=== PATIENT | female | born 1945 | race Caucasian/White ===

== ENCOUNTER 2023-12-03 16:02 | Inpatient (IN) | payer OTHER, SELFPAY ==
--- NOTE | 2023-12-03 14:16 | ED.GENMED ---
History of Present Illness
General
Chief Complaint: Chest Pain
Source: patient and ambulance crew
Exam Limitations: none
Time Seen by Provider: 12/03/23 14:16
Nursing documentation reviewed up to this point in time: agreed with
History of Present Illness
History of Present Illness:
78-year-old female presents the emergency department due to chest pain that began at 1 PM. She was sitting in a chair, and was active an hour prior, walking her dog. She also reports nausea. STEMI alert called prehospital. This was called upon
my viewing the EKG. Aspirin 324 given by EMS.
Past History
Past History
ED Past Medical History: HTN and Hypercholesterolemia
ED Past Surgical History: Other (Cataracts bilateral)
Social History
Tobacco: Non-smoker
Alcohol: None
Drug: None
Personal:
Living: with family
Review of Systems
Review of Systems
Allergies reviewed?: Yes
All Other Systems: Not applicable
Constitutional: Reports no symptoms
EENT: Reports no symptoms
Respiratory: Reports no symptoms
Cardiac: Reports chest pain
ABD/GI: Reports no symptoms
: Reports no symptoms
Musculoskeletal: Reports no symptoms
Skin: Reports no symptoms
Neurological: Reports no symptoms
Endocrine: Reports no symptoms
Hematologic/Lymphatic: Reports no symptoms
Psychiatric: Reports no symptoms
Phy Exam
Physical Exam
Physical Exam:
Physical Exam
General: Appears uncomfortable
Neck: supple. no meningeal signs. normal posterior pharynx
Heart: s1/s2 bradycardia, irregular, no murmur. equal radial
pulses.
HEENT: Pupils equal round reactive to light, EOMI
Lungs: no acute respiratory distress. clear bilaterally
Abdomen: normal bowel sounds. not tender. no CVAT
Neuro: alert and oriented. no focal neurological deficits cranial nerves II through XII intact
Skin: no rash
Psychiatric: well kept. interactive and cooperative
Extremities: no edema. no calf tenderness. negative homans. good distal pulses
Scores
Heart Score for Chest Pain Patients
STEMI patient?: Yes
Course
Orders/Labs/Results
Orders:
Orders
12/03/23 06:00
Echo Follow-up Study Routine
Reason for Study: stemi
12/03/23 14:12
Electrocardiogram (*1) Urgent
Reason for Study: Chest Pain
Cardiac Monitoring- Treatment ONCE
EKG- Treatment ONCE
IV Insert/Care/Rem.- Treatment PRN
O2 Therapy [RESP] Urgent
Titrate/Wean O2 to maintain O2 sat greater than (%): 90
Special Instructions: Maintain sats >/=90%
Pulse Ox/spot Check [RESP] Urgent
Quantity: 1
Special Instructions: ON ROOM AIR
12/03/23 14:14
Complete Blood Count/With Diff Urgent
Comprehensive Metabolic Panel Urgent
Prothrombin Time Urgent
Troponin I Urgent
12/03/23 14:16
Heparin 1000 Units/500 ml [Heparin] 1,000 units in 500 ml .ROUTE .STK-MED
Heparin Sodium,Porcine/Ns/Pf [Heparin 2000 Units/1000 ml] 2,000 unit in 1,000 ml .ROUTE .STK-MED
Lidocaine HCl/Pf [Xylocaine-Mpf 1% Vial] 100 mg .ROUTE .STK-MED ONE
Nitroglycerin [Tridil] 1,500 mcg .ROUTE .STK-MED ONE
Verapamil Injectable [Isoptin/Verapamil Injection] 5 mg .ROUTE .STK-MED ONE
12/03/23 14:33
Fentanyl Citrate/Pf [Sublimaze] 100 mcg .ROUTE .STK-MED ONE
Heparin 10,000 units .ROUTE .STK-MED ONE
Midazolam HCl [Versed] 2 mg .ROUTE .STK-MED ONE
12/03/23 14:36
Heparin 5,000 units .ROUTE .STK-MED ONE
Ticagrelor [Brilinta] 180 mg .ROUTE .STK-MED ONE
12/03/23 14:44
Code Status As Directed
Resuscitation Status: Full Code
Acetaminophen [Tylenol] 650 mg PO Q4HPRN PRN
DOPamine 400 MG/D5W 250 ML [DOPamine 400 MG] 400 mg in 250 ml .ROUTE .STK-MED
Morphine Sulfate 2 mg IV Q1HPRN PRN
12/03/23 14:45
Admit Patient As Directed
Co-Sign Provider:
Level of Care: Inpatient admission
Assign to:: CVICU
Physician / Group: Hospitalist/[place]
Diagnosis: STEMI
Reason for Hospitalization: STEMI, Cardiogenic shock, RCA PCI
Expected length of stay greater than two midnights?: Yes
ELOS- Estimated Length of Stay in days: 4
I certify the patient meets the requirements for IP care: Yes
Electrocardiogram (*1) Urgent
Reason for Study: Other
Other Reason for Exam: s/p intervention
Comment: cbc
CARDIAC REHAB CONSULT Routine
Co-Sign Provider:
Type of Cardiac Rehab Referral: Outpatient
Diagnosis: STEMI
Date of Diagnosis/Surgery: 12/03/23
Referring Provider: Ilir Lowery
0.9% Sodium Chloride 1000 ml [Nss] 1,000 ml IV PER PROTOCOL
Infusion rate in mL/kg/hr:: 1.5
Infusion rate in mL/hr:: 113
Duration of infusion (hours):: 5
Activity As Directed
Activity Level: Out of Bed- Chair
Comment: bed/chair rest for 2 hours then out of bed [place]
[facility] Procedure As Directed
Cardiac Cath Procedure: percutaneous coronary intervention
Intake/ Output As Directed
Frequency: Per unit guidelines
Notify MD As Directed
Notify physician if: immediately for chest pain or bleeding from access site(s)
Radial Artery Hemostasis Method As Directed
Instructions:: 3 mL out at 2 hour posts placement of band
3 mL out at 2 1/2 hours post placement of band
3 mL out at 3 hours post placement of band
Off at 3 1/2 hours post placement of band
If any oozing or hemotoma occurs:: re-inflate band and call provider
Site Checks As Directed
Check access site for bleeding/hematoma: Yes
Comment: on arrival, Q15min x4, Q30min x2, Q1 hr x2, Q2 hr x2, Q4 hr or per
protocol
Vascular Checks As Directed
Location: distal to access site - pulse check
Frequency: Other
Comment: on arrival, Q15min x4, Q30min x2, Q1 hr x2, Q2 hr x2, Q4 hr or per protocol
Vital Signs As Directed
Frequency: Other
Additional Instructions:: on arrival, Q15min x4, Q30min x2, Q1 hr x2, Q2 hr x2, then Q4 hr or per unit
protocol
PRN Pain Medication Management As Directed
May give lesser potent ordered pain med per pt: Yes
preference::
Protocol:: Medication orders for pain may be administered in a
manner that supports deferring to patient preference
when the pt is:
- Requesting an ordered lesser potent pain medication.
Least to most potent pain medications are defined
as: acetaminophen < NSAID < tramadol < opioids
(morphine, oxycodone, hydromorphone).
- Requesting a lesser dose of the same medication IF
ORDERED.
- Requesting a less intrusive route of administration
if both routes are prescribed by the provider (PO <
IV).
12/03/23 14:46
DX Deep Vein Thrombosis Video Routine
12/03/23 14:54
NORepinephrine 4 MG/250 ML [Levophed] 4 mg in 250 ml .ROUTE .STK-MED
12/03/23 14:56
ABG [Arterial Blood Gas] Stat
%Oxygen/Room Air: 100%F1O2
12/03/23 15:01
Ondansetron Injectable [Zofran] 4 mg .ROUTE .STK-MED ONE
12/03/23 15:03
Lactic Acid Stat
12/03/23 15:16
Atropine Sulfate [Atropine 0.1 mg/ml Syringe] 1 mg .ROUTE .STK-MED ONE
12/03/23 15:25
Propofol 1,000,000 Mcg/100 ml [Diprivan] 1,000,000 mcg in 100 ml .ROUTE .STK-MED
12/03/23 15:26
Dexamethasone Sod Phosphate [Decadron] 20 mg .ROUTE .STK-MED ONE
Ondansetron Injectable [Zofran] 4 mg .ROUTE .STK-MED ONE
12/03/23 15:37
Heparin 1000 Units/500 ml [Heparin] 1,000 units in 500 ml .ROUTE .STK-MED
12/03/23 16:00
Flush (0.9% Sodium Chloride) [Flush (Nss)] See Dose Instructions IV PER PROTOCOL
12/04/23 02:00
Troponin I Q6H
12/04/23 06:00
Electrocardiogram (*1) IN AM
Reason for Study: Other
Other Reason for Exam: s/p intervention
Comment: cbc
Cardiovascular Evaluation IN AM
Complete Blood Count/No Diff IN AM
Comprehensive Metabolic Panel IN AM
12/04/23 08:00
Troponin I Q6H
Pantoprazole [Protonix] 40 mg PO DAILY
12/04/23 18:00
Enoxaparin Sodium [Lovenox] 40 mg SC QPM
12/05/23 06:00
Electrocardiogram (*1) IN AM
Reason for Study: Other
Other Reason for Exam: s/p intervention
Comment: cbc
Complete Blood Count/No Diff IN AM
Comprehensive Metabolic Panel IN AM
Abnormal Lab Results
12/03/23 12/03/23 12/03/23
14:14 14:34 14:48
WBC 13.7 H 10^3/uL
(4.8-10.8)
RDW 14.6 H %
(11.5-14.5)
Abs Immat Gran (auto) 0.1 H 10^3/uL
(0-0.05)
Absolute Neuts (auto) 7.8 H 10^3/uL
(1.4-6.5)
Absolute Lymphs (auto) 3.9 H 10^3/uL
(1.2-3.4)
Absolute Monos (auto) 1.5 H 10^3/uL
(0.1-0.6)
Monocytes % 10.9 H %
(1.7-9.3)
HCO3
ABG O2 Sat (Measured)
Carbon Dioxide 19 L mmol/L
(22-30)
Creatinine 1.1 H mg/dL
(0.6-1.0)
Glucose 166 H mg/dl
(70-99)
Lactic Acid
AST 77 H U/L
(14-36)
ALT 44 H U/L
(0-35)
Alkaline Phosphatase 255 H U/L
(38-126)
POC ACT Low Range 186 H Seconds 271 H Seconds
(116-155) (116-155)
12/03/23 12/03/23 12/03/23
14:56 15:03 15:05
WBC
RDW
Abs Immat Gran (auto)
Absolute Neuts (auto)
Absolute Lymphs (auto)
Absolute Monos (auto)
Monocytes %
HCO3 19.8 L mmol/L
(21-28)
ABG O2 Sat (Measured) 100.0 H %
(94-98)
Carbon Dioxide
Creatinine
Glucose
Lactic Acid 3.3 H mmol/L
(0.7-2.0)
AST
ALT
Alkaline Phosphatase
POC ACT Low Range 281 H Seconds
(116-155)
12/03/23
15:53
WBC
RDW
Abs Immat Gran (auto)
Absolute Neuts (auto)
Absolute Lymphs (auto)
Absolute Monos (auto)
Monocytes %
HCO3
ABG O2 Sat (Measured)
Carbon Dioxide
Creatinine
Glucose
Lactic Acid
AST
ALT
Alkaline Phosphatase
POC ACT Low Range 303 H Seconds
(116-155)
12/03/23 14:14
12/03/23 14:14
Vital Signs
Initial and Last Documented VS:
Initial Vital Signs
Pulse Resp BP Pulse Ox
59 15 151/111 99
12/03/23 14:19 12/03/23 14:19 12/03/23 14:19 12/03/23 14:19
Last Documented Vital Signs
Pulse Resp BP Pulse Ox
59 16 159/112 99
12/03/23 14:27 12/03/23 14:27 12/03/23 14:27 12/03/23 14:27
MDM/Problems Addressed
Differential Diagnosis Includes:
STEMI, dissection
MDM/Problems Addressed:
78-year-old female with STEMI, taken to [facility] by Dr. Arellano.
Chronic conditions affecting care: HTN
Acute Exacerbation and/or Progression of Chronic Illness: HTN
*Pulse Oximetry
Patient hypoxic: no
*EKG
Interpreted by ED Provider?: Yes
EKG Intrepretation Date: 12/03/23
EKG Intrepretation Time: 14:14
Interpretation: abnormal
Comparison EKG: no comparison EKG present
Heart Rate: 51
Rate: bradycardiac
Rhythm: a-fib
[place]: right axis deviation
Interval: normal interval
QRS Pattern: normal QRS
Ischemia: ST elevation
*Goods Layer Interpretation
Rate: bradycardiac
Interpretation: abnormal
Heart Rate: 57
Rhythm: sinus tachycardia
*Critical Care Note
Total Time (30-74mins, 75-104mins- exclusive of procedures): Not Applicable
Patient Management
Social determinants of health affecting care: Living situation
Discussion with other providers: Inventory Manager (cardioinvasive Dr. Arellano)
Escalation/DeEscalation of care consider admission/obs:
admit indicated
ED Attending Note
-
Portions of this chart may have been created with voice recognition software.� Occasional wrong word or��sound alike� substitutions may have occurred due to the inherent limitations of voice recognition software.
Discharge Plan
Departure
Patient Disposition: WE[facility] INSTRUCTOR
Date of Disposition: 12/03/23
Time of Disposition: 14:17
Admit to: center medical and lab director
Presentation/result/management discussed w/ accepting MD/DO: cardiology Dr. Arellano
Patient with high blood pressure during this ER visit?: Yes
Condition: Serious
Discharge Problem:
ST elevation (STEMI) myocardial infarction
Interventions
Interventions:
*Risk Screen - Suicide Last Done: 12/03/23 14:25
*General Assessment Last Done: 12/03/23 14:25
*Neglect/Abuse Screening Last Done: 12/03/23 14:25
ED- Fall Risk Assessment Last Done: 12/03/23 14:27
*ED COVID-19 Vaccine History Last Done: 12/03/23 14:26
*Nursing Disposition Last Done: 12/03/23 14:27
ED- Cardiac Assessment Last Done: 12/03/23 14:31
Discharge Date and Time
Discharge Date/Time: 12/03/23 14:27
[2023-12-03 14:19] VITALS: BP 151/111
[2023-12-03 14:24] LABS: % Basophils 0.7 % (0-2); % Immature Granulocytes 0.4 % (0-0.5); % Lymphocytes 28.8 % (20.5-51.1); % Monocytes 10.9 % (1.7-9.3); % Neutrophils 57.2 % (42.2-75.2); Absolute Basophils 0.1 10^3/uL (0-0.2); Absolute Eosinophils 0.3 10^3/uL (0-0.7); Absolute Immature Granulocytes 0.1 10^3/uL (0-0.05); Absolute Lymphocytes 3.9 10^3/uL (1.2-3.4); Absolute Monocytes 1.5 10^3/uL (0.1-0.6); Absolute Neutrophils 7.8 10^3/uL (1.4-6.5); Hematocrit 38.4 % (37.0-47.0); Hemoglobin 13.2 g/dL (12.0-16.0); Mean Corp Hgb Conc. 34.4 g/dL (33.0-37.0); Mean Corpuscular Hgb 30.3 pg (27.0-31.0); Mean Corpuscular Volume 88.3 fL (81.0-99.0); Mean Platelet Volume 10.4 fL (7.4-10.4); Nucleated Red Blood Cells % 0 %; Platelet Count 293 10^3/uL (130-400); Red Blood Cell Count 4.35 10^6/uL (4.20-5.40); Red Cell Dist. Width 14.6 % (11.5-14.5); White Blood Cell Count 13.7 10^3/uL (4.8-10.8)
[2023-12-03 14:27] VITALS: BP 159/112; BMI 26.7
[2023-12-03 14:33] LABS: INR 1.01; PT 13.1 Sec (11.4-14.6)
[2023-12-03 14:37] LABS: ALT (SGPT) 44 U/L (0-35); AST (SGOT) 77 U/L (14-36); Albumin 4.4 g/dl (3.5-5.0); Alkaline Phosphatase 255 U/L (38-126); Blood Urea Nitrogen 16 mg/dl (7-17); Calcium 9.5 mg/dl (8.4-10.2); Carbon Dioxide 19 mmol/L (22-30); Chloride 107 mmol/L (98-107); Estimated Creatinine Clearance 39 ml/min; Glucose 166 mg/dl (70-99); Potassium 3.9 mmol/L (3.5-5.1); Sodium 138 mmol/L (135-145); Total Bilirubin 0.4 mg/dl (0.2-1.3); Total Protein 7.9 g/dl (6.3-8.2); eGFR 51.43
[2023-12-03 14:41] LABS: ACT-LR - POC 186 Seconds (116-155)
[2023-12-03 14:49] LABS: Troponin I < 0.012 ng/ml
[2023-12-03 14:53] LABS: ACT-LR - POC 271 Seconds (116-155)
[2023-12-03 15:10] LABS: ACT-LR - POC 281 Seconds (116-155)
[2023-12-03 15:22] LABS: Lactic Acid 3.3 mmol/L (0.7-2.0)
[2023-12-03 15:39] LABS: B.E. -4.9 mmol/L; HCO3 19.8 mmol/L (21-28); PCO2 35 mmHg (32-35); PO2 105 mmHg (83-108); pH 7.36 (7.35-7.45)
--- NOTE | 2023-12-03 15:45 | CON.CAR ---
Consultation
Consultation Request
Date/Time Consultation Performed: 12/03/23 1500
Performing Provider: MIKE Belle for Genaro Arellano MD
Reason for Consultation: STEMI
Medical History
-
Chief Complaint: chest pain
History of Present Illness:
78 y/o white female, PMH sig for HTN, HLD, hypothyroid, epilepsy, elevated LFTs, and FH CAD, CVA.
New onset acute chest pain while at rest associated with nausea. Endorses that she recently walked her dog without symptoms. She called EMS, and inital EKG with inferior and lateral ST elevations. Given 324mg asa and tranported to ER.
Brought emergently to catheter finisher and inspector in cardiogenic shock, started on dopamine and norepinephrine gtts. Rhythm with heart block requiring atropine as well as afib/flutter with VT, shocked once for VF. Ultimately intubated and impella placed via RFA.
Initial troponin <0.012, lactic acid 3.3.
Past Medical History
Past Medical History: HTN, Hypercholesterolemia, Hypothyroidism and Other (Epilipsy, Elevated LFTs)
Past Surgical History: Tonsilectomy
Social History
Tobacco: Non-Smoker
Alcohol: None
Drug: None
Personal:
Living: With Family
Employment: Not Employed
Family History
Family History: Early CAD, CAD and Other (CVA)
Allergies / Home Medications
Allergy/AdvReac Type Severity Reaction Status Date / Time
No Known Allergies Allergy Unverified 12/03/23 14:19
�Medication �Instructions �Recorded �Confirmed �Type
atorvastatin 40 mg tablet (Lipitor) 40 mg PO DAILY 12/03/23 12/03/23 History
levothyroxine 125 mcg tablet 125 mcg PO DAILY 12/03/23 12/03/23 History
(Synthroid)
lisinopril 40 mg tablet 40 mg PO DAILY 12/03/23 12/03/23 History
phenytoin sodium extended 100 mg 300 mg PO Q48H 12/03/23 12/03/23 History
capsule
phenytoin sodium extended 100 mg 400 mg PO Q48H 12/03/23 12/03/23 History
capsule
Review of Systems
-
Unable to obtain full review of systems at this time due to: Acuity
History Source: Physician and Other (primary office note)
All other systems: Negative unless noted
Cardiac: Chest Pain
Abdomen/GI: Nausea
Physical Exam
Vital Signs
Pulse Resp BP Pulse Ox
59 16 159/112 99
12/03/23 14:27 12/03/23 14:27 12/03/23 14:27 12/03/23 14:27
Lab Results
Laboratory Tests
12/03/23 12/03/23 12/03/23
14:14 14:56 15:03
PT 13.1
INR 1.01
pH 7.36
pCO2 35
pO2 105
HCO3 19.8 L
Base Excess -4.9
ABG O2 Sat (Measured) 100.0 H
Estimated Creat Clear 39
eGFR 51.43
Lactic Acid 3.3 H
Calcium 9.5
Total Bilirubin 0.4
AST 77 H
ALT 44 H
Alkaline Phosphatase 255 H
Total Protein 7.9
Albumin 4.4
12/03/23 14:14
12/03/23 14:14
Troponin I < 0.012 ng/ml 12/03/23 14:14
Physical Exam
General: Well Developed and Other (PE deferred due to urgent nature of cath)
Impression / Plan
-
78 y/o white female, PMH sig for HTN, HLD, hypothyroid, epilepsy, elevated LFTs, and FH CAD, CVA.
New onset acute chest pain while at rest associated with nausea. Endorses that she recently walked her dog without symptoms. She called EMS, and inital EKG with inferior and lateral ST elevations. Given 324mg asa and tranported to ER.
Brought emergently to catheter finisher and inspector in cardiogenic shock, started on dopamine and norepinephrine gtts. Rhythm with heart block requiring atropine as well as afib/flutter with VT, shocked once for VF. Ultimately intubated and impella placed via RFA.
Initial troponin <0.012, lactic acid 3.3.
IMPRESSION:
Acute inferolateral STEMI
Cardiogenic shock with impella/pressor support
intubated with ventilator support
LHC with RCA and LAD thrombotic occlusions
anticipate angioplasty and stenting
likely DAPT w/asa, brilinta
trend troponin to peak
Cartography Supervisor consult for vent/critical care management
echo in AM
HLD- lipid profile in AM
on statin therapy with atorvastatin 40/d
Epilepsy- phenytoin 300mg alt w/400mg every other day
consider drug interactions
consult neuro
Elevated LFTs- monitoring per PCP
will repeat in AM- on phenytoin and atorvastatin as outpt
Data Reviewed
-
EKG: Tracing Personally Visualized and interpreted, Report Reviewed by me and Discussed with Physician
Labs: Labs Reviewed by me and Discussed with Physician
Old Records: Reviewed
Critical Care Time (in minutes): 90
[2023-12-03 15:59] LABS: ACT-LR - POC 303 Seconds (116-155)
--- NOTE | 2023-12-03 16:07 | W.PN.ANESINT ---
Anesthesia Intubation Note
- Intubation Note
Intubation Note:
Diagnosis: STEMI
Blade: MAC3
Tube Size: 8.0
Depth: 23
Side Taped:R
Drugs Used:Propofol 40 mg, Anectine 120mg, Rocuronium 50mg, Phenylep[hrine 300mcg, Decadron 8mg, Zofran 4mg
Grade View:gr 1
EtCO2 Present:pos
Atraumatic:yes
Attempts: 1
Insertion Start and Stop Time:15:15
SaO2 Pre:99
SaO2 Post:100
Glidescope Used:yes
Other Airway Adjustments:
Pre-Oxygenated:yes
Portable Chest X-Ray:no
RSI:yes
Suctioned:yes
Bilateral Breath Sounds Confirmed: B/L
Vent Settings:
Settings per ___Attending Physician
--- NOTE | 2023-12-03 17:00 | HPS.HSE ---
Family Physician
-
Family Physician: NO INTERVIEW UNKNOWN
Chief Complaint
-
chest pain
History of Present Illness
78-year-old female past medical history of hypertension, hyperlipidemia, hypothyroidism, epilepsy, elevated liver enzymes, presented with acute onset of chest pain at rest associated with nausea today. She called EMS and initial EKG with inferior
and lateral ST elevations was noted. STEMI alert was called and patient was brought to [employer] [facility] in cardiogenic shock and started on dopamine/norepinephrine drips. Rhythm showed heart block requiring atropine as well as the atrial
fibrillation/flutter with VT and she was shocked multiple times for VT/VF. Patient was ultimately intubated and Impella was placed. Patient underwent 4 stents in RCA. Postoperatively patient developed hemorrhage from the right groin Impella site
with significant decrease in hemoglobin. Vascular surgery was called and for cutdown exposure of right femoral vessels, repair of right superficial femoral artery bleeding.
Medical History
Past Medical History
Past Medical History: Reports Other ( hypertension, hyperlipidemia, hypothyroidism, epilepsy, elevated liver enzymes)
Past Surgical History: Reports None
Social History
Tobacco: Non-smoker
Alcohol: None
Drug: None
Family History
Family History: Not pertinent
Allergies / Home Medications
Allergies reflects when Allergies were last updated in [employer].
Home Medications with original date entered in [employer]
Allergy/Medication List:
Allergies
Allergy/AdvReac Type Severity Reaction Status Date / Time
No Known Allergies Allergy Unverified 12/03/23 14:19
Home Medications
atorvastatin 40 mg tablet (Lipitor) 40 mg PO DAILY 12/03/23
levothyroxine 125 mcg tablet (Synthroid) 125 mcg PO DAILY 12/03/23
lisinopril 40 mg tablet 40 mg PO DAILY 12/03/23
phenytoin sodium extended 100 mg capsule 300 mg PO Q48H 12/03/23
phenytoin sodium extended 100 mg capsule 400 mg PO Q48H 12/03/23
Review of Systems
-
Unable to obtain full review of systems at this time due to: Patient Intubation
History Source: Physician
Physical Exam
Vital Signs
Vital Signs
Pulse Resp BP Pulse Ox
59 16 159/112 99
12/03/23 14:27 12/03/23 14:27 12/03/23 14:27 12/03/23 14:27
Physical Exam
General: Well Developed, Well Nourished and No Apparent Distress
HEENT: NormoCephalic, Moist mucous membranes and Atraumatic
Respiratory: Clear
Cardiac: S1/S2 and Regular Rhythm; No Murmur or Rub
GI: Soft, Non Tender, Non Distended and Normal Bowel Sounds; No Organomegaly
Rectal: Deferred by Provider
Musculoskeletal: No Clubbing, No Cyanosis and No Edema
Skin: No Rash
Neuro: Nonfocal/grossly intact
Laboratory Results
-
12/03/23 14:14
12/03/23 14:14
Laboratory Results
PT 13.1 Sec (11.4-14.6) 12/03/23 14:14
INR 1.01 12/03/23 14:14
pH Cancelled 12/03/23 15:03
pCO2 Cancelled 12/03/23 15:03
pO2 Cancelled 12/03/23 15:03
HCO3 Cancelled 12/03/23 15:03
Lactic Acid 3.3 mmol/L (0.7-2.0) H 12/03/23 15:03
Total Bilirubin 0.4 mg/dl (0.2-1.3) 12/03/23 14:14
AST 77 U/L (14-36) H 12/03/23 14:14
ALT 44 U/L (0-35) H 12/03/23 14:14
Alkaline Phosphatase 255 U/L (38-126) H 12/03/23 14:14
Troponin I < 0.012 ng/ml 12/03/23 14:14
Data Reviewed
-
Lab Data: Labs Reviewed by me
Old Records: Reviewed
Impression/Plan
-
IMPRESSION:
PLAN:
# Acute inferiolateral STEMI s/p 4 RCA stents
# Cardiogenic shock with Impella/pressor support
# VT/VF status post multiple shocks
-RCA, LAD thrombotic occlusions
-Patient intubated on propofol drip
-Currently on Levophed, dopamine, amiodarone drips
-Has not had any further VT/VF on amiodarone drip, did have some intermittent bradycardia
-Heparin drip
-aspirin, Brilinta
-keep Impella overnight
-Echo in a.m
-cardiology following
# Mixed metabolic acidosis/respiratory acidosis secondary to cardiogenic shock/anemia
-Second ABG shows worsening metabolic acidosis, slight respiratory acidosis
-Monitor with blood transfusions
#Acute anemia secondary to right groin hemorrhage from right femoral artery bleeding after Impella
-Hb dropped from 13.2 to 9.4 postop
-4 units blood, 1 units platelets, 1 FFP currently being given
-Vascular surgery performed cutdown exposure of right femoral vessels, repair of right superficial femoral artery bleeding
-Minimal bleeding at this time
# Hypocalcemia
-Calcium given
Essential hypertension
-Hold lisinopril
Hyperlipidemia
-continue statin
Epilepsy
-Continue phenytoin as IV
Hypothyroidism
-Continue levothyroxine
Chronic transaminitis
Full code
DVT prophylaxis�heparin drip
N.p.o.
[2023-12-03 17:14] LABS: ACT-LR - POC 276 Seconds (116-155)
[2023-12-03 17:26] LABS: B.E. -5.8 mmol/L; HCO3 19.5 mmol/L (21-28); PCO2 37 mmHg (32-35); PO2 246 mmHg (83-108); pH 7.33 (7.35-7.45)
[2023-12-03 18:24] LABS: ACT-LR - POC 263 Seconds (116-155)
[2023-12-03 19:14] LABS: Hemoglobin 9.4 g/dL (12.0-16.0); Mean Corp Hgb Conc. 33.6 g/dL (33.0-37.0); Mean Corpuscular Hgb 30.7 pg (27.0-31.0); Mean Corpuscular Volume 91.5 fL (81.0-99.0); Mean Platelet Volume 10.6 fL (7.4-10.4); Platelet Count 234 10^3/uL (130-400); Red Blood Cell Count 3.06 10^6/uL (4.20-5.40); Red Cell Dist. Width 14.7 % (11.5-14.5); White Blood Cell Count 13.5 10^3/uL (4.8-10.8)
[2023-12-03 19:25] LABS: Mixed Venous O2 Saturation 99.9 %
[2023-12-03 19:45] LABS: Blood Urea Nitrogen 16 mg/dl (7-17); Carbon Dioxide 17 mmol/L (22-30); Chloride 109 mmol/L (98-107); Estimated Creatinine Clearance 54 ml/min; Glucose 349 mg/dl (70-99); Sodium 137 mmol/L (135-145); eGFR > 60.00
[2023-12-03 19:46] LABS: Calcium 6.7 mg/dl (8.4-10.2)
[2023-12-03 19:53] LABS: ACT-LR - POC 329 Seconds (116-155)
[2023-12-03 20:22] LABS: B.E. -12.5 mmol/L; Ionized Calcium 0.94 mMOL/L (1.15-1.33); O2 Saturation % 98.6 % (94-98); PCO2 41 mmHg (32-35); PO2 89 mmHg (83-108); Potassium 3.2 mMOL/L (3.5-5.1)
[2023-12-03 20:23] LABS: pH 7.18 (7.35-7.45)
[2023-12-03 20:24] LABS: HCO3 15.3 mmol/L (21-28)
[2023-12-03 20:34] LABS: B.E. - POC -12.4 mmol/L; Glucose - POC 507 mg/dl (65-99); HCO3 - POC 14 mmol/L (21-29); Hematocrit - POC 33 % PCV (37-47); Hemodilution- POC No; Hemoglobin Calculated - POC 11.3; Lactate - POC 7.81 mmol/L (0.36-0.75); O2 Saturation %Calculated-POC 89.2 5 (92-96); PCO2 - POC 34 mmHg (35-45); PO2 - POC 67 mmHg (80-100); Potassium - POC 3.6 mmol/L (3.6-5.0); Sodium - POC 140 mmol/L (135-145); pH - POC 7.23 (7.35-7.45)
--- NOTE | 2023-12-03 21:19 | OR.RPT ---
Operative Report
Operative Report
Date of Operation: 12/03/2023
Pre Op Diagnosis: Right groin hemorrhage status post Impella device placement
Post Op Diagnosis: Right groin hemorrhage status post Impella device placement
Procedure:
1.) Cutdown and exposure of right femoral vessels
2.) Repair of right superficial femoral artery bleeding at the Impella device access site
Surgeon: Jett Castillo III, MD
Anesthesia: General
Complications: None
Estimated Blood Loss: 100 cc
History and Indications for Procedure: 78-year-old female undergoing emergent percutaneous coronary intervention and Impella device placement developed hemodynamic instability and right groin hemorrhage. Arteriogram demonstrated extravasation from
around the access site. There was no option to remove the Impella device and place it on the contralateral side. After consulting with the interventional cardiology team we made the decision to cutdown on the right groin for
Procedure in Detail: I was called to the Cloth Winding Supervisor emergently for assistance with right groin bleeding. Patient was undergoing emergent percutaneous coronary intervention and had a Impella device placed in the right groin. She developed a right
groin hematoma associated with hemodynamic instability and arteriogram demonstrated extravasation from the access site. There was no option to remove the Impella device and place it on the contralateral side. After consulting with the
interventional cardiology team we made the decision to cut down on the right groin to obtain control and preserve the Impella.
A vertical incision was made in the right groin centered over the Impella access site. Electrocautery was used on the subcutaneous tissue. The device was traced down to the arterial access site. Sharp dissection was used to expose the femoral
vessels. The arterial access site for the Impella was at the very proximal superficial femoral artery near the femoral bifurcation. The distal common femoral artery was sharply exposed and loop control was obtained. The proximal superficial
femoral artery, distal to the access site, was controlled with a vessel loop. The proximal profunda femoral artery was sharply exposed and control was obtained with a vessel loop. With gentle manipulation of the Impella device I was able to
localize the site of the bleeding. There was brisk arterial bleeding from the superficial femoral artery access site from the posterior aspect/underside of the sheath. The patient was already systemically heparinized from the coronary
intervention. The vessel loops were secured. I was able to place several interrupted 6-0 Prolene sutures oriented in such a way that the arterial wall at the access site cinched down around the sheath for hemostasis. Following this maneuver I
released the vessel loops and waited several minutes to observe the access site. There appeared to be complete hemostasis at the access site and no bleeding was identified. Doppler signals were audible in the superficial femoral artery distal to
the access site as well as the profunda femoral artery. Hemostasis was achieved in the wound bed with electrocautery. I placed thrombin-soaked Gelfoam around the arterial access site. The wound was then packed with a Betadine soaked Ray-Bob
sponge. The Impella device was secured to the skin with a silk suture. The skin was then reapproximated with interrupted Nylon sutures placed in a vertical mattress fashion.
I then turned the case back over to the interventional cardiology team.
Signed:
Jett Castillo III, MD
[facility]ascular Surgery
[phone] (egzp)
--- NOTE | 2023-12-03 22:00 | PTCARENOTE ---
Addendum entered by Brent Quintanilla RN 12/04/23 08:44:
temp 88.8. Patricio mendoza applied
Original Note:
Assumed care of patient @ 2200. Received pt from CCL intubated, sedated on mechanical ventilation. Pupils equal and reactive to light. Flipping between sinus with bundle and afib on tele. BPS extremely labile. 5.5 impella through R groin on p6. PAPs
20s/10s, CVP 8. Temp pacer set to backup 50,20,1. Lungs clear, diminished on vent. 8.0 Tube 23 @ lip. Belly hypoactive. longo with brown/bloody urine. R groin incision bleeding, CTPA notified, redressed. R IJ cordis with swan, L radial A line, R
femoral venous sheath with temp pacer. Recieved with levo 30, dopa 20, prop 50, amio 1. 1 platelet and 2 FFP given on arrival
[2023-12-03 22:08] VITALS: BP 95/68
[2023-12-03 22:33] LABS: Glucose - Point of Care 450 mg/dl (70-99)
[2023-12-03 22:49] LABS: Hematocrit 43.6 % (37.0-47.0); Hemoglobin 14.6 g/dL (12.0-16.0); Mean Corp Hgb Conc. 33.5 g/dL (33.0-37.0); Mean Corpuscular Hgb 29.9 pg (27.0-31.0); Mean Corpuscular Volume 89.2 fL (81.0-99.0); Mean Platelet Volume 10.7 fL (7.4-10.4); Platelet Count 189 10^3/uL (130-400); Red Blood Cell Count 4.89 10^6/uL (4.20-5.40); Red Cell Dist. Width 15.6 % (11.5-14.5); White Blood Cell Count 25.1 10^3/uL (4.8-10.8)
[2023-12-03 23:00] VITALS: BP 131/67
[2023-12-03 23:36] LABS: Blood Urea Nitrogen 14 mg/dl (7-17); Calcium 8.1 mg/dl (8.4-10.2); Carbon Dioxide 8 mmol/L (22-30); Chloride 110 mmol/L (98-107); Estimated Creatinine Clearance 43 ml/min; Glucose 486 mg/dl (70-99); Sodium 136 mmol/L (135-145); eGFR 57.66
--- NOTE | 2023-12-03 23:56 | ITS.CL.ANGIO ---
Addendum entered and electronically signed by Azeem Arellano MD 12/05/23 22:13:
Addendum to document detailed hemodynamics and to document critical care time during procedure.
HEMODYNAMICS PRE PCI (mmHg)
AO 123/65 (84)
LV 126/18 (EDP 23)
RA 18
HEMODYNAMICS POST-PCI ON IMPELLA (mmHg)
AO 65/53 (57)
RA 6
RV 23/6 (8)
PA 19/11 (14)
PCWP 7
Documentation of critical care time: After completion of the revascularization procedure and exchange of the Impella single access sheath for the inline sheath, the patient experienced progression hypotension as documented. This was evaluated with
bedside echocardiography, repeat limited angiography of the right coronary artery, and right heart catheterization. It was determined that the patient was suffering from hemorrhagic shock from bleeding from her Impella site. Titration of pressors
and inotropes was performed based on continuous hemodynamic monitoring. Blood product administration was performed, with serial monitoring of blood counts and electrolytes, and electrolyte repletion ordered as needed. Ventilator setting were
titrated and bicarbonate gtt were administered to manage primary lactic acidosis. This management was performed continuously and throughout the duration of the time that the patient remained in the optical laboratory technician as well as once the patient was
transported from the optical laboratory technician to the ICU. In total: 240 minutes critical care time in addition to time spent performing the cath procedures previously documented.
Original Note:
Final Finisher Forging Dies - Angioplasty
Angioplasty
Procedure Report:
CARDIAC CATHETERIZATION REPORT
Date of Procedure: 12/03/2023
Referring: Dr. Helder Stephenson MD
Executive Office Manager: Dr. Azeem Arellano (primary), Dr. Owen Lowery (assisting)
Additional Operators: Dr. Jett Castillo (Vascular Surgery)
PROCEDURES PERFORMED:
1. Coronary angiography
2. Left heart catheterization
3. Right heart catheterization
4. Impella placement
5. PCI in setting of acute WI to 100% thrombotic RCA with placement of PATRICIA x5
6. Temporary venous pacemaker placement
7. Selective angiograph of the right lower extremity
CORONARY ANGIOGRAPHY:
Dominance: right
Left Main: normal vessel with trivial luminal irregularities
LAD: proximally 100% occluded with the mid-distal vessel supplied via left-left and right-left collaterals. There is thrombus with dye staining in the mid LAD.
Circumflex: tortuous vessel giving rise to a moderate caliber OM1 that bifurcates early and a large OM2. There is mild non-obstructive disease.
RCA: tortuous vessel that gives rise to a large marginal branch, moderate caliber RPDA, and small posterolateral system. There is thrombus throughout the proximal to mid RCA with SUSY 0 flow distally.
PROCEDURE NARRATIVE:
After obtaining the diagnostic angiography described above, the patient was bradycardic with marginal blood pressures. Right common femoral vein access was obtained to perform right heart catheterization. With entry of the balloon catheter into the
RV, the patient experienced VFib arrest requiring defibrillation. Amiodarone bolus was given and drip was started. Limited right heart catheterization was performed demonstrating RA ~20 mmHg and SvO2 in the 30s, suggestive of profound shock.
Dopamine and norepinephrine were started and titrated to achieved adequate MAPs. It was felt that hemodynamic support would be necessary to perform successful revascularization. Cardiac surgery was consulted and evaluated the patient at bedside. It
was decided that the best course of action would be Impella CP placement followed by attempted PCI to the LAD and then RCA, with backup emergent CABG if unsuccessful.
Right common femoral artery access was obtained under ultrasound guidance. After serial dilation, the Impella sheath was placed over a stiff wire. A pigtail catheter was used to cross the aortic valve, and a 0.018' wire placed in the ventricle over
which the Impella was advanced with position confirmed fluoroscopically. Impella therapy was initiated successful with improvement in patient hemodynamics. Additional heparin was administered for goal ACT>250. Prior to Impella placement, the patient
had experienced emesis and given her profound shock and inability to protect her airway, anesthesia was called and intubated the patient. She was sedated with propofol drip. We then proceeded with PCI.
The left main was engaged with an XB3.5 guide catheter. A Whisper wire was unable to pass through the 100% occlusion in the mid-vessel. A Fielder XT wire supported by microcatheter was also unable to cross, all suggestive that the LAD was a ROCK STAR and
likely not the culprit vessel for presentation. Angiography demonstrated no dissection or complication in the left coronary system. We then switched our attention to the RCA.
The RCA was engaged with a JR4 guide catheter. Despite support from an over the wire balloon, the lesion could not be successfully wired due to tortuosity and lack of support. A guideliner was placed allowing for successful wiring and placement of a
long Whisper wire in the distal vessel. Initial lesion preparation was performed with serial inflations of a 2.5x12 mm balloon with worship of distal flow. We then proceeded with stenting. Given the large thrombus burden throughout the vessel,
we elected to treat distal to proximal back to the ostium. With guideliner support and aided by balloon assisted tracking and balloon anchoring, overlapping 2.5x34, 3.0x34, and 3.5x34 Maura were placed in the distal to mid-RCA. The mid-RCA stents
were then post-dilated with a 3.25 mm NC balloon to high pressure. Next, overlapping 3.5x34 and 3.5x15 PATRICIA were placed in the proximal to ostial RCA. Further NC ballooning was performed with a 3.5 mm NC taken to high pressure proximally and used to
flare the ostium. Final angiography demonstrated an excellent result without evidence of complication. During the procedure, the patient had episodes of VT requiring defibrillation. MAPs remained adequate with adjustment of pressors/inotrope and
Impella P-level .
It was decided that the patient would require ongoing Impella support post-procedurally with plan to wean as tolerated. The Impella tear away sheath was replaced with the inline sheath in the typical manner without complication. After sheath
exchanged, the patient developed progressive hypotension and bradycardia over ~15 minutes. Bedside TTE was performed and did not demonstrate pericardial effusion with EF remaining mildly reduced at ~40-45%. Repeat angiography of the RCA demonstrated
widely patent stents. A right internal jugular sheath was placed and Hachita Sandrine catheter advanced to the PA. Given ongoing bradycardia, a temporary venous pacemaker was placed from the right femoral vein sheath and set to backup. There was noted to
be an expanding hematoma in the right thigh. Using a pigtail catheter from the radial artery, hand injection DSA of the right iliofemoral system demonstrated extravasation at the site of the arteriotomy. Hypotension continued despite manual pressure
at the groin site, escalating doses of pressures, and administration of several liters of crystalloid and 2 units of pRBCs. Suckdown was noted intermittently on the Impella, requiring reduction in P-levels. Hemoglobin was noted to have dropped from
13 before the case to 9. It was felt that the extravasation could not be managed conservatively, so Vascular Surgery was consulted emergently and performed a cutdown on the vessel (with Impella left in place). Please see their separate note for
further details. On direct visualization, extensive bleeding was noted from a tear at the sheath entry point, and primary repair was performed. No active extravasation was noted after the repair, and there were adequate lower extremity Doppler
signals bilaterally. Filling pressures on right heart catheterization remained low and blood pressure labile. Another 2 units of pRBCs were administered. Pressors and Impella P-level were titrated. Vent settings were adjusted and bicarb administered
to treat metabolic acidosis. Electrolytes were monitored and repleted. With these measures, the patient's blood pressure stabilized. The radial artery was closed with a TR band and the RIJ swan and RFV TVP secured with suture and Tegaderm. The
patient was then transported to the ICU in stable but critical condition and the family updated.
CONCLUSIONS:
1. Severe two-vessel obstructive coronary artery disease in the setting of inferior STEMI with 100% thrombotic culprit stenosis in the RCA.
2. Left heart catheterization with elevated LV filling pressure and no aortic stenosis.
3. Right heart catheterization with elevated right sided filling pressure and severely reduced cardiac output based on assumed Mello from RA saturation.
4. Successful placement of CP Impella from the right groin for hemodynamic support.
5. Attempted angioplasty to the LAD. Unable to cross a wire thorough the proximal LAD with the lesion was behaving as a ROCK STAR. This was supported by the clinical context of inferior STEMI and noted retrograde filling of the LAD suggesting chronicity.
6. Successful PCI of the RCA with placement of overlapping DESx5 and excellent result.
7. Placement of temporary venous pacemaker from the right femoral vein for chronotropic support.
8. Procedure complicated by right common femoral artery bleeding around the Impella site requiring primary repair by Vascular Surgery (Dr. Jett Castillo). See separate operative report for details.
RECOMMENDATIONS:
1. Hachita Sandrine catheter-guided management of cardiogenic shock post-STEMI. Patient will require ongoing transfusion in setting of significant loses form Impella groin site and active titration of inotropes/vasopressors and Impella P-level.
2. Careful monitoring of electrolytes, blood counts, renal function, coagulation factors, and blood gases for vent management. Careful monitoring for development of possible hemolysis in setting of Impella.
3. Pending resolution of hemorrhagic shock, plan to wean pressors, followed by Impella, as able. Will required Impella removal under direct visualization by vascular with primary arterial repair.
4. Continue heparin for Impella, DAPT with ASA/ticag post-PCI.
5. If minimal ectopy, can consider weaning amiodarone
6. Complete TTE
Copy To: Dr. Helder Stephenson MD; Dr. Azeem Arellano MD, PhD
Signed: Azeem Arellano MD, PhD
[2023-12-04] VITALS (32 sets, daily range): BP systolic 32–161; BP diastolic 16–132
[2023-12-04] MEDS: LEVOPHED 250 IV ×3 (00:12→14:42)
[2023-12-04 00:14] LABS: Lactic Acid 9.8 mmol/L (0.7-2.0)
[2023-12-04 00:31] LABS: Hemoglobin 14.4 g/dL (12.0-16.0); Mean Corp Hgb Conc. 32.7 g/dL (33.0-37.0); Mean Corpuscular Hgb 30.4 pg (27.0-31.0); Mean Platelet Volume 10.7 fL (7.4-10.4); Platelet Count 157 10^3/uL (130-400); Red Blood Cell Count 4.73 10^6/uL (4.20-5.40); Red Cell Dist. Width 15.6 % (11.5-14.5); White Blood Cell Count 30.6 10^3/uL (4.8-10.8)
[2023-12-04 00:34] LABS: INR 1.61
[2023-12-04] MEDS: NOVOLIN R 12 UNITS IV (00:36)
[2023-12-04] MEDS: CALCIUM CHLORIDE 10% SYRINGE 60 MG IV (00:49)
[2023-12-04] MEDS: SODIUM BICARBONATE 50 MEQ IV ×8 (00:50→04:18)
[2023-12-04 00:51] LABS: APTT > 200 Sec (23.4-35.0)
[2023-12-04 00:55] LABS: HCO3 8.7 mmol/L (21-28); PCO2 33 mmHg (32-35); PO2 119 mmHg (83-108); pH 7.03 (7.35-7.45)
[2023-12-04 00:56] LABS: B.E. -21.2 mmol/L; Ionized Calcium 1.09 mMOL/L (1.15-1.33); O2 Saturation % 99.8 % (94-98); Potassium 3.1 mMOL/L (3.5-5.1)
[2023-12-04] MEDS: CALCIUM CHLORIDE 10% SYRINGE 1000 MG IV (00:56)
--- NOTE | 2023-12-04 01:00 | PTCARENOTE ---
BP continues to be very labile/unstable. ectopy pvcs,pacs, sometimes jayme and V paced. Bicarb x4 given for severe metabolic acidosis
[2023-12-04] MEDS: OFIRMEV 100 IV (02:00)
--- NOTE | 2023-12-04 02:00 | PTCARENOTE ---
pt jayme down pacing at 60, BP 50s 500 calcium pushed amio on hold bicarb x2, R radial TR band taken off
[2023-12-04 03:09] LABS: B.E. -9.9 mmol/L; HCO3 16.1 mmol/L (21-28); Ionized Calcium 1.31 mMOL/L (1.15-1.33); PCO2 35 mmHg (32-35); PO2 134 mmHg (83-108); Potassium 2.8 mMOL/L (3.5-5.1)
[2023-12-04 03:10] LABS: pH 7.27 (7.35-7.45)
[2023-12-04 03:11] LABS: Glucose 425 mg/dl (70-99)
[2023-12-04 03:58] LABS: B.E. -5.8 mmol/L; HCO3 18.2 mmol/L (21-28); PCO2 30 mmHg (32-35); PO2 166 mmHg (83-108); Potassium 3.3 mMOL/L (3.5-5.1); pH 7.39 (7.35-7.45)
[2023-12-04] MEDS: NOVOLIN R 10 UNITS IV ×2 (04:01→05:48)
[2023-12-04 04:07] LABS: Ionized Calcium 1.53 mMOL/L (1.15-1.33)
[2023-12-04] MEDS: CALCIUM CHLORIDE 10% SYRINGE 500 MG IV (04:17)
[2023-12-04] MEDS: KCL 100 IV (04:29)
--- NOTE | 2023-12-04 05:00 | PTCARENOTE ---
BP 40s arterially, 2U PRBC pressure bagged in with resolution to 100s systolically
[2023-12-04 05:05] LABS: Glucose - Point of Care 302 mg/dl (70-99)
[2023-12-04 05:06] LABS: B.E. 0.7 mmol/L; HCO3 23.6 mmol/L (21-28); Ionized Calcium 1.41 mMOL/L (1.15-1.33); PCO2 31 mmHg (32-35); PO2 172 mmHg (83-108); pH 7.49 (7.35-7.45)
[2023-12-04 05:16] LABS: Hematocrit 28.9 % (37.0-47.0); Hemoglobin 10.4 g/dL (12.0-16.0); Mean Corpuscular Volume 86.3 fL (81.0-99.0); Mean Platelet Volume 10.2 fL (7.4-10.4); Platelet Count 102 10^3/uL (130-400); Red Blood Cell Count 3.35 10^6/uL (4.20-5.40); Red Cell Dist. Width 15.3 % (11.5-14.5); White Blood Cell Count 20.3 10^3/uL (4.8-10.8)
[2023-12-04 05:24] LABS: INR 1.64; PT 19.3 Sec (11.4-14.6)
[2023-12-04 05:25] LABS: APTT 64.9 Sec (23.4-35.0)
[2023-12-04] MEDS: DOPamine 400 MG 250 IV ×2 (05:28→14:42)
[2023-12-04 05:41] LABS: AST (SGOT) 417 U/L (14-36); Albumin 2.2 g/dl (3.5-5.0); Alkaline Phosphatase 109 U/L (38-126); Blood Urea Nitrogen 18 mg/dl (7-17); Calcium 10.5 mg/dl (8.4-10.2); Carbon Dioxide 25 mmol/L (22-30); Chloride 109 mmol/L (98-107); Estimated Creatinine Clearance 39 ml/min; Glucose 211 mg/dl (70-99); HDL Cholesterol 36 mg/dl; LDL Cholesterol, Calculated 41 mg/dl; Potassium 3.2 mmol/L (3.5-5.1); Sodium 142 mmol/L (135-145); Total Bilirubin 2.6 mg/dl (0.2-1.3); Total Cholesterol 89 mg/dl (50-199); Total Protein 4.4 g/dl (6.3-8.2); Triglyceride 63 mg/dl (10-149); Triglycerides 63 mg/dl (10-149); Very Low Density Lipoprotein 12 mg/dl (0-30); eGFR 51.43
[2023-12-04 05:54] LABS: ALT (SGPT) 69 U/L (0-35); LDH 1086 U/L (120-246)
[2023-12-04 06:43] LABS: Glucose - Point of Care 161 mg/dl (70-99)
--- NOTE | 2023-12-04 07:58 | W.PN.HOSP.TC ---
Today's Communication/Plan
-
wean pressors as tolerated
amio impella as per cardio
monitor H&H
monitor and replete electrolytes
Potassium repletion
Intubation Sedation as per ICU
Assessment / Plan
Assessment / Plan
Physical Exam
General: sedated intubated
HEENT: NormoCephalic, Moist mucous membranes and Atraumatic
Respiratory: Clear intubated
Cardiac: S1/S2 and Regular Rhythm; No Murmur or Rub
GI: Soft, Non Tender, Non Distended and Normal Bowel Sounds; No Organomegaly
Pelvis:Right impella in place
Musculoskeletal: No Clubbing, No Cyanosis and No Edema. RLE cold, LLE warm, faint distal pulses
Skin: No Rash
Neuro: Sedated
78F HTN, HLD, Hypothyroidism, epilepsy, elevated liver enzymes, presented with acute onset of chest pain at rest associated with nausea prompting EMS call. Initial EKG with inferior and lateral ST elevations. STEMI, patient was brought to Farm Management Supervisor
in cardiogenic shock and started on dopamine/norepinephrine drips. Rhythm showed heart block requiring atropine as well as the atrial fibrillation/flutter with VT. She was shocked multiple times for VT/VF. Patient was ultimately intubated and
Impella was placed. Patient underwent 4 stents in RCA. Postoperatively patient developed hemorrhage from the right groin Impella site with significant decrease in hemoglobin. Vascular surgery performed cutdown exposure of right femoral vessels,
repair of right superficial femoral artery bleeding.
# Acute inferiolateral STEMI s/p 4 RCA stents
# Cardiogenic shock with Impella/pressor support
# VT/VF status post multiple shocks
-RCA, LAD thrombotic occlusions
-Patient intubated on propofol drip
-production engineer eval
-Levophed, dopamine wean as tolerated
-Heparin drip
-aspirin, Brilinta Amiodarone Impella as per cardiology
-Echo pending
-cardiology following
# Mixed metabolic acidosis/respiratory acidosis secondary to cardiogenic shock/anemia
-Second ABG shows worsening metabolic acidosis, slight respiratory acidosis
-Monitor with blood transfusions
#Acute anemia secondary to right groin hemorrhage from right femoral artery bleeding after Impella
-Hb dropped from 13.2 to 9.4 postop
-received 7 units blood, 1 units platelets, 1 FFP
-Vascular surgery appreciated performed cutdown exposure of right femoral vessels, repair of right superficial femoral artery bleeding
-Minimal bleeding at this time, H&H stable
-plans for further repair as per Vascular
#Hypokalemia
# Hypocalcemia
monitor and replete as appropriate
Essential hypertension
-Hold lisinopril
Hyperlipidemia
-continue statin
Epilepsy
-Continue phenytoin as IV
Hypothyroidism
-Continue levothyroxine when appropriate for PO intake
Chronic transaminitis
Full code
DVT prophylaxis�heparin drip
Total Critical Care Time__50___ minutes. I was immediately available to the patient and staff. I personally examined, reviewed labs, diagnostic images/reports, interpretations, treatment plans, discussed patient care with other providers and
patient's Rodrigo (patient is unable to make decisions), entered orders as appropriate and documented the medical record.
Anticipated Discharge: > 48 hours
Subjective/Interval History
-
Date of Service: December 04, 2023
sedated intubated
Objective Data
-
Labs:
Laboratory Results
12/03/23 12/03/23 12/03/23
19:01 19:51 19:51
WBC
Hgb
Hct
Plt Count
PT
INR
APTT
HCO3 Cancelled Cancelled
Sodium 137
Potassium
Chloride 109 H
Carbon Dioxide 17 L
BUN 16
Creatinine 0.8
Glucose 349 H
Calcium 6.7 L* D
Total Bilirubin Cancelled
AST Cancelled
ALT Cancelled
Alkaline Phosphatase Cancelled
12/03/23 12/03/23 12/03/23
19:51 20:15 22:41
WBC 25.1 H
Hgb 14.6 D
Hct 43.6
Plt Count 189
PT
INR
APTT
HCO3 15.3 L*
Sodium Cancelled Cancelled
Potassium Cancelled Cancelled Cancelled
Chloride Cancelled Cancelled
Carbon Dioxide Cancelled Cancelled
BUN Cancelled Cancelled
Creatinine Cancelled Cancelled
Glucose Cancelled Cancelled
Calcium Cancelled
Total Bilirubin Cancelled
AST Cancelled
ALT Cancelled
Alkaline Phosphatase Cancelled
12/03/23 12/03/23 12/03/23
22:41 23:07 23:19
WBC
Hgb
Hct
Plt Count
PT
INR
APTT
HCO3 Cancelled
Sodium 136
Potassium
Chloride 110 H
Carbon Dioxide 8 L*
BUN 14
Creatinine 1.0
Glucose Cancelled 486 H*
Calcium Cancelled 8.1 L
Total Bilirubin Cancelled Cancelled
AST Cancelled Cancelled
ALT Cancelled Cancelled
Alkaline Phosphatase Cancelled Cancelled
12/04/23 12/04/23 12/04/23
00:12 00:12 00:12
WBC
Hgb
Hct
Plt Count
PT 19.0 H Cancelled
INR 1.61 Cancelled
APTT > 200 H*
HCO3 Cancelled
Sodium
Potassium
Chloride
Carbon Dioxide
BUN
Creatinine
Glucose
Calcium
Total Bilirubin
AST
ALT
Alkaline Phosphatase
12/04/23 12/04/23 12/04/23
00:12 00:15 02:11
WBC 30.6 H
Hgb 14.4
Hct 44.0
Plt Count 157
PT
INR
APTT
HCO3 8.7 L* 16.1 L
Sodium
Potassium
Chloride
Carbon Dioxide
BUN
Creatinine
Glucose 425 H
Calcium
Total Bilirubin
AST
ALT
Alkaline Phosphatase
12/04/23 12/04/23
03:49 04:57
WBC 20.3 H
Hgb 10.4 L D
Hct 28.9 L
Plt Count 102 L D
PT 19.3 H
INR 1.64
APTT 64.9 H
HCO3 18.2 L 23.6
Sodium 142
Potassium 3.2 L
Chloride 109 H
Carbon Dioxide 25
BUN 18 H
Creatinine 1.1 H
Glucose 211 H
Calcium 10.5 H D
Total Bilirubin 2.6 H D
AST 417 H
ALT 69 H
Alkaline Phosphatase 109
Vital Signs:
Vital Signs
Temp Pulse Resp BP Pulse Ox
98.9 F 97 20 127/77 100
12/04/23 07:00 12/04/23 07:30 12/04/23 07:30 12/04/23 07:00 12/04/23 07:30
I&O
12/03/23 12/04/23 12/05/23
06:59 06:59 06:59
Intake Total 43.1 / 93.7 50.6 / 50.6
Output Total 205 / 230 25
Balance -161.9 / -136.3 25.6 / 25.6
[2023-12-04] MEDS: LR 1000 IV ×2 (08:12→10:57)
--- NOTE | 2023-12-04 08:15 | PTCARENOTE ---
Assumed care of patient at 0700. Pt is intubated and sedated. Pt SR with HR 97. BP 112/73 MAP 85. PA pressure 16/8 CVP 4. CO 1.86, SVR 3482. Transvenous pacer in place, set to VVI 60/20/1. Impella in place at 85cm, P5, placement signal 76/44, motor
current 580/473, Flow 2.6, purge pressure 391, purge infusion 16.3mL. #[address] at 24cm on right. Vent set to AC FiO2 40%, rate 20, TV 450, PEEP 5, Pulse oximetry 100%. Bowel sounds hypoactive. Castillo catheter in place draining yellow
urine. Right groin site with continuous oozing at impella site, Vasular and Cardiology aware. Right radial site INDUSTRIAL EQUIPMENT WIRER, approximated. Right IJ Wood at 45cm, Cordis intact with KVO. Left radial Dorothea in palce. Right venous sheath in place with KVO. Pt
remains on Propofol 20mcg/kg/min, Dopamine 5mcg/kg/min, and Levo 2mcg/min.
[2023-12-04] MEDS: MORPHINE SULFATE 2 MG IV (08:24)
--- NOTE | 2023-12-04 08:30 | PTCARENOTE ---
Spoke with Dr. Elizondo, Heparin gtt to remain on hold due to continued bleeding at right groin site.
[2023-12-04] MEDS: DOBUTREX 500 MG 250 IV (08:32)
--- NOTE | 2023-12-04 08:34 | W.PN.VS ---
Addendum entered and electronically signed by Wei Alvarado MD 12/04/23 10:31:
Seen and examined earlier today with MINDA Bunch. Agree with findings as noted below. Continued right groin oozing. Discussed with appliance fixer Dr. Elizondo that all I can provide at this point would be return to the OR to remove device and repair
artery. I do not think there is any other noninvasive method for controlling oozing at this point. However, the Catch-22 is that the patient is reliant upon the assist device for cardiac function. Therefore discussed with him that I will defer to
them as to if/when the device can be removed and to let me know and we will schedule JAYDA to remove it.
Original Note:
Today's Communication / Plan
-
Patient seen and examined at bedside with Dr. Wei Alvarado, below plan reviewed with attending.
Assessment/Plan
-
Assessment: 78-year-old female s/p Cutdown and exposure of right femoral vessels and repair of right superficial femoral artery bleeding at the Impella device access site following STEMI and cardiogenic shock
Plan:
Patient with evidence of scant bleeding around sheath at right groin, cannot control bleeding externally in order to have full control patient will require revisit to operating room with removal of Impella sheath and repair of femoral artery.
Wei Alvarado discussed this with the appliance fixer Dr. Humza Elizondo, and we are waiting for further instruction from cardiology when Impella is either no longer required or can safely be removed from right groin and reinserted into left femoral artery.
Currently patient is with a stable hemoglobin, recommend serial H&H until bleeding is controlled. Transfuse as needed.
Subjective Data
-
Date of Service: December 04, 2023
Patient seen and examined at bedside, intubated and sedated
Objective Data
-
Vital Signs
Temp Pulse Resp BP Pulse Ox
98.9 F 97 20 127/77 100
12/04/23 07:00 12/04/23 07:30 12/04/23 07:30 12/04/23 07:00 12/04/23 07:30
Intake and Output
12/03/23 12/04/23 12/05/23
06:59 06:59 06:59
Intake Total 93.7 / 144.3 50.6 / 50.6
Output Total 255 / 280
Balance -161.3 / -135.7 25.6 / 25.6
Intake:
IV fluids (Total) 93.7 / 144.3 50.6 / 50.6
Amio 0 / 0 0 / 0
Cordis KVO 10
Dopa 28.2 / 42.3 14.1 / 14.1
Levo 7.5 / 15.0 7.5 / 7.5
Prop 9 / 9
Temp Pacer KVO 10
Output:
Urine, Castillo 255 / 280
Lab Results
12/04/23 04:57
12/04/23 04:57
Calcium 10.5 mg/dl (8.4-10.2) H D 12/04/23 04:57
Magnesium Cancelled 12/03/23 19:01
Total Bilirubin 2.6 mg/dl (0.2-1.3) H D 12/04/23 04:57
AST 417 U/L (14-36) H 12/04/23 04:57
ALT 69 U/L (0-35) H 12/04/23 04:57
Alkaline Phosphatase 109 U/L (38-126) 12/04/23 04:57
Total Protein 4.4 g/dl (6.3-8.2) L D 12/04/23 04:57
Albumin 2.2 g/dl (3.5-5.0) L D 12/04/23 04:57
Physical Exam
-
Intubated and sedated
Impella in place via right groin
Tolerating ventilator
Right groin Impella sheath in place with surrounding surgical sutures intact, scant to mild bleeding noted around sheath, no evidence of hematoma, all surrounding compartments soft
Right DP pulse by Doppler
--- NOTE | 2023-12-04 08:40 | CON.INTV ---
Consultation
Consultation Request
Date/Time Consultation Requested: 12/03/2023 - 161
Date/Time Consultation Performed: 12/04/2023831
Requesting Provider: MIKE Belle
Performing Provider: Julio Reis MD
Reason for Consultation: STEMI/Cardiogenic shock
Medical History
-
Chief Complaint: Chest pain
History of Present Illness:
78-year-old female non-smoker with a past medical history of hypertension, hypothyroidism, hypercholesterolemia and epilepsy who presented from home with chest pain. Patient had just finished walking her dog, and about an hour later while sitting
in a chair developed midsternal chest pain, starting at approximately 1 PM. 911 called and EMS administered 324 mg of aspirin and brought to the hospital as a STEMI alert. Initial EKG showed infero-lateral ST elevations with johnny-lateral
reciprocal changes. Patient taken to the Network[facility], was intubated, with initial vitals showing she was hypothermic to 88.8 �F, breathing at 24 breaths or minute, pulse rate 82, and saturating under percent on ventilator. Initial labs showed WBC
13.7, creatinine 1.1, lactate 3.3, and initial troponin negative at <0.012. Patient found to have severe two-vessel CAD involving the proximal LAD + RCA, with elevated right-sided filling pressures and reduced cardiac output. CP Impella placed,
LAD was attempted for angioplasty however unable to cross wire and believe that this lesion was BEAUTY PARLOR CLEANER. PCI to RCA was successful with placement of overlapping PATRICIA x 5 with excellent result. There was some bleeding to the right groin requiring
vascular surgery to repair the right SFA. Patient was transferred to the CVICU postoperatively and now critical care services consulted for additional management/recommendations.
Today, patient was seen and evaluated. She unfortunately suffered a cardiac arrest (PEA) and when I arrived ROSC was already achieved. She obtained epi x 1 mg, bicarb x 1 amp, and 1 dose of calcium. ROSC obtained after 1 round of CPR. Stat echo
showed severe hypo-/akinesis of the inferior wall with trace pericardial effusion without tamponade. Impella was advanced under echocardiographic guidance at bedside by Dr. Elizondo. Post-ROSC EKG shows ST elevations in the inferior leads.
was notified of the severity of her critical illness and he wants to continue with full medical management. Patient remains intubated on AC at 450/20/40%/5, with PIP: 21 cmH2O, breathing at 20 breaths/min and VTe 465 mL. She is currently on
dobutamine at 5mcg/kg/min, propofol at 20mcg/kg/min, dopamine at 8mcg/kg/min, epinephrine at 5mcg/min and Levophed at 10mcg/min. Current heart rate is 109, SpO2: 90%, PAP 20/13, CO/CI: 3.38/1.83, CVP: 11 and BP via left radial A-line: 103/65. BP
via NIBP: 105/66. She remains unresponsive/sedated. ETCO2: 27.
PMHx: HTN, hypothyroidism, HLD, epilepsy
PSHx: Tonsillectomy
Past Medical History
Past Medical History: Other (above as per HPI)
Past Surgical History: Other (above as per HPI)
Social History
Tobacco: Non-smoker
Alcohol: None
Drug: None
Personal:
Living: With Family
Family History
Family History: Early CAD (Sibling), CAD (Father) and Other (Mother: Hx of CVA)
Allergies / Home Medications
Allergies
Allergy/AdvReac Type Severity Reaction Status Date / Time
No Known Allergies Allergy Unverified 12/03/23 14:19
Home Medications
�Medication �Instructions �Recorded �Confirmed �Last Taken �Type
atorvastatin 40 mg tablet (Lipitor) 40 mg PO DAILY High Cholesterol 12/03/23 12/03/23 Unknown History
levothyroxine 125 mcg tablet 125 mcg PO DAILY Thyroid 12/03/23 12/03/23 Unknown History
(Synthroid)
lisinopril 40 mg tablet 40 mg PO DAILY Blood Pressure 12/03/23 12/03/23 Unknown History
phenytoin sodium extended 100 mg 300 mg PO Q48H Seizures 12/03/23 12/03/23 Unknown History
capsule
phenytoin sodium extended 100 mg 400 mg PO Q48H Seizures 12/03/23 12/03/23 Unknown History
capsule
Review of Systems
-
Unable to Obtain full review of systems at this time due to: Patient Intubation
Vitals / Labs / Diagnostic Testing
Vital Signs
Temp Pulse Resp BP Pulse Ox
97.2 F 106 20 131/69 98
12/04/23 13:00 12/04/23 13:00 12/04/23 13:00 12/04/23 13:00 12/04/23 13:00
Laboratory Results
12/03/23 12/03/23 12/03/23
14:14 14:56 15:03
PT 13.1
INR 1.01
APTT
pH 7.36 Cancelled
pCO2 35 Cancelled
pO2 105 Cancelled
HCO3 19.8 L Cancelled
O2 Delivery Level Cancelled
12/03/23 12/03/23 12/03/23
17:18 19:51 19:51
PT
INR
APTT
pH 7.33 L Cancelled Cancelled
pCO2 37 H
pO2 246 H
HCO3 19.5 L
O2 Delivery Level 100% fio2
12/03/23 12/03/23 12/03/23
19:51 19:51 19:51
PT
INR
APTT
pH 7.18 L*
pCO2 Cancelled Cancelled 41 H
pO2 Cancelled
HCO3
O2 Delivery Level
12/03/23 12/03/23 12/03/23
19:51 19:51 19:51
PT
INR
APTT
pH
pCO2
pO2 Cancelled 89
HCO3 Cancelled Cancelled
O2 Delivery Level
12/03/23 12/03/2312/02/24
19:51 19:51 19:51
PT
INR
APTT
pH
pCO2
pO2
HCO3 15.3 L*
O2 Delivery Level Cancelled Cancelled
12/03/23 12/04/23 12/04/23
23:19 00:12 00:12
PT 19.0 H Cancelled
INR 1.61
APTT
pH Cancelled
pCO2 Cancelled
pO2 Cancelled
HCO3 Cancelled
O2 Delivery Level Cancelled
12/04/23 12/04/23 12/04/23
00:12 00:12 00:12
PT
INR Cancelled
APTT > 200 H*
pH Cancelled 7.03 L*
pCO2 Cancelled 33
pO2 Cancelled
HCO3
O2 Delivery Level
12/04/23 12/04/23 12/04/23
00:12 00:12 00:12
PT
INR
APTT
pH
pCO2
pO2 119 H
HCO3 Cancelled 8.7 L*
O2 Delivery Level Cancelled A/c,450,20,5,.60
12/04/23 12/04/23 12/04/23
02:11 03:49 04:57
PT 19.3 H
INR 1.64
APTT 64.9 H
pH 7.27 L 7.39 7.49 H
pCO2 35 30 L 31 L
pO2 134 H 166 H 172 H
HCO3 16.1 L 18.2 L 23.6
O2 Delivery Level
Diagnostic Testing:
Physical Exam
-
HEENT: Normocephalic, Anicteric and Other (ETT in place)
Cardiovascular: S1/S2, Murmur (negative) and Peripheral Edema (negative)
Respiratory: Wheeze (negative), Rales (negative), Rhonchi (negative), Non-Labored Respirations and Other (Mechanical breath sounds heard bilaterally)
GI: Soft, Non Distended, Non Tender and Normal Bowel Sounds
Neurology: Tremors (negative) and Other (Sedated; pupils 4 mm bilaterally and sluggish)
Skin: Warm, Dry and Other (right groin impella line in place with oozing of blood seen)
General: Respiratory Distress (negative), Chills (negative), Sweats (negative) and Other (Intubated/Sedated)
Assessment
-
Assessment: 78-year-old female non-smoker with a past medical history of hypertension, hypothyroidism, hypercholesterolemia and epilepsy who presented from home with chest pain. Patient had just finished walking her dog, and about an hour later
while sitting in a chair developed midsternal chest pain, starting at approximately 1 PM. 911 called and EMS administered 324 mg of aspirin and brought to the hospital as a STEMI alert. Initial EKG showed infero-lateral ST elevations with
johnny-lateral reciprocal changes. Patient taken to the Network[facility], was intubated, with initial vitals showing she was hypothermic to 88.8 �F, breathing at 24 breaths or minute, pulse rate 82, and saturating under percent on ventilator. Initial labs
showed WBC 13.7, creatinine 1.1, lactate 3.3, and initial troponin negative at <0.012. Patient found to have severe two-vessel CAD involving the proximal LAD + RCA, with elevated right-sided filling pressures and reduced cardiac output. CP Impella
placed, LAD was attempted for angioplasty however unable to cross wire and believe that this lesion was BEAUTY PARLOR CLEANER. PCI to RCA was successful with placement of overlapping PATRICIA x 5 with excellent result. There was some bleeding to the right groin
requiring vascular surgery to repair the right SFA. Patient was transferred to the CVICU postoperatively and now critical care services consulted for additional management/recommendations.
Chronic conditions GIS GEOGRAPHER: HTN, hypothyroidism, HLD, epilepsy
Impression:
#Acute coronary syndrome due to inferior wall STEMI s/p PATRICIA x 5 to RCA c/b right DRAWING SUPERVISOR bleeding s/p vascular surgery repair (on 12/03/2023)
#Cardiogenic shock due to above now s/p CP Impella
#In-hospital cardiac arrest due to PEA (occurred today - 12/04/2023) - suspect to be due to coronary thrombosis
#Coffee-ground emesis
#Hyperglycemia
#Acute respiratory failure with hypoxia on mechanical ventilation
#Leukocytosis
#Thrombocytopenia � could very well be from shearing effect from Impella
#Lactic acidosis
#Transaminitis likely due to ischemia
#MV-CAD involving proximal LAD (suspected BEAUTY PARLOR CLEANER), LCx and RCA
#HFmrEF with right ventricular systolic dysfunction )per TTE from 12/03/2023)
#Hyperlipidemia
#Epilepsy
Plan:
- Continue with mechanical ventilation with daily SAT/SBT if clinically appropriate
- Maintain SpO2 >94%
- prn nebulized bronchodilators
- Impella management per interventional cardiology - currently on CP-5
- She suffered cardiac arrest today which was PEA after dobutamine was started with a drop in SVR, and this could be explained by her RV dysfunction with developing RV infarction, which complicates up to 40% of inferior STEMIs
- Avoid nitrates or other preload reducing agents
- IVF bolus as needed to ensure MSFP is optimized
- Continue levophed and maintain MAP>65
- Aim for CI>2.5
- Replete electrolytes with K>4, Mg>2
- Continue ASA + Brilinta
- Goal LDL<70; given her elevated AST of 417 today, would hold Lipitor after today and continue trending LFTs
- Postoperative right groin management per vascular surgery
- For now keep pressure dressing on right groin as best as possible and monitor for any worsening bleeding especially while on heparin drip + DAPT with ASA + Brilinta
- Start PPI IV q12hr, and consult GI
- Trend Hb and plt with goal Hb>8g/dL and keep plt>50k
- Keep OGT to LIWS and monitor output of coffee-ground emesis
- Given her hypothermia, check TSH and free T4 and adjust her LT4 as needed
- Patricio hugger with aim for normothermia
- Continue phenytoin
- Maintain euglycemia with goal BG 140-180 with insulin moderate-resistance sliding scale
- Hold off tube feeds for now given she is on levophed dose of >10mcg/min
- Trend LFTs
- DVT ppx: heparin gtt
Given the patient's severity of illness with concern for RV infarct with cardiac arrest this morning, patient is awaiting transfer to [facility] for evaluation of right-sided Impella. Cardiac Tech service will continue to follow along while patient remains
here in CVICU.
Continue ICU level care for this critically ill patient.
Critical care statement: A total of 48 minutes of critical care time was provided for this patient today. This includes management of unstable vital signs, evaluation of the patient at bedside, reviewing the patient's pertinent medical records
including radiographs, microbiology, laboratory evaluations, and discussion with primary team, consultants, pharmacy, nutrition, physical therapy, case management, charge nurse, critical care nursing, and respiratory therapy.
Data:
CXR 12/03/2023: No active cardiopulmonary disease.
--- NOTE | 2023-12-04 08:44 | PTCARENOTE ---
temp 98.0 ho morales
--- NOTE | 2023-12-04 09:00 | W.PN.UPDATE ---
Update Note
Progress Note Update
Cardiology update note:
-Pt did well overnight
-Levophed weaned from 30 to 2 mcg/min
-Dopamine weaned from 20 to 5 mcg/kg/min
-Amiodarone gtt was d/c'd d/t intermittent bradycardia
-Propofol was weaned from 50 to 20
-Ventilator was transitioned from SIMV to A/C with and weaned from FIO2 of 80 to 40%. Severe metabolic acidosis was corrected
-Impella is intact
-Heparin gtt was held d/t PTT > 200
-Pt's right groin was oozing and required frequent direct manual pressure as well as pressure dressings
-Pt received multiple blood products in the Learning And Development Assistant as well as in the CVICU
[2023-12-04 09:09] LABS: Glucose - Point of Care 448 mg/dl (70-99)
[2023-12-04 09:09] LABS: Glucose - Point of Care 436 mg/dl (70-99)
--- NOTE | 2023-12-04 09:34 | CM ---
Priced Brilinta thru insurance, [employer]/ [phone]-estimated cost of Brilinta is $47/mo or $94/ 3 month supply via mail order.
--- NOTE | 2023-12-04 09:39 | W.PN.CD ---
Today's Communication / Plan
-
Bolus with fluids.
Transfuse again.
I am fairly convinced this is a progressive RV infarct, which would explain her exquisite sensitivity to volume.
I will discuss with Dr. Feldman at [place].
Possible RPella.
Impression / Plan
-
Impression/Plan: 78 y/o female, PMH sig for HTN, HLD, hypothyroid, epilepsy, elevated LFTs, and FH CAD, CVA admitted with inferior STEMI, found to have LAD BIOLOGY PROFESSOR and acutely occluded RCA complicated by cardiogenic shock requiring MCS (Impella CP via
RCFA), further complicated by acute blood loss anemia from LVAD access site requiring surgical exploration/repair.
#Inferolateral STEMI
-Acute.
-S/P PCI of culprit RCA (overlapping [employer] [place] 2.5 x 34, 3.0 x 34, 3.5 x 34 PATRICIA from distal to mRCA, post dilated with 3.25 NCB, overlapping 3.5 x 34 and 3.5 x 15 PATRICIA in proximal/ostial RCA, post dilated with 3.5 NCB).
-Residual LAD BIOLOGY PROFESSOR.
-DAPT with aspirin and ticagrelor.
-Further GDMT limited by shock.
#Cardiogenic shock
-Acute.
-Impella placed yesterday, currently at P5.
-Current gtt's:
-Norepinephrine 14 mcg/kg/min.
-Dopamine 3 mcg/kg/min.
-Dobutamine 10 mcg/kg/min.
-Intubated with ventilator support.
-CVP 12 (with a PEEP of 5).
-MAP = 65 mmHg.
-PA = 17/
-CO/CI = 2.48/1.34
-SVR = 1998.
-Cardiac Power Output = 0.36 (normal > 0.6).
-Lauro = 0.6.
-Uptitrating impella has lead to suckdown events.
-Addition of dobutamine has improved CI, but at the expense of blood pressure.
-Echo is technically limited but shows mild LV systolic depression, LVEF around 40%.
-I have reviewed the coronary angiography images and I believe the patient is have a large right ventricular infarct. Treatment will involve aggressive volume resuscitation, possibly placement of a right sided impella.
-LR bolus given earlier. We will repeat a bolus and transfuse and additional 2 units of PRBC's.
-I will reach out to [facility] team to update them on this patient.
#Acute blood loss anemia
-Source is impella sheath.
-Artery primarily repaired by vascular surgery yesterday.
-In spite of repair, the patient continues to ooze.
-Blood products:
-PRBC's x3 (12/03/2023).
-PRBC's x 2 (12/03/2023).
-FFP x 2 (12/02-).
-Removal of impella will require direct visualization.
#HLD
-Chronic.
-Total cholesterol = 89, LDL = 41, HDL = 36, Triglycerides = 63.
-Continue high dose, high potency statin.
#Epilepsy
-Chronic, stable.
-Continue home phenytoin 300mg alt w/400mg every other day.
-Consider drug interactions.
-Consult neuro.
#Transaminitis
-Acute on chronic.
-Seen as an outpatient, monitoring per PCP.
-She is on phenytoin and statin.
-LFT's now elevated as part of her shock picture.
-Minimize hepatotoxic medications:
-Follow INR.
-ALT/LDH/Bilirubin may be false indicators given large right groin hematoma.
Critical Care Time = 120 minutes.
Subjective/Interval History:
Eventful day/evening.
BP is marginal but CI is 1.3.
Dobutamine added this morning which improved SVR (3000 --> 1400) and CI (1.3 --> 1.7) at the expense of blood pressure.
CT DEMOLITION SPECIALIST reports suck down events when Impella is take above P5.
Troponin peaked at 327 (!),
Labs consistent with cardiogenic shock.
Nursing reports persistent oozing around the impella site.
DATA:
Cardiac Catheterization/PCI, 12/03/2023:
CONCLUSIONS:
1. Severe two-vessel obstructive coronary artery disease in the setting of inferior STEMI with 100% thrombotic culprit stenosis in the RCA.
2. Left heart catheterization with elevated LV filling pressure and no aortic stenosis.
3. Right heart catheterization with elevated right sided filling pressure and severely reduced cardiac output based on assumed Mello from RA saturation.
4. Successful placement of CP Impella from the right groin for hemodynamic support.
5. Attempted angioplasty to the LAD. Unable to cross a wire thorough the proximal LAD with the lesion was behaving as a BIOLOGY PROFESSOR. This was supported by the clinical context of inferior STEMI and noted retrograde filling of the LAD suggesting chronicity.
6. Successful PCI of the RCA with placement of overlapping DESx5 and excellent result.
7. Placement of temporary venous pacemaker from the right femoral vein for chronotropic support.
8. Procedure complicated by right common femoral artery bleeding around the Impella site requiring primary repair by Vascular Surgery (Dr. Jett Castillo). See separate operative report for details.
TTE, 12/03/2023:
CONCLUSIONS
Limited study for LVEF and wall motion.
Mild/moderately reduced LV systolic function: LVEF 40-45%. Septal dyskinesis
and inferior hypokinesis are noted.
Normal right ventricular size. Reduced right ventricular systolic function.
No prior study available for comparison. Full study to be done tomorrow.
Physical Exam
Vital Signs/Labs
Vital Signs
Temp Pulse Resp BP Pulse Ox
36.7 C 108 20 89/69 100
12/04/23 09:00 12/04/23 09:15 12/04/23 09:15 12/04/23 09:00 12/04/23 09:15
12/02/23 12/03/23 12/04/23
11:59 11:59 11:59
Actual Weight 75.1 kg
12/04/23 04:57
PT 19.3 Sec (11.4-14.6) H 12/04/23 04:57
INR 1.64 12/04/23 04:57
APTT 64.9 Sec (23.4-35.0) H 12/04/23 04:57
Magnesium Cancelled 12/03/23 19:01
Triglycerides 63 mg/dl (10-149) 12/04/23 04:57
Triglycerides Cancelled 12/04/23 04:57
LDL Cholesterol, Calc 41 mg/dl 12/04/23 04:57
VLDL Cholesterol, Calc 12 mg/dl (0-30) 12/04/23 04:57
HDL Cholesterol 36 mg/dl 12/04/23 04:57
LAB Results
12/03/23 12/03/23 12/03/23
14:14 19:01 19:47
Troponin I < 0.012 Cancelled Cancelled
12/03/23 12/03/23 12/04/23
22:41 23:07 03:49
Troponin I Cancelled 327.000 H* 312.000 H*
Physical Exam
Constitutional: No acute distress and Comfortable
EENT: Anicteric, Moist mucous membranes and Other (ET tube in place.)
Cardiovascular: Rhythm & rate is regular, Pedal edema is absent, S1S2 is normal and Murmur/rub/gallop absent
Respiratory: Respiratory effort normal, Lungs clear to auscul., Wheeze Absent, Crackles Absent and Rhonchi Absent
GI: Soft, Distention absent, Flat, Non tender and Normal bowel sounds
Neuro/Psych: Other (Intubated and sedated.)
Other: Cath Site (RIJ site is C/D/I. Right femoral site is oozing slowly. An impella sheath and temporary wire are in place. There is a large femoral hematoma.)
Data Reviewed
-
Date of Service: December 04, 2023
Medical Decision Making: Reviewed Test Results, Tests Ordered, Independent Historian Assessment, Test Interpretation and Review of Case with other Provider
EKG: Tracing Personally Visualized and interpreted and Report Reviewed by me
Echo: Tracing Personally Visualized and interpreted and Report Reviewed by me
X-Ray/CT/US/MRI/NUC/PET: Image Personally Visualized and interpreted, Report Reviewed by me, Discussed with Physician, Discussed with Nurse, Discussed with Patient and Discussed with Family
Medical Tests (PFT, Pathology etc): Image Personally Visualized and interpreted, Report Reviewed by me, Discussed with Physician, Discussed with Nurse, Discussed with Patient and Discussed with Family
Labs: Labs Reviewed by me
Old Records: Reviewed
--- NOTE | 2023-12-04 09:45 | PTCARENOTE ---
Dobutamine gtt initiated at 10mcg/kg/min. 1L LR bolus administered per order. Pt with increasing ectopy. Pt requiring increasing amounts of levo now at 12mcg/min. BP 74/56 MAP 61. PA 17/11, CVP 10. Dr. Elizondo notified.
[2023-12-04] MEDS: KCL 270 MEQ IV (09:54)
[2023-12-04] MEDS: DILANTIN 100 MG IV (10:03)
[2023-12-04 10:07] LABS: Glycohemoglobin (HgbA1c) 5.7 % (4.0-5.6)
[2023-12-04 10:19] LABS: Hematocrit 28.3 % (37.0-47.0); Hemoglobin 10.4 g/dL (12.0-16.0); Mean Corp Hgb Conc. 36.7 g/dL (33.0-37.0); Mean Corpuscular Volume 81.6 fL (81.0-99.0); Red Blood Cell Count 3.47 10^6/uL (4.20-5.40); Red Cell Dist. Width 14.6 % (11.5-14.5); White Blood Cell Count 17.1 10^3/uL (4.8-10.8)
--- NOTE | 2023-12-04 11:00 | PTCARENOTE ---
1045 code called, pt PEA arrest. [place] waveform became dampened with no reading. No pulses obtainable. Chest compressions initiated. Pt received 1mg Epi, 1amp Bicarb, and 1gm calcium. Pulse check done, pulses obtained after 1 round CPR. Code ended
1048. A line pressure 155/76 MAP 104. PA 32/18 CVP 17. Pt started on Epi gtt at 5mcg/min. Dopamine increased to 20mcg/kg/min. Levo at 20mcg/min. Dobutamine gtt had been decreased to 5mcg/kg/min at 1000, gtt remains at 5mcg/kg/min.
[2023-12-04] MEDS: BRILINTA 90 MG PO (11:14)
[2023-12-04] MEDS: LOW STRENGTH ASPIRIN 81 MG PO (11:14)
[2023-12-04] MEDS: LIPITOR 40 MG PO (11:15)
[2023-12-04 11:28] LABS: Platelet Count 79 10^3/uL (130-400)
--- NOTE | 2023-12-04 11:30 | PTCARENOTE ---
OG tube placed. X-ray obtained, received the okay to use. Pt received aspirin and Brilinta.
--- NOTE | 2023-12-04 11:35 | PTCARENOTE ---
Core temp 96.8, Patricio reji in place on high.
--- NOTE | 2023-12-04 11:45 | ECGCV ---
Julio Reis MD notified of ECG critical value identified by electronic interpretation on ECG completed on 12/04/23 , at 1120.
--- NOTE | 2023-12-04 12:00 | PTCARENOTE ---
ECHO done at bedside following code. Impella moved from [address] Elizondo.
[2023-12-04 12:01] LABS: ACT-LR - POC > 397 Seconds (116-155)
[2023-12-04 12:01] LABS: ACT-LR - POC > 397 Seconds (116-155)
[2023-12-04 12:01] LABS: ACT-LR - POC > 397 Seconds (116-155)
[2023-12-04 12:01] LABS: ACT-LR - POC > 397 Seconds (116-155)
--- NOTE | 2023-12-04 12:44 | W.PN.UPDATE ---
Update Note
Progress Note Update
The patient suffered a PEA arrest earlier this morning.
CPR/ACLS was performed for one round.
ROSC was obtained and the patient was started on an epinephrine gtt.
Dobutamine was cut to 5 mcg/kg/min.
Norepinephrine and dopamine were down titrated.
STAT limited echo confirmed that the anterior/septal/lateral hernandez are moving with severe hypokinesis/akinesis of the inferior wall and a trace effusion without evidence of hemodynamic effect.
The Impella was adjusted/advanced under echo guidance at the bedside.
The patient's was updated.
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
He believes she would want all measures taken to sustain life.
Current though process is that the patient is suffering from an RV infarct (though the echo was less than definitive).
RV infarct would explain sensitivity to volume and Impella CP suck downs beyond P5.
Vent settings are minimal and SaO2 is 100% on FiO2 40%, PEEP 5 cmH2O.
PAd = CVP and Lauro = 0.6-0.8.
I discussed situation with Dr. Feldman at [facility]. She agrees that transfer for further medical management, possible RPella is the next correct option.
Details of patient's condition and care discussed with Dr. Feldman.
We will upload cath/echo images to [facility].
[facility] transfer center has been activated.
I will update the patient's .
[2023-12-04 12:53] LABS: Glucose - Point of Care 199 mg/dl (70-99)
[2023-12-04] MEDS: PROTONIX IV 80 MG IV (12:57)
[2023-12-04] MEDS: NOVOLOG FLEXPEN-MODERATE RESISTANCE 1 UNITS SC (12:57)
[2023-12-04] MEDS: ANCEF 5 IV (12:58)
[2023-12-04 13:14] LABS: Blood Urea Nitrogen 18 mg/dl (7-17); Calcium 9.7 mg/dl (8.4-10.2); Carbon Dioxide 24 mmol/L (22-30); Chloride 112 mmol/L (98-107); Estimated Creatinine Clearance 43 ml/min; Glucose 193 mg/dl (70-99); Potassium 3.6 mmol/L (3.5-5.1); Sodium 144 mmol/L (135-145); eGFR 57.66
[2023-12-04] MEDS: NSS (PRESERVATIVE FREE) 20 ML IV (13:16)
[2023-12-04 13:29] LABS: INR 1.45; PT 17.7 Sec (11.4-14.6)
[2023-12-04 13:34] LABS: Hematocrit 34.9 % (37.0-47.0); Hemoglobin 12.4 g/dL (12.0-16.0); Mean Corp Hgb Conc. 35.8 g/dL (33.0-37.0); Mean Corpuscular Hgb 30.2 pg (27.0-31.0); Mean Corpuscular Volume 84.2 fL (81.0-99.0); Mean Platelet Volume 10.7 fL (7.4-10.4); Platelet Count 70 10^3/uL (130-400); Red Blood Cell Count 4.11 10^6/uL (4.20-5.40); Red Cell Dist. Width 14.7 % (11.5-14.5); White Blood Cell Count 20.7 10^3/uL (4.8-10.8)
--- NOTE | 2023-12-04 13:38 | CON.GI ---
Addendum entered and electronically signed by Adrian Lott MD 12/04/23 15:00:
I saw and examined the patient.
The PLANT PRODUCTION MANAGER or PA's note was reviewed and I agree with the note.
Comment: 78yo female admitted for acute STEMI, cardiogenic shock requiring stent placement. Hospital course complicated by cardiogenic shock requiring Impella, bleeding from LVAD access site. Today she had PEA arrest and during intubation, coffee
grounds noted around her mouth.
REC:
NPO, PPI
Pt currently being transferred to [place]
Original Note:
Consultation
-
Date/Time Consultation Requested: 12/04/231329
Date/Time Consultation Performed: 12/04/231329
Requesting Provider: Julio Herring MD
Performing Provider: MIKE Curiel, Adrian Lott MD
Reason for Consultation: coffee ground emesis
Medical History
Chief Complaint / HPI
Chief Complaint: vomiting dark emesis
History of Present Illness:
Pt is a 78yo with hx HTN, hyperlipidemia, hypothyroidism, epilepsy, elevated LFT's with onset of chest pain with nausea on admission. She was noted with change in EKG on admission with taken to cath labs with STEMI with cardiogenic shock with stent
placement. She was noted with concern for PEA arrest with afib/flutter with VT requiring shock. She was intubated and placed on pressors with Impella. She was noted with drop in hbg and hemorrhage from groin requiring cutdown and exposure of
femoral vessel with repair of femoral artery. She is noted with progressive drop in hbg but improved today with leukocytosis, thrombocytopenia, increased LFT's, troponin up to 327 and asked to evaluation for coffee ground emesis with recently added
heparin and Brilinta.
At this time pt noted with coffee ground emesis but currently sedated and unable to give history of GI issues. No hx EGD/colon at [facility] or prior OP GI evaluation.
Past Medical History
Past Medical History: HTN, Hypercholesterolemia, Hypothyroidism and Other (epilepsy, elevated LFT's)
Social History
Tobacco: Non-Smoker (per chart )
Alcohol: None (per chart)
Drug: None (per chart )
Family History
Family History: Unable to Obtain
Allergies / Home Medications
Allergy/AdvReac Type Severity Reaction Status Date / Time
No Known Allergies Allergy Unverified 12/03/23 14:19
�Medication �Instructions �Recorded
atorvastatin 40 mg tablet (Lipitor) 40 mg PO DAILY High Cholesterol 12/03/23
levothyroxine 125 mcg tablet 125 mcg PO DAILY Thyroid 12/03/23
(Synthroid)
lisinopril 40 mg tablet 40 mg PO DAILY Blood Pressure 12/03/23
phenytoin sodium extended 100 mg 300 mg PO Q48H Seizures 12/03/23
capsule
phenytoin sodium extended 100 mg 400 mg PO Q48H Seizures 12/03/23
capsule
Review of Systems
-
Unable to obtain full review of systems at this time due to: Patient Intubation and Patient Non Verbal
History Source: Other (nursing staff )
Cardiac: Reports Chest Pain (on admission )
Abdomen/GI: Reports Vomiting (coffee ground emesis )
Hematologic/Lymphatic: Reports Bleeding
Vital Signs
Temp Pulse Resp BP Pulse Ox
97.2 F 106 20 131/69 98
12/04/23 13:00 12/04/23 13:00 12/04/23 13:00 12/04/23 13:00 12/04/23 13:00
Physical Exam
Exam
General: Other (ill appearing- intubated )
HEENT: Normocephalic and Anicteric
Respiratory: Clear and Other (vented)
Cardiac: Other (tachy)
GI: Soft, Non Tender and Non Distended
Skin: Warm and Dry
Neuro: Sedated
Psych: Calm
Results
WBC 20.7 10^3/uL (4.8-10.8) H 12/04/23 13:10
Hgb 12.4 g/dL (12.0-16.0) 12/04/23 13:10
Hct 34.9 % (37.0-47.0) L 12/04/23 13:10
MCV 84.2 fL (81.0-99.0) 12/04/23 13:10
Plt Count 70 10^3/uL (130-400) L 12/04/23 13:10
Absolute Neuts (auto) 7.8 10^3/uL (1.4-6.5) H 12/03/23 14:14
PT 19.3 Sec (11.4-14.6) H 12/04/23 04:57
INR 1.64 12/04/23 04:57
APTT 64.9 Sec (23.4-35.0) H 12/04/23 04:57
Sodium 144 mmol/L (135-145) 12/04/23 12:52
Potassium 3.6 mmol/L (3.5-5.1) 12/04/23 12:52
Chloride 112 mmol/L (98-107) H 12/04/23 12:52
Carbon Dioxide 24 mmol/L (22-30) 12/04/23 12:52
BUN 18 mg/dl (7-17) H 12/04/23 12:52
Creatinine 1.0 mg/dL (0.6-1.0) 12/04/23 12:52
Calcium 9.7 mg/dl (8.4-10.2) 12/04/23 12:52
Total Bilirubin 2.6 mg/dl (0.2-1.3) H D 12/04/23 04:57
AST 417 U/L (14-36) H 12/04/23 04:57
ALT 69 U/L (0-35) H 12/04/23 04:57
Alkaline Phosphatase 109 U/L (38-126) 12/04/23 04:57
Diagnostic Image Results:
Prior GI Procedures:
EGD: unknown
Colonoscopy: unknown
Assessment / Plan
-
Pt is a 78yo with hx HTN, hyperlipidemia, hypothyroidism, epilepsy, elevated LFT's with onset of chest pain with nausea on admission. She was noted with change in EKG on admission with taken to cath labs with STEMI with cardiogenic shock with stent
placement. She was noted with concern for PEA arrest with afib/flutter with VT requiring shock. She was intubated and placed on pressors with Impella. She was noted with drop in hbg and hemorrhage from groin requiring cutdown and exposure of
femoral vessel with repair of femoral artery. She is noted with progressive drop in hbg but improved today with leukocytosis, thrombocytopenia, increased LFT's, troponin up to 327 and asked to evaluation for coffee ground emesis with recently added
heparin and Brilinta.
-coffee ground emesis
-acute STEMI
-s/p PEA arrest
-cardiogenic shock with impella
-elevated LFT's likely shock liver with hx some chronic elevation
-anemia acute blood loss
-hemorrhage from groin requiring cutdown and exposure of femoral vessel with repair of femoral artery
-thrombocytopenia
other med problems:
-HLD
-epilepsy
-HTN
PLAN:
Etiology of coffee ground related to GI bleeding (PUD, ectasia, vs other ) vs ileus related though not distention on exam vs other
agree with NGT decompression currently no coffee ground in tube
trend hbg, transfuse as needed
PPI BID
hold on EGD with current cardiac status
pt currently in status for transfer to [place]
noted elevated LFT's anticipate further increase with hypotension and shock liver
-
-
Thank you for consultation and allowing me to participate in the patient's care. Please call the [employer] retailer sales consultant GI physician during the after hours with any questions or concerns.
[2023-12-04 14:27] LABS: B.E. -3.8 mmol/L; HCO3 20.7 mmol/L (21-28); O2 Saturation % 98.8 % (94-98); PCO2 35 mmHg (32-35); PO2 91 mmHg (83-108); pH 7.38 (7.35-7.45)
[2023-12-04] MEDS: MAGNESIUM SULFATE 100 IV (14:28)
--- NOTE | 2023-12-04 14:30 | PTCARENOTE ---
Pt received PRBC x2 and additional 1L LR bolus administered.
[2023-12-04] MEDS: MAGNESIUM OXIDE 500 MG TUBE (14:39)
[2023-12-04] MEDS: ADRENALIN 250 IV (14:45)
--- NOTE | 2023-12-04 15:00 | PTCARENOTE ---
[facility] flight crew at bedside. Pt stable at this time. Remains on Impella at P5. Current gtts, Levo 10mcg/min, Epi 5mcg/min, dopamine 8mcg/kg/min, dobutamine 5mcg/kg/min, Propofol 20mcg/kg/min. Pt receiving 4gm Magnesium sulfate.
--- NOTE | 2023-12-04 15:05 | CM ---
CM following for DC planning needs.
CM had met with patient's spouse this AM. Prior to admission, patient resides w/ spouse in a private, 1 story home w/ 3 MIKE. Functionally, patient is indep. w/ ADLs, mobility without the use of any assisted device.
Plan is to transfer to [facility].
Will cont. to follow.
[2023-12-04 17:09] LABS: TSH Reflex To Free T4 1.86 uIU/ml (0.47-4.68)
--- NOTE | 2023-12-04 17:59 | W.DCSUMMARY ---
Discharge Summary
Discharge Data
Date of Admission: 12/03/23
Date of Discharge: 12/04/23
-
Pending Results: No
Discharge Plan
-
Patient Disposition: Acute [facility]
Condition: Critical
Discharge Orders:
Discharge Patient (As Directed); Ordered 12/04/23
Ordered By: Humza Elizondo
Discharge Date and Time
Discharge Date/Time: 12/04/23 17:00
Print Language: SINHALA
== END 2023-12-04 17:00 | disposition short-term general hospital (02) | DRG 215 ==
LOC: CVICU 16:02
PROVIDERS: Clinical Nurse Specialist Acute Care; Internal Medicine Cardiovascular Disease; Nurse Practitioner; Nurse Practitioner Acute Care; Surgery Vascular Surgery; ADMITTING PHYSICIAN Student in an Organized Health Care Education/Training Program; ATTENDING PHYSICIAN Internal Medicine; CONSULT PHYSICIAN Internal Medicine Critical Care Medicine; CONSULT PHYSICIAN Specialist; EMERGENCY PHYSICIAN Emergency Medicine
PROC: 02HA3RZ Insertion of Short-term External Heart Assist System into Heart, Percutaneous Approach (ICD-10-PCS; 2023-12-03)
PROC: 5A1223Z Performance of Cardiac Pacing, Continuous (ICD-10-PCS; 2023-12-03)
PROC: 0BH17EZ Insertion of Endotracheal Airway into Trachea, Via Natural or Artificial Opening (ICD-10-PCS; 2023-12-03)
PROC: 30233K1 Transfusion of Nonautologous Frozen Plasma into Peripheral Vein, Percutaneous Approach (ICD-10-PCS; 2023-12-03)
PROC: B2111ZZ Fluoroscopy of Multiple Coronary Arteries using Low Osmolar Contrast (ICD-10-PCS; 2023-12-03)
PROC: 30233N1 Transfusion of Nonautologous Red Blood Cells into Peripheral Vein, Percutaneous Approach (ICD-10-PCS; 2023-12-03)
PROC: 30233R1 Transfusion of Nonautologous Platelets into Peripheral Vein, Percutaneous Approach (ICD-10-PCS; 2023-12-03)
PROC: 027037Z Dilation of Coronary Artery, One Artery with Four or More Drug-eluting Intraluminal Devices, Percutaneous Approach (ICD-10-PCS; 2023-12-03)
PROC: 5A0221D Assistance with Cardiac Output using Impeller Pump, Continuous (ICD-10-PCS; 2023-12-03)
PROC: 5A1945Z Respiratory Ventilation, 24-96 Consecutive Hours (ICD-10-PCS; 2023-12-03)
PROC: 4A023N8 Measurement of Cardiac Sampling and Pressure, Bilateral, Percutaneous Approach (ICD-10-PCS; 2023-12-03)
PROC: 04LK0ZZ Occlusion of Right Femoral Artery, Open Approach (ICD-10-PCS; 2023-12-03)
PROC: 5A12012 Performance of Cardiac Output, Single, Manual (ICD-10-PCS; 2023-12-04)
DX: I21.19 ST elevation (STEMI) myocardial infarction involving other coronary artery of inferior wall (principal); I46.2 Cardiac arrest due to underlying cardiac condition; I49.01 Ventricular fibrillation; R57.0 Cardiogenic shock; K72.00 Acute and subacute hepatic failure without coma; J96.01 Acute respiratory failure with hypoxia; I50.21 Acute systolic (congestive) heart failure; T81.19XA Other postprocedural shock, initial encounter; I48.92 Unspecified atrial flutter; I47.20 Ventricular tachycardia, unspecified; I97.610 Postprocedural hemorrhage of a circulatory system organ or structure following a cardiac catheterization; D62 Acute posthemorrhagic anemia; E87.4 Mixed disorder of acid-base balance; K92.0 Hematemesis; I25.10 Atherosclerotic heart disease of native coronary artery without angina pectoris; I10 Essential (primary) hypertension; E78.00 Pure hypercholesterolemia, unspecified; E03.9 Hypothyroidism, unspecified; G40.909 Epilepsy, unspecified, not intractable, without status epilepticus; I48.91 Unspecified atrial fibrillation; Y84.0 Cardiac catheterization as the cause of abnormal reaction of the patient, or of later complication, without mention of misadventure at the time of the procedure; E83.51 Hypocalcemia; D69.59 Other secondary thrombocytopenia; R73.9 Hyperglycemia, unspecified; R00.1 Bradycardia, unspecified; E87.6 Hypokalemia; Z79.899 Other long term (current) drug therapy; Z82.49 Family history of ischemic heart disease and other diseases of the circulatory system
CPT/HCPCS: 93308; 33990; 35226; 71045; 80048; 80053; 80061; 82330; 82805; 82810; 82947; 82962; 83036; 83605; 83615; 83735; 84100; 84132; 84443; 84478; 84484; 85025; 85027; 85347; 85610; 85730; 86850; 86900; 86901; 86920; 93005; 93306; 93503; 94002; 94003; 99285; C1725; C1769; C1874; C1887; C1894; C9606; P9016; P9059; P9073; Q9967

== ENCOUNTER 2023-12-20 18:42 | Inpatient (IN) | payer OTHER, SELFPAY ==
[2023-12-20 18:57] VITALS: BP 120/62
[2023-12-20 18:59] VITALS: BMI 31.1
[2023-12-20 19:17] VITALS: BP 120/58
[2023-12-20] MEDS: HEPARIN 25000 UNITS/250 ML IV (19:31)
--- NOTE | 2023-12-20 20:04 | HPS.HSE ---
Family Physician
-
Family Physician: INTERVIEWE UNKNOWN - PT NOT
Chief Complaint
-
chest pain
History of Present Illness
78-year-old female past medical history of hypertension, hyperlipidemia, hypothyroidism, epilepsy, elevated liver enzymes presenting as transfer from [place] because her family lives near [place] and cannot travel to [place] regularly.
Patient originally presented here to [facility] on 12/02 with chest pain. She was found to have inferiolateral STEMI and was brought to [facility] in cardiogenic shock and was started on dopamine/norepinephrine drips. Patient was found to be
in heart block requiring atropine as well as atrial fibrillation/flutter and VT and was shocked multiple times for VT/VF. She was intubated and Impella was placed. She underwent 4 stents in the RCA. Postoperatively patient developed hemorrhage
from the right groin Impella site with significant decrease in hemoglobin. Vascular surgery was called for cutdown exposure of right femoral vessels and repair of right superficial femoral artery bleeding. Patient was transfused with multiple
units of blood. Patient had wound vac placed.
Patient was transferred to [place] for consideration of further medical management, possible Rpella. She had wound VAC placed for right groin wound. This was later removed. While at [place] she was treated for multi pressor shock RV dysfunction
pericardial effusion. She had Impella removed. Patient developed ventilator associated pneumonia treated with IV antibiotics. She was also diuresed due to volume overload. She was extubated on 12/15. She also was found to have a left lower
extremity DVT and was started on heparin drip because NOACs interacted with phenytoin.
Medical History
Past Medical History
Past Medical History: Reports Other (hypertension, hyperlipidemia, hypothyroidism, epilepsy, elevated liver enzymes)
Past Surgical History: Reports None
Social History
Tobacco: Non-smoker
Alcohol: None
Drug: None
Family History
Family History: Not pertinent
Allergies / Home Medications
Allergies reflects when Allergies were last updated in [employer].
Home Medications with original date entered in [employer]
Allergy/Medication List:
Allergies
Allergy/AdvReac Type Severity Reaction Status Date / Time
No Known Allergies Allergy Unverified 12/03/23 14:19
Home Medications
atorvastatin 40 mg tablet (Lipitor) 40 mg PO DAILY High Cholesterol 12/03/23
levothyroxine 125 mcg tablet (Synthroid) 125 mcg PO DAILY Thyroid 12/03/23
lisinopril 40 mg tablet 40 mg PO DAILY Blood Pressure 12/03/23
phenytoin sodium extended 100 mg capsule 300 mg PO Q48H Seizures 12/03/23
phenytoin sodium extended 100 mg capsule 400 mg PO Q48H Seizures 12/03/23
Review of Systems
-
A 12 point ROS was completed and negative except as noted: No
Physical Exam
Vital Signs
Vital Signs
Temp
97.9 F
12/20/23 18:59
Physical Exam
General: Well Developed, Well Nourished and No Apparent Distress
HEENT: NormoCephalic, Moist mucous membranes and Atraumatic
Respiratory: Clear
Cardiac: S1/S2 and Regular Rhythm; No Murmur or Rub
GI: Soft, Non Tender, Non Distended and Normal Bowel Sounds; No Organomegaly
Rectal: Deferred by Provider
Musculoskeletal: No Clubbing, No Cyanosis and No Edema
Skin: No Rash
Neuro: Nonfocal/grossly intact
Data Reviewed
-
Lab Data: Labs Reviewed by me
Old Records: Reviewed
Impression/Plan
-
IMPRESSION:
PLAN:
# Inferior STEMI secondary to RCA occlusion status post PATRICIA x 5
# LAD chronic total occlusion
# Moderately dilated RV with decreased RV function
# Ischemic cardiomyopathy with EF of 50-55%
-Continue valsartan 40 mg every 12
-Continue metoprolol
-Continue Plavix 75 mg daily
-Compression stockings
-Cardiology consulted
V-fib arrest status post multiple shocks
PEA arrest
Bradycardia status post transvenous pacemaker
-Resolved
Left lower extremity DVT
-Patient on heparin drip to warfarin bridge because NOACs interact with phenytoin
-Continue Coumadin, dosed daily
-INR was 1.1 on 12/18
-Due for 2.5 mg of Coumadin today (Coumadin on 12/17 from 1 mg and missed dose on 12/18)
-Check daily INR
Multifocal ventilator associated pneumonia
-Sputum grew MSSA/Serratia
-Completed antibiotics
-Currently on 3 L of oxygen
Essential hypertension
-continue losartan
Femoral artery repair
Hemorrhagic shock
Superficial femoral artery bleeding status post Impella with subsequent removal
-Received 4 units of blood here initially
-Patient reportedly had an episode of coffee-ground emesis which had resolved
-Wound VAC was placed, off for now and wound care consulted for replacement tomorrow
-Wound VAC is changed on Saturday, Saturday, Saturday
-Consult vascular surgery to manage wound VAC
Toxic metabolic encephalopathy/deconditioning/ICU delirium
-She underwent EEG which showed diffuse slowing
-Was treated with thiamine
-Was started on Seroquel for agitation
-PT recommended acute rehab
Dysphagia with nasogastric tube
Malnutrition
-Patient on tube feeds
-Patient was n.p.o. at [place]
-Customs House Broker consulted to resume tube feeds
Hypernatremia
-Had reportedly improved
History of epilepsy
-Continue phenytoin 100 mg 3 times daily
-Outpatient neurology follow-up
Cholestatic liver injury
-Improving
Incidental endometrial thickening
-Outpatient transvaginal ultrasound
Hypothyroidism
Full code
DVT prophylaxis�heparin drip, Coumadin
N.p.o.
[2023-12-20 20:49] LABS: Hematocrit 25.4 % (37.0-47.0); Hemoglobin 8.1 g/dL (12.0-16.0); Mean Corp Hgb Conc. 31.9 g/dL (33.0-37.0); Mean Corpuscular Hgb 31.2 pg (27.0-31.0); Mean Corpuscular Volume 97.7 fL (81.0-99.0); Mean Platelet Volume 10.5 fL (7.4-10.4); Platelet Count 478 10^3/uL (130-400); Red Cell Dist. Width 21.5 % (11.5-14.5)
[2023-12-20 20:51] LABS: APTT 64.6 Sec (23.4-35.0)
[2023-12-20 20:59] VITALS: BP 116/76
[2023-12-20 21:16] LABS: % Basophils 0.3 % (0-2); % Eosinophils 0.6 % (0-6); % Immature Granulocytes 1.2 % (0-0.5); % Lymphocytes 10.1 % (20.5-51.1); % Monocytes 6.8 % (1.7-9.3); Absolute Basophils 0.1 10^3/uL (0-0.2); Absolute Eosinophils 0.2 10^3/uL (0-0.7); Absolute Immature Granulocytes 0.3 10^3/uL (0-0.05); Absolute Lymphocytes 2.6 10^3/uL (1.2-3.4); Absolute Monocytes 1.8 10^3/uL (0.1-0.6); Absolute Neutrophils 21.1 10^3/uL (1.4-6.5); Nucleated Red Blood Cells % 0.5 %
[2023-12-20] MEDS: DUONEB 3 ML INH (21:23)
[2023-12-20 21:48] LABS: ALT (SGPT) 44 U/L (0-35); AST (SGOT) 75 U/L (14-36); Albumin 2.8 g/dl (3.5-5.0); Alkaline Phosphatase 153 U/L (38-126); Blood Urea Nitrogen 29 mg/dl (7-17); Calcium 7.9 mg/dl (8.4-10.2); Carbon Dioxide 26 mmol/L (22-30); Chloride 108 mmol/L (98-107); Estimated Creatinine Clearance 86 ml/min; Glucose 96 mg/dl (70-99); Potassium 3.7 mmol/L (3.5-5.1); Sodium 143 mmol/L (135-145); Total Bilirubin 0.9 mg/dl (0.2-1.3); Total Protein 6.4 g/dl (6.3-8.2); eGFR > 60.00
[2023-12-20 22:00] VITALS: BP 120/57
--- NOTE | 2023-12-20 22:00 | PTCARENOTE ---
Pt direct admit on heparin gtt new order placed. Pt able to respond to some questions by mouthing words or shaking head. Pt presents with weak wet unproductive cough. Pt suctioned by RT. Pt arrived with 2 IV's one appearing to be infiltrated. IV
team called to bed side, R midline placed. Per Tigre Pt wound vac on right groin removed and dressed before departure. Pt wound has been with out wound vac greater than 2 hour. made aware of wound, RN is to keep dressing on and wound consult
ordered. Pt skin check showing multiple wounds/abrasions and bruises(see work list). Assessment care and vitals as charted.
--- NOTE | 2023-12-20 22:01 | VATNOTE ---
called to assess vasculature for new IV sites. While assessing, this VAT RN, was removing some old dsgs. and removed left forearm gauze and scab underneath started to bleed. With heparin infusion below scabbed site, dsg applied with vaseline gauze,
folded 4x4 and an george bandage for pressure. PCN informed and asked to recheck in an hour. Left cub AC infiltrate IV site removed with NO bleeding. IV site on left wrist 22g, from [place], redressed. Midline applied to right upper arm for poor access.
Elevated left arm on pillow. Pt extremely edematous bilaterally.
[2023-12-20] MEDS: COUMADIN 2.5 MG PO (22:10)
[2023-12-20] MEDS: MELATONIN 3 MG TUBE (22:12)
[2023-12-20] MEDS: SEROQUEL 12.5 MG TUBE (22:12)
[2023-12-20] MEDS: DILANTIN ORAL SUSP 100 MG TUBE (22:44)
[2023-12-21] VITALS (22 sets, daily range): BP systolic 95–136; BP diastolic 49–92; PULSE 75–87; O2SAT 96–97; BMI 29.7
[2023-12-21 00:31] LABS: Glucose - Point of Care 102 mg/dl (70-99)
[2023-12-21] MEDS: LOPRESSOR 12.5 MG TUBE ×4 (00:55→17:54)
--- NOTE | 2023-12-21 04:39 | PTCARENOTE ---
Assumed care from orientee. Assessment as documented.
[2023-12-21] MEDS: AYR SALINE NASAL GEL 1 APPLIC NASAL ×2 (05:13→22:14)
[2023-12-21] MEDS: SYNTHROID 125 MCG TUBE (05:13)
[2023-12-21 05:32] LABS: % Basophils 0.3 % (0-2); % Eosinophils 0.3 % (0-6); % Immature Granulocytes 1.2 % (0-0.5); % Lymphocytes 8.7 % (20.5-51.1); % Monocytes 5.4 % (1.7-9.3); % Neutrophils 84.1 % (42.2-75.2); Absolute Basophils 0.1 10^3/uL (0-0.2); Absolute Eosinophils 0.1 10^3/uL (0-0.7); Absolute Immature Granulocytes 0.3 10^3/uL (0-0.05); Absolute Lymphocytes 2.3 10^3/uL (1.2-3.4); Absolute Monocytes 1.5 10^3/uL (0.1-0.6); Absolute Neutrophils 22.5 10^3/uL (1.4-6.5); Hematocrit 23.7 % (37.0-47.0); Hemoglobin 7.6 g/dL (12.0-16.0); Mean Corp Hgb Conc. 32.1 g/dL (33.0-37.0); Mean Corpuscular Hgb 31.4 pg (27.0-31.0); Mean Corpuscular Volume 97.9 fL (81.0-99.0); Mean Platelet Volume 10.5 fL (7.4-10.4); Nucleated Red Blood Cells % 0.3 %; Platelet Count 431 10^3/uL (130-400); Red Blood Cell Count 2.42 10^6/uL (4.20-5.40); Red Cell Dist. Width 21.8 % (11.5-14.5); White Blood Cell Count 26.8 10^3/uL (4.8-10.8)
[2023-12-21 05:40] LABS: APTT 176.7 Sec (23.4-35.0)
[2023-12-21] MEDS: TYLENOL ORAL SOLUTION 650 MG PO (05:59)
[2023-12-21 06:21] LABS: ALT (SGPT) 35 U/L (0-35); AST (SGOT) 65 U/L (14-36); Albumin 2.4 g/dl (3.5-5.0); Alkaline Phosphatase 132 U/L (38-126); Blood Urea Nitrogen 28 mg/dl (7-17); Calcium 7.9 mg/dl (8.4-10.2); Carbon Dioxide 25 mmol/L (22-30); Chloride 108 mmol/L (98-107); Estimated Creatinine Clearance 84 ml/min; Glucose 89 mg/dl (70-99); Potassium 3.8 mmol/L (3.5-5.1); Sodium 142 mmol/L (135-145); Total Protein 5.6 g/dl (6.3-8.2); eGFR > 60.00
[2023-12-21 06:40] LABS: Glucose - Point of Care 100 mg/dl (70-99)
--- NOTE | 2023-12-21 07:09 | W.PN.HOSP.TC ---
Today's Communication/Plan
-
cont tube feeds
wean O2 as tolerated
speech eval
PT/OT
Heparin Coumadin Bridge
Assessment / Plan
Assessment / Plan
Physical Exam
General: no acute distress appears comfortable at this time, diffuse anasarca swollen upper and lower ext's
HEENT: NormoCephalic, Moist mucous membranes and Atraumatic, NGT present, weak voice like due to recent intubations since extubated
Respiratory: Rhonchi
Cardiac: S1/S2 and Regular Rhythm; No Murmur or Rub
GI: Soft, Non Tender, Non Distended and Normal Bowel Sounds; No Organomegaly
Musculoskeletal: No Clubbing, No Cyanosis and No Edema
Neuro: Awake alert conversant to an extent
HPI 78F HTN, HLD, hypothyroidism, epilepsy, chronic elevated liver enzymes, STEMI presents as transfer from [place] because her family lives near [place] and cannot travel to [place] regularly. Originally presented here to [place] 12/02 with chest
pain. Inferiolateral STEMI, brought to [facility] in cardiogenic shock, started on pressors. Cath further complicated with bradycardia requiring atropine as well as atrial fibrillation/flutter and VT/VF, shocked multiple times. Intubated and Impella
placed. She underwent 4 stents in the RCA. Postoperatively patient developed hemorrhage from the right groin Impella site with significant anemia. Vascular surgery performed cutdown exposure of right femoral vessels and repair of right
superficial femoral artery bleeding- required multiple transfusions. Patient was transferred to [place] for higher level of care possible benefit Rpella. While at [place] she was treated for multi pressor shock RV dysfunction pericardial effusion.
Impella since removed. Patient developed ventilator associated pneumonia treatment with IV antibiotics completed per reports. She was extubated on 12/15. Left lower extremity DVT was found and patient was started on heparin drip because NOACs
interacted with her sz medication phenytoin.
# Inferior STEMI secondary to RCA occlusion status post PATRICIA x 5
# LAD chronic total occlusion
# Moderately dilated RV with decreased RV function
# Ischemic cardiomyopathy with EF of 50-55%
#hx V-fib arrest status post multiple shocks
#Hx PEA arrest
-Continue valsartan 40 mg every 12H
-Continue metoprolol
-Continue Plavix 75 mg daily
-Compression stockings
-Cardiology consult appreciated
Bradycardia status post transvenous pacemaker
-Resolved
Left lower extremity DVT
-Patient on heparin drip to warfarin bridge because NOACs interact with phenytoin
-Continue Coumadin, dosed daily, hold if INR>3
-Daily INR
Multifocal ventilator associated pneumonia
-Sputum grew MSSA/Serratia
-Completed antibiotics
-Currently on 3 L of oxygen
-wean O2 supplementation as tolerated
Leukocytosis
-monitor for now
-blood cultures and empiric abx if patient develops fever
Essential hypertension
-continue losartan
Femoral artery repair
Hemorrhagic shock
Superficial femoral artery bleeding status post Impella with subsequent removal
-Received 4 units of blood here initially
-Patient reportedly had an episode of coffee-ground emesis which had since resolved
-Consult vascular surgery appreciated
-wound vac placed
Toxic metabolic encephalopathy/deconditioning/ICU delirium
-She underwent EEG which showed diffuse slowing
-Was treated with thiamine
-Was started on Seroquel for agitation
-PT recommended acute rehab
Dysphagia with nasogastric tube
Malnutrition
-Tankman consult appreciated
-tube feeds continued
-Speech eval requested
History of epilepsy
-Continue phenytoin 100 mg 3 times daily
-Outpatient neurology follow-up
Reported Cholestatic liver injury
-appears resolved at this time
Incidental endometrial thickening
-Outpatient transvaginal ultrasound
Hypothyroidism
-cont synthroid
Full code
DVT prophylaxis�heparin drip, Coumadin
GI ppx PPI
Discussed with patient and patient's Rodrigo
I spent a total of 60 minutes with the patient or on the floor. More than 50% of this time involved counseling and coordination of care.
Anticipated Discharge: > 48 hours
Subjective/Interval History
-
Date of Service: December 21, 2023
Awake alert conversant to an extent, low pitch voice suspect due to recent intubations (per patient had to be re-intubated after 1st extubation). No acute distress. Appears comfortable. diffuse anasarca noted on examination.
Objective Data
-
Labs:
Laboratory Results
12/20/23 12/20/23 12/21/23
20:27 21:04 04:47
WBC 26.0 H 26.8 H
Hgb 8.1 L 7.6 L
Hct 25.4 L 23.7 L
Plt Count 478 H 431 H
APTT 64.6 H 176.7 H*
Sodium Cancelled 143 142
Potassium Cancelled 3.7 3.8
Chloride Cancelled 108 H 108 H
Carbon Dioxide Cancelled 26 25
BUN Cancelled 29 H 28 H
Creatinine Cancelled 0.6 0.6
Glucose Cancelled 96 89
Calcium Cancelled 7.9 L 7.9 L
Total Bilirubin Cancelled 0.9 1.0
AST Cancelled 75 H 65 H
ALT Cancelled 44 H 35
Alkaline Phosphatase Cancelled 153 H 132 H
12/21/23
12:45
WBC
Hgb
Hct
Plt Count
APTT Pending
Sodium
Potassium
Chloride
Carbon Dioxide
BUN
Creatinine
Glucose
Calcium
Total Bilirubin
AST
ALT
Alkaline Phosphatase
Vital Signs:
Vital Signs
Temp Pulse Resp BP Pulse Ox
98.7 F 86 23 117/60 3
12/21/23 03:35 12/21/23 06:00 12/21/23 06:00 12/21/23 06:00 12/21/23 06:30
I&O
12/20/23 12/21/23 12/22/23
06:59 06:59 06:59
Intake Total 220 / 220
Balance 220 / 220
--- NOTE | 2023-12-21 08:29 | CON.VAS ---
Addendum entered and electronically signed by Becca Grayson MD 12/22/23 10:14:
Pt Seen and examined at bedside. Reviewed the note above and agree with the assessment and plan. Will need wound vac until R groin wound is healed. no concern for arterial issues of RLE with palpable DP
Original Note:
Consultation
Consultation Request
Date/Time Consultation Performed: 12/21/2023 0800
Requesting Provider: Hospialist
Performing Provider: SHARON Crane
Reason for Consultation: Wound Vac
Medical History
-
Chief Complaint: Wound Vac
History of Present Illness:
This is a 78-year-old female with significant past medical history for STEMI, cardiogenic shock, hypertension, hypothyroidism, and epilepsy she initially presented to [facility] on 12/03/2023 as a STEMI and was subsequently taken to the
cardiac catheterization lab where she had 5 drug-eluting stents placed to 100% thrombotic occlusion of RCA and placement of Impella at right femoral artery. Subsequently after placement profuse bleeding was noted around Impella sheath and vascular
surgeon Dr. Jett Castillo III was consulted. Unfortunately due to patient's acuity and cardiogenic shock status Impella could not be removed nor exchanged to the left femoral artery at the time so complete hemostasis and complete control of
bleeding could not be accomplished. However, bleeding was significantly decreased following cutdown exposure of right SFA and repair of SFA around the Impella device by Dr. Castillo. Patient was subsequently transferred to [facility] for continued management and possible placement of RPella. Patient now is transferred back to [facility] for continued medical management. Unfortunately, there is no vascular operative report or progress notes in transfer
paperwork. However, discharge summary that is included in transfer document does note that vascular surgery was following and did repair right superficial femoral artery following complete removal of Impella sheath at [facility], with wound management
of wound VAC. Her hospital course at [facility] was complicated by pericardial effusion, ventilator associated pneumonia, and left lower extremity DVT. She was extubated on 12/16/2023 at [facility]. Currently patient is oriented to self only, when
asked where she is she states a house. She cannot provide information regarding recent events or medical history. Her is at bedside and does endorse that she did not have a history of peripheral arterial disease or vascular surgeon
evaluation prior to STEMI. 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 Currently patient is comfortable resting in bed. Vascular
surgery has been consulted for placement of wound VAC.
Past Medical History
Past Medical History: CAD (STEMI), HTN, Hypothyroidism and Other (Epilepsy, elevated liver enzymes)
Past Surgical History: Cardiac (Cardiac catheterization with PCI)
Social History
Tobacco: Non-Smoker
Alcohol: None
Drug: None
Allergies / Home Medications
Allergy/AdvReac Type Severity Reaction Status Date / Time
No Known Allergies Allergy Unverified 12/03/23 14:19
�Medication �Instructions �Recorded �Confirmed �Type
atorvastatin 40 mg tablet (Lipitor) 40 mg PO DAILY High Cholesterol 12/03/23 12/20/23 History
levothyroxine 125 mcg tablet 125 mcg PO DAILY Thyroid 12/03/23 12/20/23 History
(Synthroid)
clopidogrel 75 mg tablet 75 mg PO DAILY Blood Clot 12/20/23 12/20/23 History
Prevention/Tx
lansoprazole 30 mg delayed 30 mg PO DAILY GERD 12/20/23 12/20/23 History
release,disintegrating tablet
melatonin 3 mg tablet 3 mg PO HS Sleep 12/20/23 12/20/23 History
metoprolol tartrate 25 mg tablet 12.5 mg PO Q6H Blood Pressure 12/20/23 12/20/23 History
phenytoin 125 mg/5 mL oral 100 mg PO Q48H Seizures 12/20/23 12/20/23 History
suspension
phenytoin 125 mg/5 mL oral 100 mg PO TID Seizures 12/20/23 12/20/23 History
suspension
quetiapine 25 mg tablet 12.5 mg PO HS Mental Health/Anxiety 12/20/23 12/20/23 History
valsartan 40 mg tablet 40 mg PO BID Blood Pressure 12/20/23 12/20/23 History
warfarin 2.5 mg tablet 2.5 mg PO DAILY Blood Clot 12/20/23 12/20/23 History
Prevention/Tx
Review of Systems
-
Unable to obtain full review of systems at this time due to: Acuity
Physical Exam
Vital Signs
Temp Pulse Resp BP Pulse Ox
98.8 F 86 23 117/60 3
12/21/23 07:25 12/21/23 06:00 12/21/23 06:00 12/21/23 06:00 12/21/23 06:30
Lab Results
12/21/23 04:47
12/21/23 04:47
Physical Exam
General: No Apparent Distress
HEENT: Normocephalic, Anicteric and Atraumatic
Respiratory: Non Labored Respirations
Cardiac: Negative JVD
GI: Soft, Non Tender and Non Distended
Musculoskeletal: Edema (+1 edema at bilateral lower extremities)
Skin: Warm, Dry and Other (Right groin with wound, clean dry intact, no evidence of eschar, purulent drainage, foul odor or any other evidence of infection. Tissue appears healthy and viable.)
Neuro: Awake and Oriented (oriented to self)
Pulses: Right Dorsalis Pedis: +2 and Right Posterior Tibial: +1
Assessment / Plan
-
Assessment: 78 year old female transferred to [place] from [facility] following management of impella and cardiogenic shock after STEMI, she had a right femoral artery injury following placement of Impella, which was repaired by Vascular surgery at
[facility] with surgical bed wound management of wound vac.
Plan:
Wound vac placed by this provider today, subsequent wound vac management and dressing care can by preformed by wound care.
Record request placed for vascular surgery documentation at [facility]
Reviewed plan with solution lead surgeon
[2023-12-21] MEDS: DILANTIN ORAL SUSP 100 MG TUBE ×4 (08:51→22:11)
[2023-12-21] MEDS: DIOVAN 40 MG TUBE ×2 (08:52→22:11)
[2023-12-21] MEDS: PREVACID 30 MG TUBE (08:52)
[2023-12-21] MEDS: LIPITOR 40 MG TUBE (08:52)
[2023-12-21] MEDS: PLAVIX 75 MG TUBE (08:53)
--- NOTE | 2023-12-21 10:16 | CON.CAR ---
Addendum entered and electronically signed by Young Michael MD 12/21/23 14:25:
I saw and examined the patient.
The CNC SERVICE TECHNICIAN's note was reviewed and I agree with the note.
Comment: She is slowly improving from a acute inf stemi with RV involvement. PT/OT/wound care/nutrition will be keys to her recovery.
Original Note:
Consultation
Consultation Request
Date/Time Consultation Requested: 12/20/23 10p
Date/Time Consultation Performed: 12/21/23 9:30a
Requesting Provider: Dr. Peter
Performing Provider: MIKE Raphael for Dr. Michael
Reason for Consultation: CHF, CAD
Medical History
-
Chief Complaint: prior STEMI
History of Present Illness:
Mrs. Lopez is a 78 yo female with CAD s/p STEMI 12/03/23 treated with 5 PATRICIA to culprit RCA and had LAD BUTTONHOLE FACER, complicated by cardiogenic shock requiring Impella, cutdown of right SFA and repair of SFA by Dr. Castillo, VT/VF/PEA arrest s/p multiple
shocks, and acute anemia requiring PRBC transfusions, then transferred to [facility] for additional management, HTN, HLD, hypothyroid and epilepsy, who was transferred back to from [facility] for medical management. At [facility] her course was eventful for LLE
DVT now on Warfarin, pericardial effusion, ventilator associated PNA, vascular surgery repair of right SFA and Impella removal with wound VAC, and she was extubated at [facility] 12/16/23. Her family lives in [place] and her is unable to travel
to [facility] daily. He is at her bedside and provides history/information as she has TME/ICU delirium and is unable to provide history. We are consulted for medical management of CAD.
Past Medical History
Past Medical History: Other (as above)
Past Surgical History: Tonsilectomy
Social History
Tobacco: Non-Smoker
Alcohol: None
Personal:
Living: With Family
Family History
Family History: Reviewed & Not Pertinent
Allergies / Home Medications
Allergy/AdvReac Type Severity Reaction Status Date / Time
No Known Allergies Allergy Unverified 12/03/23 14:19
�Medication �Instructions �Recorded �Confirmed �Type
atorvastatin 40 mg tablet (Lipitor) 40 mg PO DAILY High Cholesterol 12/03/23 12/20/23 History
levothyroxine 125 mcg tablet 125 mcg PO DAILY Thyroid 12/03/23 12/20/23 History
(Synthroid)
clopidogrel 75 mg tablet 75 mg PO DAILY Blood Clot 12/20/23 12/20/23 History
Prevention/Tx
lansoprazole 30 mg delayed 30 mg PO DAILY GERD 12/20/23 12/20/23 History
release,disintegrating tablet
melatonin 3 mg tablet 3 mg PO HS Sleep 12/20/23 12/20/23 History
metoprolol tartrate 25 mg tablet 12.5 mg PO Q6H Blood Pressure 12/20/23 12/20/23 History
phenytoin 125 mg/5 mL oral 100 mg PO Q48H Seizures 12/20/23 12/20/23 History
suspension
phenytoin 125 mg/5 mL oral 100 mg PO TID Seizures 12/20/23 12/20/23 History
suspension
quetiapine 25 mg tablet 12.5 mg PO HS Mental Health/Anxiety 12/20/23 12/20/23 History
valsartan 40 mg tablet 40 mg PO BID Blood Pressure 12/20/23 12/20/23 History
warfarin 2.5 mg tablet 2.5 mg PO DAILY Blood Clot 12/20/23 12/20/23 History
Prevention/Tx
Review of Systems
-
History Source: Patient, Family ( at bedside) and Transfer Record
All other systems: Negative unless noted
Physical Exam
Vital Signs
Temp Pulse Resp BP Pulse Ox
98.8 F 82 23 108/54 96
12/21/23 07:25 12/21/23 08:52 12/21/23 06:00 12/21/23 08:52 12/21/23 08:50
Lab Results
12/21/23 04:47
12/21/23 04:47
Physical Exam
General: No Apparent Distress and Other (frail, elderly)
HEENT: Normocephalic, Moist Mucous Membranes and Other (NG tube in place)
Respiratory: Rhonchi (diffuse b/l )
Cardiac: S1/S2, Regular Rhythm and Peripheral Edema (moderate b/l LE)
Breast: Deferred by me
GI: Soft, Non Distended and Normal Bowel Sounds
Rectal: Deferred by Provider
Genito-urinary: Clear Urine
Musculoskeletal: No Clubbing, No Cyanosis and Edema (moderate b/l LE)
Skin: Warm and Dry
Neuro: Awake, Alert and Oriented (to self)
Psych: Calm
Impression / Plan
-
STEMI/CAD - 12/03/23 s/p PATRICIA x 5 to culprit RCA.
- has LAD BUTTONHOLE FACER.
- continue medical therapy with ASA, Plavix, Lopressor.
- EKG today.
Cardiogenic shock - s/p STEMI.
- required Impella device, removed at [facility].
- vascular surgery following.
Right SFA repair - at [facility] and Impella removed.
- vascular surgery following.
- wound VAC.
Ischemic cardiomyopathy - EF 40-45% on echo 12/04/23.
- echo at [facility] with EF 50-55%.
- GDMT limited by BP.
- Valsartan and Lopressor for now (maybe due to NG tube meds).
- check echo on Saturday.
HTN - low/normal.
- monitor.
HLD - continue Lipitor.
- LDL 41, goal LDL < 55.
- follow up as outpatient with lipids in 3 months.
Epilepsy - chronic, stable on Phenytoin.
- per hospitalist.
Anemia - acute s/p Impella implanted and received 5 units PRBCs and 2 units FFP.
- follow H/H.
- hgb 7.6 today.
LLL DVT - on Warfarin.
- INR today is 1.31
- on IV Heparin.
Dysphagia - NG tube.
- meds via tube and tube feeds.
TME/ICU delirium - per hospitalist.
Data Reviewed
-
EKG: Other (ordered today)
Radiology: Report Reviewed by me (CXR with pulmonary edema, opacity medial LLL atelectasis vs PNA)
Medical Tests (Nuc Med, Echo etc): Report Reviewed by me (echo 12/04/23: LV severe hypokinesis/akinesis of the mid to apical inferior and inferoseptal hernandez with LVEF 40-45%, Impella CP is present, normal RV size/function, no gross valve
abnormalities, trace pericardial effusion.)
Labs: Labs Reviewed by me
Old Records: Reviewed
[2023-12-21 10:30] LABS: INR 1.31; PT 16.1 Sec (11.4-14.6)
--- NOTE | 2023-12-21 10:30 | PTCARENOTE ---
Assumed care of pt, received report from night RN. Heparin gtt running per protocol see worklist intervention. Pt is alert to person and able to communicate slowly. Pt is very hard of hearing. Wound vac was placed this morning by vascular RADIO FREQUENCY DESIGN ENGINEER to the
right groin. Wound is pink and intact. Lower right leg edema +3 pitting edema, right lower leg +2 pitting edema. Right upper extremity +2 edema bilaterally. Lung sounds diminished throughout. Scattered crackles throughout. Gurgle rattling voice.
Skin check showing multiple wounds and bruises please see wound intervention.
[2023-12-21] MEDS: HEPARIN 25000 UNITS/250 ML IV (11:34)
[2023-12-21 12:27] LABS: Glucose - Point of Care 109 mg/dl (70-99)
[2023-12-21] MEDS: ROBITUSSIN 200 MG PO ×3 (13:59→22:12)
[2023-12-21 14:26] LABS: APTT 93.9 Sec (23.4-35.0)
[2023-12-21] MEDS: COUMADIN 2.5 MG PO (17:54)
[2023-12-21 18:10] LABS: Glucose - Point of Care 116 mg/dl (70-99)
[2023-12-21 20:52] LABS: APTT 144.2 Sec (23.4-35.0)
[2023-12-21] MEDS: MELATONIN 3 MG TUBE (22:12)
[2023-12-21] MEDS: SEROQUEL 12.5 MG TUBE (22:12)
[2023-12-22] VITALS (23 sets, daily range): BP systolic 78–132; BP diastolic 47–73; BMI 29.6
[2023-12-22 00:06] LABS: Glucose - Point of Care 100 mg/dl (70-99)
[2023-12-22] MEDS: LOPRESSOR 12.5 MG TUBE ×3 (00:36→18:42)
[2023-12-22 05:06] LABS: APTT 89.5 Sec (23.4-35.0)
[2023-12-22 05:12] LABS: Hematocrit 20.1 % (37.0-47.0); Hemoglobin 6.3 g/dL (12.0-16.0); Mean Corp Hgb Conc. 31.3 g/dL (33.0-37.0); Mean Corpuscular Hgb 31.3 pg (27.0-31.0); Mean Platelet Volume 10.7 fL (7.4-10.4); Platelet Count 358 10^3/uL (130-400); Red Blood Cell Count 2.01 10^6/uL (4.20-5.40); Red Cell Dist. Width 22.7 % (11.5-14.5); White Blood Cell Count 15.5 10^3/uL (4.8-10.8)
[2023-12-22 05:14] LABS: Blood Urea Nitrogen 26 mg/dl (7-17); Calcium 7.6 mg/dl (8.4-10.2); Carbon Dioxide 22 mmol/L (22-30); Chloride 108 mmol/L (98-107); Estimated Creatinine Clearance 72 ml/min; Glucose 119 mg/dl (70-99); Magnesium 1.8 mg/dl (1.6-2.3); Phosphorus 2.9 mg/dl (2.5-4.5); Potassium 3.2 mmol/L (3.5-5.1); Sodium 140 mmol/L (135-145); eGFR > 60.00
--- NOTE | 2023-12-22 05:43 | W.PN.UPDATE ---
Update Note
Progress Note Update
hgb level dropped down from 7.6 to 6.3 this am, verbal consent of blood transfusion obtained from over the phone. Type and screen ordered and one unit of blood ordered. K this am is 3.2 repleted as needed.
[2023-12-22] MEDS: KLOR-CON 40 MEQ TUBE (06:02)
[2023-12-22] MEDS: HEPARIN 25000 UNITS/250 ML IV (06:02)
[2023-12-22 06:10] LABS: Glucose - Point of Care 116 mg/dl (70-99)
[2023-12-22] MEDS: SYNTHROID 125 MCG TUBE (06:11)
--- NOTE | 2023-12-22 06:32 | PTCARENOTE ---
Pt appeared to be resting comfortably through out the nigh. Respirations even unlabored. Pt continues on heparin gtt. Assessment care and vitals as charted. Pt morning labs showed drop in h&H and low K. Night SLEEVE FIXER made aware. SLEEVE FIXER reached out to
for consent. Orders placed
--- NOTE | 2023-12-22 07:20 | W.PN.HOSP.TC ---
Today's Communication/Plan
-
hold hep gtt
2PRBC transfusion
cont coumadin
daily INR checks
pending VSE
replete potassium
Psych eval
CT head
Assessment / Plan
Assessment / Plan
Physical Exam
General: no acute distress appears comfortable at this time, diffuse anasarca swollen upper and lower ext's
HEENT: NormoCephalic, Moist mucous membranes and Atraumatic, NGT present, weak voice like due to recent intubations since extubated
Respiratory: Rhonchi
Cardiac: S1/S2 and Regular Rhythm; No Murmur or Rub
GI: Soft, Non Tender, Non Distended and Normal Bowel Sounds; No Organomegaly
Musculoskeletal: No Clubbing, No Cyanosis and No Edema
Neuro: Awake alert conversant to an extent
HPI 78F HTN, HLD, hypothyroidism, epilepsy, chronic elevated liver enzymes, STEMI presents as transfer from [place] because her family lives near [place] and cannot travel to [place] regularly. Originally presented here to [place] 12/02 with chest
pain. Inferiolateral STEMI, brought to [facility] in cardiogenic shock, started on pressors. Cath further complicated with bradycardia requiring atropine as well as atrial fibrillation/flutter and VT/VF, shocked multiple times. Intubated and Impella
placed. She underwent 4 stents in the RCA. Postoperatively patient developed hemorrhage from the right groin Impella site with significant anemia. Vascular surgery performed cutdown exposure of right femoral vessels and repair of right
superficial femoral artery bleeding- required multiple transfusions. Patient was transferred to [place] for higher level of care possible benefit Rpella. While at [place] she was treated for multi pressor shock RV dysfunction pericardial effusion.
Impella since removed. Patient developed ventilator associated pneumonia treatment with IV antibiotics completed per reports. She was extubated on 12/15. Left lower extremity DVT was found and patient was started on heparin drip because NOACs
interacted with her sz medication phenytoin.
# Inferior STEMI secondary to RCA occlusion status post PATRICIA x 5
# LAD chronic total occlusion
# Moderately dilated RV with decreased RV function
# Ischemic cardiomyopathy with EF of 50-55%
#hx V-fib arrest status post multiple shocks
#Hx PEA arrest
-Continue valsartan 40 mg every 12H
-Continue metoprolol
-Continue Plavix 75 mg daily
-Compression stockings
-Cardiology consult appreciated
Bradycardia status post transvenous pacemaker
-Resolved
Left lower extremity DVT
-heparin gtt to warfarin bridge because NOACs interact with phenytoin
-hep gtt placed on hold 12/21 due to drop in hgb <7, consider IVC filter if hold is prolonged
-Continue Coumadin, dosed daily, hold if INR>3
-Daily INR
12/21 Severe anemia Hgb<7
dropped from 7.6 previous day to 6.3, Vital signs remains stable no significant hypotension or tachycardia
likely multifactorial
possible acute blood loss vs dilutional (all cell lines down)
B12 folate wnl
Iron level wnl
mild deficient transferrin saturation
transfusing for goal Hgb>8 given cardiac history
responded well to 2PRBC transfusion
Hypokalemia
monitor and replete as necessary
Multifocal ventilator associated pneumonia
-Sputum grew MSSA/Serratia
-Completed antibiotics
-Currently on 3 L of oxygen
-wean O2 supplementation as tolerated
Leukocytosis
-monitor for now
-blood cultures and empiric abx if patient develops fever
Essential hypertension
-continue losartan
Femoral artery repair
Hemorrhagic shock
Superficial femoral artery bleeding status post Impella with subsequent removal
-Received 4 units of blood here initially
-Patient reportedly had an episode of coffee-ground emesis which had since resolved
-Consult vascular surgery appreciated
-wound vac placed
Toxic metabolic encephalopathy/deconditioning/ICU delirium
Hallucination
-She underwent EEG which showed diffuse slowing
-Was treated with thiamine
-Was started on Seroquel for agitation
-PT recommended acute rehab
-Psych eval appreciated
-CT head no acute abn's
Dysphagia with nasogastric tube
Malnutrition
-Oracle Programmer consult appreciated
-tube feeds continued
-Speech eval appreciated pending VSE
History of epilepsy
-Continue phenytoin 100 mg 3 times daily
-Outpatient neurology follow-up
Reported Cholestatic liver injury
-appears resolved at this time
Incidental endometrial thickening
-Outpatient transvaginal ultrasound
Hypothyroidism
-cont synthroid
Full code
DVT prophylaxis�heparin drip on hold, continue Coumadin
GI ppx PPI
Discussed with patient and patient's Rodrigo
I spent a total of 60 minutes with the patient or on the floor. More than 50% of this time involved counseling and coordination of care.
Anticipated Discharge: > 48 hours
Subjective/Interval History
-
Date of Service: December 22, 2023
confused reporting visual hallucinations reports seeing an marshall outside the window (not present).
Objective Data
-
Labs:
Laboratory Results
12/21/23 12/22/23 12/22/23
20:28 04:33 10:30
WBC 15.5 H
Hgb 6.3 L*
Hct 20.1 L*
Plt Count 358
APTT 144.2 H 89.5 H Pending
Sodium 140
Potassium 3.2 L
Chloride 108 H
Carbon Dioxide 22
BUN 26 H
Creatinine 0.7
Glucose 119 H
Calcium 7.6 L
Vital Signs:
Vital Signs
Temp Pulse Resp BP Pulse Ox
98.4 F 76 19 102/63 100
12/22/23 05:37 12/22/23 06:11 12/22/23 06:11 12/22/23 06:11 12/22/23 04:37
I&O
12/21/23 12/22/23 12/23/23
06:59 06:59 06:59
Intake Total 220 / 220 1030 / 1030
Output Total 850 / 850
Balance 220 / 220 180 / 180
[2023-12-22] MEDS: LOPRESSOR TUBE (07:23)
[2023-12-22 08:59] LABS: Iron 53 ug/dl (37-170)
[2023-12-22] MEDS: ROBITUSSIN 200 MG PO ×4 (09:07→22:25)
[2023-12-22] MEDS: PLAVIX 75 MG TUBE (09:07)
[2023-12-22] MEDS: PREVACID 30 MG TUBE (09:07)
[2023-12-22] MEDS: DIOVAN 40 MG TUBE ×2 (09:07→20:32)
[2023-12-22 09:08] LABS: Percent Saturation 19 % (20-50); Total Iron Binding Capacity 271 ug/dl (265-497)
[2023-12-22] MEDS: LIPITOR 40 MG TUBE (09:14)
[2023-12-22] MEDS: DILANTIN ORAL SUSP 100 MG TUBE ×3 (09:22→22:25)
[2023-12-22 09:50] LABS: Folate 8.2 ng/ml (2.76-20); Vitamin B12 959 pg/ml (239-931)
--- NOTE | 2023-12-22 10:13 | PTCARENOTE ---
Assumed care at 0700; BP 95/58 MAP 69; HR SR 81; RR 13; 100% 4L ; AAO x3. Speech slow difficult to understand states that STEBBINS; Abdomen soft non-tender FMS draining brown output; [place] changed draining emily clear urine. Heparin infusing at 03/1200
. Placed on hold low Hgb. 2 unit of blood order.
10:16 1st unit PRBC initiated via RT upper mid-line
--- NOTE | 2023-12-22 10:24 | PTOTSP ---
Speech Therapy
Presentation: Patient was extubated on 12/15 at [place] which resulted in patient being aphonic and reporting 'trouble voicing'. Patient was able to communicate her wants/ needs; despite being aphonic. Patient was oriented and followed commands. Patient
is hard of hearing and reported decreased vision. Patient shared she does not have hearing aids and her is bringing her glasses in.
Swallowing Function: Patient was observed with several ice chips which resulted in immediate wet coughing and throat clearing. Patient's O2 decreased, her vocal quality decreased, and her cough (weak in quality) appeared to be increasingly wet with
each presentation. Patient reported feeling short of breath.
Given patient's aphonic vocal quality, s/sx of aspiration with ice chips, reported shortness of breath, and recent extubation, recommend NPO at this time with VSE to r/o aspiration and quantify swallowing function.
Recommendations:
1) NPO at this time
2) Strict aspiration precautions
3) Continuation of tube feeds
4) VSE
Plan: DATA INTEGRATION ANALYST will continue to follow; pending hospitalization.
--- NOTE | 2023-12-22 12:08 | W.PN.CD ---
Today's Communication / Plan
-
Agree with transfusion
For now on warfarin and Plavix, agree with holding heparin. INR pending
Echo tomorrow
Severe anemia is worrisome and high risk
Impression / Plan
-
CAD
- Inferior STEMI 12/03/23 s/p PATRICIA x 5 to culprit RCA.
- Known occlusion of LAD
- continue medical therapy with Plavix+warfarin (not on ASA), Lopressor. INR pending
Right SFA repair - at [facility] and Impella removed.
- vascular surgery following.
- wound VAC.
Ischemic cardiomyopathy - EF 40-45% on echo 12/04/23.
- echo at [facility] with EF 50-55%.
- GDMT limited by BP.
- Valsartan and Lopressor for now (maybe due to NG tube meds).
- check echo on Saturday.
HTN
HLD, LDL at goal on statin, continue
Epilepsy - chronic, stable on Phenytoin.
- per hospitalist.
Anemia
- On Plavix, warfarin, and IV heparin on hold, INR pending
- H/H worse
- Getting PRBC
- Further eval per medicine
LLL DVT: warfarin (given Dilantin use). Heparin on hold
Dysphagia - NG tube.
- meds via tube and tube feeds.
Subjective:
No angina. + HIGHTOWER. No abdominal pain
Physical Exam
Vital Signs/Labs
Vital Signs
Temp Pulse Resp BP Pulse Ox
97.5 F 81 14 110/61 96
12/22/23 10:27 12/22/23 10:27 12/22/23 10:27 12/22/23 10:27 12/22/23 10:07
12/21/23 12/22/23 12/23/23
06:59 06:59 06:59
Actual Weight 83.4 kg 83.1 kg
12/22/23 04:33
12/22/23 04:33
PT 16.1 Sec (11.4-14.6) H 12/21/23 10:05
INR 1.31 12/21/23 10:05
APTT 89.5 Sec (23.4-35.0) H 12/22/23 04:33
Magnesium 1.8 mg/dl (1.6-2.3) 12/22/23 04:33
Physical Exam
Constitutional: No acute distress
Cardiovascular: Rhythm & rate is regular and Pedal edema is absent
Respiratory: Respiratory effort normal and Lungs clear to auscul.
GI: Soft and Non tender
Neuro/Psych: Alert
Data Reviewed
-
Date of Service: December 22, 2023
[2023-12-22 12:18] LABS: Glucose - Point of Care 108 mg/dl (70-99)
--- NOTE | 2023-12-22 12:44 | PTCARENOTE ---
PRBC 1st unit completed
--- NOTE | 2023-12-22 13:14 | PTCARENOTE ---
PTT fro 10:30 was cancelled due to Heparin been on Hold
--- NOTE | 2023-12-22 14:55 | W.PN.UPDATE ---
Update Note
Progress Note Update
Patient was seen as she apparently had hallucinations while she was at [place] and was started on Seroquel; currently is on 12.5 mg at .
Patient is hard of hearing and talks very softly and consequently hard to interview. She is also very drowsy and has low hemoglobin of 6.3. She did state she heard voices which were not there when at [place] and who was visiting said that she
told him that the metal brackets the ceiling panels in the room were icicles. However she has no previous psychiatric history and had never need a psychiatrist before her initial admission on 12/02 and subsequent treatment and
complications.
Currently she is calm and not agitated and not responding to internal stimuli.
She likely was delirious with psychotic symptoms and that was the reason for the Seroquel.
Since it is a low dose I would continue for now but if she remains stable I would D/C.
Discussed with , will F/U.
--- NOTE | 2023-12-22 17:45 | PTCARENOTE ---
cT head completed Results pending H/H send
[2023-12-22 18:02] LABS: Glucose - Point of Care 106 mg/dl (70-99)
[2023-12-22] MEDS: COUMADIN 2.5 MG PO (18:42)
[2023-12-22 18:49] LABS: Hematocrit 28.5 % (37.0-47.0); Hemoglobin 9.3 g/dL (12.0-16.0)
[2023-12-22 20:52] LABS: INR 1.24; PT 15.4 Sec (11.4-14.6)
[2023-12-22] MEDS: SEROQUEL 12.5 MG TUBE (22:26)
[2023-12-22] MEDS: MELATONIN 3 MG TUBE (22:26)
--- NOTE | 2023-12-22 23:09 | PTCARENOTE ---
Received pt at change of shift. Pt AAox1 (to self). Pt Hgb increased to 9.3 after receiving 2 units PRBCs during the day. Notified ENVIRONMENTAL COMPLIANCE INSPECTOR. Heparin gtt remains on hold. INR checked - 1.24; reported to ENVIRONMENTAL COMPLIANCE INSPECTOR. FMS remains in place. Tube feed
running at 55 ml/hr (at goal) through DHT. Resting in bed with call warren in reach. Bed alarm active
[2023-12-22 23:37] LABS: Glucose - Point of Care 116 mg/dl (70-99)
[2023-12-23] VITALS (14 sets, daily range): BP systolic 107–136; BP diastolic 58–82; PULSE 73; O2SAT 100; BMI 30.3
[2023-12-23] MEDS: LOPRESSOR 12.5 MG TUBE ×4 (00:28→17:15)
[2023-12-23 05:27] LABS: Glucose - Point of Care 112 mg/dl (70-99)
[2023-12-23] MEDS: SYNTHROID 125 MCG TUBE (05:29)
[2023-12-23 05:36] LABS: Hemoglobin 9.4 g/dL (12.0-16.0); Mean Corp Hgb Conc. 32.4 g/dL (33.0-37.0); Mean Corpuscular Hgb 31.8 pg (27.0-31.0); Mean Platelet Volume 10.4 fL (7.4-10.4); Platelet Count 336 10^3/uL (130-400); Red Blood Cell Count 2.96 10^6/uL (4.20-5.40); Red Cell Dist. Width 21.4 % (11.5-14.5); White Blood Cell Count 12.5 10^3/uL (4.8-10.8)
[2023-12-23 05:44] LABS: INR 1.24; PT 15.4 Sec (11.4-14.6)
[2023-12-23 05:58] LABS: Blood Urea Nitrogen 24 mg/dl (7-17); Calcium 7.9 mg/dl (8.4-10.2); Carbon Dioxide 24 mmol/L (22-30); Chloride 108 mmol/L (98-107); Estimated Creatinine Clearance 85 ml/min; Glucose 119 mg/dl (70-99); Magnesium 1.8 mg/dl (1.6-2.3); Sodium 138 mmol/L (135-145); eGFR > 60.00
--- NOTE | 2023-12-23 07:41 | W.PN.CD ---
Today's Communication / Plan
-
start dapa 10, monitor H&H s/p transfusion
Impression / Plan
-
# CAD, inferior STEMI 12/03/23 s/p Impella supported PATRICIA x 5 to culprit RCA
# Cardiogenic shock, now resolved
# HLD
- also with GAS ENGINE MECHANIC to LAD
- continue medical therapy with Plavix (no ASA due to warfarin)
- continue statin
- cont. PRN diuresis for goal net even, will monitor for now with addition of SGL2i
# Ischemic cardiomyopathy - EF recovered to 50-55%
- cont. valsartan and lopressor for now, start dapa 10
- check echo on Saturday
# Anemia
- no overt clinical bleeding, Hb stable now s/p 2 units pRBC 12/21
- transfusion goal >7
- trend H&H
- cont. warfarin without bridge
# LE DVT
- cont. warfarin, no heparin bridge given anemia
- trend INR
# SFA injury 2/2 Impella s/p right SFA repair and Impella removal at [facility]
- vascular surgery following
- cont. wound VAC
# Epilepsy - chronic, stable on Phenytoin.
- per hospitalist
# Delirium
- likely 2/2 long critical care hospitalization
- currently on Seroquel
- psych following
# Dysphagia - NG tube.
- meds via tube and tube feeds
- ADAT
Physical Exam
Vital Signs/Labs
Vital Signs
Temp Pulse Resp BP Pulse Ox
36.5 C 60 18 113/58 100
12/23/23 04:34 12/23/23 06:00 12/23/23 06:00 12/23/23 06:00 12/23/23 06:00
12/22/23 12/23/23 12/24/23
06:59 06:59 06:59
Actual Weight 83.1 kg 85.1 kg
12/23/23 05:22
12/23/23 05:22
PT 15.4 Sec (11.4-14.6) H 12/23/23 05:22
INR 1.24 12/23/23 05:22
APTT Cancelled 12/22/23 10:30
Magnesium 1.8 mg/dl (1.6-2.3) 12/23/23 05:22
Physical Exam
Constitutional: No acute distress
Cardiovascular: Rhythm & rate is regular, Systolic murmur absent, Diastolic murmur absent and Pedal edema present
Respiratory: Respiratory effort normal and Lungs clear to auscul. (in anterior lung meyer)
Neuro/Psych: Alert
Data Reviewed
-
Date of Service: December 23, 2023
Medical Decision Making: Reviewed Test Results and Test Interpretation
EKG: Report Reviewed by me
Echo: Report Reviewed by me
X-Ray/CT/US/MRI/NUC/PET: Report Reviewed by me
Labs: Labs Reviewed by me
[2023-12-23] MEDS: FARXIGA 10 MG PO (08:50)
[2023-12-23] MEDS: ROBITUSSIN 200 MG PO ×4 (08:50→21:01)
[2023-12-23] MEDS: PLAVIX 75 MG TUBE (08:50)
[2023-12-23] MEDS: LIPITOR 40 MG TUBE (08:51)
[2023-12-23] MEDS: PREVACID 30 MG TUBE (08:51)
[2023-12-23] MEDS: DILANTIN ORAL SUSP 100 MG TUBE ×4 (08:51→21:02)
[2023-12-23] MEDS: DIOVAN 40 MG TUBE ×3 (08:51→21:02)
[2023-12-23 12:43] LABS: Glucose - Point of Care 99 mg/dl (70-99)
--- NOTE | 2023-12-23 13:06 | WOUNDNOTE ---
R GROIN AND LATERAL THIGH
--- NOTE | 2023-12-23 13:08 | WOUNDNOTE ---
WON RN note: Patient admitted as a transfer from [place].
See H&P for complete history.
PMH: HTN, Hypothyroid, epilepsy, STEMI, RCA Occlusion- 4 stents.
Wound Location and type/assessment: Patient admitted with: few skin tears on arms. On 12/20 evacuation of hematoma to R groin with wound vac placed by Vascular. Confirmed with Rosa Bunch that wound care can change vac dressing today. Surgical site
appears clean, lateral groin with small ulcer suspect from abrasion. R lateral thigh with intact linear scab, suspect abrasion.With assist from nurse Nanette turned patient onto side, sacrum is intact, posterior thighs with blanchable red agudelo
from tubing. Repositioned tubing, has fecal senior property manager in and [place] in use. Heels are intact. L 1st toe with suspected old callus vs abrasion. L nose with documented stage 1 PI from tubing, not able to visualize due to Dobhof in use.
Appetite: TF
Pressure redistribution devices in place: On air mattress, pillow under calves, foams to heels changed.
Plan: R groin wound vac dressing changed as ordered, nurse Nanette assisted. Teaching done with at bedside, will bring wound vac pamphlet for him to review. Unable to do teaching with patient at this time, appears slightly confused at
times, nurse aware. R lateral groin applied small silicone foam, skin prepped thigh scab.
Will confirm orders with hospitalist and updated nurse.
Updated care plan and will follow as needed.
Note to case management of equipment requested for discharge: VN if going home for wound vac.
Recommend follow up with vascular surgeon.
--- NOTE | 2023-12-23 15:00 | W.PN.HOSP.TC ---
Today's Communication/Plan
-
monitor hgb while on coumadin
wound vac
monitor fever curve, wbc
ENT eval
VSE tomorrow
wean o2
sglt2i
seroquel
Assessment / Plan
Assessment / Plan
Physical Exam
General: no acute distress appears comfortable at this time, diffuse anasarca swollen upper and lower ext's
HEENT: NormoCephalic, Moist mucous membranes and Atraumatic, NGT present, weak voice like due to recent intubations since extubated
Respiratory: Rhonchi
Cardiac: S1/S2 and Regular Rhythm; No Murmur or Rub
GI: Soft, Non Tender, Non Distended and Normal Bowel Sounds; No Organomegaly
Musculoskeletal: No Clubbing, No Cyanosis and No Edema
Neuro: Awake alert conversant to an extent
HPI 78F HTN, HLD, hypothyroidism, epilepsy, chronic elevated liver enzymes, STEMI presents as transfer from [place] because her family lives near [place] and cannot travel to [place] regularly. Originally presented here to [place] 12/02 with chest
pain. Inferiolateral STEMI, brought to Pharmaceutical Process Engineer in cardiogenic shock, started on pressors. Cath further complicated with bradycardia requiring atropine as well as atrial fibrillation/flutter and VT/VF, shocked multiple times. Intubated and Impella
placed. She underwent 4 stents in the RCA. Postoperatively patient developed hemorrhage from the right groin Impella site with significant anemia. Vascular surgery performed cutdown exposure of right femoral vessels and repair of right
superficial femoral artery bleeding- required multiple transfusions. Patient was transferred to [place] for higher level of care possible benefit Rpella. While at [place] she was treated for multi pressor shock RV dysfunction pericardial effusion.
Impella since removed. Patient developed ventilator associated pneumonia treatment with IV antibiotics completed per reports. She was extubated on 12/15. Left lower extremity DVT was found and patient was started on heparin drip because NOACs
interacted with her sz medication phenytoin.
# Inferior STEMI secondary to RCA occlusion status post PATRICIA x 5
# LAD chronic total occlusion
# Moderately dilated RV with decreased RV function
# Ischemic cardiomyopathy with EF of 50-55%
#hx V-fib arrest status post multiple shocks
#Hx PEA arrest
-Continue valsartan 40 mg every 12H
-Continue metoprolol
-Continue Plavix 75 mg daily
-Compression stockings
-Cardiology consult appreciated
�Started on SGLT2i
-PRN diuresis
Bradycardia status post transvenous pacemaker
-Resolved
Left lower extremity DVT
-No bridge due to bleeding, continue warfarin
-hep gtt placed on hold 12/21 due to drop in hgb <7, consider IVC filter if hold is prolonged
-Continue Coumadin, dosed daily, hold if INR>3
-Daily INR
Acute blood loss anemia
� No clear source although possible dilutional (all cell lines down)
-B12 folate wnl
-Iron level wnl
-mild deficient transferrin saturation
-transfusing for goal Hgb>8 given cardiac history
-responded well to 2PRBC transfusion
� Continue to monitor on Coumadin
Hypokalemia
-monitor and replete as necessary
Multifocal ventilator associated pneumonia
-Sputum grew MSSA/Serratia
-Completed antibiotics
-Currently on 3 L of oxygen
-wean O2 supplementation as tolerated
Leukocytosis
-monitor fever curve, wbc - improving
-blood cultures and empiric abx if patient develops fever
Essential hypertension
-continue losartan
Femoral artery repair
Hemorrhagic shock
Superficial femoral artery bleeding status post Impella with subsequent removal
-Received 4 units of blood here initially
-Patient reportedly had an episode of coffee-ground emesis which had since resolved
-Consult vascular surgery appreciated
-wound vac placed
Toxic metabolic encephalopathy/deconditioning/ICU delirium
Hallucination
-She underwent EEG which showed diffuse slowing
-Was treated with thiamine
-Was started on Seroquel for agitation
-PT recommended acute rehab
-Psych eval appreciated
-CT head no acute abn's
Dysphagia with nasogastric tube
Malnutrition
-Boat Canvas Maker Installer consult appreciated
-tube feeds continued
-Speech eval appreciated pending VSE - tomorrow
-ENT eval for possible laryngeal damage with prolong intubation
History of epilepsy
-Continue phenytoin 100 mg 3 times daily
-Outpatient neurology follow-up
Reported Cholestatic liver injury
-appears resolved at this time
Incidental endometrial thickening
-Outpatient transvaginal ultrasound
Hypothyroidism
-cont synthroid
Full code
DVT prophylaxis�heparin drip on hold, continue Coumadin
GI ppx PPI
Discussed with patient and patient's Rodrigo
I spent a total of 58 minutes with the patient or on the floor. More than 50% of this time involved counseling and coordination of care.
Anticipated Discharge: Within 24 hours
Subjective/Interval History
-
Date of Service: December 23, 2023
Transfuse appropriately, hemoglobin remained stable
Objective Data
-
Labs:
Laboratory Results
12/23/23
05:22
WBC 12.5 H
Hgb 9.4 L
Hct 29.0 L
Plt Count 336
PT 15.4 H
INR 1.24
Sodium 138
Potassium 4.0
Chloride 108 H
Carbon Dioxide 24
BUN 24 H
Creatinine 0.6
Glucose 119 H
Calcium 7.9 L
Vital Signs:
Vital Signs
Temp Pulse Resp BP Pulse Ox
97.9 F 84 24 122/65 99
12/23/23 11:55 12/23/23 12:00 12/23/23 12:00 12/23/23 12:00 12/23/23 12:00
I&O
12/22/23 12/23/23 12/24/23
06:59 06:59 06:59
Intake Total 1030 / 1030 2785 / 2785
Output Total 850 / 850 860 / 860
Balance 180 / 180 1924 / 1924
Review of Systems
-
History Source: Patient
All other systems: Not reviewed unless documented
Data Reviewed
-
CT Scan: Image personally visualized and interpreted and Report Reviewed by me
Medical Tests (Nuc Med, Echo etc): Report Reviewed by me
Labs: Labs Reviewed by me
--- NOTE | 2023-12-23 16:00 | PTCARENOTE ---
Patient tolerating TF jevity 1.5 @ 55 mls with 40 mls flush via left nare dobhoff. Patient alert and oriented but at times hallucinates. She is very hard of hearing. Wound vac at right groin changed today by wound RN. Draining serous colored
drainage. FMS and pure wick in use. Vital signs stable.
[2023-12-23] MEDS: COUMADIN 2.5 MG PO (17:12)
[2023-12-23 18:20] LABS: Glucose - Point of Care 104 mg/dl (70-99)
--- NOTE | 2023-12-23 18:49 | W.PN.ENT ---
Today's Communication
-
Patient was seen at the bedside.
Impression / Plan
-
This 78-year-old woman who had an ST elevation myocardial infarction about 2 weeks ago was intubated at the [facility] for almost 2 weeks. She failed initial extubation. She was extubated finally about a week ago and has dysphagia
and a very soft voice. I was asked to see her regarding this. Flexible laryngoscopy shows slightly decreased vocal cord motion on the right side with some swelling of the vocal cords bilaterally. She has a little bit of bruising of the vocal
cords as well but a fairly good airway. NG tube in place. Her dysphagia is probably multifactorial and related to her prolonged intubation primarily but also to the presence of an NG tube and advanced age. She also has noticed decreased hearing.
She has serous otitis media bilaterally without evidence of infection. I have discussion with her regarding her situation I told her that I think she will improve spontaneously both in terms of the hearing as well as the swallowing. It may take
some time. Because of her hearing she is having difficulty communicating.
Subjective Data
-
Asked to see patient for dysphagia after prolonged intubation
Objective Data
-
Vital Signs
Temp Pulse Resp BP Pulse Ox
97.6 F 84 24 122/65 99
12/23/23 15:55 12/23/23 12:00 12/23/23 12:00 12/23/23 12:00 12/23/23 12:00
Intake & Output
12/22/23 12/23/23 12/24/23
06:59 06:59 06:59
Intake:
Oral fluids 0 / 0
IV piggybacks 120 / 120
Tube feeding 470 / 470 1155 / 1155 460 / 460
Feeding tube flush amount 440 / 440 840 / 840 440 / 440
Fecal management system 40 / 40
irrigation (mL)
Rectum 40 / 40
Blood products 250 / 250
Blood Product Amount Infused ( 500 / 500
mL)
Packed Rbc Leukoreduced Unit 250 / 250
[id number]
Packed Rbc Leukoreduced Unit 250 / 250
[id number]
Output:
Liquid stool amount 100 / 100 10 / 10
Rectum 100 / 100 10 / 10
Urine, Voided 750 / 750 850 / 850 700 / 700
Other:
How many times incontinent 1
SATURATED amount urine
Lab Results
12/23/23 05:22
12/23/23 05:22
PT 15.4 Sec (11.4-14.6) H 12/23/23 05:22
INR 1.24 12/23/23 05:22
APTT Cancelled 12/22/23 10:30
Calcium 7.9 mg/dl (8.4-10.2) L 12/23/23 05:22
Phosphorus 3.0 mg/dl (2.5-4.5) 12/23/23 05:22
Magnesium 1.8 mg/dl (1.6-2.3) 12/23/23 05:22
Total Bilirubin 1.0 mg/dl (0.2-1.3) 12/21/23 04:47
AST 65 U/L (14-36) H 12/21/23 04:47
ALT 35 U/L (0-35) 12/21/23 04:47
Alkaline Phosphatase 132 U/L (38-126) H 12/21/23 04:47
Tongue: Motion is normal
Neck: Supple without adenopathy
Ears: Serous otitis media bilaterally with some wax on the right side.
Nose: Deviated septum toward the right side, NG tube in left nose
Oral mucosa: Normal to exam
Procedure: Flexible laryngoscopy
Flexible laryngoscopy was performed through the patient's right nose. Good visualization was achieved. The patient has some swelling and bruising of her larynx and vocal cords and slightly decreased vocal cord motion on the right side. There is
no significant pooling of secretions. Adduction is incomplete:
Physical Exam
-
Tongue: Motion is normal
Neck: Supple without adenopathy
Ears: Serous otitis media bilaterally with some wax on the right side.
Nose: Deviated septum toward the right side, NG tube in left nose
Oral mucosa: Normal to exam
Procedure: Flexible laryngoscopy
Flexible laryngoscopy was performed through the patient's right nose. Good visualization was achieved. The patient has some swelling and bruising of her larynx and vocal cords and slightly decreased vocal cord motion on the right side. There is
no significant pooling of secretions. Adduction is incomplete:
Chest: Regular rate & rhythm
Respiratory: Clear
Data Reviewed
-
Radiology Results: Report Reviewed and Image Reviewed
--- NOTE | 2023-12-23 18:54 | CON.MD ---
Consultation - Medical
-
Chief complaint: Dysphagia, hearing loss
History of present illness: I was asked to see this 78-year-old woman who had an ST elevation myocardial infarction about 2 weeks ago. She was transferred because she was hemodynamically unstable. She spent about 2 weeks intubated at [facility]
[place] and failed 1 extubation before finally being extubated 1 week ago. She is breathing okay at this point. She has a Dobbhoff tube in her left nare. She has been experiencing dysphagia and decreased hearing. Currently she is NPO. She
was scheduled for a swallow study today but it has been rescheduled until tomorrow. She is having difficulty hearing out of both ears. Her states that her hearing was fairly normal prior to the recent hospitalization but she states that
she had a little bit of hearing loss. She does not have any ear pain or drainage from her ears. She is chronically anticoagulated with Plavix and has a history of hypothyroidism and acid reflux.
Past medical history:
Chronic illnesses: History of ST elevated myocardial infarction 2 weeks ago with prolonged intubation at the [facility], history of hypercholesterolemia, history of hypothyroidism, history of hypertension, history of dysphagia,
Home medications: Atorvastatin 40 mg a day, clopidogrel 75 mg a day, lansoprazole 30 mg a day, Synthroid 125 mcg a day, melatonin 3 mg p.o. nightly, metoprolol 12.5 mg p.o. every 6 hours, phenytoin 100 mg p.o. 3 times daily, quetiapine 12.5 mg p.o.
nightly, valsartan 40 mg p.o. twice daily, warfarin 2.5 mg p.o. daily
Allergies: No known drug allergies
Past surgical history: The patient underwent stent placement
Hospitalizations: The patient is currently hospitalized after a myocardial infarction that required stents and prolonged intubation
Family history: Asked and is noncontributory
Review of systems: History of dysphagia and decreased hearing, negative for ear pain, negative for chest pain, negative for respiratory distress,
Physical examination:
Head: Atraumatic normocephalic
Eyes: Extraocular movements are intact, pupils are equal and reactive to light
Nose: Deviated septum to the right side, fairly normal mucosa, Dobbhoff tube in left nare
Oral cavity/oropharynx: Normal mucosa, normal tongue motion
Ears: The patient has serous otitis media bilaterally with a small amount of wax in her right ear which is not causing obstruction. There is no evidence of ear infection or drainage.
Neck: Supple without adenopathy or masses
Cranial nerves: 2 through 12 are intact
Thyroid gland: Normal
Salivary glands: Normal to examination without swelling or tenderness
Voice: Weak with poor projection, no dysarthria
Procedure: Flexible laryngoscopy
Flexible endoscopy was performed through the patient's right nare. There is no evidence of infection although there is a deviated septum toward the right side. The patient has motion of both vocal cords but the motion of the right vocal cord is a
little bit decreased. There is a small amount of swelling and some bruising of the larynx as well probably as a result of recent intubation. No significant airway compromise is noted. The Dobbhoff tube is in place.
Impression: 1. dysphagia is related to multiple factors primarily prolonged intubation but also advanced age and the presence of a Dobbhoff tube. I anticipate that her swelling and vocal cord motion issues will resolve over time although I cannot
be certain. It may take several months but could happen within a couple of weeks. Swallow study will be helpful at some point but I do not know that she will do very well in her current status.
2. Dysphonia is related to the trauma from the presence of an endotracheal tube. This should improve over time. The voice will probably approximated pre CT status within a couple of months but she could have more prolonged problems.
3. The patient has bilateral serous otitis media secondary to her recent problems. There is no evidence of infection. She does not necessarily need treatment for this at this point. Flonase would be difficult with the presence of the NG tube and
the oxygen in her nose. We can observe that for now and I anticipate it will improve over time. If it does not, we can perform bilateral myringotomy and tubes if necessary.
[2023-12-23] MEDS: SEROQUEL 12.5 MG TUBE (21:02)
[2023-12-23] MEDS: MELATONIN 3 MG TUBE (21:02)
[2023-12-24] VITALS (15 sets, daily range): BP systolic 108–133; BP diastolic 57–91; PULSE 68–70; O2SAT 98–99; BMI 30.5
[2023-12-24 00:27] LABS: Glucose - Point of Care 126 mg/dl (70-99)
[2023-12-24] MEDS: LOPRESSOR 12.5 MG TUBE ×5 (00:43→23:19)
--- NOTE | 2023-12-24 01:38 | PTCARENOTE ---
sinus bp wnl afebrile- ax1 confused forgetful- tube feeding running at goal-wound vac intact- fms with liquid brown . purewick out of place and pt was inc of large amt of urine chg bath given.
[2023-12-24 05:04] LABS: Hematocrit 29.8 % (37.0-47.0); Hemoglobin 9.7 g/dL (12.0-16.0); Mean Corp Hgb Conc. 32.6 g/dL (33.0-37.0); Mean Corpuscular Hgb 30.9 pg (27.0-31.0); Mean Corpuscular Volume 94.9 fL (81.0-99.0); Mean Platelet Volume 10.4 fL (7.4-10.4); Platelet Count 349 10^3/uL (130-400); Red Blood Cell Count 3.14 10^6/uL (4.20-5.40); Red Cell Dist. Width 21.3 % (11.5-14.5)
[2023-12-24 05:19] LABS: INR 1.27; PT 15.7 Sec (11.4-14.6)
[2023-12-24] MEDS: SYNTHROID 125 MCG TUBE (05:24)
[2023-12-24 05:27] LABS: Blood Urea Nitrogen 20 mg/dl (7-17); Calcium 8.2 mg/dl (8.4-10.2); Carbon Dioxide 19 mmol/L (22-30); Chloride 108 mmol/L (98-107); Estimated Creatinine Clearance 85 ml/min; Glucose 121 mg/dl (70-99); Magnesium 1.8 mg/dl (1.6-2.3); Phosphorus 3.6 mg/dl (2.5-4.5); Sodium 139 mmol/L (135-145); eGFR > 60.00
[2023-12-24 05:51] LABS: Glucose - Point of Care 137 mg/dl (70-99)
--- NOTE | 2023-12-24 07:44 | W.PN.CD ---
Today's Communication / Plan
-
valsart transition to entresto, restart heparin bridge given stable H&H
Impression / Plan
-
# CAD, inferior STEMI 12/03/23 s/p Impella supported PATRICIA x 5 to culprit RCA
# HLD
- also with SENIOR ENVIRONMENTAL TECHNICIAN to LAD; will need to consider risks/benefits of revascularization in future
- continue medical therapy with Plavix (no ASA due to warfarin)
- continue high intensity statin
# Ischemic cardiomyopathy - TTE with EF 35-40%
- will continue to titrate GDMT for HFrEF
- convert valsartan to Entresto low dose
- cont. metop 12.5 q6 (can convert tp succinate once able to PO)
- cont. dapa 10
- PRN diuresis, trend I/O, hold diuresis today given relative euvolemia on echo and exam and titration of other meds with diuretic effects
# LE DVT
- cont. warfarin, if no inc. in INR tomorrow will discuss dosing w/ pharmacy
- given hemoglobin stability and anticipating several days to reach therapeutic INR, restart heparin gtt with no bolus for bridge
- trend INR
# Anemia
- no overt clinical bleeding, Hb stable now s/p 2 units pRBC 12/21
- transfusion goal >7
- trend H&H
# SFA injury 2/2 Impella s/p right SFA repair and Impella removal at [facility]
- vascular surgery following
- cont. wound VAC
# Epilepsy - chronic, stable on Phenytoin.
- per hospitalist
# Delirium
- likely 2/2 long critical care hospitalization
- currently on Seroquel
- psych following
# Dysphagia - NG tube.
- meds via tube and tube feeds
- ENT following, video swallow study pending
- ADAT
Physical Exam
Vital Signs/Labs
Vital Signs
Temp Pulse Resp BP Pulse Ox
36.6 C 65 16 123/69 99
12/24/23 07:28 12/24/23 06:00 12/24/23 06:00 12/24/23 06:00 12/24/23 06:00
12/23/23 12/24/23 12/25/23
06:59 06:59 06:59
Actual Weight 85.1 kg 85.6 kg
12/24/23 04:51
12/24/23 04:51
PT 15.7 Sec (11.4-14.6) H 12/24/23 04:51
INR 1.27 12/24/23 04:51
APTT Cancelled 12/22/23 10:30
Magnesium 1.8 mg/dl (1.6-2.3) 12/24/23 04:51
Physical Exam
Constitutional: No acute distress and Comfortable
Cardiovascular: Rhythm & rate is regular, JVD pressure is normal, Systolic murmur absent, Diastolic murmur absent and Pedal edema present
Respiratory: Respiratory effort normal and Lungs clear to auscul.
Neuro/Psych: Alert
Data Reviewed
-
Date of Service: December 24, 2023
Medical Decision Making: Test Interpretation
Echo: Report Reviewed by me
Labs: Labs Reviewed by me and Labs Ordered by me
[2023-12-24 08:38] LABS: APTT 27.4 Sec (23.4-35.0)
[2023-12-24] MEDS: HEPARIN 25000 UNITS/250 ML IV (08:53)
[2023-12-24] MEDS: DILANTIN ORAL SUSP TUBE ×2 (11:00→11:10)
[2023-12-24] MEDS: FARXIGA PO (11:12)
[2023-12-24] MEDS: LIPITOR TUBE (11:13)
[2023-12-24] MEDS: ROBITUSSIN PO ×2 (11:13→13:07)
[2023-12-24] MEDS: ENTRESTO 49 MG/51 MG PO (11:13)
[2023-12-24] MEDS: PREVACID TUBE (11:14)
[2023-12-24] MEDS: PLAVIX TUBE (11:14)
--- NOTE | 2023-12-24 12:07 | PTOTSP ---
Video Swallow Study
Summary: Patient presents with signs of mild-moderate oral and severe pharyngeal dysphagia with aspiration of most consistencies. Etiology of dysphagia secondary to prolonged/multiple intubations and disuse/deconditioning s/p STEMI. See patient
care note for details.
Recommendations:
1. NPO - continue non-oral means
2. Oral care 3x daily with suctioning
3. Aspiration Risk Hydration Protocol - SPARING ice chips after oral care with nursing supervision. D/C if decline in respiratory status.
4. Dysphagia rehabilitation warranted at the acute care level and after D/C.
--- NOTE | 2023-12-24 12:08 | W.PN.UPDATE ---
Update Note
Progress Note Update
Reviewed pt's progress with nursing staff. Pt reportedly clearer, more alert and conversant. No further agitation, behavior has been stable on melatonin and low dose of Seroquel at HS. Pt is very hard of hearing.
Imp/Rec: TME/ICU delirium, improving. Agitation resolved
Psychiatry will sign off; please reconsult for any new concerns
[2023-12-24] MEDS: DILANTIN ORAL SUSP 100 MG TUBE ×3 (12:25→22:00)
[2023-12-24] MEDS: ENTRESTO 49 MG/51 MG 1 TAB PO (12:25)
[2023-12-24] MEDS: LIPITOR 40 MG TUBE (12:25)
[2023-12-24] MEDS: ROBITUSSIN 200 MG PO ×3 (12:25→22:00)
[2023-12-24 12:26] LABS: Glucose - Point of Care 104 mg/dl (70-99)
[2023-12-24] MEDS: PLAVIX 75 MG TUBE (12:26)
[2023-12-24] MEDS: FARXIGA 10 MG PO (12:26)
[2023-12-24] MEDS: PREVACID 30 MG TUBE (12:26)
--- NOTE | 2023-12-24 15:18 | W.PN.HOSP.TC ---
Today's Communication/Plan
-
hep ggt, coumadin titration
vse failed - cont tube feedings
wean o2
start entresto
Assessment / Plan
Assessment / Plan
Physical Exam
General: no acute distress appears comfortable at this time, diffuse anasarca swollen upper and lower ext's
HEENT: NormoCephalic, Moist mucous membranes and Atraumatic, NGT present, weak voice like due to recent intubations since extubated
Respiratory: Rhonchi
Cardiac: S1/S2 and Regular Rhythm; No Murmur or Rub
GI: Soft, Non Tender, Non Distended and Normal Bowel Sounds; No Organomegaly
Musculoskeletal: No Clubbing, No Cyanosis and No Edema
Neuro: Awake alert conversant to an extent
HPI 78F HTN, HLD, hypothyroidism, epilepsy, chronic elevated liver enzymes, STEMI presents as transfer from [place] because her family lives near [place] and cannot travel to [place] regularly. Originally presented here to [place] 12/02 with chest
pain. Inferiolateral STEMI, brought to [facility] in cardiogenic shock, started on pressors. Cath further complicated with bradycardia requiring atropine as well as atrial fibrillation/flutter and VT/VF, shocked multiple times. Intubated and Impella
placed. She underwent 4 stents in the RCA. Postoperatively patient developed hemorrhage from the right groin Impella site with significant anemia. Vascular surgery performed cutdown exposure of right femoral vessels and repair of right
superficial femoral artery bleeding- required multiple transfusions. Patient was transferred to [place] for higher level of care possible benefit Rpella. While at [place] she was treated for multi pressor shock RV dysfunction pericardial effusion.
Impella since removed. Patient developed ventilator associated pneumonia treatment with IV antibiotics completed per reports. She was extubated on 12/15. Left lower extremity DVT was found and patient was started on heparin drip because NOACs
interacted with her sz medication phenytoin.
# Inferior STEMI secondary to RCA occlusion status post PATRICIA x 5
# LAD chronic total occlusion
# Moderately dilated RV with decreased RV function
# Ischemic cardiomyopathy with EF of 50-55%
#hx V-fib arrest status post multiple shocks
#Hx PEA arrest
-Started on Entresto
-Continue metoprolol
-Continue Plavix 75 mg daily
-Compression stockings
-Cardiology consult appreciated
�Started on SGLT2i
-PRN diuresis
Bradycardia status post transvenous pacemaker
-Resolved
Left lower extremity DVT
-Restart Hep ggt and monitor HgB; continue titrating warfarin
-hep gtt placed on hold 12/21 due to drop in hgb <7, consider IVC filter if hold is prolonged
-Continue Coumadin, dosed daily, hold if INR>3
-Daily INR
Acute blood loss anemia
� No clear source although possible dilutional (all cell lines down)
-B12 folate wnl
-Iron level wnl
-mild deficient transferrin saturation
-transfusing for goal Hgb>8 given cardiac history
-responded well to 2PRBC transfusion
� Continue to monitor on Coumadin, titrate as necessary; INR goal - 2-3
Hypokalemia
-monitor and replete as necessary
Multifocal ventilator associated pneumonia
-Sputum grew MSSA/Serratia
-Completed antibiotics
-Currently on 3 L of oxygen
-wean O2 supplementation as tolerated
Leukocytosis
-monitor fever curve, wbc - improving
-blood cultures and empiric abx if patient develops fever
Essential hypertension
-continue losartan
Femoral artery repair
Hemorrhagic shock
Superficial femoral artery bleeding status post Impella with subsequent removal
-Received 4 units of blood here initially
-Patient reportedly had an episode of coffee-ground emesis which had since resolved
-Consult vascular surgery appreciated
-wound vac placed
Toxic metabolic encephalopathy/deconditioning/ICU delirium
Hallucination
-She underwent EEG which showed diffuse slowing
-Was treated with thiamine
-Was started on Seroquel for agitation
-PT recommended acute rehab
-Psych eval appreciated
-CT head no acute abn's
Dysphagia with nasogastric tube
Malnutrition
-Semiconductor Wafers Etcher Stripper consult appreciated
-tube feeds continued
-Speech eval appreciated pending VSE - failed today- ctm monitor
-ENT eval for possible laryngeal damage with prolong intubation - monitor with time
-bilateral serous otitis media
-monitor with ENT
History of epilepsy
-Continue phenytoin 100 mg 3 times daily
-Outpatient neurology follow-up
Reported Cholestatic liver injury
-appears resolved at this time
Incidental endometrial thickening
-Outpatient transvaginal ultrasound
Hypothyroidism
-cont synthroid
Full code
DVT prophylaxis�heparin drip, continue Coumadin
GI ppx PPI
Discussed with patient and patient's Rodrigo
I spent a total of 52 minutes with the patient or on the floor. More than 50% of this time involved counseling and coordination of care.
Anticipated Discharge: > 48 hours
Subjective/Interval History
-
Date of Service: December 24, 2023
No acute events, failed speech eval/VSE
Objective Data
-
Labs:
Laboratory Results
12/24/23 12/24/23 12/24/23
04:51 08:18 15:04
WBC 12.0 H
Hgb 9.7 L
Hct 29.8 L
Plt Count 349
PT 15.7 H
INR 1.27
APTT 27.4 Pending
Sodium 139
Potassium 4.0
Chloride 108 H
Carbon Dioxide 19 L
BUN 20 H
Creatinine 0.6
Glucose 121 H
Calcium 8.2 L
Vital Signs:
Vital Signs
Temp Pulse Resp BP Pulse Ox
97.7 F 84 17 130/67 94
12/24/23 11:40 12/24/23 12:04 12/24/23 12:04 12/24/23 12:04 12/24/23 12:04
I&O
12/23/23 12/24/23 12/25/23
06:59 06:59 06:59
Intake Total 2785 / 2785 2089 / 2089
Output Total 860 / 860 1200 / 1200
Balance 1925 / 1925 890 / 890
Review of Systems
-
History Source: Patient
All other systems: Not reviewed unless documented
Data Reviewed
-
CT Scan: Image personally visualized and interpreted and Report Reviewed by me
Medical Tests (Nuc Med, Echo etc): Report Reviewed by me
Labs: Labs Reviewed by me
--- NOTE | 2023-12-24 15:24 | PTCARENOTE ---
As day goes on patient becoming more conversant, although conversation somewhat difficult d/t patient's soft/raspy voice, and hearing impairment. Patient oriented to self, place, and situation, forgetful to time. Patient tearful, sharing that her
has cancer, and doesn't know how to support him given her current health status. Emotional support provided. Heparin drip infusing per order, PTT currently pending. Repositioned for comfort.
[2023-12-24 15:33] LABS: APTT 89.6 Sec (23.4-35.0)
--- NOTE | 2023-12-24 16:17 | CM ---
Patient who was transferred back from [facility] with Dx Inferior STEMI s/p stent placements, VT/VF arrest extubated 12/15, cardiomyopathy, SFA injury 2/2 Impella s/p right SFA repair/Impella removal at [facility], LLE DVT, anemia, TME, dysphagia. O2
2L. Receiving Heparin gtt. Seen by Psych - delirium improving. Wound VAC right groin. VSE failed - Dobhoff tube - Jevity tube feedings. PT/OT recommend acute rehab. Per nurse assessment; confused, forgetful, conversant, garbled speech.
Spoke with patient's ;
the patient resides with her in a 1 story house with 3 MIKE.
She had been independent for ADLs and ambulation prior to admission to on 12/04/23.
No DME, prior VN.
PCP- Lesa Kaur
[facility]
receptive to patient going to acute rehab at discharge if needed.
He feels like he is being adequately informed of patient's status by staff.
He agrees to discuss d/c plans when patient is closer to discharge.
CM continuing to follow.
Patient may benefit from Physiatry Eval---> message to Dr Collazo.
Plan ongoing follow up with patient/ for d/c planning.
[2023-12-24] MEDS: COUMADIN 4 MG PO (17:52)
[2023-12-24 18:02] LABS: Glucose - Point of Care 112 mg/dl (70-99)
[2023-12-24] MEDS: ENTRESTO 49 MG/51 MG 1 TAB TUBE (19:51)
--- NOTE | 2023-12-24 20:00 | PTCARENOTE ---
Resumed care of pt laying in bed sleeping, arousable to voice. Pt [place]. Pt AAOx2- forgetful at times to time and place. Pt answers questions and follows commands appropriately, but then says things that done make sense. HR in the 70's in NSR with
occas PVC's on the monitor. POX 96% on RA. Lungs course with scattered rhonchi. Pt with frequent non productive cough, frequent throat clearing. Whispered voice quality. Left nare DHT in place infusing Jevity 1.5@ 55ml/hr 40ml/ flush. Round obese
abd. Hyper bowel. FMS in place draining loose brown stool. Pt inc of urine, pure wick in place draining emily urine. Domenica care provided. Right groin wound vac in place. +1 GA present. Pale skin. heels elevated on pillows. Right Midline in place
infusing Heparin gtt @1600units/hr. Oral care provided. Pt positioned per comfort. Denies any complaints of pain. Call warren in reach. bed alarm on. Will continue to monitor.
[2023-12-24] MEDS: SEROQUEL 12.5 MG TUBE (21:59)
[2023-12-24] MEDS: MELATONIN 3 MG TUBE (22:00)
[2023-12-24 23:32] LABS: Glucose - Point of Care 112 mg/dl (70-99)
[2023-12-25] VITALS (15 sets, daily range): BP systolic 93–129; BP diastolic 54–96; PULSE 78; BMI 29.4
[2023-12-25] MEDS: HEPARIN 25000 UNITS/250 ML IV (01:44)
[2023-12-25 04:10] LABS: Hematocrit 30.3 % (37.0-47.0); Hemoglobin 9.9 g/dL (12.0-16.0); Mean Corp Hgb Conc. 32.7 g/dL (33.0-37.0); Mean Corpuscular Hgb 31.9 pg (27.0-31.0); Mean Corpuscular Volume 97.7 fL (81.0-99.0); Mean Platelet Volume 10.9 fL (7.4-10.4); Platelet Count 341 10^3/uL (130-400); White Blood Cell Count 13.5 10^3/uL (4.8-10.8)
[2023-12-25 04:23] LABS: INR 1.45; PT 17.4 Sec (11.4-14.6)
[2023-12-25 04:26] LABS: APTT 131.7 Sec (23.4-35.0)
[2023-12-25 04:30] LABS: Blood Urea Nitrogen 19 mg/dl (7-17); Calcium 7.8 mg/dl (8.4-10.2); Carbon Dioxide 22 mmol/L (22-30); Chloride 109 mmol/L (98-107); Estimated Creatinine Clearance 84 ml/min; Glucose 127 mg/dl (70-99); Potassium 3.5 mmol/L (3.5-5.1); Sodium 138 mmol/L (135-145); eGFR > 60.00
[2023-12-25] MEDS: LOPRESSOR 12.5 MG TUBE ×4 (05:27→23:33)
[2023-12-25] MEDS: SYNTHROID 125 MCG TUBE (05:28)
--- NOTE | 2023-12-25 05:54 | PTCARENOTE ---
Pt awake most of the night, restless at times. Pt confused, saying things that dont make sense, But able to answer questions appropriately. Complete bed bath provided this am. heparin gtt infusing per protocol as ordered. Pt with frequent throat
clearing and most non productive cough. Bital signs stable. Will continue to monitor.
[2023-12-25 06:00] LABS: Glucose - Point of Care 99 mg/dl (70-99)
--- NOTE | 2023-12-25 08:26 | W.PN.CD ---
Today's Communication / Plan
-
Start spironolactone 12.5 mg daily.
Increase warfarin to 4 mg daily. Goal INR 2.5.
Repeat echo in 90 days to evaluate for ICD.
Is there a role for PEG?
Impression / Plan
-
Impression/Plan: 78 y/o female with epilepsy, HTN, HLD, CVA and CAD admitted with inferolateral STEMI found to have an acute RCA occlusion with an LAD CYTOGENETICIST complicated by cardiogenic shock requiring MCS (Impella CP) that was further complicated by
right femoral artery hematoma requiring surgical cutdown/repair, s/p PCI of the RCA, subsequently transferred to [facility] for management of shock/MCS, now transferred back after successful weaning of MCS/pressors/inotropes and liberation from mechanical
ventilation but with residual delerium/dysphagia requiring NGT.
#CAD/Inferior STEMI 12/03/23
-s/p Impella supported PATRICIA x 5 to culprit RCA (overlapping [employer] [place] 2.5 x 34, 3.0 x 34, 3.5 x 34, 3.5 x 34 and 3.5 x 15 PATRICIA, post dilated with a 3.25 NCB in the mid/distal RCA, 3.5 NCB in the pRCA).
-Inferior STEMI consistent with RV infarct given volume sensitivity.
-TTE shows LAD/RCA RWMA, LVEF = 35-40%.
-Will need to consider risks/benefits of LAD revascularization in future.
-Continue atorvastatin, clopidogrel (+ warfarin), metoprolol.
#Ischemic cardiomyopathy
-Chronic.
-TTE with EF 35-40% (with LAD/RCA RWMA).
-GDMT as hemodynamics will tolerate. Currently euvolemic.
-Continue metoprolol tartrate 12.5 mg q6h, dapagliflozin, sacubitril-valsartan.
-Convert metoprolol to succinate when taking PO.
-Start spironolactone 12.5 mg daily.
-Repeat TTE in 3 months to assess for primary (secondary?) prevention ICD.
#LE DVT
-Acute, due to recent hospitalization and immobility.
-Change IV heparin to enoxaparin 120 mg q24 hours to decrease blood draws.
-Continue warfarin, goal INR 2.5 (2-3) as DOACs are class X for phenytoin.
#Anemia
-Acute on chronic.
-No overt clinical bleeding.
-Hbg stable now s/p 2 units pRBC 12/21.
-Monitor H/H while on therapeutic anticoagulation (especially with P2Y12i).
#SFA injury 2/2 Impella
-Acute.
-s/p right SFA repair and Impella removal at [facility].
-Vascular surgery following.
-Continue wound VAC.
#Epilepsy
-Chronic, stable.
-Continue phenytoin.
-Management per hospitalist - multiple drug/drug interactions.
#Delirium
-Acute.
-Likely 2/2 long critical care hospitalization.
-Currently on quetiapine.
-Psych following.
#Dysphagia
-Acute.
-NG tube.
-Meds via tube and tube feeds.
-ENT following.
-Failed S/S.
-ADAT.
#HLD
-Chronic, stable.
-Continue high intensity statin.
-Goal LDL < 55.
Subjective/Interval History:
Weight down 3.1 kg from yesterday.
SaO2 96% on room air.
Hbg stable at 9.9.
DATA:
TTE, 12/23/2023:
CONCLUSIONS
Moderately reduced left ventricular systolic function. Left ventricular
ejection fraction is 35-40%.
Mid to apical anteroseptal and inferoseptal, mild to apical inferior, apical
hypokinesis.
Stage I diastolic dysfunction suggestive of abnormal relaxation.
Normal right ventricular size and function.
Mild/moderate tricuspid regurgitation. Mildly elevated PASP. Estimated
pulmonary artery pressure of 37 mmHg assuming a right atrial pressure of 3
mmHg.
Compared to 12/04/23: prior study was a limited study performed during
advancement of Impella, and LVEF was reported as 40-45%.
Modified Barium Swallow, 12/24/2023:
Thin liquid barium by spoon: Silent airway aspiration
[place] consistency barium by spoon with and without right head turn: Transient aspiration
Honey consistency barium by spoon: Transient aspiration
Barium pudding by spoon: No aspiration on 2 of 2 trials during the swallow but evidence of aspiration of the vallecula residue.
Physical Exam
Vital Signs/Labs
Vital Signs
Temp Pulse Resp BP Pulse Ox
36.4 C 62 18 125/59 96
12/25/23 04:24 12/25/23 06:00 12/25/23 06:00 12/25/23 06:00 12/25/23 06:00
12/23/23 12/24/23 12/25/23
11:59 11:59 11:59
Actual Weight 85.1 kg 85.6 kg 82.5 kg
12/25/23 03:59
12/25/23 03:59
PT 17.4 Sec (11.4-14.6) H 12/25/23 03:59
INR 1.45 12/25/23 03:59
APTT 131.7 Sec (23.4-35.0) H 12/25/23 03:59
Magnesium 1.8 mg/dl (1.6-2.3) 12/24/23 04:51
Physical Exam
Constitutional: No acute distress and Comfortable
EENT: Anicteric and Moist mucous membranes
Cardiovascular: Rhythm & rate is regular, Pedal edema present, S1S2 is normal and Murmur/rub/gallop absent
Respiratory: Respiratory effort normal and Other (Decreased throughout.)
GI: Soft, Distention absent, Flat, Non tender and Normal bowel sounds
Neuro/Psych: AO x 3
Data Reviewed
-
Date of Service: December 25, 2023
Medical Decision Making: Reviewed Test Results, Independent Historian Assessment and Test Interpretation
EKG: Tracing Personally Visualized and interpreted and Report Reviewed by me
Echo: Tracing Personally Visualized and interpreted and Report Reviewed by me
X-Ray/CT/US/MRI/NUC/PET: Image Personally Visualized and interpreted and Report Reviewed by me
Medical Tests (PFT, Pathology etc): Image Personally Visualized and interpreted and Report Reviewed by me
Labs: Labs Reviewed by me
[2023-12-25] MEDS: DILANTIN ORAL SUSP 100 MG TUBE ×4 (09:16→21:17)
[2023-12-25] MEDS: PLAVIX 75 MG TUBE (09:21)
[2023-12-25] MEDS: ROBITUSSIN 200 MG PO ×4 (09:21→21:12)
[2023-12-25] MEDS: FARXIGA 10 MG PO (09:21)
[2023-12-25] MEDS: LIPITOR 40 MG TUBE (09:21)
[2023-12-25] MEDS: PREVACID 30 MG TUBE (09:21)
[2023-12-25] MEDS: ENTRESTO 49 MG/51 MG 1 TAB TUBE ×2 (09:23→19:38)
--- NOTE | 2023-12-25 10:30 | WOUNDNOTE ---
R LATERAL GROIN AND THIGH
--- NOTE | 2023-12-25 10:34 | WOUNDNOTE ---
POSTERIOR LEGS AND BUTTOCKS
--- NOTE | 2023-12-25 10:35 | WOUNDNOTE ---
WON RN NOTE: Followed up today along with nurse Erin assisting. R groin wound vac dressing changed, granulating well. Periwound with few moist scabs laterally, covered with small silicone foams. R lateral thigh with same intact scab, open to air. L
arm skin tear dressing with leaking drainage. Cleaned with saline and silicone foam changed. Turned patient with assist, sacrum is intact. Domenica rectal skin with mild redness, internal fecal emergency department manager remains in use. Calazime to be applied to skin by
nurse. Heels intact, pillow in use under calves. Edema in legs remain. Will follow for next vac change.
[2023-12-25] MEDS: ALDACTONE 12.5 MG PO (12:22)
[2023-12-25 12:39] LABS: Glucose - Point of Care 121 mg/dl (70-99)
[2023-12-25 12:46] LABS: APTT 80.5 Sec (23.4-35.0)
--- NOTE | 2023-12-25 13:02 | PTCARENOTE ---
PTT therapeutic at 80.5; therefore Hep gtt continues at 1100 units/hr. Next PTT due at 19:00.
--- NOTE | 2023-12-25 16:29 | W.PN.HOSP.TC ---
Today's Communication/Plan
-
physiatry consulted
Aldactone added
Coumadin titration, monitor INR while on hep ggt
close speech evaluation - hopeful to avoid PEG if possible
Assessment / Plan
Assessment / Plan
Physical Exam
General: no acute distress appears comfortable at this time, diffuse anasarca swollen upper and lower ext's
HEENT: NormoCephalic, Moist mucous membranes and Atraumatic, NGT present, weak voice like due to recent intubations since extubated
Respiratory: Rhonchi
Cardiac: S1/S2 and Regular Rhythm; No Murmur or Rub
GI: Soft, Non Tender, Non Distended and Normal Bowel Sounds; No Organomegaly
Musculoskeletal: No Clubbing, No Cyanosis and No Edema
Neuro: Awake alert conversant to an extent
HPI 78F HTN, HLD, hypothyroidism, epilepsy, chronic elevated liver enzymes, STEMI presents as transfer from [place] because her family lives near [place] and cannot travel to [place] regularly. Originally presented here to [place] 12/02 with chest
pain. Inferiolateral STEMI, brought to [facility] [facility] in cardiogenic shock, started on pressors. Cath further complicated with bradycardia requiring atropine as well as atrial fibrillation/flutter and VT/VF, shocked multiple times. Intubated and Impella
placed. She underwent 4 stents in the RCA. Postoperatively patient developed hemorrhage from the right groin Impella site with significant anemia. Vascular surgery performed cutdown exposure of right femoral vessels and repair of right
superficial femoral artery bleeding- required multiple transfusions. Patient was transferred to [place] for higher level of care possible benefit Rpella. While at [place] she was treated for multi pressor shock RV dysfunction pericardial effusion.
Impella since removed. Patient developed ventilator associated pneumonia treatment with IV antibiotics completed per reports. She was extubated on 12/15. Left lower extremity DVT was found and patient was started on heparin drip because NOACs
interacted with her sz medication phenytoin.
# Inferior STEMI secondary to RCA occlusion status post PATRICIA x 5
# LAD chronic total occlusion
# Moderately dilated RV with decreased RV function
# Ischemic cardiomyopathy with EF of 50-55%
#hx V-fib arrest status post multiple shocks
#Hx PEA arrest
-Started on Entresto
-Added aldactone
-Continue metoprolol
-Continue Plavix 75 mg daily
-Compression stockings
-Cardiology consult appreciated
�Started on SGLT2i
-PRN diuresis
-Repeat ECHO in 90 days for ICD eval
Bradycardia status post transvenous pacemaker
-Resolved
Left lower extremity DVT
-Restart Hep ggt and monitor HgB; continue titrating warfarin; INR goal 2.5; Can stop hep ggt if INR reaches >2 for 24 hours
-hep gtt placed on hold 12/21 due to drop in hgb <7, consider IVC filter if hold is prolonged
-Continue Coumadin, dosed daily, hold if INR>3
-Daily INR
Acute blood loss anemia
� No clear source although possible dilutional (all cell lines down)
-B12 folate wnl
-Iron level wnl
-mild deficient transferrin saturation
-transfusing for goal Hgb>8 given cardiac history
-responded well to 2PRBC transfusion
� Continue to monitor on Coumadin, titrate as necessary; INR goal - 2-3
Hypokalemia
-monitor and replete as necessary
Multifocal ventilator associated pneumonia
-Sputum grew MSSA/Serratia
-Completed antibiotics
-Currently on 3 L of oxygen
-wean O2 supplementation as tolerated
Leukocytosis
-monitor fever curve, wbc - improving
-blood cultures and empiric abx if patient develops fever
Essential hypertension
-continue losartan
Femoral artery repair
Hemorrhagic shock
Superficial femoral artery bleeding status post Impella with subsequent removal
-Received 4 units of blood here initially
-Patient reportedly had an episode of coffee-ground emesis which had since resolved
-Consult vascular surgery appreciated
-wound vac placed
Toxic metabolic encephalopathy/deconditioning/ICU delirium
Hallucination
-She underwent EEG which showed diffuse slowing
-Was treated with thiamine
-Was started on Seroquel for agitation
-PT recommended acute rehab
-Psych eval appreciated
-CT head no acute abn's
Dysphagia with nasogastric tube
Malnutrition
-Apple Checker consult appreciated
-tube feeds continued
-Speech eval appreciated pending VSE - failed 12/23- ctm monitor; hopeful to avoid PEG if improvement in swallowing. Speech appears to have improved slightly today
-ENT eval for possible laryngeal damage with prolong intubation - monitor with time - hopeful improvement
-bilateral serous otitis media
-monitor with ENT
History of epilepsy
-Continue phenytoin 100 mg 3 times daily
-Outpatient neurology follow-up
Reported Cholestatic liver injury
-appears resolved at this time
Incidental endometrial thickening
-Outpatient transvaginal ultrasound
Hypothyroidism
-cont synthroid
Full code
DVT prophylaxis�heparin drip, continue Coumadin
GI ppx PPI
Discussed with patient and patient's Rodrigo
I spent a total of 55 minutes with the patient or on the floor. More than 50% of this time involved counseling and coordination of care.
Anticipated Discharge: > 48 hours
Subjective/Interval History
-
Date of Service: December 25, 2023
appears to have improved speech slightly today
Objective Data
-
Labs:
Laboratory Results
12/25/23 12/25/23 12/25/23
03:59 12:19 19:00
PT 17.4 H
INR 1.45
APTT 131.7 H 80.5 H Pending
Sodium 138
Potassium 3.5
Chloride 109 H
Carbon Dioxide 22
BUN 19 H
Creatinine 0.6
Glucose 127 H
Calcium 7.8 L
Vital Signs:
Vital Signs
Temp Pulse Resp BP Pulse Ox
98.1 F 63 19 121/75 98
12/25/23 15:19 12/25/23 14:00 12/25/23 14:00 12/25/23 14:00 12/25/23 08:29
I&O
12/24/23 12/25/23 12/26/23
06:59 06:59 06:59
Intake Total 0 / 0 1696 / 1696
Output Total 1200 / 1200 1600 / 1600
Balance 890 / 890 96 / 96
Review of Systems
-
History Source: Patient
All other systems: Not reviewed unless documented
Data Reviewed
-
CT Scan: Image personally visualized and interpreted and Report Reviewed by me
Medical Tests (Nuc Med, Echo etc): Report Reviewed by me
Labs: Labs Reviewed by me
[2023-12-25] MEDS: COUMADIN 4 MG PO (17:24)
--- NOTE | 2023-12-25 18:18 | PTCARENOTE ---
Pt maintained on Q2 hour turning schedule, evening medications administered-see MAR for details, FMS bag changed out and pericare provided, linens changed. Pt remains pleasant and cooperative, however sometimes conversation is nonsensical. Safe
environment maintained.
[2023-12-25 18:38] LABS: Glucose - Point of Care 100 mg/dl (70-99)
[2023-12-25 19:07] LABS: APTT 70.6 Sec (23.4-35.0)
--- NOTE | 2023-12-25 19:18 | PTCARENOTE ---
Heparin gtt increased to 1300 units/hr based on PTT result of 70.6 at this time. PTT due at 01:00, night time babysitter RN updated.
[2023-12-25] MEDS: MELATONIN 3 MG TUBE (21:12)
[2023-12-25] MEDS: SEROQUEL 12.5 MG TUBE (21:12)
[2023-12-26] VITALS (23 sets, daily range): BP systolic 103–130; BP diastolic 25–102; PULSE 72; BMI 29.5
[2023-12-26 00:05] LABS: Glucose - Point of Care 119 mg/dl (70-99)
--- NOTE | 2023-12-26 00:39 | PTCARENOTE ---
Pt disoriented, forgetful. Pt reports some paranoia, reminding this RN to 'lock the windows and doors' several times. DHT remains patent through L nare with Jevity 1.5 running at 55ml/hr per MD order. SR to SB on hall monitor. Pt denies
pain/discomfort at this time. FMS intact. Pw in place for incontinence. Pt restless, requesting to shower, continuing to make attempts to get OOB. This RN provided shampoo treatment, brushed and styled patient's hair, which provided relief. Bed
alarm in place for patient safety.
[2023-12-26] MEDS: HEPARIN 25000 UNITS/250 ML IV ×2 (01:07→21:43)
[2023-12-26 01:24] LABS: APTT 97.6 Sec (23.4-35.0)
[2023-12-26] MEDS: LOPRESSOR 12.5 MG TUBE ×4 (05:24→23:43)
[2023-12-26] MEDS: SYNTHROID 125 MCG TUBE (05:24)
[2023-12-26 05:46] LABS: Hematocrit 29.9 % (37.0-47.0); Hemoglobin 9.9 g/dL (12.0-16.0); Mean Corp Hgb Conc. 33.1 g/dL (33.0-37.0); Mean Corpuscular Hgb 31.2 pg (27.0-31.0); Mean Corpuscular Volume 94.3 fL (81.0-99.0); Mean Platelet Volume 10.5 fL (7.4-10.4); Platelet Count 353 10^3/uL (130-400); Red Blood Cell Count 3.17 10^6/uL (4.20-5.40); Red Cell Dist. Width 20.5 % (11.5-14.5); White Blood Cell Count 11.3 10^3/uL (4.8-10.8)
[2023-12-26 06:04] LABS: INR 1.53; PT 18.5 Sec (11.4-14.6)
[2023-12-26 06:21] LABS: Glucose - Point of Care 140 mg/dl (70-99)
[2023-12-26 06:45] LABS: APTT 113.2 Sec (23.4-35.0)
[2023-12-26 07:04] LABS: Blood Urea Nitrogen 16 mg/dl (7-17); Calcium 7.9 mg/dl (8.4-10.2); Carbon Dioxide 22 mmol/L (22-30); Chloride 108 mmol/L (98-107); Estimated Creatinine Clearance 84 ml/min; Glucose 112 mg/dl (70-99); Potassium 3.5 mmol/L (3.5-5.1); Sodium 140 mmol/L (135-145); eGFR > 60.00
[2023-12-26] MEDS: ENTRESTO 49 MG/51 MG 1 TAB TUBE (08:56)
[2023-12-26] MEDS: ROBITUSSIN 200 MG PO ×4 (08:56→22:08)
[2023-12-26] MEDS: FARXIGA 10 MG PO (08:56)
[2023-12-26] MEDS: DILANTIN ORAL SUSP 100 MG TUBE ×3 (08:56→22:24)
[2023-12-26] MEDS: PREVACID 30 MG TUBE (08:56)
[2023-12-26] MEDS: ALDACTONE 12.5 MG PO (08:57)
[2023-12-26] MEDS: PLAVIX 75 MG TUBE (08:57)
[2023-12-26] MEDS: LIPITOR 40 MG TUBE (08:57)
--- NOTE | 2023-12-26 11:15 | W.PN.CD ---
Today's Communication / Plan
-
inc. entresto to mid dosing, cont. to bridge warfarin and trend INR, hopeful to be able to advance diet
Impression / Plan
-
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
right femoral artery hematoma requiring surgical cutdown/repair, s/p PCI of the RCA, subsequently transferred to [place] for management of shock/MCS, now transferred back after successful weaning of MCS/pressors/inotropes and liberation from mechanical
ventilation but with residual delerium/dysphagia requiring NGT.
#CAD/Inferior STEMI 12/03/23
-s/p Impella supported PATRICIA x 5 to culprit RCA (overlapping [employer] [place] 2.5 x 34, 3.0 x 34, 3.5 x 34, 3.5 x 34 and 3.5 x 15 PATRICIA, post dilated with a 3.25 NCB in the mid/distal RCA, 3.5 NCB in the pRCA).
-Inferior STEMI consistent with RV infarct given volume sensitivity.
-TTE shows LAD/RCA RWMA, LVEF = 35-40%.
-Will need to consider risks/benefits of LAD revascularization in future.
-Continue atorvastatin, clopidogrel (+ warfarin), metoprolol.
#Ischemic cardiomyopathy
-Chronic.
-TTE with EF 35-40% (with LAD/RCA RWMA).
-GDMT as hemodynamics will tolerate. Currently euvolemic.
-Continue metoprolol tartrate 12.5 mg q6h, dapagliflozin, sacubitril-valsartan. Has afterload room --> will increase to mid dose Entresto tonight.
-Convert metoprolol to succinate when taking PO.
-Start spironolactone 12.5 mg daily.
-Repeat TTE in 3 months to assess for primary (secondary?) prevention ICD.
#LE DVT
-Acute, due to recent hospitalization and immobility.
-Change IV heparin to enoxaparin 120 mg q24 hours to decrease blood draws.
-Continue warfarin, goal INR 2.5 (2-3) as DOACs are class X for phenytoin.
#Anemia
-Acute on chronic.
-No overt clinical bleeding.
-Hbg stable now s/p 2 units pRBC 12/21.
-Monitor H/H while on therapeutic anticoagulation (especially with P2Y12i).
#SFA injury 2/2 Impella
-Acute.
-s/p right SFA repair and Impella removal at [facility].
-Vascular surgery following.
-Continue wound VAC.
#Epilepsy
-Chronic, stable.
-Continue phenytoin.
-Management per hospitalist - multiple drug/drug interactions.
#Delirium
-Acute.
-Likely 2/2 long critical care hospitalization.
-Currently on quetiapine.
-Psych following.
#Dysphagia
-Acute.
-NG tube.
-Meds via tube and tube feeds.
-ENT following.
-Failed S/S.
-ADAT.
#HLD
-Chronic, stable.
-Continue high intensity statin.
-Goal LDL < 55.
Subjective/Interval History:
Doing well. Imporvement in voice. Hoping to be able to advance diet.
DATA:
TTE, 12/23/2023:
CONCLUSIONS
Moderately reduced left ventricular systolic function. Left ventricular
ejection fraction is 35-40%.
Mid to apical anteroseptal and inferoseptal, mild to apical inferior, apical
hypokinesis.
Stage I diastolic dysfunction suggestive of abnormal relaxation.
Normal right ventricular size and function.
Mild/moderate tricuspid regurgitation. Mildly elevated PASP. Estimated
pulmonary artery pressure of 37 mmHg assuming a right atrial pressure of 3
mmHg.
Compared to 12/04/23: prior study was a limited study performed during
advancement of Impella, and LVEF was reported as 40-45%.
Modified Barium Swallow, 12/24/2023:
Thin liquid barium by spoon: Silent airway aspiration
[place] consistency barium by spoon with and without right head turn: Transient aspiration
[place] consistency barium by spoon: Transient aspiration
Barium pudding by spoon: No aspiration on 2 of 2 trials during the swallow but evidence of aspiration of the vallecula residue.
Physical Exam
Vital Signs/Labs
Vital Signs
Temp Pulse Resp BP Pulse Ox
36.6 C 90 19 123/78 95
12/26/23 11:02 12/26/23 11:02 12/26/23 11:02 12/26/23 11:02 12/26/23 11:02
12/25/23 12/26/23 12/27/23
06:59 06:59 06:59
Actual Weight 82.5 kg 83 kg
12/26/23 05:37
12/26/23 05:37
PT 18.5 Sec (11.4-14.6) H 12/26/23 05:37
INR 1.53 12/26/23 05:37
APTT 113.2 Sec (23.4-35.0) H 12/26/23 06:24
Magnesium 1.8 mg/dl (1.6-2.3) 12/24/23 04:51
Physical Exam
Constitutional: No acute distress and Comfortable
Cardiovascular: Rhythm & rate is regular, JVD pressure is normal and Pedal edema present
Respiratory: Respiratory effort normal
Neuro/Psych: Alert and Oriented
Data Reviewed
-
Date of Service: December 26, 2023
Medical Decision Making: Reviewed Test Results and Test Interpretation
Labs: Labs Reviewed by me
[2023-12-26 12:20] LABS: Glucose - Point of Care 143 mg/dl (70-99)
[2023-12-26 13:35] LABS: APTT 58.6 Sec (23.4-35.0)
--- NOTE | 2023-12-26 14:10 | W.PN.HOSP.TC ---
Today's Communication/Plan
-
increased Entresto
Coumadin titration, bridging continues
VSE 12/29
Assessment / Plan
Assessment / Plan
Physical Exam
General: no acute distress appears comfortable at this time, diffuse anasarca swollen upper and lower ext's
HEENT: NormoCephalic, Moist mucous membranes and Atraumatic, NGT present, weak voice like due to recent intubations since extubated
Respiratory: Rhonchi
Cardiac: S1/S2 and Regular Rhythm; No Murmur or Rub
GI: Soft, Non Tender, Non Distended and Normal Bowel Sounds; No Organomegaly
Musculoskeletal: No Clubbing, No Cyanosis and No Edema
Neuro: Awake alert conversant to an extent
HPI 78F HTN, HLD, hypothyroidism, epilepsy, chronic elevated liver enzymes, STEMI presents as transfer from [place] because her family lives near [place] and cannot travel to [place] regularly. Originally presented here to [place] 12/02 with chest
pain. Inferiolateral STEMI, brought to [facility] in cardiogenic shock, started on pressors. Cath further complicated with bradycardia requiring atropine as well as atrial fibrillation/flutter and VT/VF, shocked multiple times. Intubated and Impella
placed. She underwent 4 stents in the RCA. Postoperatively patient developed hemorrhage from the right groin Impella site with significant anemia. Vascular surgery performed cutdown exposure of right femoral vessels and repair of right
superficial femoral artery bleeding- required multiple transfusions. Patient was transferred to [place] for higher level of care possible benefit Rpella. While at [place] she was treated for multi pressor shock RV dysfunction pericardial effusion.
Impella since removed. Patient developed ventilator associated pneumonia treatment with IV antibiotics completed per reports. She was extubated on 12/15. Left lower extremity DVT was found and patient was started on heparin drip because NOACs
interacted with her sz medication phenytoin.
# Inferior STEMI secondary to RCA occlusion status post PATRICIA x 5
# LAD chronic total occlusion
# Moderately dilated RV with decreased RV function
# Ischemic cardiomyopathy with EF of 50-55%
#hx V-fib arrest status post multiple shocks
#Hx PEA arrest
-Increased Entresto
-Added aldactone
-Continue metoprolol
-Continue Plavix 75 mg daily
-Compression stockings
-Cardiology consult appreciated
�Started on SGLT2i
-PRN diuresis
-Repeat ECHO in 90 days for ICD eval
Bradycardia status post transvenous pacemaker
-Resolved
Left lower extremity DVT
-Restart Hep ggt and monitor HgB; continue titrating warfarin; INR goal 2.5; Can stop hep ggt if INR reaches >2 for 24 hours
-hep gtt placed on hold 12/21 due to drop in hgb <7, consider IVC filter if hold is prolonged
-Continue Coumadin, dosed daily, hold if INR>3
-Daily INR
Acute blood loss anemia
� No clear source although possible dilutional (all cell lines down)
-B12 folate wnl
-Iron level wnl
-mild deficient transferrin saturation
-transfusing for goal Hgb>8 given cardiac history
-responded well to 2PRBC transfusion
� Continue to monitor on Coumadin, titrate as necessary; INR goal - 2-3
Hypokalemia
-monitor and replete as necessary
Multifocal ventilator associated pneumonia
-Sputum grew MSSA/Serratia
-Completed antibiotics
-Currently on 3 L of oxygen
-wean O2 supplementation as tolerated
Leukocytosis
-monitor fever curve, wbc - improving
-blood cultures and empiric abx if patient develops fever
Essential hypertension
-continue losartan
Femoral artery repair
Hemorrhagic shock
Superficial femoral artery bleeding status post Impella with subsequent removal
-Received 4 units of blood here initially
-Patient reportedly had an episode of coffee-ground emesis which had since resolved
-Consult vascular surgery appreciated
-wound vac placed
Toxic metabolic encephalopathy/deconditioning/ICU delirium
Hallucination
-She underwent EEG which showed diffuse slowing
-Was treated with thiamine
-Was started on Seroquel for agitation
-PT recommended acute rehab
-Psych eval appreciated
-CT head no acute abn's
Dysphagia with nasogastric tube
Malnutrition
-Knitted Goods Shaper consult appreciated
-tube feeds continued
-Speech eval appreciated pending VSE - failed 12/23- ctm monitor; hopeful to avoid PEG if improvement in swallowing. Speech appears to have improved slightly today; Plan as per speech - VSE saturday; if fails - then most likely will need to proceed
with PEG.
-ENT eval for possible laryngeal damage with prolong intubation - monitor with time - hopeful improvement
-bilateral serous otitis media
-monitor with ENT
History of epilepsy
-Continue phenytoin 100 mg 3 times daily
-Outpatient neurology follow-up
Reported Cholestatic liver injury
-appears resolved at this time
Incidental endometrial thickening
-Outpatient transvaginal ultrasound
Hypothyroidism
-cont synthroid
Full code
DVT prophylaxis�heparin drip, continue Coumadin
GI ppx PPI
Discussed with patient and patient's Rodrigo
I spent a total of 52 minutes with the patient or on the floor. More than 50% of this time involved counseling and coordination of care.
Anticipated Discharge: > 48 hours
Subjective/Interval History
-
Date of Service: December 26, 2023
dyphonia still there, but appears to be improving
Objective Data
-
Labs:
Laboratory Results
12/26/23 12/26/23 12/26/23
05:37 06:24 13:09
WBC 11.3 H
Hgb 9.9 L
Hct 29.9 L
Plt Count 353
PT 18.5 H
INR 1.53
APTT 113.2 H 58.6 H
Sodium 140
Potassium 3.5
Chloride 108 H
Carbon Dioxide 22
BUN 16
Creatinine 0.6
Glucose 112 H
Calcium 7.9 L
12/26/23
20:00
WBC
Hgb
Hct
Plt Count
PT
INR
APTT Pending
Sodium
Potassium
Chloride
Carbon Dioxide
BUN
Creatinine
Glucose
Calcium
Vital Signs:
Vital Signs
Temp Pulse Resp BP Pulse Ox
97.8 F 72 19 122/52 95
12/26/23 11:02 12/26/23 13:01 12/26/23 11:02 12/26/23 13:01 12/26/23 11:02
I&O
12/25/23 12/26/23 12/27/23
06:59 06:59 06:59
Intake Total 1696 / 1696 1416 / 1416
Output Total 1600 / 1600 1750 / 1750
Balance 96 / 96 -334 / -334
Review of Systems
-
History Source: Patient
All other systems: Not reviewed unless documented
Data Reviewed
-
CT Scan: Image personally visualized and interpreted and Report Reviewed by me
Medical Tests (Nuc Med, Echo etc): Report Reviewed by me
Labs: Labs Reviewed by me
--- NOTE | 2023-12-26 14:43 | CON.MD ---
Consultation - Medical
-
Referring Provider:�Dr. Destin Collazo
Chief Complaint:�Debility after STEMI
�
History of Present Illness:�78-year-old female with PMH (as below) presented to [facility] on 12/03/2023 with chest pain and found to have an inferior lateral STEMI. She was brought to the [facility] with cardiogenic shock and started on
pressors. She also had bradycardia requiring atropine. Course also notable for atrial fibrillation/flutter, ventricular tachycardia/ventricular fibrillation requiring multiple defibrillations. She was intubated and had an Impella placed. She
underwent 4 stents to the RCA. Postoperatively she developed a right groin Impella site hemorrhage with significant anemia. She was seen by vascular surgery and had a cutdown exposure of the right femoral vessels and repair of the right
superficial femoral artery that was bleeding. She required multiple transfusions. She was sent to [facility] for higher level of care. She was treated for multi pressor shock with RV dysfunction and pericardial effusion. Pillow was removed.
She also had ventilator associated pneumonia treated with antibiotics. She was volume overloaded and required diuretics. She was extubated on 12/16/2023. She was found to have a left lower extremity DVT and placed on heparin drip because her NOACs
interact with her seizure medication phenytoin. She was placed on Coumadin and is being titrated to goal of INR 2�3 at which point heparin drip will be held. Other hospital course concerns include toxic metabolic encephalopathy and ICU delirium.
She had an EEG done showing diffuse slowing. Given thiamine and started on Seroquel for agitation. CT of the head with no acute abnormalities. Also with significant dysphagia and malnutrition requiring tube feeding. She had a video swallow
evaluation on 12/23 and was made n.p.o. with plan for repeat video swallow on 12/30/2023. If this fails she would likely require a PEG. ENT evaluation for possible laryngeal damage with prolonged intubation. Had a repeat video swallow study on 12/29
and started on a trial pur�ed diet with nectar thick liquids with with NG tube discontinued on 12/30 for the moment. Meds crushed in pur�e. Requiring one-to-one supervision. On limited ice chips and small single cup sips with supervision between
meals.
Spoke with wound care at bedside. Patient has some tracking in the right groin wound with some minimal purulent drainage. Packed with iodoform per vascular, with continued wound VAC. Overall feeling better with her voice volume and ability to
swallow. Her throat feels much better over the past few days. Is getting a better appetite for food and able to tolerate more eating. Had some discomfort with her rectal tube which has been removed with no further pain. Incontinent of bowel and
bladder, does have a sense of when she has to urinate but is not able to get to the toilet yet.
Past Medical History:�hypertension, hyperlipidemia, hypothyroidism, epilepsy, elevated liver enzymes, CAD, STEMI
Procedure History:�None
Family History:�None pertinent
�
Social History:�
Functional Level Premorbidly:�Independent with all activities�
Functional Level Currently:�Min assist grooming, dependent toileting, max assist lower extremity self-care. Min to mod assist transfers, took sidesteps to the right and left with min to mod assist of 1-2 using rolling walker.
�
Tobacco:�Denies�
Alcohol:�Denies�
Drug use:�Denies�
�
Lives with:�Spouse
24-hour assistance available:�Possibly
Number of floors:�1
# steps to enter:�2-3
Driving:�Yes
Occupation:�Retired
�
�
Allergies:�
Allergy/AdvReac Type Severity Reaction Status Date / Time
No Known Allergies Allergy Unverified 12/03/23 14:19
�
Review of Systems:�
Constitutional: (x) abNormal _fatigue
Eye: (x) Normal _
Ear/Nose/Throat: (x) abNormal _difficulty swallowing
Respiratory: (x) Normal _
Cardiovascular: (x) Normal _
Gastrointestinal: (x) abNormal _bowel incontinence
Genitourinary: (x) abNormal _bladder incontinence, does have sensation
Musculoskeletal: (x) Normal _
Integumentary: (x) abNormal _right groin wound with wound VAC
Neurologic: (x) abNormal _General Weakness and confusion
Psychiatric: (x) Normal _
Endocrine: (x) Normal _
Hematologic/Lymphatic: (x) Normal _
Allergic/Immunologic: (x) Normal _
�
Medications:�
Active Current Visit Medication List
Category Date Time Status
Acetaminophen [Tylenol] Med 12/31/23 08:43 Active
650 mg PO Q4HPRN PRN
Atorvastatin [Lipitor] Med 12/31/23 08:43 Active
40 mg PO DAILY
Bisacodyl [Dulcolax] Med 12/20/23 20:16 Active
10 mg RECTAL DAILYPRN PRN
Carvedilol [Coreg] Med 12/31/23 08:43 Active
12.5 mg PO BID
Clopidogrel Bisulfate [Plavix] Med 12/31/23 08:43 Active
75 mg PO DAILY
Dapagliflozin [Farxiga] Med 12/23/23 08:00 Active
10 mg PO DAILY
Dextrose 50%-Water [Dextrose 50% Syringe] Med 12/20/23 20:02 Active
12.5 grams IV [id number] PRN
Flush (0.9% Sodium Chloride) [Flush (Nss)] Med 12/20/23 20:00 Active
See Dose Instructions IV PER PROTOCOL
Glucagon [GlucaGen] Med 12/20/23 20:02 Active
1 mg IM PRN PRN
Guaifenesin Solution [Robitussin] Med 12/21/23 13:00 Active
200 mg PO QID
Insulin Aspart Corrective Low [Novolog Flexpen-Low Med 12/31/23 22:00 Active
Resistance]
See Protocol SC AC
Ipratropium/Albuterol Sulfate [Duoneb] Med 12/20/23 20:02 Active
3 ml INH R Q4HPRN PRN
Lansoprazole [Prevacid] Med 12/31/23 08:43 Active
30 mg PO DAILY
Levothyroxine [Synthroid] Med 12/31/23 08:43 Active
125 mcg PO DAILY@0600
Melatonin Med 12/31/23 08:43 Active
3 mg PO HS
Phenytoin [Dilantin Oral Susp] Med 01/02/24 08:00 Active
100 mg PO Q48H
Phenytoin [Dilantin Oral Susp] Med 12/31/23 08:43 Active
100 mg PO TID
Quetiapine Fumarate [Seroquel] Med 12/31/23 09:19 Active
12.5 mg PO HSPRN PRN
Sacubitril 97/Valsartan 103 [Entresto 97 mg/103 mg] Med 12/26/23 20:00 Active
1 tab PO BID
Sodium Chloride/Aloe Vera [[place] Saline Nasal Gel] Med 12/21/23 01:54 Active
See Dose Instructions NASAL Q2HPRN PRN
Spironolactone [Aldactone] Med 12/27/23 08:17 Active
25 mg PO DAILY
Warfarin [Coumadin] Med 12/31/23 18:00 Hold
2.5 mg PO QPM
Vitals:�
Temp Pulse Resp BP Pulse Ox
97.8 F 69 13 110/51 97
01/01/24 07:43 01/01/24 09:54 01/01/24 06:00 01/01/24 09:54 01/01/24 04:06
Height 5 ft 6 in
Actual Weight 78.8 kg
Body Mass Index (BMI) 28.1
�
Physical Exam:�
General Appearance/Observation: Well-developed, well-nourished female in no apparent distress.�
Pain/Comfort Assessment: Denies�currently, does have some groin pain at time with wound VAC changes
Mood/Affect: Appropriate�
�
Integumentary/Operative Site:�Right groin wound VAC with some tunneling and some serosanguineous drainage. Still with open area in the right groin with healthy base.
�
Eyes: Conjunctiva/Lids: normal���� Pupils: pupils equal round and reactive to light and Accommodation�
Ears/Nose/Throat: oral mucosa moist,� throat clear.������������ Lips/Teeth/Gums: normal�
Cardiovascular: Heart: regular, no murmur�
Pulses: dorsalis pedis 2+ bilaterally�
Respiratory: Respiratory Effort/Chest Expansion: normal������� Auscultation: Clear to auscultation bilaterally�
Gastrointestinal: abdomen not tender, no distension, normal abdominal bowel sounds
Genitourinary: No Castillo�
Rectal Exam: Deferred�
Extremities:�Edema: Minimal nonpitting bilateral lower extremities�cyanosis: None�Trophic�changes: None
�
Neurology Exam:
Orientation: Alert, Oriented to self, Time, Place�
Memory: Intact for recent medical concerns
Repetition: Intact
Comprehension: Intact
Two step command: Intact
Naming: Intact
Clock: Able to read the clock across the room accurately.
Cranial Nerves:
�� CNII:�Pupillary light reflex: Intact���
�� CN III, IV, : Extraocular muscles: Intact�
�� CN V:�Facial Sensation�at�Forehead: Intact,�Maxilla: Intact,�Mandible: Intact
�� CN VII:�Facial movement: Left eye ptosis
�� CN VIII:�Hearing: Normal
�� CN IX/X:�Speech & swallow: Mild hypophonia/hoarseness of voice. Dysphagia�position of Uvula: Midline
�� CN XI:�Shoulder shrug: Symmetric
�� CN XII:�Tongue protrusion: Midline
Sensory:
�� Light touch: Intact in bilateral upper and lower extremities, no extinction to double simultaneous stimulation
�
Reflexes:
�� Biceps: 2+ bilaterally
�� Brachioradialis: 2+ bilaterally
�� Triceps: 2+ bilaterally
�� Patellar: 2+ bilaterally
�� Achilles: 2+ bilaterally
�� Babinski: Down going bilaterally
�� Clonus: None
�� Luis M: Negative bilaterally�
Cerebellar: Dysmetria/Ataxia: None�
Musculoskeletal: Motor: (Manual muscle scale 0-5)�
Muscle SA EF WE EE FF FA HF KE DF EHL PF
Right� 4 5 5 4 5 4 3 5 5 4 5
Left 4 5 5 4 5 4 3 5 5 4 5
�
Tone: Normal in all extremities�
Range of Motion: Passively within normal limits in all extremities�
�
Lab Results
Laboratory Data
12/26/23 05:37
12/26/23 05:37
PT 18.5 Sec (11.4-14.6) H 12/26/23 05:37
INR 1.53 12/26/23 05:37
APTT 58.6 Sec (23.4-35.0) H 12/26/23 13:09
Total Bilirubin 1.0 mg/dl (0.2-1.3) 12/21/23 04:47
AST 65 U/L (14-36) H 12/21/23 04:47
ALT 35 U/L (0-35) 12/21/23 04:47
Alkaline Phosphatase 132 U/L (38-126) H 12/21/23 04:47
Total Protein 5.6 g/dl (6.3-8.2) L 12/21/23 04:47
Albumin 2.4 g/dl (3.5-5.0) L 12/21/23 04:47
�
Diagnostic Results:�as per HPI�
�
Assessment
78 y/o right-handed F with PMH (HTN, HLD, hypothyroidism, epilepsy, elevated liver enzymes) with 12/03/2023 inferior lateral STEMI with cardiogenic shock, bradycardia V-fib/V. tach requiring multiple defibrillations, 4 stents to the RCA, R groin
Impella site hemorrhage with significant anemia requiring cutdown exposure of the right femoral vessels and repair of the right superficial femoral artery that was bleeding and multiple transfusions, multi pressure shock, RV dysfunction and
pericardial effusion, ventilator associated pneumonia, volume overload, extubated on 12/16/2023, LLE DVT with heparin bridge to warfarin, toxic metabolic encephalopathy and ICU delirium, severe dysphagia requiring Dobbhoff tube SSS resulting in ADL,
ambulatory, speech and swallow dysfunction.
�
Plan�
PM&R�PT/OT to increase independence with ADLs, improve balance, coordination, endurance, strength, mobility, community reintegration, decreased burden of care on others and family education.�
�
Dysphagia: speech, oral care protocol, aspiration precautions.� Advance Puree with mildly thick, diet as tolerated.� Ice chip and free water protocol. Must be able to tolerate caloric intake for a few days to ensure a feeding tube is not needed.
So far she seems to be doing much better with improvement in her voice in addition to swallowing.
Dysarthria: speech, postintubation versus neurologic
Seizures: Phenytoin, seizure precautions�
Left eye ptosis: Initially denied concern but when hospital spoke with patient she does history of ptosis diagnosed by an painter helper sign a year ago. Continue to monitor. No other changes noted from baseline.
Delirium: Thought to be from prolonged medical care hospitalization.
Acute lower extremity DVT: Coumadin with goal INR 2-3.�
Acute blood loss anemia: stable in 9 range.� Blood loss with SFA injury requiring repair. Monitor.
Ventilatory dependent pneumonia: Completed course of antibiotics.��Guaifenesin
Right groin wound: Has some minimal purulence and tracking. Iodoform packing placed with wound VAC on top per vascular.
HTN: aldactone 25 mg, entresto, coreg 12.5 mg BID, monitor closely�
HLD: Statin�
CAD with STEMI S/P 5 RCA stents: Aspirin, statin, beta-alejandro�
Ischemic cardiomyopathy: Aldactone, Entresto, Coreg, Farxiga.
Atrial fibrillation/flutter, V. tach/V-fib:�Warfarin anticoagulation and rate control with Coreg.���
Bradycardia: Status post transvenous pacemaker.����������������������������������������
Hypothyroidism: levothyroxine
Psych: Psychology consult.� Monitor mood, adjust seroquel as needed.� Melatonin.
Skin: monitor for pressure sores/rashes/lesions.�
Pain: acetaminophen as needed.�
Bowel: Was having diarrhea requiring rectal tube. Since removed. Did move her bowels. Monitor, medications as necessary
Bladder: Using pure wick, no retention concerns noted currently.
GI Prophylaxis: Prevacid�
DVT Prophylaxis: mechanical and warfarin
Pulmonary: Incentive spirometry�
Safety: Continue to reinforce assistance with all transfers.�
Code Status:� Full code
Dispo�(date/plan/equipment needs): Home with family care.� Social history reviewed.�
Functional and Medical Goals:�Modified Independent with ADL�s, ambulation, transfers�
Discharge Destination:�Acute inpatient rehabilitation�given her prolonged hospital course with significant overall weakness, swallow and speech dysfunction, has continued wound care needs including wound VAC of the right groin.
�
Summary of recommendations:
-�Discharge Destination:�Acute inpatient rehabilitation��
Dysphagia: speech, oral care protocol, aspiration precautions.� Advance Puree with mildly thick, diet as tolerated.� Ice chip and free water protocol. Must be able to tolerate caloric intake for a few days to ensure a feeding tube is not needed.
So far she seems to be doing much better with improvement in her voice in addition to swallowing.
Dysarthria: speech, postintubation versus neurologic
Seizures: Phenytoin, seizure precautions�
Ischemic cardiomyopathy: Aldactone, Entresto, Coreg, Farxiga.
Atrial fibrillation/flutter, V. tach/V-fib:�Warfarin anticoagulation and rate control with Coreg.���
Bradycardia: Status post transvenous pacemaker.������
�
Thank you for allowing me to care for your patient. Please contact me with any questions or concerns.
A total of 80 minutes were spent with the patient preparing for the evaluation, obtaining history, performing examination and evaluation, counseling, data review, case management, care coordination, night order selector, and EMR documentation. Spoke with
patient regarding various concerns, answered all questions. Spoke with wound care and hospitalist.
[2023-12-26] MEDS: COUMADIN 5 MG TUBE (18:11)
[2023-12-26 18:20] LABS: Glucose - Point of Care 112 mg/dl (70-99)
[2023-12-26] MEDS: ENTRESTO 97 MG/103 MG 1 TAB PO (19:25)
[2023-12-26 20:09] LABS: APTT 121.6 Sec (23.4-35.0)
[2023-12-26] MEDS: MELATONIN 3 MG TUBE (22:08)
[2023-12-26] MEDS: SEROQUEL 12.5 MG TUBE (22:08)
[2023-12-27] VITALS (17 sets, daily range): BP systolic 109–139; BP diastolic 51–73; PULSE 69–72
[2023-12-27 00:19] LABS: Glucose - Point of Care 112 mg/dl (70-99)
--- NOTE | 2023-12-27 01:52 | PTCARENOTE ---
DHT remains patent through [employer] with [employer] 1.5 running, tubing replaced. FMS and pw remain in place for incontinence. Restraints as documented. Heparin gtt remains in place, see worklist documentation. Bed alarm in place for pt safety
[2023-12-27 03:25] LABS: Hematocrit 29.7 % (37.0-47.0); Hemoglobin 9.8 g/dL (12.0-16.0); Mean Corpuscular Hgb 32.3 pg (27.0-31.0); Mean Platelet Volume 10.7 fL (7.4-10.4); Platelet Count 329 10^3/uL (130-400); Red Blood Cell Count 3.03 10^6/uL (4.20-5.40); Red Cell Dist. Width 20.4 % (11.5-14.5); White Blood Cell Count 10.5 10^3/uL (4.8-10.8)
[2023-12-27 03:36] LABS: INR 1.62; PT 19.4 Sec (11.4-14.6)
[2023-12-27 03:38] LABS: APTT 119.2 Sec (23.4-35.0)
[2023-12-27 04:11] LABS: ALT (SGPT) 75 U/L (0-35); AST (SGOT) 119 U/L (14-36); Albumin 2.4 g/dl (3.5-5.0); Alkaline Phosphatase 150 U/L (38-126); Blood Urea Nitrogen 15 mg/dl (7-17); Carbon Dioxide 23 mmol/L (22-30); Chloride 108 mmol/L (98-107); Estimated Creatinine Clearance 84 ml/min; Glucose 129 mg/dl (70-99); Potassium 3.1 mmol/L (3.5-5.1); Sodium 139 mmol/L (135-145); Total Bilirubin 0.6 mg/dl (0.2-1.3); Total Protein 5.6 g/dl (6.3-8.2); eGFR > 60.00
[2023-12-27] MEDS: KCL ELIXIR 40 MEQ TUBE ×2 (04:40→10:36)
[2023-12-27] MEDS: SYNTHROID 125 MCG TUBE (05:04)
[2023-12-27] MEDS: LOPRESSOR 12.5 MG TUBE ×4 (05:04→23:09)
[2023-12-27 05:44] LABS: Glucose - Point of Care 114 mg/dl (70-99)
--- NOTE | 2023-12-27 08:14 | W.PN.CD ---
Today's Communication / Plan
-
doing well; increasing aldactone to 25 today
Impression / Plan
-
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
right femoral artery hematoma requiring surgical cutdown/repair, s/p PCI of the RCA, subsequently transferred to [facility] for management of shock/MCS, now transferred back after successful weaning of MCS/pressors/inotropes and liberation from mechanical
ventilation but with residual delerium/dysphagia requiring NGT.
#CAD/Inferior STEMI 12/03/23
-s/p Impella supported PATRICIA x 5 to culprit RCA (overlapping [employer] [place] 2.5 x 34, 3.0 x 34, 3.5 x 34, 3.5 x 34 and 3.5 x 15 PATRICIA, post dilated with a 3.25 NCB in the mid/distal RCA, 3.5 NCB in the pRCA).
-Inferior STEMI consistent with RV infarct given volume sensitivity.
-TTE shows LAD/RCA RWMA, LVEF = 35-40%.
-Will need to consider risks/benefits of LAD revascularization in future.
-Continue atorvastatin, clopidogrel (+ warfarin), metoprolol.
#Ischemic cardiomyopathy
-Chronic.
-TTE with EF 35-40% (with LAD/RCA RWMA).
-GDMT as hemodynamics will tolerate. Currently euvolemic.
-Continue metoprolol tartrate 12.5 mg q6h, dapagliflozin 10, sacubitril-valsartan high dose. Has afterload room --> will increase Aldactone to 25 today. Monitor BMP.
-Convert metoprolol to succinate when taking PO.
-Repeat TTE in 3 months to assess for primary (secondary?) prevention ICD.
#LE DVT
-Acute, due to recent hospitalization and immobility.
-Change IV heparin to enoxaparin 120 mg q24 hours to decrease blood draws.
-Continue warfarin, goal INR 2.5 (2-3) as DOACs are class X for phenytoin.
#Anemia
-Acute on chronic.
-No overt clinical bleeding.
-Hbg stable now s/p 2 units pRBC 12/21.
-Monitor H/H while on therapeutic anticoagulation (especially with P2Y12i).
#SFA injury 2/2 Impella
-Acute.
-s/p right SFA repair and Impella removal at [facility].
-Vascular surgery following.
-Continue wound VAC.
#Epilepsy
-Chronic, stable.
-Continue phenytoin.
-Management per hospitalist - multiple drug/drug interactions.
#Delirium
-Acute.
-Likely 2/2 long critical care hospitalization.
-Currently on quetiapine.
-Psych following.
#Dysphagia
-Acute.
-NG tube.
-Meds via tube and tube feeds.
-ENT following.
-Failed S/S.
-ADAT.
#HLD
-Chronic, stable.
-Continue high intensity statin.
-Goal LDL < 55.
Subjective/Interval History:
Doing well. Improvement in voice. Hoping to be able to advance diet.
DATA:
TTE, 12/23/2023:
CONCLUSIONS
Moderately reduced left ventricular systolic function. Left ventricular
ejection fraction is 35-40%.
Mid to apical anteroseptal and inferoseptal, mild to apical inferior, apical
hypokinesis.
Stage I diastolic dysfunction suggestive of abnormal relaxation.
Normal right ventricular size and function.
Mild/moderate tricuspid regurgitation. Mildly elevated PASP. Estimated
pulmonary artery pressure of 37 mmHg assuming a right atrial pressure of 3
mmHg.
Compared to 12/04/23: prior study was a limited study performed during
advancement of Impella, and LVEF was reported as 40-45%.
Modified Barium Swallow, 12/24/2023:
Thin liquid barium by spoon: Silent airway aspiration
[place] consistency barium by spoon with and without right head turn: Transient aspiration
Honey consistency barium by spoon: Transient aspiration
Barium pudding by spoon: No aspiration on 2 of 2 trials during the swallow but evidence of aspiration of the vallecula residue.
Physical Exam
Vital Signs/Labs
Vital Signs
Temp Pulse Resp BP Pulse Ox
37.7 C 69 18 132/60 75
12/27/23 04:39 12/27/23 04:00 12/27/23 04:00 12/27/23 04:00 12/27/23 04:00
12/26/23 12/27/23 12/28/23
06:59 06:59 06:59
Actual Weight 83 kg
12/27/23 03:14
12/27/23 03:14
PT 19.4 Sec (11.4-14.6) H 12/27/23 03:14
INR 1.62 12/27/23 03:14
APTT 119.2 Sec (23.4-35.0) H 12/27/23 03:14
Magnesium 1.8 mg/dl (1.6-2.3) 12/24/23 04:51
Physical Exam
Constitutional: No acute distress
Cardiovascular: Rhythm & rate is regular, JVD pressure is normal, Systolic murmur absent, Diastolic murmur absent and Pedal edema present
Respiratory: Respiratory effort normal, Lungs clear to auscul., Wheeze Absent, Crackles Absent and Rhonchi Absent
Neuro/Psych: Alert
Data Reviewed
-
Date of Service: December 27, 2023
Medical Decision Making: Reviewed Test Results and Test Interpretation
Labs: Labs Reviewed by me
[2023-12-27] MEDS: ENTRESTO 97 MG/103 MG 1 TAB PO ×2 (08:45→20:06)
[2023-12-27] MEDS: ROBITUSSIN 200 MG PO ×4 (08:45→21:46)
[2023-12-27] MEDS: FARXIGA 10 MG PO (08:45)
[2023-12-27] MEDS: PLAVIX 75 MG TUBE (08:45)
[2023-12-27] MEDS: PREVACID 30 MG TUBE (08:46)
[2023-12-27] MEDS: LIPITOR 40 MG TUBE (08:46)
[2023-12-27] MEDS: DILANTIN ORAL SUSP 100 MG TUBE ×4 (08:47→21:53)
[2023-12-27] MEDS: ALDACTONE 25 MG PO (08:51)
[2023-12-27] MEDS: ALDACTONE PO (10:17)
--- NOTE | 2023-12-27 10:23 | WOUNDNOTE ---
[facility] RN NOTE: Followed up with patient today for change of right groin wound vac. Wound bed is granular. Periwound appeared irritated so Cavilon skin prep was applied prior to drape placement. Lateral open wound and scab cleaned with saline and
covered with foam. Small area of open skin at 2 o clock also covered with foam. Wound vac was placed as ordered. Spoke to RN Jennifer who just completed anjel and rectal care and stated staff are using Calazime to reddened skin around rectal tube and
will continue to assess. Heels intact and elevated on pillows. Patient remains on Centrella Max Air. Will continue to follow with patient for wound vac change on 12/29.
[2023-12-27 11:04] LABS: APTT 61.5 Sec (23.4-35.0)
[2023-12-27] MEDS: TYLENOL 650 MG TUBE (11:55)
[2023-12-27 12:30] LABS: Glucose - Point of Care 134 mg/dl (70-99)
--- NOTE | 2023-12-27 14:47 | W.PN.HOSP.TC ---
Today's Communication/Plan
-
increase Aldactone
hep to Coumadin bridging, monitor INR, cbc
PT/OT/physiatry
VSE saturday
Assessment / Plan
Assessment / Plan
Physical Exam
General: no acute distress appears comfortable at this time, diffuse anasarca swollen upper and lower ext's
HEENT: NormoCephalic, Moist mucous membranes and Atraumatic, NGT present, weak voice like due to recent intubations since extubated
Respiratory: Rhonchi
Cardiac: S1/S2 and Regular Rhythm; No Murmur or Rub
GI: Soft, Non Tender, Non Distended and Normal Bowel Sounds; No Organomegaly
Musculoskeletal: No Clubbing, No Cyanosis and No Edema
Neuro: Awake alert conversant to an extent
HPI 78F HTN, HLD, hypothyroidism, epilepsy, chronic elevated liver enzymes, STEMI presents as transfer from [place] because her family lives near [place] and cannot travel to [place] regularly. Originally presented here to [place] 12/02 with chest
pain. Inferiolateral STEMI, brought to [facility] in cardiogenic shock, started on pressors. Cath further complicated with bradycardia requiring atropine as well as atrial fibrillation/flutter and VT/VF, shocked multiple times. Intubated and Impella
placed. She underwent 4 stents in the RCA. Postoperatively patient developed hemorrhage from the right groin Impella site with significant anemia. Vascular surgery performed cutdown exposure of right femoral vessels and repair of right
superficial femoral artery bleeding- required multiple transfusions. Patient was transferred to [place] for higher level of care possible benefit Rpella. While at [place] she was treated for multi pressor shock RV dysfunction pericardial effusion.
Impella since removed. Patient developed ventilator associated pneumonia treatment with IV antibiotics completed per reports. She was extubated on 12/15. Left lower extremity DVT was found and patient was started on heparin drip because NOACs
interacted with her sz medication phenytoin.
# Inferior STEMI secondary to RCA occlusion status post PATRICIA x 5
# LAD chronic total occlusion
# Moderately dilated RV with decreased RV function
# Ischemic cardiomyopathy with EF of 50-55%
#hx V-fib arrest status post multiple shocks
#Hx PEA arrest
-Increased Entresto
-Increased Aldactone
-Continue metoprolol
-Continue Plavix 75 mg daily
-Compression stockings
-Cardiology consult appreciated
�Started on SGLT2i
-PRN diuresis
-Repeat ECHO in 90 days for ICD eval
Bradycardia status post transvenous pacemaker
-Resolved
Left lower extremity DVT
-Hep ggt and monitor HgB; continue titrating warfarin; INR goal 2.5; Can stop hep ggt if INR reaches >2 for 24 hours
-hep gtt placed on hold 12/21 due to drop in hgb <7, consider IVC filter if hold is prolonged
-Continue Coumadin, dosed daily, hold if INR>3
-Daily INR
Acute blood loss anemia
� No clear source although possible dilutional (all cell lines down)
-B12 folate wnl
-Iron level wnl
-mild deficient transferrin saturation
-transfusing for goal Hgb>8 given cardiac history
-responded well to 2PRBC transfusion
� Continue to monitor on Coumadin, titrate as necessary; INR goal - 2-3
Hypokalemia
-monitor and replete as necessary
Multifocal ventilator associated pneumonia
-Sputum grew MSSA/Serratia
-Completed antibiotics
-Currently on 3 L of oxygen
-wean O2 supplementation as tolerated
Leukocytosis
-monitor fever curve, wbc - improving
-blood cultures and empiric abx if patient develops fever
Essential hypertension
-continue losartan
Femoral artery repair
Hemorrhagic shock
Superficial femoral artery bleeding status post Impella with subsequent removal
-Received 4 units of blood here initially
-Patient reportedly had an episode of coffee-ground emesis which had since resolved
-Consult vascular surgery appreciated
-wound vac placed
Toxic metabolic encephalopathy/deconditioning/ICU delirium
Hallucination
-She underwent EEG which showed diffuse slowing
-Was treated with thiamine
-Was started on Seroquel for agitation
-PT recommended acute rehab
-Psych eval appreciated
-CT head no acute abn's
Transaminitis
-ctm
-most likely 2/2 to recent hepatic injury
-bilis wnl
Dysphagia with nasogastric tube
Malnutrition
-Pipe Tester consult appreciated
-tube feeds continued
-Speech eval appreciated pending VSE - failed 12/23- ctm monitor; hopeful to avoid PEG if improvement in swallowing. Speech appears to have improved slightly today; Plan as per speech - VSE Friday 12/29; if fails - then most likely will need to
proceed with PEG.
-ENT eval for possible laryngeal damage with prolong intubation - monitor with time - hopeful improvement
-bilateral serous otitis media
-monitor with ENT
History of epilepsy
-Continue phenytoin 100 mg 3 times daily
-Outpatient neurology follow-up
Reported Cholestatic liver injury
-appears resolved at this time
Incidental endometrial thickening
-Outpatient transvaginal ultrasound
Hypothyroidism
-cont synthroid
Full code
DVT prophylaxis�heparin drip, continue Coumadin
GI ppx PPI
Discussed with patient and patient's Rodrigo
I spent a total of 51 minutes with the patient or on the floor. More than 50% of this time involved counseling and coordination of care.
Anticipated Discharge: > 48 hours
Subjective/Interval History
-
Date of Service: December 27, 2023
no acute events
Objective Data
-
Labs:
Laboratory Results
12/27/23 12/27/23 12/27/23
03:14 10:47 17:13
WBC 10.5
Hgb 9.8 L
Hct 29.7 L
Plt Count 329
PT 19.4 H
INR 1.62
APTT 119.2 H 61.5 H Pending
Sodium 139
Potassium 3.1 L
Chloride 108 H
Carbon Dioxide 23
BUN 15
Creatinine 0.6
Glucose 129 H
Calcium 8.0 L
Total Bilirubin 0.6
AST 119 H
ALT 75 H
Alkaline Phosphatase 150 H
Vital Signs:
Vital Signs
Temp Pulse Resp BP Pulse Ox
97.6 F 68 20 114/59 95
12/27/23 11:14 12/27/23 11:55 12/27/23 10:00 12/27/23 11:55 12/27/23 08:00
I&O
12/26/23 12/27/23 12/28/23
06:59 06:59 06:59
Intake Total 1416 / 1416
Output Total 1750 / 1750 900 / 900 800 / 800
Balance -334 / -334 -900 / -900 -800 / -800
Review of Systems
-
History Source: Patient
All other systems: Not reviewed unless documented
Data Reviewed
-
CT Scan: Image personally visualized and interpreted and Report Reviewed by me
Medical Tests (Nuc Med, Echo etc): Report Reviewed by me
Labs: Labs Reviewed by me
--- NOTE | 2023-12-27 16:06 | PTCARENOTE ---
Patient AAOx2-3, soft spoken, forgetful and confused at times. [place]. at bedside most of day. Heparin infusing per protocol. Tolerating tube feeds at goal. Wound vac changed by CARMINA and working, CDI. VSS. Bed alarm on for safety. Off
restraints since 1200. Closely monitoring patient.
--- NOTE | 2023-12-27 16:36 | CM ---
Patient who was transferred back from [facility] with Dx Inferior STEMI s/p stent placements, VT/VF arrest extubated 12/15, cardiomyopathy, SFA injury / Impella s/p right SFA repair/Impella removal at [facility], LLE DVT, anemia, TME, dysphagia. Tube
feeds. Plan per ST - VSE Friday 12/29. Receiving Heparin gtt.
Phone call to [facility] [place]; left message requesting review of chart for possible [facility] referral next week.
Patient may benefit from Physiatry Eval.
Plan follow up with patient/ for d/c planning.
[2023-12-27 18:32] LABS: Glucose - Point of Care 122 mg/dl (70-99)
[2023-12-27] MEDS: COUMADIN 5 MG TUBE (20:06)
[2023-12-27] MEDS: HEPARIN 25000 UNITS/250 ML IV (20:10)
[2023-12-27] MEDS: MELATONIN 3 MG TUBE (21:46)
[2023-12-27] MEDS: SEROQUEL 12.5 MG TUBE (21:46)
[2023-12-27 22:57] LABS: APTT 140.3 Sec (23.4-35.0)
[2023-12-27 23:46] LABS: Glucose - Point of Care 114 mg/dl (70-99)
[2023-12-28] VITALS (16 sets, daily range): BP systolic 83–136; BP diastolic 41–82; BMI 29.4
[2023-12-28] MEDS: LOPRESSOR 12.5 MG TUBE ×4 (05:04→23:47)
[2023-12-28] MEDS: SYNTHROID 125 MCG TUBE (05:04)
[2023-12-28 05:30] LABS: Hemoglobin 9.4 g/dL (12.0-16.0); Mean Corp Hgb Conc. 32.4 g/dL (33.0-37.0); Mean Corpuscular Hgb 31.4 pg (27.0-31.0); Mean Platelet Volume 10.8 fL (7.4-10.4); Platelet Count 333 10^3/uL (130-400); Red Blood Cell Count 2.99 10^6/uL (4.20-5.40); Red Cell Dist. Width 20.8 % (11.5-14.5); White Blood Cell Count 9.6 10^3/uL (4.8-10.8)
[2023-12-28 05:45] LABS: INR 1.75; PT 20.2 Sec (11.4-14.6)
[2023-12-28 05:47] LABS: APTT 113.4 Sec (23.4-35.0)
[2023-12-28 05:53] LABS: ALT (SGPT) 74 U/L (0-35); AST (SGOT) 103 U/L (14-36); Albumin 2.3 g/dl (3.5-5.0); Alkaline Phosphatase 152 U/L (38-126); Blood Urea Nitrogen 16 mg/dl (7-17); Calcium 7.7 mg/dl (8.4-10.2); Carbon Dioxide 22 mmol/L (22-30); Chloride 108 mmol/L (98-107); Estimated Creatinine Clearance 84 ml/min; Glucose 139 mg/dl (70-99); Potassium 3.5 mmol/L (3.5-5.1); Sodium 139 mmol/L (135-145); Total Bilirubin 0.5 mg/dl (0.2-1.3); Total Protein 5.6 g/dl (6.3-8.2); eGFR > 60.00
[2023-12-28 06:20] LABS: Glucose - Point of Care 129 mg/dl (70-99)
[2023-12-28] MEDS: ROBITUSSIN 200 MG PO ×4 (08:52→21:50)
[2023-12-28] MEDS: FARXIGA 10 MG PO (08:52)
[2023-12-28] MEDS: TYLENOL 650 MG TUBE (08:53)
[2023-12-28] MEDS: PREVACID 30 MG TUBE (08:53)
[2023-12-28] MEDS: ALDACTONE 25 MG PO (08:53)
[2023-12-28] MEDS: LIPITOR 40 MG TUBE (08:53)
[2023-12-28] MEDS: ENTRESTO 97 MG/103 MG 1 TAB PO ×2 (08:53→19:47)
[2023-12-28] MEDS: PLAVIX 75 MG TUBE (08:53)
[2023-12-28] MEDS: DILANTIN ORAL SUSP 100 MG TUBE ×3 (08:55→21:51)
--- NOTE | 2023-12-28 12:07 | W.PN.CD ---
Addendum entered and electronically signed by Claudia Pacheco MD 12/28/23 17:05:
I saw and examined the patient.
The RESIDENTIAL PROPERTY TAX APPRAISER's note was reviewed and I agree with the note.
Comment: I saw and examined the patient.
The RESIDENTIAL PROPERTY TAX APPRAISER's note was reviewed and I agree with the note.
Comment: She feels a little confused. But she has no chest pain or shortness of breath. Her is at the bedside. On exam she has a regular rate and rhythm with a normal S1-S2 1+ edema bilaterally lungs are clear to auscultation.Her CAD is
stable, no chest pain currently. Continue OMT. We have been adjusting GDMT for her heart failure. She is now on SGLT2 inhibitor, beta-alejandro, ARB/ARNI, MRA, and weight is stable without diuretic. Continue current doses. Reestablish EF in 90
days.
Original Note:
Today's Communication / Plan
-
-continue current cardiac meds and monitor
Impression / Plan
-
Impression/Plan: 78 y/o female with epilepsy, HTN, HLD, CVA and CAD admitted with inferolateral STEMI found to have an acute RCA occlusion with an LAD ENDBAND CUTTER HAND complicated by cardiogenic shock requiring MCS (Impella CP) that was further complicated by
right femoral artery hematoma requiring surgical cutdown/repair, s/p PCI of the RCA, subsequently transferred to [place] for management of shock/MCS, now transferred back after successful weaning of MCS/pressors/inotropes and liberation from mechanical
ventilation but with residual delerium/dysphagia requiring NGT.
#CAD/Inferior STEMI 12/03/23
-s/p Impella supported PATRICIA x 5 to culprit RCA (overlapping [employer] 2.5 x 34, 3.0 x 34, 3.5 x 34, 3.5 x 34 and 3.5 x 15 PATRICIA, post dilated with a 3.25 NCB in the mid/distal RCA, 3.5 NCB in the pRCA).
-Inferior STEMI consistent with RV infarct given volume sensitivity.
-TTE shows LAD/RCA RWMA, LVEF = 35-40%.
-Will need to consider risks/benefits of LAD revascularization in future.
-Continue atorvastatin, clopidogrel (+ warfarin), metoprolol.
#Ischemic cardiomyopathy
-Chronic.
-TTE with EF 35-40% (with LAD/RCA RWMA).
-GDMT as hemodynamics will tolerate. Currently euvolemic.
-Continue metoprolol tartrate 12.5 mg q6h, dapagliflozin 10, sacubitril-valsartan, and Aldactone (increased 12/26). Convert metoprolol to succinate when taking PO.
-Repeat TTE in 3 months to assess for primary (secondary?) prevention ICD.
#LE DVT
-Acute, due to recent hospitalization and immobility.
-Change IV heparin to enoxaparin 120 mg q24 hours to decrease blood draws.
-Continue warfarin, goal INR 2.5 (2-3) as DOACs are class X for phenytoin.
#Anemia
-Acute on chronic.
-No overt clinical bleeding.
-Hbg stable now s/p 2 units pRBC 12/21.
-Monitor H/H while on therapeutic anticoagulation (especially with P2Y12i).
#SFA injury 2/2 Impella
-Acute.
-s/p right SFA repair and Impella removal at [email or web address].
-Vascular surgery following.
-Continue wound VAC.
#Epilepsy
-Chronic, stable.
-Continue phenytoin.
-Management per hospitalist - multiple drug/drug interactions.
#Delirium
-Acute.
-Likely 2/2 long critical care hospitalization.
-Currently on quetiapine.
-Psych following.
#Dysphagia
-Acute.
-NG tube.
-Meds via tube and tube feeds.
-ENT following.
-Failed S/S.
-ADAT.
#HLD
-Chronic, stable.
-Continue high intensity statin.
-Goal LDL < 55.
Subjective/Interval History:
Stable. Feeling like she is slowly getting better overall.
DATA:
TTE, 12/23/2023:
CONCLUSIONS
Moderately reduced left ventricular systolic function. Left ventricular
ejection fraction is 35-40%.
Mid to apical anteroseptal and inferoseptal, mild to apical inferior, apical
hypokinesis.
Stage I diastolic dysfunction suggestive of abnormal relaxation.
Normal right ventricular size and function.
Mild/moderate tricuspid regurgitation. Mildly elevated PASP. Estimated
pulmonary artery pressure of 37 mmHg assuming a right atrial pressure of 3
mmHg.
Compared to 12/04/23: prior study was a limited study performed during
advancement of Impella, and LVEF was reported as 40-45%.
Modified Barium Swallow, 12/24/2023:
Thin liquid barium by spoon: Silent airway aspiration
[place] consistency barium by spoon with and without right head turn: Transient aspiration
[place] consistency barium by spoon: Transient aspiration
Barium pudding by spoon: No aspiration on 2 of 2 trials during the swallow but evidence of aspiration of the vallecula residue.
Physical Exam
Vital Signs/Labs
Vital Signs
Temp Pulse Resp BP Pulse Ox
97.4 F 66 17 114/68 96
12/28/23 07:06 12/28/23 10:00 12/28/23 10:00 12/28/23 10:00 12/28/23 08:10
12/27/23 12/28/23 12/29/23
06:59 06:59 06:59
Actual Weight 82.5 kg
12/28/23 05:11
12/28/23 05:11
PT 20.2 Sec (11.4-14.6) H 12/28/23 05:11
INR 1.75 12/28/23 05:11
APTT 113.4 Sec (23.4-35.0) H 12/28/23 05:11
Magnesium 1.8 mg/dl (1.6-2.3) 12/24/23 04:51
Physical Exam
Constitutional: No acute distress
EENT: Anicteric
Cardiovascular: Rhythm & rate is regular and Pedal edema present
Respiratory: Respiratory effort normal and Other (coarse lung sounds, no distress, On RA)
Neuro/Psych: Alert and Oriented
Data Reviewed
-
Date of Service: December 28, 2023
EKG: Other (tele SR)
[2023-12-28 12:35] LABS: Glucose - Point of Care 115 mg/dl (70-99)
[2023-12-28 13:00] LABS: APTT 70.6 Sec (23.4-35.0)
--- NOTE | 2023-12-28 13:33 | W.PN.HOSP.TC ---
Today's Communication/Plan
-
hep to Coumadin bridging, monitor INR, cbc
PT/OT/physiatry
VSE saturday
Assessment / Plan
Assessment / Plan
Physical Exam
General: no acute distress appears comfortable at this time, diffuse anasarca swollen upper and lower ext's
HEENT: NormoCephalic, Moist mucous membranes and Atraumatic, NGT present, weak voice like due to recent intubations since extubated
Respiratory: Rhonchi
Cardiac: S1/S2 and Regular Rhythm; No Murmur or Rub
GI: Soft, Non Tender, Non Distended and Normal Bowel Sounds; No Organomegaly
Musculoskeletal: No Clubbing, No Cyanosis and No Edema
Neuro: Awake alert conversant to an extent
HPI 78F HTN, HLD, hypothyroidism, epilepsy, chronic elevated liver enzymes, STEMI presents as transfer from [place] because her family lives near [place] and cannot travel to [place] regularly. Originally presented here to [place] 12/02 with chest
pain. Inferiolateral STEMI, brought to [employer] [facility] in cardiogenic shock, started on pressors. Cath further complicated with bradycardia requiring atropine as well as atrial fibrillation/flutter and VT/VF, shocked multiple times. Intubated and Impella
placed. She underwent 4 stents in the RCA. Postoperatively patient developed hemorrhage from the right groin Impella site with significant anemia. Vascular surgery performed cutdown exposure of right femoral vessels and repair of right
superficial femoral artery bleeding- required multiple transfusions. Patient was transferred to [place] for higher level of care possible benefit Rpella. While at [place] she was treated for multi pressor shock RV dysfunction pericardial effusion.
Impella since removed. Patient developed ventilator associated pneumonia treatment with IV antibiotics completed per reports. She was extubated on 12/15. Left lower extremity DVT was found and patient was started on heparin drip because NOACs
interacted with her sz medication phenytoin.
# Inferior STEMI secondary to RCA occlusion status post PATRICIA x 5
# LAD chronic total occlusion
# Moderately dilated RV with decreased RV function
# Ischemic cardiomyopathy with EF of 50-55%
#hx V-fib arrest status post multiple shocks
#Hx PEA arrest
-Increased Entresto
-Increased Aldactone
-Continue metoprolol
-Continue Plavix 75 mg daily
-Compression stockings
-Cardiology consult appreciated
�Started on SGLT2i
-PRN diuresis
-Repeat ECHO in 90 days for ICD eval
Bradycardia status post transvenous pacemaker
-Resolved
Left lower extremity DVT
-Hep ggt and monitor HgB; continue titrating warfarin; INR goal 2.5; Can stop hep ggt if INR reaches >2 for 24 hours
-hep gtt placed on hold 12/21 due to drop in hgb <7, consider IVC filter if hold is prolonged
-Continue Coumadin, dosed daily, hold if INR>3
-Daily INR
Acute blood loss anemia
� No clear source although possible dilutional (all cell lines down)
-B12 folate wnl
-Iron level wnl
-mild deficient transferrin saturation
-transfusing for goal Hgb>8 given cardiac history
-responded well to 2PRBC transfusion
� Continue to monitor on Coumadin, titrate as necessary; INR goal - 2-3
Hypokalemia
-monitor and replete as necessary
Multifocal ventilator associated pneumonia
-Sputum grew MSSA/Serratia
-Completed antibiotics
-Currently on 3 L of oxygen
-wean O2 supplementation as tolerated
Leukocytosis
-monitor fever curve, wbc - improving
-blood cultures and empiric abx if patient develops fever
Essential hypertension
-continue losartan
Femoral artery repair
Hemorrhagic shock
Superficial femoral artery bleeding status post Impella with subsequent removal
-Received 4 units of blood here initially
-Patient reportedly had an episode of coffee-ground emesis which had since resolved
-Consult vascular surgery appreciated
-wound vac placed
Toxic metabolic encephalopathy/deconditioning/ICU delirium
Hallucination
-She underwent EEG which showed diffuse slowing
-Was treated with thiamine
-Was started on Seroquel for agitation
-PT recommended acute rehab
-Psych eval appreciated
-CT head no acute abn's
Transaminitis
-ctm
-most likely 2/2 to recent hepatic injury
-bilis wnl
Dysphagia with nasogastric tube
Malnutrition
-Health Manager consult appreciated
-tube feeds continued
-Speech eval appreciated pending VSE - failed 12/23- ctm monitor; hopeful to avoid PEG if improvement in swallowing. Speech appears to have improved slightly today; Plan as per speech - VSE Friday 12/29; if fails - then most likely will need to
proceed with PEG.
-ENT eval for possible laryngeal damage with prolong intubation - monitor with time - hopeful improvement
-bilateral serous otitis media
-monitor with ENT
History of epilepsy
-Continue phenytoin 100 mg 3 times daily
-Outpatient neurology follow-up
Reported Cholestatic liver injury
-appears resolved at this time
Incidental endometrial thickening
-Outpatient transvaginal ultrasound
Hypothyroidism
-cont synthroid
Full code
DVT prophylaxis�heparin drip, continue Coumadin
GI ppx PPI
Discussed with patient and patient's Rodrigo
I spent a total of 53 minutes with the patient or on the floor. More than 50% of this time involved counseling and coordination of care.
Anticipated Discharge: > 48 hours
Subjective/Interval History
-
Date of Service: December 28, 2023
No acute events overnight
Objective Data
-
Labs:
Laboratory Results
12/28/23 12/28/23
05:11 12:38
WBC 9.6
Hgb 9.4 L
Hct 29.0 L
Plt Count 333
PT 20.2 H
INR 1.75
APTT 113.4 H 70.6 H
Sodium 139
Potassium 3.5
Chloride 108 H
Carbon Dioxide 22
BUN 16
Creatinine 0.6
Glucose 139 H
Calcium 7.7 L
Total Bilirubin 0.5
AST 103 H
ALT 74 H
Alkaline Phosphatase 152 H
Vital Signs:
Vital Signs
Temp Pulse Resp BP Pulse Ox
97.4 F 78 17 112/53 96
12/28/23 07:06 12/28/23 12:28 12/28/23 10:00 12/28/23 12:28 12/28/23 08:10
I&O
12/27/23 12/28/23 12/29/23
06:59 06:59 06:59
Output Total 900 / 900 2250 / 2250
Balance -900 / -900 -2250 / -2250
Review of Systems
-
History Source: Patient
All other systems: Not reviewed unless documented
Data Reviewed
-
CT Scan: Image personally visualized and interpreted and Report Reviewed by me
Medical Tests (Nuc Med, Echo etc): Report Reviewed by me
Labs: Labs Reviewed by me
--- NOTE | 2023-12-28 16:49 | PTCARENOTE ---
Patient AAOx2. Confused at times, soft spoken. Mentation improved from yesterday. Remains without restraints. RA, coarse with ocassional wet nonproductive cough. Tube feeds at goal and tolerating. VSS. Heparin gtt infusing per protocol. Patient
actively participating in IS today. R groin wound vac CDI.
[2023-12-28] MEDS: KCL ELIXIR 40 MEQ TUBE (17:01)
[2023-12-28] MEDS: COUMADIN 6 MG TUBE (18:08)
[2023-12-28 18:16] LABS: Glucose - Point of Care 104 mg/dl (70-99)
[2023-12-28] MEDS: HEPARIN 25000 UNITS/250 ML IV (20:52)
[2023-12-28] MEDS: SEROQUEL 12.5 MG TUBE (21:50)
[2023-12-28] MEDS: MELATONIN 3 MG TUBE (21:51)
[2023-12-29] VITALS (18 sets, daily range): BP systolic 92–130; BP diastolic 39–68; PULSE 69; O2SAT 98; BMI 28.7
[2023-12-29 00:07] LABS: Glucose - Point of Care 118 mg/dl (70-99)
--- NOTE | 2023-12-29 00:27 | PTCARENOTE ---
Caring for patient overnight. aaox1, very confused & forgetful. Got an order for bilateral mitts & side rails around 2200 d/t pt pulling at lines and wires. Did not want pt pulling at dobhoff. NSR on monitor, remains RA. VSS. Tube feeds running at
goal. Heparin gtt running & therapeutic, next PTT in the AM. FMS intact. Purewick in place. Q2T. Will continue to monitor.
[2023-12-29] MEDS: LOPRESSOR 12.5 MG TUBE (05:20)
[2023-12-29] MEDS: SYNTHROID 125 MCG TUBE (05:20)
[2023-12-29 05:21] LABS: Hematocrit 29.9 % (37.0-47.0); Hemoglobin 9.6 g/dL (12.0-16.0); Mean Corp Hgb Conc. 32.1 g/dL (33.0-37.0); Mean Corpuscular Hgb 31.1 pg (27.0-31.0); Mean Corpuscular Volume 96.8 fL (81.0-99.0); Mean Platelet Volume 10.4 fL (7.4-10.4); Platelet Count 330 10^3/uL (130-400); Red Blood Cell Count 3.09 10^6/uL (4.20-5.40); Red Cell Dist. Width 21.1 % (11.5-14.5); White Blood Cell Count 9.6 10^3/uL (4.8-10.8)
[2023-12-29 05:30] LABS: Glucose - Point of Care 129 mg/dl (70-99)
[2023-12-29 05:33] LABS: INR 2.13; PT 23.7 Sec (11.4-14.6)
[2023-12-29 05:35] LABS: APTT 109.1 Sec (23.4-35.0)
[2023-12-29 06:18] LABS: ALT (SGPT) 65 U/L (0-35); AST (SGOT) 90 U/L (14-36); Albumin 2.4 g/dl (3.5-5.0); Alkaline Phosphatase 141 U/L (38-126); Blood Urea Nitrogen 18 mg/dl (7-17); Calcium 8.2 mg/dl (8.4-10.2); Carbon Dioxide 21 mmol/L (22-30); Chloride 110 mmol/L (98-107); Estimated Creatinine Clearance 83 ml/min; Glucose 125 mg/dl (70-99); Potassium 3.8 mmol/L (3.5-5.1); Sodium 138 mmol/L (135-145); Total Bilirubin 0.5 mg/dl (0.2-1.3); Total Protein 5.7 g/dl (6.3-8.2); eGFR > 60.00
--- NOTE | 2023-12-29 06:31 | PTCARENOTE ---
Overnight pt became increasingly confused. Although she did become sleepy from her nighttime medications, when she would wake up once in a while she would start pulling at her IV lines & dobhoff. [employer] TT & b/l mitts ordered. They were able to be
removed this morning when pt was more aware of what was going on and was following directions & commands. Will monitor.
[2023-12-29] MEDS: PREVACID 30 MG TUBE (08:13)
[2023-12-29] MEDS: LIPITOR 40 MG TUBE (08:13)
[2023-12-29] MEDS: PLAVIX 75 MG TUBE (08:13)
[2023-12-29] MEDS: ALDACTONE 25 MG PO (08:13)
[2023-12-29] MEDS: ROBITUSSIN 200 MG PO ×4 (08:13→21:25)
[2023-12-29] MEDS: ENTRESTO 97 MG/103 MG 1 TAB PO ×2 (08:13→19:37)
[2023-12-29] MEDS: FARXIGA 10 MG PO (08:13)
[2023-12-29] MEDS: DILANTIN ORAL SUSP 100 MG TUBE ×4 (08:14→21:29)
--- NOTE | 2023-12-29 09:34 | W.PN.CD ---
Today's Communication / Plan
-
given the need for feeding tube will transition to Coreg
Impression / Plan
-
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
right femoral artery hematoma requiring surgical cutdown/repair, s/p PCI of the RCA, subsequently transferred to [place] for management of shock/MCS, now transferred back after successful weaning of MCS/pressors/inotropes and liberation from mechanical
ventilation but with residual delerium/dysphagia requiring NGT.
#CAD/Inferior STEMI 12/03/23
-s/p Impella supported PATRICIA x 5 to culprit RCA (overlapping [employer] [place] 2.5 x 34, 3.0 x 34, 3.5 x 34, 3.5 x 34 and 3.5 x 15 PATRICIA, post dilated with a 3.25 NCB in the mid/distal RCA, 3.5 NCB in the pRCA).
-Inferior STEMI consistent with RV infarct given volume sensitivity.
-TTE shows LAD/RCA RWMA, LVEF = 35-40%.
-Will need to consider risks/benefits of LAD revascularization in future.
-Continue atorvastatin, clopidogrel (+ warfarin), metoprolol.
#Ischemic cardiomyopathy
-Chronic.
-TTE with EF 35-40% (with LAD/RCA RWMA).
-GDMT as hemodynamics will tolerate. Currently euvolemic.
-Continue metoprolol tartrate 12.5 mg q6h---> given the need for feeding tube will transition to Coreg, dapagliflozin 10, sacubitril-valsartan, and Aldactone (increased 12/26). Convert metoprolol to succinate when taking PO.
-Repeat TTE in 3 months to assess for primary (secondary?) prevention ICD.
#LE DVT
-Acute, due to recent hospitalization and immobility.
-Change IV heparin to enoxaparin 120 mg q24 hours to decrease blood draws.
-Continue warfarin, goal INR 2.5 (2-3) as DOACs are class X for phenytoin.
#Anemia
-Acute on chronic.
-No overt clinical bleeding.
-Hbg stable now s/p 2 units pRBC 12/21.
-Monitor H/H while on therapeutic anticoagulation (especially with P2Y12i).
#SFA injury 2/2 Impella
-Acute.
-s/p right SFA repair and Impella removal at [facility].
-Vascular surgery following.
-Continue wound VAC.
#Epilepsy
-Chronic, stable.
-Continue phenytoin.
-Management per hospitalist - multiple drug/drug interactions.
#Delirium
-Acute.
-Likely 2/2 long critical care hospitalization.
-Currently on quetiapine.
-Psych following.
#Dysphagia
-Acute.
-NG tube.
-Meds via tube and tube feeds.
-ENT following.
-Failed S/S.
-ADAT.
#HLD
-Chronic, stable.
-Continue high intensity statin.
-Goal LDL < 55.
Subjective/Interval History:
no chest pain or sob.
DATA:
TTE, 12/23/2023:
CONCLUSIONS
Moderately reduced left ventricular systolic function. Left ventricular
ejection fraction is 35-40%.
Mid to apical anteroseptal and inferoseptal, mild to apical inferior, apical
hypokinesis.
Stage I diastolic dysfunction suggestive of abnormal relaxation.
Normal right ventricular size and function.
Mild/moderate tricuspid regurgitation. Mildly elevated PASP. Estimated
pulmonary artery pressure of 37 mmHg assuming a right atrial pressure of 3
mmHg.
Compared to 12/04/23: prior study was a limited study performed during
advancement of Impella, and LVEF was reported as 40-45%.
Modified Barium Swallow, 12/24/2023:
Thin liquid barium by spoon: Silent airway aspiration
[place] consistency barium by spoon with and without right head turn: Transient aspiration
Honey consistency barium by spoon: Transient aspiration
Barium pudding by spoon: No aspiration on 2 of 2 trials during the swallow but evidence of aspiration of the vallecula residue.
Physical Exam
Vital Signs/Labs
Vital Signs
Temp Pulse Resp BP Pulse Ox
97.6 F 61 17 104/53 99
12/29/23 07:33 12/29/23 06:43 12/29/23 06:43 12/29/23 06:43 12/29/23 01:00
12/28/23 12/29/23 12/30/23
06:59 06:59 06:59
Actual Weight 82.5 kg 80.6 kg
12/29/23 05:10
12/29/23 05:10
PT 23.7 Sec (11.4-14.6) H 12/29/23 05:10
INR 2.13 12/29/23 05:10
APTT 109.1 Sec (23.4-35.0) H 12/29/23 05:10
Magnesium 1.8 mg/dl (1.6-2.3) 12/24/23 04:51
Physical Exam
Constitutional: No acute distress
Cardiovascular: Rhythm & rate is regular, JVD pressure is normal and Pedal edema present (+ nonpitting)
Respiratory: Respiratory effort normal, Lungs clear to auscul., Wheeze Absent, Crackles Absent and Rhonchi Absent
Neuro/Psych: AO x 3
Data Reviewed
-
Date of Service: December 29, 2023
Medical Decision Making: Review of Case with other Provider (Dr Collazo changing tartrate to coreg for better gdmt)
EKG: Other (somis)
--- NOTE | 2023-12-29 12:51 | PTCARENOTE ---
Assumed care of patient at begining of this shift from previous RN with heparin infusing at 1000 units/hr at PTT goal. Jevity 1.5 infusing via L nares dobhoff at goal of 55ml/hr with flush 40ml/hr; patient tolerating. Ox3, with occasional
forgetfulness today. Patient had b/l mitts placed overnight but were off prior to beginning of this shift. OOB to chair with PT and assistance of PCT; patient requested to get back to bed after very short time. Assisted back to bed with PT/OT. FMS
had fallen out when initially working with PT; replaced once back in bed. Continues with liquid phelps/brown stool. NSR on monitor. currently at bedside. See worklist for full assessment and vital signs.
--- NOTE | 2023-12-29 13:09 | W.PN.HOSP.TC ---
Today's Communication/Plan
-
dc metoprolol, switch to coreg due to use of feeding tube
cont hep ggt, coumadin - anticipate discontinuing hep ggt tomorrow as long as INR >2
VSE tomorrow
Assessment / Plan
Assessment / Plan
Physical Exam
General: no acute distress appears comfortable at this time, diffuse anasarca swollen upper and lower ext's
HEENT: NormoCephalic, Moist mucous membranes and Atraumatic, NGT present, weak voice like due to recent intubations since extubated
Respiratory: Rhonchi
Cardiac: S1/S2 and Regular Rhythm; No Murmur or Rub
GI: Soft, Non Tender, Non Distended and Normal Bowel Sounds; No Organomegaly
Musculoskeletal: No Clubbing, No Cyanosis and No Edema
Neuro: Awake alert conversant to an extent
HPI 78F HTN, HLD, hypothyroidism, epilepsy, chronic elevated liver enzymes, STEMI presents as transfer from [place] because her family lives near [place] and cannot travel to [place] regularly. Originally presented here to [place] 12/02 with chest
pain. Inferiolateral STEMI, brought to In Home Sales [facility] in cardiogenic shock, started on pressors. Cath further complicated with bradycardia requiring atropine as well as atrial fibrillation/flutter and VT/VF, shocked multiple times. Intubated and Impella
placed. She underwent 4 stents in the RCA. Postoperatively patient developed hemorrhage from the right groin Impella site with significant anemia. Vascular surgery performed cutdown exposure of right femoral vessels and repair of right
superficial femoral artery bleeding- required multiple transfusions. Patient was transferred to [place] for higher level of care possible benefit Rpella. While at [place] she was treated for multi pressor shock RV dysfunction pericardial effusion.
Impella since removed. Patient developed ventilator associated pneumonia treatment with IV antibiotics completed per reports. She was extubated on 12/15. Left lower extremity DVT was found and patient was started on heparin drip because NOACs
interacted with her sz medication phenytoin.
# Inferior STEMI secondary to RCA occlusion status post PATRICIA x 5
# LAD chronic total occlusion
# Moderately dilated RV with decreased RV function
# Ischemic cardiomyopathy with EF of 50-55%
#hx V-fib arrest status post multiple shocks
#Hx PEA arrest
- Entresto
- Aldactone
-discontinue metoprolol in setting of feeding tube, start Coreg
-Continue Plavix 75 mg daily
-Compression stockings
-Cardiology consult appreciated
�SGLT2i
-PRN diuresis
-Repeat ECHO in 90 days for ICD eval
Bradycardia status post transvenous pacemaker
-Resolved
Left lower extremity DVT
-Hep ggt and monitor HgB; continue titrating warfarin; INR goal 2.5; Can stop hep ggt if INR reaches >2 for 24 hours
-hep gtt placed on hold 12/21 due to drop in hgb <7, consider IVC filter if hold is prolonged
-Continue Coumadin, dosed daily, hold if INR>3
-Daily INR
Acute blood loss anemia
� No clear source although possible dilutional (all cell lines down)
-B12 folate wnl
-Iron level wnl
-mild deficient transferrin saturation
-transfusing for goal Hgb>8 given cardiac history
-responded well to 2PRBC transfusion
� Continue to monitor on Coumadin, titrate as necessary; INR goal - 2-3
Hypokalemia
-monitor and replete as necessary
Multifocal ventilator associated pneumonia
-Sputum grew MSSA/Serratia
-Completed antibiotics
-Currently on 3 L of oxygen
-wean O2 supplementation as tolerated
Leukocytosis
-monitor fever curve, wbc - improving
-blood cultures and empiric abx if patient develops fever
Essential hypertension
-continue losartan
Femoral artery repair
Hemorrhagic shock
Superficial femoral artery bleeding status post Impella with subsequent removal
-Received 4 units of blood here initially
-Patient reportedly had an episode of coffee-ground emesis which had since resolved
-Consult vascular surgery appreciated
-wound vac placed
Toxic metabolic encephalopathy/deconditioning/ICU delirium
Hallucination
-She underwent EEG which showed diffuse slowing
-Was treated with thiamine
-Was started on Seroquel for agitation
-PT recommended acute rehab
-Psych eval appreciated
-CT head no acute abn's
Transaminitis
-ctm
-most likely 2/2 to recent hepatic injury
-bilis wnl
Dysphagia with nasogastric tube
Malnutrition
-Underwriting Manager consult appreciated
-tube feeds continued
-Speech eval appreciated pending VSE - failed 12/23- ctm monitor; hopeful to avoid PEG if improvement in swallowing. Speech appears to have improved slightly today; Plan as per speech - VSE Friday 12/29; if fails - then most likely will need to
proceed with PEG.
-ENT eval for possible laryngeal damage with prolong intubation - monitor with time - hopeful improvement
-bilateral serous otitis media
-monitor with ENT
History of epilepsy
-Continue phenytoin 100 mg 3 times daily
-Outpatient neurology follow-up
Reported Cholestatic liver injury
-appears resolved at this time
Incidental endometrial thickening
-Outpatient transvaginal ultrasound
Hypothyroidism
-cont synthroid
Full code
DVT prophylaxis�heparin drip, continue Coumadin
GI ppx PPI
Discussed with patient and patient's Rodrigo
I spent a total of 51 minutes with the patient or on the floor. More than 50% of this time involved counseling and coordination of care.
Anticipated Discharge: > 48 hours
Subjective/Interval History
-
Date of Service: December 29, 2023
no acute events overnight
Objective Data
-
Labs:
Laboratory Results
12/29/23
05:10
WBC 9.6
Hgb 9.6 L
Hct 29.9 L
Plt Count 330
PT 23.7 H
INR 2.13
APTT 109.1 H
Sodium 138
Potassium 3.8
Chloride 110 H
Carbon Dioxide 21 L
BUN 18 H
Creatinine 0.6
Glucose 125 H
Calcium 8.2 L
Total Bilirubin 0.5
AST 90 H
ALT 65 H
Alkaline Phosphatase 141 H
Vital Signs:
Vital Signs
Temp Pulse Resp BP Pulse Ox
97.6 F 66 15 114/55 95
12/29/23 07:33 12/29/23 12:00 12/29/23 12:00 12/29/23 12:00 12/29/23 12:49
I&O
12/28/23 12/29/23 12/30/23
06:59 06:59 06:59
Output Total 2250 / 2250
Balance -2250 / -2250
Review of Systems
-
History Source: Patient
All other systems: Not reviewed unless documented
Data Reviewed
-
CT Scan: Image personally visualized and interpreted and Report Reviewed by me
Medical Tests (Nuc Med, Echo etc): Report Reviewed by me
Labs: Labs Reviewed by me
[2023-12-29 13:24] LABS: Glucose - Point of Care 101 mg/dl (70-99)
[2023-12-29] MEDS: COUMADIN 6 MG TUBE (17:13)
[2023-12-29 18:05] LABS: Glucose - Point of Care 88 mg/dl (70-99)
[2023-12-29] MEDS: COREG 6.25 MG TUBE (19:38)
[2023-12-29] MEDS: MELATONIN 3 MG TUBE (21:25)
[2023-12-29] MEDS: SEROQUEL 12.5 MG TUBE (21:25)
[2023-12-29] MEDS: HEPARIN 25000 UNITS/250 ML IV (21:29)
[2023-12-30] VITALS (13 sets, daily range): BP systolic 84–127; BP diastolic 41–82; BMI 28.1
[2023-12-30 00:15] LABS: Glucose - Point of Care 110 mg/dl (70-99)
--- NOTE | 2023-12-30 00:15 | PTCARENOTE ---
Caring for patient overnight. NO assessment changed. Pt started getting more confused as the night went on but was not pulling at any wires/tubes tonight. No mitts needed so far. aaox2. NSR on monitor, remains RA. dobhoff in place, running at goal.
Hep gtt running, therapeutic, next PTT in am. Wound vac in place. Q2T. ORal care completed. Purewick & FMS. Denies pain. BP starting to run soft, Will monitor.
[2023-12-30] MEDS: SYNTHROID 125 MCG TUBE (05:25)
[2023-12-30 05:31] LABS: INR 2.75
[2023-12-30 05:33] LABS: APTT 130.7 Sec (23.4-35.0)
[2023-12-30 05:40] LABS: Hematocrit 29.1 % (37.0-47.0); Hemoglobin 9.5 g/dL (12.0-16.0); Mean Corp Hgb Conc. 32.6 g/dL (33.0-37.0); Mean Corpuscular Hgb 31.4 pg (27.0-31.0); Mean Platelet Volume 10.6 fL (7.4-10.4); Platelet Count 325 10^3/uL (130-400); Red Blood Cell Count 3.03 10^6/uL (4.20-5.40); Red Cell Dist. Width 20.9 % (11.5-14.5); White Blood Cell Count 8.8 10^3/uL (4.8-10.8)
[2023-12-30 05:43] LABS: Glucose - Point of Care 121 mg/dl (70-99)
[2023-12-30 06:17] LABS: ALT (SGPT) 58 U/L (0-35); AST (SGOT) 81 U/L (14-36); Albumin 2.3 g/dl (3.5-5.0); Alkaline Phosphatase 144 U/L (38-126); Blood Urea Nitrogen 17 mg/dl (7-17); Calcium 7.9 mg/dl (8.4-10.2); Carbon Dioxide 23 mmol/L (22-30); Chloride 109 mmol/L (98-107); Estimated Creatinine Clearance 82 ml/min; Glucose 119 mg/dl (70-99); Potassium 3.4 mmol/L (3.5-5.1); Sodium 138 mmol/L (135-145); Total Bilirubin 0.5 mg/dl (0.2-1.3); Total Protein 5.5 g/dl (6.3-8.2); eGFR > 60.00
[2023-12-30] MEDS: ROBITUSSIN 200 MG PO ×4 (07:38→22:47)
[2023-12-30] MEDS: ENTRESTO 97 MG/103 MG 1 TAB PO ×2 (07:38→19:52)
[2023-12-30] MEDS: ALDACTONE 25 MG PO (07:38)
[2023-12-30] MEDS: FARXIGA 10 MG PO (07:39)
[2023-12-30] MEDS: COREG 6.25 MG TUBE (07:39)
[2023-12-30] MEDS: PLAVIX 75 MG TUBE (07:39)
[2023-12-30] MEDS: LIPITOR 40 MG TUBE (07:39)
[2023-12-30] MEDS: PREVACID 30 MG TUBE (07:39)
--- NOTE | 2023-12-30 07:45 | W.PN.CD ---
Today's Communication / Plan
-
inc. coreg to 12.5 tonight; discontinue heparin
Impression / Plan
-
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
right femoral artery hematoma requiring surgical cutdown/repair, s/p PCI of the RCA, subsequently transferred to [place] for management of shock/MCS, now transferred back after successful weaning of MCS/pressors/inotropes and liberation from mechanical
ventilation but with residual delirium/dysphagia requiring NGT.
#CAD/Inferior STEMI 12/03/23
-s/p Impella supported PATRICIA x 5 to culprit RCA (overlapping [employer] [place] 2.5 x 34, 3.0 x 34, 3.5 x 34, 3.5 x 34 and 3.5 x 15 PATRICIA, post dilated with a 3.25 NCB in the mid/distal RCA, 3.5 NCB in the pRCA).
-Inferior STEMI consistent with RV infarct given volume sensitivity.
-TTE shows LAD/RCA RWMA, LVEF = 35-40%.
-Will need to consider risks/benefits of LAD revascularization in future.
-Continue atorvastatin, clopidogrel (+ warfarin), metoprolol.
#Ischemic cardiomyopathy
-Chronic.
-TTE with EF 35-40% (with LAD/RCA RWMA).
-GDMT as hemodynamics will tolerate. Currently euvolemic.
-Continue coreg 12.5 (inc. 12/29), dapagliflozin 10, sacubitril-valsartan, and Aldactone (increased 12/26). Convert to metoprolol succinate.
-Repeat TTE in 3 months to assess for primary (secondary?) prevention ICD.
#LE DVT
-Acute, due to recent hospitalization and immobility.
-Change IV heparin to enoxaparin 120 mg q24 hours to decrease blood draws.
-Continue warfarin, goal INR 2.5 (2-3) as DOACs are class X for phenytoin. will discontinue heparin today.
#Dysphagia
-Acute.
-NG tube.
-Meds via tube and tube feeds.
-ENT following.
-Failed S/S. Repeat VSS today; if fails again will need to consider PEG.
-ADAT.
#Anemia
-Acute on chronic.
-No overt clinical bleeding.
-Hbg stable now s/p 2 units pRBC 12/21.
-Monitor H/H while on therapeutic anticoagulation (especially with P2Y12i).
#SFA injury 2/2 Impella
-Acute.
-s/p right SFA repair and [facility]ella [facility].
-Vascular surgery following.
-Continue wound VAC.
#Epilepsy
-Chronic, stable.
-Continue phenytoin.
-Management per hospitalist - multiple drug/drug interactions.
#Delirium
-Acute.
-Likely 2/2 long critical care hospitalization.
-Currently on quetiapine.
-Psych following.
#HLD
-Chronic, stable.
-Continue high intensity statin.
-Goal LDL < 55.
Subjective/Interval History:
no chest pain or sob.
DATA:
TTE, 12/23/2023:
CONCLUSIONS
Moderately reduced left ventricular systolic function. Left ventricular
ejection fraction is 35-40%.
Mid to apical anteroseptal and inferoseptal, mild to apical inferior, apical
hypokinesis.
Stage I diastolic dysfunction suggestive of abnormal relaxation.
Normal right ventricular size and function.
Mild/moderate tricuspid regurgitation. Mildly elevated PASP. Estimated
pulmonary artery pressure of 37 mmHg assuming a right atrial pressure of 3
mmHg.
Compared to 12/04/23: prior study was a limited study performed during
advancement of Impella, and LVEF was reported as 40-45%.
Modified Barium Swallow, 12/24/2023:
Thin liquid barium by spoon: Silent airway aspiration
[place] consistency barium by spoon with and without right head turn: Transient aspiration
Honey consistency barium by spoon: Transient aspiration
Barium pudding by spoon: No aspiration on 2 of 2 trials during the swallow but evidence of aspiration of the vallecula residue.
Physical Exam
Vital Signs/Labs
Vital Signs
Temp Pulse Resp BP Pulse Ox
36.7 C 71 20 111/55 96
12/30/23 03:34 12/30/23 07:39 12/30/23 06:00 12/30/23 07:39 12/30/23 04:00
12/29/23 12/30/23 12/31/23
06:59 06:59 06:59
Actual Weight 80.6 kg 78.8 kg
12/30/23 05:11
12/30/23 05:11
PT 29.0 Sec (11.4-14.6) H 12/30/23 05:11
INR 2.75 12/30/23 05:11
APTT 130.7 Sec (23.4-35.0) H 12/30/23 05:11
Magnesium 1.8 mg/dl (1.6-2.3) 12/24/23 04:51
Data Reviewed
-
Date of Service: December 30, 2023
Medical Decision Making: Reviewed Test Results and Test Interpretation
Labs: Labs Reviewed by me
[2023-12-30] MEDS: DILANTIN ORAL SUSP 100 MG TUBE ×3 (07:56→22:46)
--- NOTE | 2023-12-30 08:03 | W.PN.HOSP.TC ---
Today's Communication/Plan
-
trial pureed diet with nectar thick liquids
supplemental tube feeds for now in case oral diet fails.
PMR eval
PT/OT
discontinue Hep gtt, cont coumadin dose reduced therapeutic INR
Coreg as per Cardio
Assessment / Plan
Assessment / Plan
Physical Exam
General: no acute distress appears comfortable at this time, diffuse anasarca swollen upper and lower ext's
HEENT: NormoCephalic, Moist mucous membranes and Atraumatic, NGT present, weak voice like due to recent intubations since extubated. Hard of Hearing
Respiratory: Rhonchi
Cardiac: S1/S2 and Regular Rhythm; No Murmur or Rub
GI: Soft, Non Tender, Non Distended and Normal Bowel Sounds; No Organomegaly
Musculoskeletal: No Clubbing, No Cyanosis and No Edema
Neuro: AOx3
HPI 78F HTN, HLD, hypothyroidism, epilepsy, chronic elevated liver enzymes, STEMI presents as transfer from [place] because her family lives near [place] and cannot travel to [place] regularly. Originally presented here to [place] 12/02 with chest
pain. Inferiolateral STEMI, brought to [facility] Emergency [facility] in cardiogenic shock, started on pressors. Cath further complicated with bradycardia requiring atropine as well as atrial fibrillation/flutter and VT/VF, shocked multiple times. Intubated and Impella
placed. She underwent 4 stents in the RCA. Postoperatively patient developed hemorrhage from the right groin Impella site with significant anemia. Vascular surgery performed cutdown exposure of right femoral vessels and repair of right
superficial femoral artery bleeding- required multiple transfusions. Patient was transferred to [place] for higher level of care possible benefit Rpella. While at [place] she was treated for multi pressor shock RV dysfunction pericardial effusion.
Impella since removed. Patient developed ventilator associated pneumonia treatment with IV antibiotics completed per reports. She was extubated on 12/15. Left lower extremity DVT was found and patient was started on heparin drip because NOACs
interacted with her sz medication phenytoin.
# Inferior STEMI secondary to RCA occlusion status post PATRICIA x 5
# LAD chronic total occlusion
# Moderately dilated RV with decreased RV function
# Ischemic cardiomyopathy with EF of 50-55%
#hx V-fib arrest status post multiple shocks
#Hx PEA arrest
- Entresto
- Aldactone
-metoprolol switched to Coreg titrated up to 12.5 mg BID as per Cardio
-Continue Plavix 75 mg daily
-Compression stockings
-Cardiology consult appreciated
�SGLT2I
-PRN diuresis
-Repeat ECHO in 90 days for ICD eval
Bradycardia status post transvenous pacemaker
-Resolved
Left lower extremity DVT
-hep gtt briefly placed on hold 12/21 due to drop in hgb <7, since improved
-Therapeutic INR 2-3, hep gtt since discontinued
-Continue Coumadin, dosed daily, hold if INR>3
-Daily INR
Acute blood loss anemia
� No clear source although possible dilutional (all cell lines down)
-B12 folate wnl
-Iron level wnl
-mild deficient transferrin saturation
-responded well to 2PRBC transfusion
� Continue to monitor on Coumadin, titrate as necessary; INR goal - 2-3
Hypokalemia
-monitor and replete as necessary
Multifocal ventilator associated pneumonia
-Sputum grew MSSA/Serratia
-Completed antibiotics
-weaned off oxygen supplementation
Leukocytosis resolved
Essential hypertension
-continue losartan
Femoral artery repair
Hemorrhagic shock
Superficial femoral artery bleeding status post Impella with subsequent removal
-Received 4 units of blood here initially
-Patient reportedly had an episode of coffee-ground emesis which had since resolved
-Consult vascular surgery appreciated
-wound vac placed
Toxic metabolic encephalopathy/deconditioning/ICU delirium
Hallucination
-She underwent EEG which showed diffuse slowing
-Was treated with thiamine
-Was started on Seroquel for agitation
-PT recommended acute rehab
-Psych eval appreciated
-CT head no acute abn's
Transaminitis
-ctm
-most likely 2/2 to recent hepatic injury
-bilis wnl
Dysphagia with nasogastric tube
Malnutrition
-Supervisor Estimator And Drafter consult appreciated
-Speech eval appreciated VSE - failed 12/23 repeat 12/29 however noted improvement. Trial pureed diet nectar thick liquids started. Supplemental tube feeds continued in case oral diet fails.
ENT eval appreciated
-dysphagia likely multifactorial related to prolonged intubation, presence NG tube, and advanced age
-noted bilateral serous otitis media w/o infection
-patient anticipated to improve spontaneously both in hearing and swallowing- likely will take some time.
History of epilepsy
-Continue phenytoin 100 mg 3 times daily
-Outpatient neurology follow-up
Reported Cholestatic liver injury
-appears resolved at this time
Incidental endometrial thickening
-Outpatient transvaginal ultrasound
Hypothyroidism
-cont synthroid
PT/OT appreciated Acute Rehab
PMR eval pending
Full code
DVT prophylaxis�Therapeutic INR, continue Coumadin
GI ppx PPI
Discussed with patient and patient's Rodrigo
I spent a total of 50 minutes with the patient or on the floor. More than 50% of this time involved counseling and coordination of care.
Anticipated Discharge: 24 - 48 hours
Subjective/Interval History
-
Date of Service: December 30, 2023
Seen and examined at bedside in no acute distress sitting up comfortably in bed. Reports overall feeling well. Denies new acute issues at this time. Voice remains soft but significantly improved from last week. Rodrigo present during
evaluation.
Objective Data
-
Labs:
Laboratory Results
12/30/23 12/30/23
05:11 12:30
WBC 8.8
Hgb 9.5 L
Hct 29.1 L
Plt Count 325
PT 29.0 H
INR 2.75
APTT 130.7 H Pending
Sodium 138
Potassium 3.4 L
Chloride 109 H
Carbon Dioxide 23
BUN 17
Creatinine 0.6
Glucose 119 H
Calcium 7.9 L
Total Bilirubin 0.5
AST 81 H
ALT 58 H
Alkaline Phosphatase 144 H
Vital Signs:
Vital Signs
Temp Pulse Resp BP Pulse Ox
98.0 F 71 20 111/55 96
12/30/23 03:34 12/30/23 07:39 12/30/23 06:00 12/30/23 07:39 12/30/23 04:00
I&O
12/29/23 12/30/23 12/31/23
06:59 06:59 06:59
Intake Total 1260 / 1260 1260 / 1260
Output Total 1100 / 1100 1700 / 1700
Balance 160 / 160 -440 / -440
--- NOTE | 2023-12-30 09:50 | CM ---
Addendum entered by Lisa Romero RN 12/30/23 13:32:
VSE - dysphagia diet started. Tube feeds continued.
Met with patient and ; discussed rehab needs for d/c. Patient and amenable to physiatry eval for Jacinto BROOKS.
Plan follow up after seen by Physiatry.
Original Note:
Patient who was transferred back from [facility] with Dx Inferior STEMI s/p stent placements, VT/VF arrest extubated 12/15, cardiomyopathy, SFA injury 05/17 Impella s/p right SFA repair/Impella removal at [facility], LLE DVT, anemia, TME, dysphagia. Room
air. Dobhoff- tube feeds. Plan VSE today. Wound VAC right groin. PT/OT recommend acute rehab. Per nurse assessment; confused, forgetful. Physiatry Eval; pending.
Spoke with [facility] Hinds; they will consider this patient for Jacinto and Tunnel Heading Inspector will eval the patient.
Plan follow up with family after Physiatry Eval.
--- NOTE | 2023-12-30 12:09 | WOUNDNOTE ---
[facility] RN NOTE: Followed up with patient today for change of right groin wound vac. Wound bed is granular. Periwound improved with use of Cavilon skin prep. Cavilon was applied prior to drape placement today as well.. Lateral open wound and scab
cleaned with saline and covered with foam. Small area of open skin at 2 o clock healed. Wound vac was placed as ordered. Spoke to RN Karin who just completed anjel and rectal care and stated staff are using Calazime to reddened skin around rectal
tube and will continue to assess. Sacrum intact. Heels intact and elevated on pillows. Patient remains on Centrella Max Air. Patient on tube feeds but plan is to advance po diet. Will continue to follow with patient for wound vac change on 12/31.
--- NOTE | 2023-12-30 12:16 | WOUNDNOTE ---
[facility] RN NOTE: Followed up with patient today for change of right groin wound vac. Wound bed is granular. Periwound improved with use of Cavilon skin prep. Cavilon was applied prior to drape placement today as well.. Lateral open wound and scab
cleaned with saline and covered with foam. Small area of open skin at 2 o clock healed. Wound vac was placed as ordered. Spoke to RN Karin who just completed anjel and rectal care and stated staff are using Calazime to reddened skin around rectal
tube and will continue to assess. Dressing removed to wound on left lower arm. It appears to be a healing abrasion. Local wound care provided and orders updted. Sacrum intact. Heels intact and elevated on pillows. Patient remains on Centrella Max
Air. Patient on tube feeds but plan is to advance po diet. Will continue to follow with patient for wound vac change on 12/31.
[2023-12-30 12:19] LABS: Glucose - Point of Care 110 mg/dl (70-99)
[2023-12-30] MEDS: KLOR-CON 40 MEQ PO (12:25)
--- NOTE | 2023-12-30 12:58 | PTOTSP ---
Video Swallow Study
Summary: Patient presents with mild oral and at least moderate pharyngeal dysphagia. There was aspiration with a cough response that cleared trachea but did not fully clear larynx with thin liquids (consecutive sips, liquid wash) and mildly thick
liquids (consecutive straw sips). Improvement noted compared to initial video swallow study 12/24/2023.
Recommendations:
1. IDDSI Level 4 (Puree), IDDSI Level 2 (Mildly Thick liquids)
2. Medications: crushed in puree if medically cleared
3. Strategies: 1:1 supervision/assistance, upright to 90 degrees, small single sips(pinch straw)/bites, slow rate, multiple swallows, monitor for coughing as patient has a cough response to aspiration, oral care 3x daily
4. Aspiration Risk Hydration Protocol - unlimited ice chips with supervision, after oral care, between meals
5. Dysphagia therapy at the acute care level and after D/C from acute care.
--- NOTE | 2023-12-30 13:11 | WOUNDNOTE ---
RIGHT GROIN WOUND
[2023-12-30] MEDS: COUMADIN 3 MG TUBE (17:36)
[2023-12-30 18:28] LABS: Glucose - Point of Care 82 mg/dl (70-99)
[2023-12-30] MEDS: COREG 12.5 MG TUBE (19:52)
--- NOTE | 2023-12-30 20:09 | PTCARENOTE ---
Received pt from [facility]. Pt is AAOx3, PALA, flat, forgetful @ times. NSR w/ PVCs on the monitor. On RA O2 sat 95%, lungs diminished. Dobhoff in place. TF nocturnal [id number], Jevity 1.5 @ 65 ml/hr w/ 45 ml/hr flush. Pw in place, hygiene
provided. FMS in place, flush provided. Wound vac in place. Pt is laying in bed with call warren in reach.
[2023-12-30] MEDS: SEROQUEL 12.5 MG TUBE (22:46)
[2023-12-30] MEDS: MELATONIN 3 MG TUBE (22:47)
[2023-12-30 23:10] LABS: Glucose - Point of Care 125 mg/dl (70-99)
[2023-12-31] VITALS (14 sets, daily range): BP systolic 91–120; BP diastolic 43–70; PULSE 73–74; O2SAT 97–98
[2023-12-31 04:11] LABS: Hematocrit 30.2 % (37.0-47.0); Hemoglobin 9.7 g/dL (12.0-16.0); Mean Corp Hgb Conc. 32.1 g/dL (33.0-37.0); Mean Corpuscular Hgb 31.4 pg (27.0-31.0); Mean Corpuscular Volume 97.7 fL (81.0-99.0); Mean Platelet Volume 10.8 fL (7.4-10.4); Platelet Count 304 10^3/uL (130-400); Red Blood Cell Count 3.09 10^6/uL (4.20-5.40); Red Cell Dist. Width 20.6 % (11.5-14.5); White Blood Cell Count 7.8 10^3/uL (4.8-10.8)
[2023-12-31 04:21] LABS: INR 2.81; PT 29.6 Sec (11.4-14.6)
[2023-12-31 04:43] LABS: Blood Urea Nitrogen 16 mg/dl (7-17); Calcium 8.1 mg/dl (8.4-10.2); Carbon Dioxide 21 mmol/L (22-30); Chloride 108 mmol/L (98-107); Estimated Creatinine Clearance 82 ml/min; Glucose 130 mg/dl (70-99); Magnesium 1.8 mg/dl (1.6-2.3); Phosphorus 3.9 mg/dl (2.5-4.5); Potassium 3.8 mmol/L (3.5-5.1); Sodium 136 mmol/L (135-145); eGFR > 60.00
[2023-12-31] MEDS: SYNTHROID 125 MCG TUBE (05:57)
[2023-12-31 06:10] LABS: Glucose - Point of Care 121 mg/dl (70-99)
--- NOTE | 2023-12-31 07:10 | W.PN.CD ---
Today's Communication / Plan
-
no med changes, trial off DHT, work towards discharge
Impression / Plan
-
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
right femoral artery hematoma requiring surgical cutdown/repair, s/p PCI of the RCA, subsequently transferred to [facility] for management of shock/MCS, now transferred back after successful weaning of MCS/pressors/inotropes and liberation from mechanical
ventilation but with residual delirium/dysphagia requiring NGT.
#CAD/Inferior STEMI 12/03/23
-s/p Impella supported PATRICIA x 5 to culprit RCA (overlapping [employer] Yonatan Dalton 2.5 x 34, 3.0 x 34, 3.5 x 34, 3.5 x 34 and 3.5 x 15 PATRICIA, post dilated with a 3.25 NCB in the mid/distal RCA, 3.5 NCB in the pRCA).
-Inferior STEMI consistent with RV infarct given volume sensitivity.
-TTE shows LAD/RCA RWMA, LVEF = 35-40%.
-Will need to consider risks/benefits of LAD revascularization in future.
-Continue atorvastatin, clopidogrel (+ warfarin), metoprolol.
#Ischemic cardiomyopathy
-Chronic.
-TTE with EF 35-40% (with LAD/RCA RWMA).
-GDMT as hemodynamics will tolerate. Currently euvolemic.
-Continue coreg 12.5 having occasional junctional escape overnight, will not increase further
-continue dapagliflozin 10, sacubitril-valsartan high dose, and Aldactone (increased 12/26).
-Repeat TTE in 3 months to assess for primary (secondary?) prevention ICD.
#LE DVT
-Acute, due to recent hospitalization and immobility.
-Continue warfarin, goal INR 2.5 (2-3) as DOACs are class X for phenytoin.
#Dysphagia
-Speech eval appreciated VSE - failed 12/23 repeat 12/29 however noted improvement. Trial pureed diet nectar thick liquids started.
-will trial off DHT
-ENT following
-ADAT
#Anemia
-Acute on chronic.
-No overt clinical bleeding.
-Hbg stable now s/p 2 units pRBC 12/21.
-Monitor H/H while on therapeutic anticoagulation (especially with P2Y12i).
#SFA injury 2/2 Impella
-Acute.
-s/p right SFA repair and Impella removal at [facility].
-Vascular surgery following.
-Continue wound VAC.
#Epilepsy
-Chronic, stable.
-Continue phenytoin.
-Management per hospitalist - multiple drug/drug interactions.
#Delirium, improved
-Likely 2/2 long critical care hospitalization.
-Currently on quetiapine, consider discontinuation now that improved?
-Psych following.
#HLD
-Chronic, stable.
-Continue high intensity statin.
-Goal LDL < 55.
Subjective/Interval History:
no chest pain or sob. enjoying ability to PO.
DATA:
TTE, 12/23/2023:
CONCLUSIONS
Moderately reduced left ventricular systolic function. Left ventricular
ejection fraction is 35-40%.
Mid to apical anteroseptal and inferoseptal, mild to apical inferior, apical
hypokinesis.
Stage I diastolic dysfunction suggestive of abnormal relaxation.
Normal right ventricular size and function.
Mild/moderate tricuspid regurgitation. Mildly elevated PASP. Estimated
pulmonary artery pressure of 37 mmHg assuming a right atrial pressure of 3
mmHg.
Compared to 12/04/23: prior study was a limited study performed during
advancement of Impella, and LVEF was reported as 40-45%.
Modified Barium Swallow, 12/24/2023:
Thin liquid barium by spoon: Silent airway aspiration
[place] consistency barium by spoon with and without right head turn: Transient aspiration
Honey consistency barium by spoon: Transient aspiration
Barium pudding by spoon: No aspiration on 2 of 2 trials during the swallow but evidence of aspiration of the vallecula residue.
Physical Exam
Vital Signs/Labs
Vital Signs
Temp Pulse Resp BP Pulse Ox
36.6 C 65 19 113/46 98
12/31/23 03:38 12/31/23 06:00 12/31/23 06:00 12/31/23 06:00 12/31/23 06:00
12/30/23 12/31/23 01/01/24
06:59 06:59 06:59
Actual Weight 78.8 kg
12/31/23 03:45
12/31/23 03:45
PT 29.6 Sec (11.4-14.6) H 12/31/23 03:45
INR 2.81 12/31/23 03:45
APTT Cancelled 12/30/23 12:30
Magnesium 1.8 mg/dl (1.6-2.3) 12/31/23 03:45
Physical Exam
Constitutional: No acute distress and Comfortable
Cardiovascular: Rhythm & rate is regular, JVD pressure is normal, Systolic murmur absent and Diastolic murmur absent
Respiratory: Respiratory effort normal and Lungs clear to auscul.
Neuro/Psych: Alert and Oriented
Data Reviewed
-
Date of Service: December 31, 2023
Medical Decision Making: Reviewed Test Results
Labs: Labs Reviewed by me
--- NOTE | 2023-12-31 07:31 | W.PN.HOSP.TC ---
Today's Communication/Plan
-
cont pureed diet with nectar thick liquids
discontinue NGT, monitor off
PMR eval
PT/OT
cont coumadin reduced to home dose 2.5 mg
Assessment / Plan
Assessment / Plan
Physical Exam
General: no acute distress appears comfortable at this time, diffuse anasarca swollen upper and lower ext's
HEENT: NormoCephalic, Moist mucous membranes and Atraumatic, NGT present, weak voice like due to recent intubations since extubated. Hard of Hearing
Respiratory: Rhonchi
Cardiac: S1/S2 and Regular Rhythm; No Murmur or Rub
GI: Soft, Non Tender, Non Distended and Normal Bowel Sounds; No Organomegaly
Musculoskeletal: No Clubbing, No Cyanosis and No Edema
Neuro: AOx3
HPI 78F HTN, HLD, hypothyroidism, epilepsy, chronic elevated liver enzymes, STEMI presents as transfer from [place] because her family lives near [place] and cannot travel to [place] regularly. Originally presented here to [place] 12/02 with chest
pain. Inferiolateral STEMI, brought to [facility] in cardiogenic shock, started on pressors. Cath further complicated with bradycardia requiring atropine as well as atrial fibrillation/flutter and VT/VF, shocked multiple times. Intubated and Impella
placed. She underwent 4 stents in the RCA. Postoperatively patient developed hemorrhage from the right groin Impella site with significant anemia. Vascular surgery performed cutdown exposure of right femoral vessels and repair of right
superficial femoral artery bleeding- required multiple transfusions. Patient was transferred to [place] for higher level of care possible benefit Rpella. While at [facility] she was treated for multi pressor shock RV dysfunction pericardial effusion.
Impella since removed. Patient developed ventilator associated pneumonia treatment with IV antibiotics completed per reports. She was extubated on 12/15. Left lower extremity DVT was found and patient was started on heparin drip because NOACs
interacted with her sz medication phenytoin.
# Inferior STEMI secondary to RCA occlusion status post PATRICIA x 5
# LAD chronic total occlusion
# Moderately dilated RV with decreased RV function
# Ischemic cardiomyopathy with EF of 50-55%
#hx V-fib arrest status post multiple shocks
#Hx PEA arrest
- Entresto
- Aldactone
-metoprolol switched to Coreg titrated up to 12.5 mg BID as per Cardio
-Continue Plavix 75 mg daily
-Compression stockings
-Cardiology consult appreciated
�SGLT2I
-PRN diuresis
-Repeat ECHO in 90 days for ICD eval
Bradycardia status post transvenous pacemaker
-Resolved
Left lower extremity DVT
-hep gtt briefly placed on hold 12/21 due to drop in hgb <7, since improved
-Therapeutic INR 2-3, hep gtt since discontinued
-Continue Coumadin, dosed daily, hold if INR>3
-Daily INR
Acute blood loss anemia
� No clear source although possible dilutional (all cell lines down)
-B12 folate wnl
-Iron level wnl
-mild deficient transferrin saturation
-responded well to 2PRBC transfusion
� Continue to monitor on Coumadin, titrate as necessary; INR goal - 2-3
Hypokalemia
-monitor and replete as necessary
Multifocal ventilator associated pneumonia
-Sputum grew MSSA/Serratia
-Completed antibiotics
-weaned off oxygen supplementation
Leukocytosis resolved
Essential hypertension
-continue losartan
Femoral artery repair
Hemorrhagic shock
Superficial femoral artery bleeding status post Impella with subsequent removal
-Received 4 units of blood here initially
-Patient reportedly had an episode of coffee-ground emesis which had since resolved
-Consult vascular surgery appreciated
-wound vac placed
Toxic metabolic encephalopathy/deconditioning/ICU delirium
Hallucination
-She underwent EEG which showed diffuse slowing
-Was treated with thiamine
-Was started on Seroquel for agitation
-PT recommended acute rehab
-Psych eval appreciated
-CT head no acute abn's
Transaminitis
-ctm
-most likely 2/2 to recent hepatic injury
-bilis wnl
Dysphagia with nasogastric tube
Malnutrition
-Debeader consult appreciated
-Speech eval appreciated VSE - failed 12/23 repeat 12/29 however noted improvement. Trial pureed diet nectar thick liquids started. Tolerating though appetite appears poor. Discontinuing NGT 12/30 for now.
ENT eval appreciated
-dysphagia likely multifactorial related to prolonged intubation, presence NG tube, and advanced age
-noted bilateral serous otitis media w/o infection
-patient anticipated to improve spontaneously both in hearing and swallowing- likely will take some time.
History of epilepsy
-Continue phenytoin 100 mg 3 times daily
-Outpatient neurology follow-up
Reported Cholestatic liver injury
-appears resolved at this time
Incidental endometrial thickening
-Outpatient transvaginal ultrasound
Hypothyroidism
-cont synthroid
PT/OT appreciated Acute Rehab
PMR eval pending
Full code
DVT prophylaxis�Therapeutic INR, continue Coumadin
GI ppx PPI
Discussed with patient and patient's Rodrigo
I spent a total of 50 minutes with the patient or on the floor. More than 50% of this time involved counseling and coordination of care.
Anticipated Discharge: 24 - 48 hours
Subjective/Interval History
-
Date of Service: December 31, 2023
No acute distress. Sitting up comfortably in bed. Appears to be tolerating pureed diet though appetite seems poor.
Objective Data
-
Labs:
Laboratory Results
12/31/23
03:45
WBC 7.8
Hgb 9.7 L
Hct 30.2 L
Plt Count 304
PT 29.6 H
INR 2.81
Sodium 136
Potassium 3.8
Chloride 108 H
Carbon Dioxide 21 L
BUN 16
Creatinine 0.6
Glucose 130 H
Calcium 8.1 L
Vital Signs:
Vital Signs
Temp Pulse Resp BP Pulse Ox
97.9 F 65 19 113/46 98
12/31/23 03:38 12/31/23 06:00 12/31/23 06:00 12/31/23 06:00 12/31/23 06:00
I&O
12/30/23 12/31/23 01/01/24
06:59 06:59 06:59
Intake Total 1260 / 1260 1690 / 1690
Output Total 1700 / 1700 2380 / 2380
Balance -440 / -440 -690 / -690
[2023-12-31] MEDS: DILANTIN ORAL SUSP 100 MG TUBE ×2 (08:35→08:39)
[2023-12-31] MEDS: FARXIGA 10 MG PO (08:35)
[2023-12-31] MEDS: ROBITUSSIN 200 MG PO ×2 (08:35→21:50)
[2023-12-31] MEDS: PLAVIX 75 MG TUBE (08:35)
[2023-12-31] MEDS: ENTRESTO 97 MG/103 MG 1 TAB PO ×2 (08:36→20:44)
[2023-12-31] MEDS: COREG 12.5 MG TUBE (08:36)
[2023-12-31] MEDS: LIPITOR 40 MG TUBE (08:36)
[2023-12-31] MEDS: PREVACID 30 MG TUBE (08:36)
[2023-12-31] MEDS: ALDACTONE 25 MG PO (08:36)
[2023-12-31 12:48] LABS: Glucose - Point of Care 112 mg/dl (70-99)
--- NOTE | 2023-12-31 12:48 | PTOTSP ---
Dysphagia Therapy Note
Aspiration Risk Hydration Protocol order modified to allow unlimited small single cup sips of water. Continue with established plan below.
Recommendations:
1. IDDSI Level 4 (Puree), IDDSI Level 2 (Mildly Thick liquids)
2. Medications: crushed in puree if medically cleared
3. Strategies: 1:1 supervision/assistance, upright to 90 degrees, small single sips(pinch straw)/bites, slow rate, multiple swallows, monitor for coughing as patient has a cough response to aspiration, oral care 3x daily
4. Aspiration Risk Hydration Protocol - unlimited ice chips and small single cup sips with supervision, after oral care, between meals
5. Dysphagia therapy at the acute care level and after D/C from acute care.
[2023-12-31] MEDS: ROBITUSSIN PO ×2 (13:06→17:20)
--- NOTE | 2023-12-31 14:32 | PN.CDI ---
CDI
- -
CDI:
Physician Documentation Request
Admit Date: 12/20/23 18:42
Dear Doctor Naima,
Clinical Indicators:
Documentation includes the diagnosis of malnutrition in hospitalist progress notes.
To ensure the quality of the medical record, based on the above information and the recognized standards for malnutrition , could you please verify in your progress notes which of the following responses best reflects the patient's nutritional
status:
(Specify severity) Malnutrition is/was present and is a clinical diagnosis (please provide additional support in the medical record)
No nutritional deficiency - malnutrition ruled out
Other (please specify)
[place] Criteria ([facility] Hospitalist 2017)
2 or more criteria must be present for either
non severe or severe malnutrition
Note that the criteria differs related to the
presence of an acute or chronic illness
Acute Illness Chronic Illness
Energy Intake Non Severe: <75% for >7 days Non Severe: <75% for >1 month
Severe: <50% for >5 days Severe: <75% for >1 month
Weight Loss Non Severe: 1-2% over 1 week Non Severe: 5% over 1 month
5% over 1 month 7.5% over 3 months
7.5% over 3 months 10% over 6 months
1 year N/A 20% over 1 year
Severe: >2% over 1 week Severe: >5% over 1 month
>5% over 1 month >7.5% over 3 months
>7.5% over 3 months >10% over 6 months
1 year N/A >20% over 1 year
Body Fat Non Severe: Mild Decrease Non Severe: Mild Loss
Severe: Moderate Decrease Severe: Severe Loss
Muscle Mass Non Severe: Mild Decrease Non Severe: Mild Loss
Severe: Moderate Decrease Severe: Severe Loss
Fluid Accumulation Non Severe: Mild Accumulation Non Severe: Mild Accumulation
Severe: Moderate to severe Severe: Moderate to severe
accumulation accumulation
Reduced Power Grader Operator Strength Non Severe: N/A Non Severe: N/A
Severe: Measurably reduced Severe: Measurably reduced
Use of terms such as suspected, likely, concern for, or probable (associated with a specific diagnosis that is being evaluated, monitored, or treated as if it exists) are acceptable and can be coded in the inpatient setting, when documented at the
time of discharge.
Thank you,
Sylvia Ribeiro RN, BSN
CDI Specialist
tiger text
Please use your independent medical judgment in providing your response.
[2023-12-31] MEDS: DILANTIN ORAL SUSP 100 MG PO ×2 (17:19→21:50)
[2023-12-31] MEDS: COUMADIN 2.5 MG PO (17:20)
[2023-12-31 18:01] LABS: Glucose - Point of Care 126 mg/dl (70-99)
--- NOTE | 2023-12-31 18:29 | PTCARENOTE ---
see nursing shift assessment. sinus rythym on monitor. pt tolerating pureed diet with diminished appetite. dobhoff tube removed per order. pt was oob in chair x 1 hour with heavy assist of 2 . upon returning to bed pts fecal management tube found on
chair. tube left out and will continue to monitor. wound vac therapy maintained to left groin wound.
--- NOTE | 2023-12-31 20:17 | PTCARENOTE ---
Received pt from maximino RN. Pt is AAOx3, COMANCHE, flat, forgetful. NSR/ sinus jayme (when asleep 40s). On RA O2 sat 97%, lungs diminished. Pw in place for incont, hygiene provided. Wound vac in place. Q2T provided. Pt is laying in bed with call warren
in reach.
[2023-12-31] MEDS: COREG 12.5 MG PO (20:44)
[2023-12-31] MEDS: MELATONIN 3 MG PO (21:50)
[2023-12-31 22:02] LABS: Glucose - Point of Care 102 mg/dl (70-99)
[2024-01-01] VITALS (15 sets, daily range): BP systolic 90–120; BP diastolic 47–65; PULSE 57; O2SAT 98
--- NOTE | 2024-01-01 02:58 | DOWNTIME ---
There was a [employer] Downtime on 12/04/2023 from 0100 to 12/04/2023 at 0252. Downtime documentation of patient's care, including medication administrations, has been reconciled in the electronic record per guidelines. Refer to the
patient's paper chart under the miscellaneous tab to see printed paper medication records and downtime forms.
[2024-01-01] MEDS: SYNTHROID 125 MCG PO (03:58)
[2024-01-01 04:20] LABS: Hematocrit 30.2 % (37.0-47.0); Hemoglobin 9.9 g/dL (12.0-16.0); Mean Corp Hgb Conc. 32.8 g/dL (33.0-37.0); Mean Corpuscular Hgb 31.2 pg (27.0-31.0); Mean Corpuscular Volume 95.3 fL (81.0-99.0); Mean Platelet Volume 10.5 fL (7.4-10.4); Platelet Count 290 10^3/uL (130-400); Red Blood Cell Count 3.17 10^6/uL (4.20-5.40); Red Cell Dist. Width 20.2 % (11.5-14.5); White Blood Cell Count 7.7 10^3/uL (4.8-10.8)
[2024-01-01 04:26] LABS: INR 3.07; PT 31.7 Sec (11.4-14.6)
[2024-01-01 04:45] LABS: Blood Urea Nitrogen 14 mg/dl (7-17); Calcium 7.9 mg/dl (8.4-10.2); Carbon Dioxide 21 mmol/L (22-30); Chloride 109 mmol/L (98-107); Estimated Creatinine Clearance 82 ml/min; Glucose 99 mg/dl (70-99); Magnesium 1.8 mg/dl (1.6-2.3); Phosphorus 3.8 mg/dl (2.5-4.5); Potassium 3.6 mmol/L (3.5-5.1); Sodium 140 mmol/L (135-145); eGFR > 60.00
[2024-01-01 07:50] LABS: Glucose - Point of Care 101 mg/dl (70-99)
--- NOTE | 2024-01-01 08:09 | W.PN.HOSP.TC ---
Today's Communication/Plan
-
Discharge planning acute rehab
cont wound care
cont Entresto, Aldactone, Coreg w/ holding parameters
hold Coumadin d/t supratherapeutic INR 3.[address]/PT/OT
diet advanced as per speech
Assessment / Plan
Assessment / Plan
Physical Exam
General: no acute distress appears comfortable at this time, diffuse anasarca swollen upper and lower ext's
HEENT: NormoCephalic, Moist mucous membranes and Atraumatic, NGT present, weak voice like due to recent intubations since extubated. Hard of Hearing
Respiratory: Rhonchi
Cardiac: S1/S2 and Regular Rhythm; No Murmur or Rub
GI: Soft, Non Tender, Non Distended and Normal Bowel Sounds; No Organomegaly
Musculoskeletal: No Clubbing, No Cyanosis and No Edema
Neuro: AOx3
HPI 78F HTN, HLD, hypothyroidism, epilepsy, chronic elevated liver enzymes, STEMI presents as transfer from [place] because her family lives near [place] and cannot travel to [place] regularly. Originally presented here to [place] 12/02 with chest
pain. Inferiolateral STEMI, brought to [facility] in cardiogenic shock, started on pressors. Cath further complicated with bradycardia requiring atropine as well as atrial fibrillation/flutter and VT/VF, shocked multiple times. Intubated and Impella
placed. She underwent 4 stents in the RCA. Postoperatively patient developed hemorrhage from the right groin Impella site with significant anemia. Vascular surgery performed cutdown exposure of right femoral vessels and repair of right
superficial femoral artery bleeding- required multiple transfusions. Patient was transferred to [facility] for higher level of care possible benefit Rpella. While at [facility] she was treated for multi pressor shock RV dysfunction pericardial effusion.
Impella since removed. Patient developed ventilator associated pneumonia treatment with IV antibiotics completed per reports. She was extubated on 12/15. Left lower extremity DVT was found and patient was started on heparin drip because NOACs
interacted with her sz medication phenytoin.
# Inferior STEMI secondary to RCA occlusion status post PATRICIA x 5
# LAD chronic total occlusion
# Moderately dilated RV with decreased RV function
# Ischemic cardiomyopathy with EF of 50-55%
#hx V-fib arrest status post multiple shocks
#Hx PEA arrest
- Entresto
- Aldactone
-metoprolol switched to Coreg titrated up to 12.5 mg BID as per Cardio
-Continue Plavix 75 mg daily
-Compression stockings
-Cardiology consult appreciated
�SGLT2I
-PRN diuresis
-Repeat ECHO in 90 days for ICD eval
Bradycardia status post transvenous pacemaker
-Resolved
Left lower extremity DVT
-hep gtt briefly placed on hold 12/21 due to drop in hgb <7, since improved
-Therapeutic INR 2-3, hep gtt since discontinued
-Continue Coumadin, dosed daily, hold if INR>3
-Daily INR
Acute blood loss anemia
� No clear source although possible dilutional (all cell lines down)
-B12 folate wnl
-Iron level wnl
-mild deficient transferrin saturation
-responded well to 2PRBC transfusion
� Continue to monitor on Coumadin, titrate as necessary; INR goal - 2-3
Hypokalemia
-monitor and replete as necessary
Multifocal ventilator associated pneumonia
-Sputum grew MSSA/Serratia
-Completed antibiotics
-weaned off oxygen supplementation
Leukocytosis resolved
Essential hypertension
-continue losartan
Femoral artery repair
Hemorrhagic shock
Superficial femoral artery bleeding status post Impella with subsequent removal
-Received 4 units of blood here initially
-Patient reportedly had an episode of coffee-ground emesis which had since resolved
-Consult vascular surgery appreciated
-wound vac placed
12/31 developed new small wound just distal to R groin wound approx 2.2cm depth.
-wound care packing sinus tract with 1/4 inch iodoform gauze packing with each vac dressing change as per vascular recommendations
Toxic metabolic encephalopathy/deconditioning/ICU delirium
Hallucination
-She underwent EEG which showed diffuse slowing
-Was treated with thiamine
-Was started on Seroquel for agitation. Patient however has since significantly improved. Seroquel converted to prn, patient has not required so far.
-PT recommended acute rehab
-Psych eval appreciated
-CT head no acute abn's
Transaminitis
-ctm
-most likely 2/2 to recent hepatic injury
-bilis wnl
Dysphagia with nasogastric tube
Malnutrition
-Second Helper consult appreciated
-Speech eval appreciated VSE - failed 12/23 repeat 12/29 however noted improvement. NGT discontinued 12/30. Diet gradually advanced from pureed to minced/moist w/ nectar thick liquids tolerating well
ENT eval appreciated
-dysphagia likely multifactorial related to prolonged intubation, presence NG tube, and advanced age
-noted bilateral serous otitis media w/o infection
-patient anticipated to improve spontaneously both in hearing and swallowing- likely will take some time. Outpt follow up recommended
History of epilepsy
-Continue phenytoin 100 mg 3 times daily
-Outpatient neurology follow-up
Reported Cholestatic liver injury
-appears resolved at this time
Incidental endometrial thickening
-Outpatient transvaginal ultrasound
Hypothyroidism
-cont synthroid
Likely severe malnutrition due to acute illness
>5% weight loss in 1 month
anasarca
-cont nutrition support
PT/OT and PMR eval appreciated Acute Rehab
Full code
DVT prophylaxis�Supratherapeutic INR 3.07, Coumadin on hold
GI ppx PPI
Discussed with patient and patient's Rodrigo
I spent a total of 50 minutes with the patient or on the floor. More than 50% of this time involved counseling and coordination of care.
Anticipated Discharge: 24 - 48 hours
Subjective/Interval History
-
Date of Service: January 01, 2024
Objective Data
-
Labs:
Laboratory Results
01/01/24
03:56
WBC 7.7
Hgb 9.9 L
Hct 30.2 L
Plt Count 290
PT 31.7 H
INR 3.07
Sodium 140
Potassium 3.6
Chloride 109 H
Carbon Dioxide 21 L
BUN 14
Creatinine 0.6
Glucose 99
Calcium 7.9 L
Vital Signs:
Vital Signs
Temp Pulse Resp BP Pulse Ox
97.8 F 49 13 96/63 97
01/01/24 07:43 01/01/24 06:00 01/01/24 06:00 01/01/24 06:00 01/01/24 04:06
I&O
12/31/23 01/01/24 01/02/24
06:59 06:59 06:59
Intake Total 1690 / 1690 820 / 820
Output Total 2380 / 2380 1550 / 1550
Balance -690 / -690 -730 / -730
--- NOTE | 2024-01-01 09:00 | PTCARENOTE ---
Patient received from assembler 1st shift. Patient resting comfortably in bed. AAO, VSS. No events noted overnight. No complaints of pain at this time. No test scheduled for today. Wound vac on and dressing intact, dressing to be changed today by
wound RN. OOB to chair. Call warren in reach.
[2024-01-01] MEDS: PREVACID 30 MG PO (09:49)
[2024-01-01] MEDS: DILANTIN ORAL SUSP 100 MG PO ×3 (09:49→21:15)
[2024-01-01] MEDS: COREG 12.5 MG PO ×2 (09:50→20:42)
[2024-01-01] MEDS: FARXIGA 10 MG PO (09:51)
[2024-01-01] MEDS: ALDACTONE 25 MG PO (09:52)
[2024-01-01] MEDS: PLAVIX 75 MG PO (09:52)
[2024-01-01] MEDS: LIPITOR 40 MG PO (09:53)
[2024-01-01] MEDS: ENTRESTO 97 MG/103 MG PO (09:54)
[2024-01-01] MEDS: ROBITUSSIN PO ×4 (09:54→16:22)
--- NOTE | 2024-01-01 10:03 | W.PN.CD ---
Today's Communication / Plan
-
Increase activity
Continue current GDMT and as improves will advance therapy
Impression / Plan
-
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
femoral artery hematoma requiring surgical cutdown/repair, s/p PCI of the RCA, subsequently transferred to [place] for management of shock/MCS, now transferred back after successful weaning of MCS/pressors/inotropes and liberation from mechanical
ventilation but with residual delirium/dysphagia requiring NGT.
S/p Inferior STEMI 12/03/23
CAD
- Residual LAD disease, med rx for now
Ischemic cardiomyopathy, as a result of her [place]
-TTE with EF 35-40% (with LAD/RCA RWMA)
- Working on GDMT
LE DVT, on warfarin (phenytoin use makes Eliquis use not an option
Dysphagia
Anemia
SFA injury from Impella, s/p right SFA repair and Impella removal at [facility].
-Vascular surgery following.
-Continue wound VAC.
Epilepsy
Mixed hyperlipidemia
Subjective/Interval History:
No chest pain or sob. enjoying ability to PO.
DATA:
TTE, 12/23/2023:
CONCLUSIONS
Moderately reduced left ventricular systolic function. Left ventricular
ejection fraction is 35-40%.
Mid to apical anteroseptal and inferoseptal, mild to apical inferior, apical
hypokinesis.
Stage I diastolic dysfunction suggestive of abnormal relaxation.
Normal right ventricular size and function.
Mild/moderate tricuspid regurgitation. Mildly elevated PASP. Estimated
pulmonary artery pressure of 37 mmHg assuming a right atrial pressure of 3
mmHg.
Compared to 12/04/23: prior study was a limited study performed during
advancement of Impella, and LVEF was reported as 40-45%.
Modified Barium Swallow, 12/24/2023:
Thin liquid barium by spoon: Silent airway aspiration
[place]eder consistency barium by spoon with and without right head turn: Transient aspiration
Honey consistency barium by spoon: Transient aspiration
Barium pudding by spoon: No aspiration on 2 of 2 trials during the swallow but evidence of aspiration of the vallecula residue.
Physical Exam
Vital Signs/Labs
Vital Signs
Temp Pulse Resp BP Pulse Ox
97.8 F 69 13 110/51 97
01/01/24 07:43 01/01/24 09:54 01/01/24 06:00 01/01/24 09:54 01/01/24 04:06
01/01/24 03:56
01/01/24 03:56
PT 31.7 Sec (11.4-14.6) H 01/01/24 03:56
INR 3.07 01/01/24 03:56
APTT Cancelled 12/30/23 12:30
Magnesium 1.8 mg/dl (1.6-2.3) 01/01/24 03:56
Physical Exam
Constitutional: No acute distress
EENT: Anicteric
Cardiovascular: Rhythm & rate is regular and Pedal edema is absent
Respiratory: Respiratory effort normal and Lungs clear to auscul.
GI: Soft and Distention absent
Neuro/Psych: AO x 3
Data Reviewed
-
Date of Service: January 01, 2024
--- NOTE | 2024-01-01 11:07 | WOUNDNOTE ---
R GROIN (distal opening tunnels down about 2.2cm)
--- NOTE | 2024-01-01 11:08 | WOUNDNOTE ---
R GROIN (distal opening depth about 2.2cm)
--- NOTE | 2024-01-01 11:48 | WOUNDNOTE ---
[facility] RN note: Patient has new small wound just distal to R groin wound which has an approximate 2.2cm depth. Updated Mindy Vargas, Vascular FLOOR SUPERVISOR who requested packing sinus tract with 1/4 inch iodoform gauze packing with each vac dressing change. R
groin vac dressing changed with packing in distal wound with help from KAITLYNN Grayson. Skin on heels intact. Domenica/coccyx with mild MASD. Patient incontinent of loose mushy light brown stool. Purwick removed, domenica care given. Patient turned to L semi
side lying position. Dr. Jamil was in during visit and Dr. Mcnamara came in to see patient. Updated Dr. Saldivar re: R groin wound. Next vac dressing change due Saturday.
[2024-01-01 12:20] LABS: Glucose - Point of Care 93 mg/dl (70-99)
--- NOTE | 2024-01-01 12:32 | CM ---
Chart reviewed; Yulisa was seen by Dr. Atwood with recommendation for admission to [facility]. Yulisa has [place] [id number] insurance which requires precertification for Acute Rehab.
CM to follow to obtain ARF authorization when medically stable.
--- NOTE | 2024-01-01 13:56 | PTOTSP ---
Dysphagia Therapy
Trial cautious diet advancement to minced/moist solids to facilitate increased oral intake and transition to next level of care. See patient care note for details.
Recommendations:
1. IDDSI Level 5 (Minced/Moist Solids), IDDSI Level 2 (Mildly Thick liquids)
2. Medications: crushed in puree if medically cleared
3. Strategies: 1:1 supervision/assistance, upright to 90 degrees, small single sips(pinch straw)/bites, slow rate, multiple swallows, monitor for coughing as patient has a cough response to aspiration, oral care 3x daily
4. Aspiration Risk Hydration Protocol - unlimited ice chips and small single cup sips with supervision, after oral care, between meals
5. Dysphagia therapy at the acute care level and after D/C from acute care.
[2024-01-01 16:55] LABS: Glucose - Point of Care 85 mg/dl (70-99)
--- NOTE | 2024-01-01 20:12 | PTCARENOTE ---
Received pt from maximino RN. Pt is AAOx3. NSR on the monitor, sinus jayme when asleep. On RA O2 sat 96%, lungs diminished. Incont x2, attends in place. Hygiene and mouth care provided. Pt is laying in bed with call warren in reach.
[2024-01-01] MEDS: ENTRESTO 97 MG/103 MG 1 TAB PO (20:42)
[2024-01-01] MEDS: ROBITUSSIN 200 MG PO (21:10)
[2024-01-01] MEDS: MELATONIN 3 MG PO (21:10)
[2024-01-01 22:20] LABS: Glucose - Point of Care 157 mg/dl (70-99)
[2024-01-02] VITALS (16 sets, daily range): BP systolic 88–140; BP diastolic 43–67; PULSE 66–68; O2SAT 98
[2024-01-02] MEDS: SYNTHROID 125 MCG PO (04:23)
[2024-01-02 05:00] LABS: INR 3.45; PT 35.2 Sec (11.4-14.6)
--- NOTE | 2024-01-02 07:33 | W.PN.HOSP.TC ---
Today's Communication/Plan
-
monitor INR
nystatin swish for oral thrush
cont wound care
PT/OT
discharge planning Acute Rehab
Assessment / Plan
Assessment / Plan
Physical Exam
General: no acute distress appears comfortable at this time, diffuse anasarca swollen upper and lower ext's
HEENT: NormoCephalic, Moist mucous membranes and Atraumatic, oral thrush noted on tongue
Respiratory: Clear to auscultation b/l
Cardiac: S1/S2 and Regular Rhythm; No Murmur or Rub
GI: Soft, Non Tender, Non Distended and Normal Bowel Sounds; No Organomegaly
Musculoskeletal: No Clubbing, No Cyanosis and No Edema
Neuro: AOx3
HPI 78F HTN, HLD, hypothyroidism, epilepsy, chronic elevated liver enzymes, STEMI presents as transfer from [place] because her family lives near [place] and cannot travel to [place] regularly. Originally presented here to [place] 12/02 with chest
pain. Inferiolateral STEMI, brought to Acquisition Marketing Coordinator in cardiogenic shock, started on pressors. Cath further complicated with bradycardia requiring atropine as well as atrial fibrillation/flutter and VT/VF, shocked multiple times. Intubated and Impella
placed. She underwent 4 stents in the RCA. Postoperatively patient developed hemorrhage from the right groin Impella site with significant anemia. Vascular surgery performed cutdown exposure of right femoral vessels and repair of right
superficial femoral artery bleeding- required multiple transfusions. Patient was transferred to [place] for higher level of care possible benefit Rpella. While at [place] she was treated for multi pressor shock RV dysfunction pericardial effusion.
Impella since removed. Patient developed ventilator associated pneumonia treatment with IV antibiotics completed per reports. She was extubated on 12/15. Left lower extremity DVT was found and patient was started on heparin drip because NOACs
interacted with her sz medication phenytoin.
# Inferior STEMI secondary to RCA occlusion status post PATRICIA x 5
# LAD chronic total occlusion
# Moderately dilated RV with decreased RV function
# Ischemic cardiomyopathy with EF of 50-55%
#hx V-fib arrest status post multiple shocks
#Hx PEA arrest
- Entresto
- Aldactone
-metoprolol switched to Coreg titrated up to 12.5 mg BID as per Cardio
-Continue Plavix 75 mg daily
-Compression stockings
-Cardiology consult appreciated
�SGLT2I
-Repeat ECHO in 90 days for ICD eval
#01/01 oral thrush noted by nurse
Nystatin swish started
Bradycardia status post transvenous pacemaker
-Resolved
Left lower extremity DVT
-hep gtt briefly placed on hold 12/21 due to drop in hgb <7, since improved
-Therapeutic INR 2-3, hep gtt since discontinued
-Coumadin on hold INR>3
-Daily INR
Acute blood loss anemia
� No clear source although possible dilutional (all cell lines down)
-B12 folate wnl
-Iron level wnl
-mild deficient transferrin saturation
-responded well to 2PRBC transfusion
-H&H since stable/improving
Hypokalemia resolved
Multifocal ventilator associated pneumonia
-Sputum grew MSSA/Serratia
-Completed antibiotics
-weaned off oxygen supplementation
Leukocytosis resolved
Essential hypertension
-cont Entresto Aldactone Coreg [correction to prior documentation]
Femoral artery repair
Hemorrhagic shock
Superficial femoral artery bleeding status post Impella with subsequent removal
-Received 4 units of blood here initially
-Patient reportedly had an episode of coffee-ground emesis which had since resolved
-Consult vascular surgery appreciated
-wound vac placed
12/31 developed new small wound just distal to R groin wound approx 2.2cm depth.
-wound care packing sinus tract with 1/4 inch iodoform gauze packing with each vac dressing change as per vascular recommendations
Toxic metabolic encephalopathy/deconditioning/ICU delirium
Hallucination
-She underwent EEG which showed diffuse slowing
-Was treated with thiamine
-Was started on Seroquel for agitation. Patient however has since significantly improved. Seroquel converted to prn, patient has not required so far.
-PT recommended acute rehab
-Psych eval appreciated
-CT head no acute abn's
Transaminitis
-ctm
-most likely 2/2 to recent hepatic injury
-bilis wnl
Dysphagia with nasogastric tube
Malnutrition
-Platen Drier Operator consult appreciated
-Speech eval appreciated VSE - failed 12/23 repeat 12/29 however noted improvement. NGT discontinued 12/30. Diet gradually advanced from pureed to minced/moist w/ nectar thick liquids tolerating well
ENT eval appreciated
-dysphagia likely multifactorial related to prolonged intubation, presence NG tube, and advanced age
-noted bilateral serous otitis media w/o infection
-patient anticipated to improve spontaneously both in hearing and swallowing- likely will take some time. Outpt follow up recommended
History of epilepsy
-Continue phenytoin 100 mg 3 times daily
-Outpatient neurology follow-up
Reported Cholestatic liver injury
-appears resolved at this time
Incidental endometrial thickening
-Outpatient transvaginal ultrasound
Hypothyroidism
-cont synthroid
Likely severe malnutrition due to acute illness
>5% weight loss in 1 month
anasarca
-cont nutrition support
PT/OT and PMR eval appreciated Acute Rehab
Full code
DVT prophylaxis�Supratherapeutic INR 3.07, Coumadin on hold
GI ppx PPI
Discussed with patient and patient's Rodrigo
I spent a total of 50 minutes with the patient or on the floor. More than 50% of this time involved counseling and coordination of care.
Anticipated Discharge: Within 24 hours
Subjective/Interval History
-
Date of Service: January 02, 2024
No acute distress. Hearing notably improving. Overall reports feeling well.
Objective Data
-
Labs:
Laboratory Results
01/02/24
04:27
PT 35.2 H
INR 3.45
Vital Signs:
Vital Signs
Temp Pulse Resp BP Pulse Ox
98.3 F 60 16 110/47 98
01/02/24 04:38 01/02/24 06:00 01/02/24 06:00 01/02/24 06:00 01/02/24 06:00
I&O
01/01/24 01/02/24 01/03/24
06:59 06:59 06:59
Intake Total 820 / 820 750 / 750
Output Total 1550 / 1550 200 / 200
Balance -730 / -730 550 / 550
[2024-01-02] MEDS: FARXIGA 10 MG PO (07:34)
[2024-01-02] MEDS: ALDACTONE 25 MG PO (07:34)
[2024-01-02] MEDS: LIPITOR 40 MG PO (07:34)
[2024-01-02] MEDS: PLAVIX 75 MG PO (07:34)
[2024-01-02] MEDS: ENTRESTO 97 MG/103 MG 1 TAB PO ×2 (07:36→20:54)
[2024-01-02] MEDS: PREVACID 30 MG PO (07:37)
[2024-01-02] MEDS: DILANTIN ORAL SUSP 100 MG PO ×4 (07:37→20:56)
[2024-01-02] MEDS: ROBITUSSIN 200 MG PO ×3 (07:37→20:52)
[2024-01-02] MEDS: COREG 12.5 MG PO ×2 (07:38→20:53)
[2024-01-02 07:40] LABS: Glucose - Point of Care 110 mg/dl (70-99)
--- NOTE | 2024-01-02 08:31 | W.PN.CD ---
Today's Communication / Plan
-
continue current cardiac medications
ok for d/c to SNF when able.
Impression / Plan
-
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
femoral artery hematoma requiring surgical cutdown/repair, s/p PCI of the RCA, subsequently transferred to [place] for management of shock/MCS, now transferred back after successful weaning of MCS/pressors/inotropes and liberation from mechanical
ventilation but with residual delirium/dysphagia requiring NGT.
S/p Inferior STEMI 12/03/23
CAD
- Residual LAD disease, med rx for now
Ischemic cardiomyopathy, as a result of her [place]
-TTE with EF 35-40% (with LAD/RCA RWMA)
- Working on GDMT: HR limits further bb titration, would continue current doses, as she is more active and eating better may be able to maximize MRA, but will leave for now.
LE DVT, on warfarin (phenytoin use makes Eliquis use not an option)
Dysphagia
Anemia
SFA injury from Impella, s/p right SFA repair and Impella removal at [facility].
-Vascular surgery following.
-Continue wound VAC.
Epilepsy
Mixed hyperlipidemia
Subjective/Interval History:
No chest pain or sob. Taking deep breaths without coughing for the first time. She was oob to chair yesterday
DATA:
TTE, 12/23/2023:
CONCLUSIONS
Moderately reduced left ventricular systolic function. Left ventricular
ejection fraction is 35-40%.
Mid to apical anteroseptal and inferoseptal, mild to apical inferior, apical
hypokinesis.
Stage I diastolic dysfunction suggestive of abnormal relaxation.
Normal right ventricular size and function.
Mild/moderate tricuspid regurgitation. Mildly elevated PASP. Estimated
pulmonary artery pressure of 37 mmHg assuming a right atrial pressure of 3
mmHg.
Compared to 12/04/23: prior study was a limited study performed during
advancement of Impella, and LVEF was reported as 40-45%.
Modified Barium Swallow, 12/24/2023:
Thin liquid barium by spoon: Silent airway aspiration
[place] consistency barium by spoon with and without right head turn: Transient aspiration
Honey consistency barium by spoon: Transient aspiration
Barium pudding by spoon: No aspiration on 2 of 2 trials during the swallow but evidence of aspiration of the vallecula residue.
Physical Exam
Vital Signs/Labs
Vital Signs
Temp Pulse Resp BP Pulse Ox
98.3 F 61 16 110/47 98
01/02/24 04:38 01/02/24 07:38 01/02/24 06:00 01/02/24 07:38 01/02/24 06:00
01/01/24 03:56
01/01/24 03:56
PT 35.2 Sec (11.4-14.6) H 01/02/24 04:27
INR 3.45 01/02/24 04:27
APTT Cancelled 12/30/23 12:30
Magnesium 1.8 mg/dl (1.6-2.3) 01/01/24 03:56
Physical Exam
Constitutional: No acute distress
Cardiovascular: Rhythm & rate is regular, Pedal edema is absent, JVD pressure is normal, Systolic murmur absent and Diastolic murmur absent
Neuro/Psych: AO x 3
Data Reviewed
-
Date of Service: January 02, 2024
Medical Decision Making: Review of Case with other Provider (tele nsr/sb/rare pvc)
--- NOTE | 2024-01-02 09:35 | PTCARENOTE ---
Patient received from fare collector. Patient resting comfortably in bed. AAO, VSS. No events noted overnight. No complaints of pain at this time. No test scheduled for today. Wound vac on and dressing intact. OOB to chair. Eating and drinking
well on current diet. Possible downgrade today? Call warren in reach.
[2024-01-02 12:26] LABS: Glucose - Point of Care 113 mg/dl (70-99)
--- NOTE | 2024-01-02 12:33 | WOUNDNOTE ---
[facility] RN note: Confirmed with [facility] nurse liaison that on day of discharge to [place], the nurse is to remove R groin vac dressing and apply saline moistened gauze dressing and the [place] nurse will apply their vac equipment. KAITLYNN Echavarria
stated tentative discharge date is tomorrow.
[2024-01-02] MEDS: ROBITUSSIN PO ×2 (13:10→17:32)
--- NOTE | 2024-01-02 13:22 | W.PN.UPDATE ---
Update Note
Progress Note Update
Seen and evaluated. Known to us from prior status post right femoral cutdown when Impella device was in place (by Jonathan) and pursestring stitch placement around Impella entry device to help reduce significant bleeding. Patient continued to have
some bleeding issues following this at which time we discussed Impella removal. (See my note from 12/04/2023). However, patient was subsequently transferred to the [facility] for definitive management. From reports, vascular
surgery at [facility] remove the Impella device and primarily repaired the artery. Also from reports, the skin/subcutaneous tissues were not closed and instead wound VAC placed. I was now asked to evaluate wound. Patient is
without any specific complaints currently. She has remained afebrile. Her abdomen is soft, her right groin is flat. The wound VAC is in place and therefore I cannot assess the actual wound itself currently. However I reviewed the pictures from
yesterday's wound VAC change which demonstrates healthy granulation base. There appears to be a small sinus tract through which a Q-tip was inserted approximately 2 cm. No purulent drainage that I can note. No surrounding erythema. No pulsatile
mass. Right foot is warm with palpable pedal pulse. Plan/based on my limited assessment, wound appears to be making progress. There is the sinus tract through the skin adjacent to the wound granulation bed. My suspicion is that just connects to
the wound itself and it is closing in. No purulence. No overt other signs of infection. Can follow-up in the office either with us or with the [facility] vascular team who would perform this procedure. If any signs of infection
such as worsening of wound appearance, fevers, significant drainage (purulent or otherwise), erythema, pain, would obtain CT angiogram of the abdomen pelvis JAYDA. I will sign off. Please call with questions.
--- NOTE | 2024-01-02 15:25 | CM ---
Addendum entered by Lisa Romero RN 01/02/24 16:12:
Spoke with GISSEL Rodriguez; patient is approved for [facility] beginning 01/03/24. Auth # [id number]. NR 01/06 call to phone [phone].
Auth info provided to Guzman @ [facility].
Spoke with patient's to provide update insurance approved [facility], and hopefully patient will be able to go there tomorrow.
Plan [facility] probably tomorrow if medically ready.
Addendum entered by Lisa Romero RN 01/02/24 15:49:
Met with patient and this morning; they are agreeing to [facility] when medically ready and insurance approves. IMM completed.
Addendum entered by Lisa Romero RN 01/02/24 15:47:
Per GISSEL Rodriguez; she will process the request for [facility] and callback with the determination.
Plan [facility] possibly tomorrow once insurance approves and medically ready.
Original Note:
Patient who was transferred back from [facility] with Dx Inferior STEMI s/p stent placements, VT/VF arrest extubated 12/15, cardiomyopathy, SFA injury / Impella s/p right SFA repair/Impella removal at [facility], LLE DVT, anemia, TME, dysphagia. Room
air. Coumadin on hold. Dysphagia diet. Wound VAC right groin. PT/OT recommend acute rehab.
Spoke with [facility] Liaison; they may be able to accept the patient tomorrow once insurance approves, if INR improves---> per Guzman Mcnamara is aware. Guzman is aware a wound VAC is needed.
Spoke with GISSEL Rodriguez; request for [facility] for tomorrow
[2024-01-02] MEDS: MYCOSTATIN ORAL SUSPENSION 5 ML PO ×2 (17:32→20:51)
[2024-01-02 17:40] LABS: Glucose - Point of Care 87 mg/dl (70-99)
[2024-01-02] MEDS: MELATONIN 3 MG PO (20:53)
[2024-01-02 23:05] LABS: Glucose - Point of Care 108 mg/dl (70-99)
[2024-01-03] VITALS (17 sets, daily range): BP systolic 85–115; BP diastolic 47–94; PULSE 61; O2SAT 98; BMI 26.3
[2024-01-03] MEDS: SYNTHROID 125 MCG PO (04:00)
[2024-01-03 04:48] LABS: INR 3.31; PT 34.2 Sec (11.4-14.6)
[2024-01-03 07:33] LABS: Glucose - Point of Care 103 mg/dl (70-99)
--- NOTE | 2024-01-03 07:33 | W.PN.HOSP.TC ---
Today's Communication/Plan
-
reduced doses aldactone Coreg d/t overnight hypotension bradycardia
once albumin bolus
discharge planning Acute Rehab
Assessment / Plan
Assessment / Plan
Physical Exam
General: no acute distress appears comfortable at this time, diffuse anasarca swollen upper and lower ext's
HEENT: NormoCephalic, Moist mucous membranes and Atraumatic, oral thrush noted on tongue
Respiratory: Clear to auscultation b/l
Cardiac: S1/S2 and Regular Rhythm; No Murmur or Rub
GI: Soft, Non Tender, Non Distended and Normal Bowel Sounds; No Organomegaly
Musculoskeletal: No Clubbing, No Cyanosis and No Edema
Neuro: AOx3
HPI 78F HTN, HLD, hypothyroidism, epilepsy, chronic elevated liver enzymes, STEMI presents as transfer from [place] because her family lives near [place] and cannot travel to [place] regularly. Originally presented here to [place] 12/02 with chest
pain. Inferiolateral STEMI, brought to [facility] Operating Room in cardiogenic shock, started on pressors. Cath further complicated with bradycardia requiring atropine as well as atrial fibrillation/flutter and VT/VF, shocked multiple times. Intubated and Impella
placed. She underwent 4 stents in the RCA. Postoperatively patient developed hemorrhage from the right groin Impella site with significant anemia. Vascular surgery performed cutdown exposure of right femoral vessels and repair of right
superficial femoral artery bleeding- required multiple transfusions. Patient was transferred to [place] for higher level of care possible benefit Rpella. While at [place] she was treated for multi pressor shock RV dysfunction pericardial effusion.
Impella since removed. Patient developed ventilator associated pneumonia treatment with IV antibiotics completed per reports. She was extubated on 12/15. Left lower extremity DVT was found and patient was started on heparin drip because NOACs
interacted with her sz medication phenytoin.
#Hypotension Bradycardia overnight 01/01-01/02
once albumin bolus
aldactone and coreg doses reduced
# Inferior STEMI secondary to RCA occlusion status post PATRICIA x 5
# LAD chronic total occlusion
# Moderately dilated RV with decreased RV function
# Ischemic cardiomyopathy with EF of 50-55%
#hx V-fib arrest status post multiple shocks
#Hx PEA arrest
- Entresto
- Aldactone reduced to 12.5 d/t hypotension
-metoprolol switched to Coreg titrated up to 12.5 mg BID, later reduced back to 6.25 d/t overnight hypotension and bradycardia
-Continue Plavix 75 mg daily
-Compression stockings
-Cardiology consult appreciated
�SGLT2I
-Repeat ECHO in 90 days for ICD eval
#01/01 Oral thrush
Nystatin swish started, continue
Bradycardia status post transvenous pacemaker
-Previously Resolved re-occurring overnight <55
-Coreg since reduced to 6.25
Left lower extremity DVT
-hep gtt briefly placed on hold 12/21 due to drop in hgb <7, since improved
-Therapeutic INR 2-3, hep gtt since discontinued
-Coumadin on hold INR>3
-Daily INR
Acute blood loss anemia
� No clear source although possible dilutional (all cell lines down)
-B12 folate wnl
-Iron level wnl
-mild deficient transferrin saturation
-responded well to 2PRBC transfusion
-H&H since stable/improving
Hypokalemia resolved
Multifocal ventilator associated pneumonia
-Sputum grew MSSA/Serratia
-Completed antibiotics
-weaned off oxygen supplementation
Leukocytosis resolved
Essential hypertension
-cont Entresto Aldactone Coreg [correction to prior documentation]
Femoral artery repair
Hemorrhagic shock
Superficial femoral artery bleeding status post Impella with subsequent removal
-Received 4 units of blood here initially
-Patient reportedly had an episode of coffee-ground emesis which had since resolved
-Consult vascular surgery appreciated
-wound vac placed
12/31 developed new small wound just distal to R groin wound approx 2.2cm depth.
-wound care packing sinus tract with 1/4 inch iodoform gauze packing with each vac dressing change as per vascular recommendations
Toxic metabolic encephalopathy/deconditioning/ICU delirium
Hallucination
-She underwent EEG which showed diffuse slowing
-Was treated with thiamine
-Was started on Seroquel for agitation. Patient however has since significantly improved. Seroquel converted to prn, patient has not required so far.
-PT recommended acute rehab
-Psych eval appreciated
-CT head no acute abn's
Transaminitis
-ctm
-most likely 2/2 to recent hepatic injury
-bilis wnl
Dysphagia with nasogastric tube
Malnutrition
-Restaurant Service Manager consult appreciated
-Speech eval appreciated VSE - failed 12/23 repeat 12/29 however noted improvement. NGT discontinued 12/30. Diet gradually advanced from pureed to minced/moist w/ nectar thick liquids tolerating well
ENT eval appreciated
-dysphagia likely multifactorial related to prolonged intubation, presence NG tube, and advanced age
-noted bilateral serous otitis media w/o infection
-patient anticipated to improve spontaneously both in hearing and swallowing- likely will take some time. Outpt follow up recommended
History of epilepsy
-Continue phenytoin 100 mg 3 times daily
-Outpatient neurology follow-up
Reported Cholestatic liver injury
-appears resolved at this time
Incidental endometrial thickening
-Outpatient transvaginal ultrasound
Hypothyroidism
-cont synthroid
Likely severe malnutrition due to acute illness
>5% weight loss in 1 month
anasarca
-cont nutrition support
PT/OT and PMR eval appreciated Acute Rehab
Full code
DVT prophylaxis�Supratherapeutic INR, Coumadin on hold
GI ppx PPI
Discussed with patient and patient's Rodrigo
I spent a total of 50 minutes with the patient or on the floor. More than 50% of this time involved counseling and coordination of care.
Anticipated Discharge: 24 - 48 hours
Subjective/Interval History
-
Date of Service: January 03, 2024
No acute distress. Hypotensive and bradycardic overnight though asymptomatic. Hearing improving
Objective Data
-
Labs:
Laboratory Results
01/03/24
04:20
PT 34.2 H
INR 3.31
Vital Signs:
Vital Signs
Temp Pulse Resp BP Pulse Ox
98.0 F 53 11 104/52 100
01/03/24 05:09 01/03/24 05:10 01/03/24 05:10 01/03/24 05:10 01/03/24 05:10
I&O
01/02/24 01/03/24 01/04/24
06:59 06:59 06:59
Intake Total 750 / 750 1000 / 1000
Output Total 200 / 200 500 / 500
Balance 550 / 550 500 / 500
[2024-01-03] MEDS: DILANTIN ORAL SUSP 100 MG PO ×3 (08:43→21:02)
[2024-01-03] MEDS: ROBITUSSIN 200 MG PO ×4 (08:43→21:03)
[2024-01-03] MEDS: COREG 12.5 MG PO (08:44)
[2024-01-03] MEDS: MYCOSTATIN ORAL SUSPENSION 5 ML PO ×4 (08:45→21:03)
[2024-01-03] MEDS: ALDACTONE 25 MG PO (08:45)
[2024-01-03] MEDS: FARXIGA 10 MG PO (08:45)
[2024-01-03] MEDS: PREVACID 30 MG PO (08:46)
[2024-01-03] MEDS: LIPITOR 40 MG PO (08:46)
[2024-01-03] MEDS: ENTRESTO 97 MG/103 MG 1 TAB PO ×2 (08:46→19:54)
[2024-01-03] MEDS: PLAVIX 75 MG PO (08:47)
--- NOTE | 2024-01-03 08:56 | PTCARENOTE ---
Pt AAOx3, RA . Incont B/B, purewick in place. R midline with no blood return. Wound vac on R groin . Took pills in applesauce.SR on monitor. Sandra Casey today
[2024-01-03] MEDS: FLEXBUMIN 100 IV (09:41)
--- NOTE | 2024-01-03 09:49 | W.PN.CD ---
Today's Communication / Plan
-
will continue cardiac medications as they are for discharge.
Will signoff
She should call the office when discharged from Rehab for follow up appt with Dr Arellano [phone]
Impression / Plan
-
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
femoral artery hematoma requiring surgical cutdown/repair, s/p PCI of the RCA, subsequently transferred to [place] for management of shock/MCS, now transferred back after successful weaning of MCS/pressors/inotropes and liberation from mechanical
ventilation but with residual delirium/dysphagia requiring NGT.
S/p Inferior STEMI 12/03/23
CAD
- Residual LAD disease, med rx for now
Ischemic cardiomyopathy, as a result of her IN
-TTE with EF 35-40% (with LAD/RCA RWMA)
- Working on GDMT: HR limits further bb titration, would continue current doses, as she is more active and eating better may be able to maximize MRA--can be done as an outpatient, but will leave for now.
LE DVT, on warfarin (phenytoin use makes Eliquis use not an option)
-managed by medicine
Dysphagia
Anemia
SFA injury from Impella, s/p right SFA repair and Impella removal at [facility].
-Vascular surgery following.
-Continue wound VAC.
Epilepsy
Mixed hyperlipidemia
Subjective/Interval History:
No chest pain or sob. She is feeling so much better.
DATA:
TTE, 12/23/2023:
CONCLUSIONS
Moderately reduced left ventricular systolic function. Left ventricular
ejection fraction is 35-40%.
Mid to apical anteroseptal and inferoseptal, mild to apical inferior, apical
hypokinesis.
Stage I diastolic dysfunction suggestive of abnormal relaxation.
Normal right ventricular size and function.
Mild/moderate tricuspid regurgitation. Mildly elevated PASP. Estimated
pulmonary artery pressure of 37 mmHg assuming a right atrial pressure of 3
mmHg.
Compared to 12/04/23: prior study was a limited study performed during
advancement of Impella, and LVEF was reported as 40-45%.
Modified Barium Swallow, 12/24/2023:
Thin liquid barium by spoon: Silent airway aspiration
[place] consistency barium by spoon with and without right head turn: Transient aspiration
Honey consistency barium by spoon: Transient aspiration
Barium pudding by spoon: No aspiration on 2 of 2 trials during the swallow but evidence of aspiration of the vallecula residue.
Physical Exam
Vital Signs/Labs
Vital Signs
Temp Pulse Resp BP Pulse Ox
97.9 F 65 11 103/45 97
01/03/24 07:07 01/03/24 08:45 01/03/24 05:10 01/03/24 08:45 01/03/24 08:00
01/02/24 01/03/24 01/04/24
06:59 06:59 06:59
Actual Weight 74 kg
01/01/24 03:56
01/01/24 03:56
PT 34.2 Sec (11.4-14.6) H 01/03/24 04:20
INR 3.31 01/03/24 04:20
APTT Cancelled 12/30/23 12:30
Magnesium 1.8 mg/dl (1.6-2.3) 01/01/24 03:56
Physical Exam
Constitutional: No acute distress
Cardiovascular: Rhythm & rate is regular, Pedal edema is absent, JVD pressure is normal and Systolic murmur absent
Respiratory: Respiratory effort normal, Lungs clear to auscul., Wheeze Absent, Crackles Absent and Rhonchi Absent
Neuro/Psych: AO x 3
Data Reviewed
-
Date of Service: January 03, 2024
Medical Decision Making: Review of Case with other Provider (sinus/sinus jayme)
--- NOTE | 2024-01-03 10:48 | CM ---
Patient who was transferred back from [facility] with Dx Inferior STEMI, LLE DVT, anemia, right groin wound, TME, dysphagia. Room air. Coumadin on hold - elevated INR. Wound VAC right groin. PT/OT recommend acute rehab.
CM Consult message from Dr Mcnamara: Plan [facility] tomorrow/Sat. Holding for now due to hypotension & bradycardia overnight, meds adjusted.
TT message to Dr Mcnamara relaying that [facility] will consider for Admit Sat if HR, BP and INR are ok.
Spoke with [facility] Lia[facility]; they may be able to accept the patient tomorrow if HR, BP and INR are ok.
[facility] has insurance auth and Wound VAC with small black foam available.
The ph for report [phone], fax [phone].
The CM can contact [facility] Sat at ph [phone].
Met with patient and ; they are agreeing to [facility] for probable d/c tomorrow. IMM signed again by .
Plan [facility] probably Wednesday 01/03 if medically ready.
[2024-01-03 13:10] LABS: Glucose - Point of Care 124 mg/dl (70-99)
--- NOTE | 2024-01-03 13:54 | W.PN.ENT ---
Today's Communication
-
seen at bedside
Impression / Plan
-
serous otitis media resolving
should see patient in office after discharge to evaluate with hearing test
Subjective Data
-
dysphagia improved, patient on a limited diet
hearing getting better
Objective Data
-
Vital Signs
Temp Pulse Resp BP Pulse Ox
98.2 F 65 11 103/45 97
01/03/24 11:14 01/03/24 08:45 01/03/24 05:10 01/03/24 08:45 01/03/24 08:00
Intake & Output
01/02/24 01/03/24 01/04/24
06:59 06:59 06:59
Intake:
Oral fluids 750 / 750 1000 / 1000
IV piggybacks 100 / 100
Output:
Urine, Voided 200 / 200 500 / 500
Other:
How many times incontinent 2
MODERATE amount urine
How many times incontinent 2 2
SATURATED amount urine
Lab Results
01/01/24 03:56
01/01/24 03:56
PT 34.2 Sec (11.4-14.6) H 01/03/24 04:20
INR 3.31 01/03/24 04:20
APTT Cancelled 12/30/23 12:30
Calcium 7.9 mg/dl (8.4-10.2) L 01/01/24 03:56
Phosphorus 3.8 mg/dl (2.5-4.5) 01/01/24 03:56
Magnesium 1.8 mg/dl (1.6-2.3) 01/01/24 03:56
Total Bilirubin 0.5 mg/dl (0.2-1.3) 12/30/23 05:11
AST 81 U/L (14-36) H 12/30/23 05:11
ALT 58 U/L (0-35) H 12/30/23 05:11
Alkaline Phosphatase 144 U/L (38-126) H 12/30/23 05:11
Physical Exam
-
ears improved
less fluid in ears
Chest: Regular rate & rhythm
Respiratory: Clear
Data Reviewed
-
Radiology Results: Report Reviewed
--- NOTE | 2024-01-03 15:10 | WOUNDNOTE ---
R GROIN 1.5CM DEPTH IN HOLE
--- NOTE | 2024-01-03 15:11 | WOUNDNOTE ---
WON RN NOTE: R groin wound vac dressing changed today. Appears red at base, with same distal hole, now more defined and 1.5cm deep. Iodoform packing strip changed in hole, then black foam to 125 mmhg. Lateral to groin small abrasions healing, gauze
changed under drape. L upper thigh scab fell off revealing healed skin with pink scar. Teaching done with nurse Tomás that when discharged to remove vac dressing, replace iodoform packing strip and remainder of wound saline WTD. Place out wound
vac machine [facility]. Patient for discharge to [place] over the weekend.
--- NOTE | 2024-01-03 15:12 | WOUNDNOTE ---
WON RN NOTE: R groin wound vac dressing changed today. Appears red at base, with same distal hole, now more defined and 1.5cm deep. Iodoform packing strip changed in hole, then black foam to 125 mmhg. Lateral to groin small abrasions healing, gauze
changed under drape. L upper thigh scab fell off revealing healed skin with pink scar. Patient turned easily to side on own, Sacrum and heels are intact, pillow in use under calves. Teaching done with nurse England that when discharged to remove vac
dressing, replace iodoform packing strip and remainder of wound saline WTD. Place our hospital wound vac machine in soiled utility for pickup. Patient for discharge to [place] over the weekend.
[2024-01-03 16:58] LABS: Glucose - Point of Care 87 mg/dl (70-99)
[2024-01-03] MEDS: COREG 6.25 MG PO (19:54)
[2024-01-03] MEDS: MELATONIN 3 MG PO (21:03)
--- NOTE | 2024-01-03 21:20 | PTCARENOTE ---
Caring for patient overnight. aaox3, pleasant. No assessment changes from yesterday, Wound vac in place, looks good. Purewick taken out d/t BM's. pt incontinent bowel & bladder. NSR PVC. BP's stable, will monitor overnight. Remains on RA. Denies
pain. Will continue to monitor.
[2024-01-03 21:39] LABS: Glucose - Point of Care 86 mg/dl (70-99)
[2024-01-04] VITALS (13 sets, daily range): BP systolic 87–134; BP diastolic 48–78; BMI 26.0
[2024-01-04] MEDS: SYNTHROID 125 MCG PO (04:36)
[2024-01-04 05:05] LABS: INR 3.64; PT 36.2 Sec (11.4-14.6)
[2024-01-04 07:24] LABS: Glucose - Point of Care 93 mg/dl (70-99)
--- NOTE | 2024-01-04 07:28 | W.PN.HOSP.TC ---
Today's Communication/Plan
-
monitor BP HR
albumin bolus
monitor INR
discharge planning acute rehab
Assessment / Plan
Assessment / Plan
Physical Exam
General: no acute distress appears comfortable at this time, diffuse anasarca swollen upper and lower ext's
HEENT: NormoCephalic, Moist mucous membranes and Atraumatic, oral thrush noted on tongue
Respiratory: Clear to auscultation b/l
Cardiac: S1/S2 and Regular Rhythm; No Murmur or Rub
GI: Soft, Non Tender, Non Distended and Normal Bowel Sounds; No Organomegaly
Musculoskeletal: No Clubbing, No Cyanosis and No Edema
Neuro: AOx3
HPI 78F HTN, HLD, hypothyroidism, epilepsy, chronic elevated liver enzymes, STEMI presents as transfer from [place] because her family lives near [place] and cannot travel to [place] regularly. Originally presented here to [place] 12/02 with chest
pain. 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 Cath further complicated with bradycardia requiring atropine as well as atrial fibrillation/flutter and VT/VF, shocked multiple times. Intubated and Impella
placed. She underwent 4 stents in the RCA. Postoperatively patient developed hemorrhage from the right groin Impella site with significant anemia. Vascular surgery performed cutdown exposure of right femoral vessels and repair of right
superficial femoral artery bleeding- required multiple transfusions. Patient was transferred to [place] for higher level of care possible benefit Rpella. While at [place] she was treated for multi pressor shock RV dysfunction pericardial effusion.
Impella since removed. Patient developed ventilator associated pneumonia treatment with IV antibiotics completed per reports. She was extubated on 12/15. Left lower extremity DVT was found and patient was started on heparin drip because NOACs
interacted with her sz medication phenytoin.
#Hypotension Bradycardia overnight
twice albumin boluses
aldactone and coreg doses reduced
# Inferior STEMI secondary to RCA occlusion status post PATRICIA x 5
# LAD chronic total occlusion
# Moderately dilated RV with decreased RV function
# Ischemic cardiomyopathy with EF of 50-55%
#hx V-fib arrest status post multiple shocks
#Hx PEA arrest
- Entresto
- Aldactone reduced to 12.5 d/t hypotension
-metoprolol switched to Coreg titrated up to 12.5 mg BID, later reduced back to 6.25 d/t overnight hypotension and bradycardia
-Continue Plavix 75 mg daily
-Compression stockings
-Cardiology consult appreciated
�SGLT2I
-Repeat ECHO in 90 days for ICD eval
#01/01 Oral thrush
Nystatin swish started, continue
Bradycardia status post transvenous pacemaker
-Previously Resolved re-occurring overnight <55
-Coreg since reduced to 6.25
Left lower extremity DVT
-hep gtt briefly placed on hold 12/21 due to drop in hgb <7, since improved
-Therapeutic INR 2-3, hep gtt since discontinued
-Coumadin on hold INR>3
-Daily INR
Acute blood loss anemia
� No clear source although possible dilutional (all cell lines down)
-B12 folate wnl
-Iron level wnl
-mild deficient transferrin saturation
-responded well to 2PRBC transfusion
-H&H since stable/improving
Hypokalemia resolved
Multifocal ventilator associated pneumonia
-Sputum grew MSSA/Serratia
-Completed antibiotics
-weaned off oxygen supplementation
Leukocytosis resolved
Essential hypertension
-cont Entresto Aldactone Coreg [correction to prior documentation]
Femoral artery repair
Hemorrhagic shock
Superficial femoral artery bleeding status post Impella with subsequent removal
-Received 4 units of blood here initially
-Patient reportedly had an episode of coffee-ground emesis which had since resolved
-Consult vascular surgery appreciated
-wound vac placed
12/31 developed new small wound just distal to R groin wound approx 2.2cm depth.
-wound care packing sinus tract with 1/4 inch iodoform gauze packing with each vac dressing change as per vascular recommendations
Toxic metabolic encephalopathy/deconditioning/ICU delirium
Hallucination
-She underwent EEG which showed diffuse slowing
-Was treated with thiamine
-Was started on Seroquel for agitation. Patient however has since significantly improved. Seroquel converted to prn, patient has not required so far.
-PT recommended acute rehab
-Psych eval appreciated
-CT head no acute abn's
Transaminitis
-ctm
-most likely / to recent hepatic injury
-bilis wnl
Dysphagia with nasogastric tube
Malnutrition
-Solid Waste Collection Worker consult appreciated
-Speech eval appreciated VSE - failed 12/23 repeat 12/29 however noted improvement. NGT discontinued 12/30. Diet gradually advanced from pureed to minced/moist w/ nectar thick liquids tolerating well
ENT eval appreciated
-dysphagia likely multifactorial related to prolonged intubation, presence NG tube, and advanced age
-noted bilateral serous otitis media w/o infection
-patient anticipated to improve spontaneously both in hearing and swallowing- likely will take some time. Outpt follow up recommended
History of epilepsy
-Continue phenytoin 100 mg 3 times daily
-Outpatient neurology follow-up
Reported Cholestatic liver injury
-appears resolved at this time
Incidental endometrial thickening
-Outpatient transvaginal ultrasound
Hypothyroidism
-cont synthroid
Likely severe malnutrition due to acute illness
>5% weight loss in 1 month
anasarca
-cont nutrition support
PT/OT and PMR eval appreciated Acute Rehab
Full code
DVT prophylaxis�Supratherapeutic INR, Coumadin on hold
GI ppx PPI
Discussed with patient and patient's Rodrigo
I spent a total of 40 minutes with the patient or on the floor. More than 50% of this time involved counseling and coordination of care.
Anticipated Discharge: 24 - 48 hours
Subjective/Interval History
-
Date of Service: January 04, 2024
No acute distress sitting up comfortably in bed. overall reports feeling well. Hearing continues to improve day by day. Notably hypotensive overnight dips to systolic 80s.
Objective Data
-
Labs:
Laboratory Results
01/04/24
04:41
PT 36.2 H
INR 3.64
Vital Signs:
Vital Signs
Temp Pulse Resp BP Pulse Ox
98.2 F 61 16 124/50 97
01/04/24 04:28 01/04/24 06:00 01/04/24 06:00 01/04/24 06:00 01/04/24 06:00
I&O
01/03/24 01/04/24 01/05/24
06:59 06:59 06:59
Intake Total 1000 / 1000 580 / 580
Output Total 500 / 500 850 / 850
Balance 500 / 500 -270 / -270
[2024-01-04] MEDS: ALDACTONE PO (08:03)
[2024-01-04] MEDS: COREG PO (08:03)
[2024-01-04] MEDS: FARXIGA 10 MG PO (08:04)
[2024-01-04] MEDS: ENTRESTO 97 MG/103 MG PO (08:04)
[2024-01-04] MEDS: PREVACID 30 MG PO (08:05)
[2024-01-04] MEDS: ROBITUSSIN 200 MG PO ×4 (08:05→21:12)
[2024-01-04] MEDS: PLAVIX 75 MG PO (08:05)
[2024-01-04] MEDS: MYCOSTATIN ORAL SUSPENSION 5 ML PO ×3 (08:05→21:12)
[2024-01-04] MEDS: LIPITOR 40 MG PO (08:07)
[2024-01-04] MEDS: DILANTIN ORAL SUSP 100 MG PO ×4 (09:00→21:12)
[2024-01-04] MEDS: FLEXBUMIN 100 IV (09:32)
[2024-01-04 11:55] LABS: Glucose - Point of Care 111 mg/dl (70-99)
[2024-01-04] MEDS: MYCOSTATIN ORAL SUSPENSION PO (14:26)
[2024-01-04 17:27] LABS: Glucose - Point of Care 94 mg/dl (70-99)
--- NOTE | 2024-01-04 20:00 | PTCARENOTE ---
Patient received in bed, AAOx3, WHITLOCK, soft spoken. NSR on monitor, blood pressure as documented. Palpable pulses, no edema noted. Lungs coarse, pulse ox 97% on room air. Abdomen obese with positive bowel sounds. Purewick draining cloudy yellow
urine. Right groin wound vac maintained. Right upper arm midline flushed and patent. Bed bath given
[2024-01-04] MEDS: COREG 6.25 MG PO (20:06)
[2024-01-04] MEDS: ENTRESTO 97 MG/103 MG 1 TAB PO (20:06)
[2024-01-04] MEDS: MELATONIN 3 MG PO (21:12)
[2024-01-04 21:19] LABS: Glucose - Point of Care 93 mg/dl (70-99)
[2024-01-05] VITALS (14 sets, daily range): BP systolic 86–134; BP diastolic 50–92; BMI 26.1
[2024-01-05] MEDS: SYNTHROID 125 MCG PO (04:48)
[2024-01-05 05:22] LABS: INR 3.28; PT 33.4 Sec (11.4-14.6)
--- NOTE | 2024-01-05 07:17 | W.PN.HOSP.TC ---
Today's Communication/Plan
-
albumin bolus
potassium repletion
discharge planning Acute Rehab Tomorrow
Consider restart home Coumadin if INR continues downtrend
Assessment / Plan
Assessment / Plan
Physical Exam
General: no acute distress appears comfortable at this time, diffuse anasarca swollen upper and lower ext's
HEENT: NormoCephalic, Moist mucous membranes and Atraumatic, oral thrush noted on tongue
Respiratory: Clear to auscultation b/l
Cardiac: S1/S2 and Regular Rhythm; No Murmur or Rub
GI: Soft, Non Tender, Non Distended and Normal Bowel Sounds; No Organomegaly
Musculoskeletal: No Clubbing, No Cyanosis and No Edema
Neuro: AOx3
HPI 78F HTN, HLD, hypothyroidism, epilepsy, chronic elevated liver enzymes, STEMI presents as transfer from [place] because her family lives near [place] and cannot travel to [place] regularly. Originally presented here to [place] 12/02 with chest
pain. Inferiolateral STEMI, brought to Airline Reservationist in cardiogenic shock, started on pressors. Cath further complicated with bradycardia requiring atropine as well as atrial fibrillation/flutter and VT/VF, shocked multiple times. Intubated and Impella
placed. She underwent 4 stents in the RCA. Postoperatively patient developed hemorrhage from the right groin Impella site with significant anemia. Vascular surgery performed cutdown exposure of right femoral vessels and repair of right
superficial femoral artery bleeding- required multiple transfusions. Patient was transferred to [place] for higher level of care possible benefit Rpella. While at [place] she was treated for multi pressor shock RV dysfunction pericardial effusion.
Impella since removed. Patient developed ventilator associated pneumonia treatment with IV antibiotics completed per reports. She was extubated on 12/15. Left lower extremity DVT was found and patient was started on heparin drip because NOACs
interacted with her sz medication phenytoin.
#Hypotension Bradycardia overnight
received prn albumin boluses x3
aldactone and coreg doses reduced
# Inferior STEMI secondary to RCA occlusion status post PATRICIA x 5
# LAD chronic total occlusion
# Moderately dilated RV with decreased RV function
# Ischemic cardiomyopathy with EF of 50-55%
#hx V-fib arrest status post multiple shocks
#Hx PEA arrest
- Entresto
- Aldactone reduced to 12.5 d/t hypotension
-metoprolol switched to Coreg titrated up to 12.5 mg BID, later reduced back to 6.25 d/t overnight hypotension and bradycardia
-Continue Plavix 75 mg daily
-Compression stockings
-Cardiology consult appreciated
�SGLT2I
-Repeat ECHO in 90 days for ICD eval
#01/01 Oral thrush
Nystatin swish started, continue planned 7 days (last day 01/08/24)
Bradycardia status post transvenous pacemaker
-Previously Resolved re-occurring overnight <55
-Coreg since reduced to 6.25
Left lower extremity DVT
-hep gtt briefly placed on hold 12/21 due to drop in hgb <7, since improved
-Therapeutic INR 2-3, hep gtt since discontinued
-Coumadin on hold INR>3
-Daily INR supratherapeutic but trending down
-considering restart home coumadin 2.5 01/05 if INR continues downtrend
Acute blood loss anemia
� No clear source although possible dilutional (all cell lines down)
-B12 folate wnl
-Iron level wnl
-mild deficient transferrin saturation
-responded well to 2PRBC transfusion
-H&H since stable/improving
Mild Hypokalemia
Repleted
Multifocal ventilator associated pneumonia
-Sputum grew MSSA/Serratia
-Completed antibiotics
-weaned off oxygen supplementation
Leukocytosis resolved
Essential hypertension
-cont Entresto Aldactone Coreg [correction to prior documentation]
Femoral artery repair
Hemorrhagic shock
Superficial femoral artery bleeding status post Impella with subsequent removal
-Received 4 units of blood here initially
-Patient reportedly had an episode of coffee-ground emesis which had since resolved
-Consult vascular surgery appreciated
-wound vac placed
12/31 developed new small wound just distal to R groin wound approx 2.2cm depth.
-wound care packing sinus tract with 1/4 inch iodoform gauze packing with each vac dressing change as per vascular recommendations
Toxic metabolic encephalopathy/deconditioning/ICU delirium
Hallucination
-She underwent EEG which showed diffuse slowing
-Was treated with thiamine
-Was started on Seroquel for agitation. Patient however has since significantly improved. Seroquel converted to prn, patient has not required so far.
-PT recommended acute rehab
-Psych eval appreciated
-CT head no acute abn's
Transaminitis
-ctm
-most likely 2/2 to recent hepatic injury
-bilis wnl
Dysphagia with nasogastric tube
Malnutrition
-Registered Diet Technician consult appreciated
-Speech eval appreciated VSE - failed 12/23 repeat 12/29 however noted improvement. NGT discontinued 12/30. Diet gradually advanced from pureed to minced/moist w/ nectar thick liquids tolerating well
ENT eval appreciated
-dysphagia likely multifactorial related to prolonged intubation, presence NG tube, and advanced age
-noted bilateral serous otitis media w/o infection
-patient anticipated to improve spontaneously both in hearing and swallowing- likely will take some time. Outpt follow up recommended
History of epilepsy
-Continue phenytoin 100 mg 3 times daily
-Outpatient neurology follow-up
Reported Cholestatic liver injury
-appears resolved at this time
Incidental endometrial thickening
-Outpatient transvaginal ultrasound
Hypothyroidism
-cont synthroid
Likely severe malnutrition due to acute illness
>5% weight loss in 1 month
anasarca
-cont nutrition support
PT/OT and PMR eval appreciated Acute Rehab
Full code
DVT prophylaxis�Supratherapeutic INR, consider restart home coumadin 2.5 mg 01/05 if INR continues downtrend
GI ppx PPI
Discussed with patient and patient's Rodrigo
I spent a total of 40 minutes with the patient or on the floor. More than 50% of this time involved counseling and coordination of care.
Anticipated Discharge: Within 24 hours
Subjective/Interval History
-
Date of Service: January 05, 2024
No acute distress appears comfortable at this time. Hearing continues to improve on a daily basis.
Objective Data
-
Labs:
Laboratory Results
01/05/24
04:46
PT 33.4 H
INR 3.28
Vital Signs:
Vital Signs
Temp Pulse Resp BP Pulse Ox
98.4 F 66 21 86/61 97
01/05/24 04:42 01/05/24 06:00 01/05/24 06:00 01/05/24 06:00 01/05/24 06:00
I&O
01/04/24 01/05/24 01/06/24
06:59 06:59 06:59
Intake Total 580 / 580
Output Total 850 / 850 1825 / 1825
Balance -270 / -270 -1825 / -1825
[2024-01-05] MEDS: FARXIGA 10 MG PO (07:49)
[2024-01-05] MEDS: PREVACID 30 MG PO (07:49)
[2024-01-05] MEDS: LIPITOR 40 MG PO (07:49)
[2024-01-05] MEDS: MYCOSTATIN ORAL SUSPENSION 5 ML PO ×4 (07:49→20:56)
[2024-01-05] MEDS: ALDACTONE PO (07:50)
[2024-01-05] MEDS: ENTRESTO 97 MG/103 MG PO (07:50)
[2024-01-05] MEDS: COREG PO (07:50)
[2024-01-05] MEDS: PLAVIX 75 MG PO (07:51)
[2024-01-05] MEDS: ROBITUSSIN 200 MG PO ×4 (07:51→20:54)
[2024-01-05] MEDS: DILANTIN ORAL SUSP 100 MG PO ×3 (07:55→20:56)
[2024-01-05 07:58] LABS: Glucose - Point of Care 104 mg/dl (70-99)
[2024-01-05] MEDS: FLEXBUMIN 100 IV (09:30)
--- NOTE | 2024-01-05 09:51 | CM ---
Pending physician communication plan is for transfer to [facility] when medically appropriate. patient may need updated auth and confirmation about bed availability. CM will continue to follow for discharge planning.
Plan; [facility] when medically appropriate, will need updated auth and confirmation of bed.
[2024-01-05 09:55] LABS: ALT (SGPT) 66 U/L (0-35); AST (SGOT) 90 U/L (14-36); Albumin 2.9 g/dl (3.5-5.0); Alkaline Phosphatase 114 U/L (38-126); Blood Urea Nitrogen 8 mg/dl (7-17); Calcium 8.4 mg/dl (8.4-10.2); Carbon Dioxide 20 mmol/L (22-30); Chloride 107 mmol/L (98-107); Estimated Creatinine Clearance 72 ml/min; Glucose 119 mg/dl (70-99); Potassium 3.3 mmol/L (3.5-5.1); Sodium 139 mmol/L (135-145); Total Bilirubin 0.6 mg/dl (0.2-1.3); eGFR > 60.00
[2024-01-05 12:26] LABS: Glucose - Point of Care 97 mg/dl (70-99)
[2024-01-05] MEDS: KCL 40 MEQ PO (16:52)
[2024-01-05] MEDS: COREG 6.25 MG PO (20:53)
[2024-01-05] MEDS: ENTRESTO 97 MG/103 MG 1 TAB PO (20:54)
[2024-01-05] MEDS: MELATONIN 3 MG PO (20:57)
[2024-01-05 22:33] LABS: Glucose - Point of Care 113 mg/dl (70-99)
[2024-01-06] VITALS (20 sets, daily range): BP systolic 93–127; BP diastolic 44–106; PULSE 66–72; O2SAT 97–98; BMI 26.1
[2024-01-06] MEDS: SYNTHROID 125 MCG PO (04:42)
[2024-01-06 05:25] LABS: INR 2.97; PT 30.8 Sec (11.4-14.6)
--- NOTE | 2024-01-06 05:40 | PTCARENOTE ---
Assumed care of patient at shift change; Pt resting comfortably in bed. Denies pain; AAO x 3; VSS; NSR on monitor; Wound vac in place and working properly. Reviewed wound care dressing with patient. Pt reported feeling scared about
transferring to [place] - emotional support given. Will continue to monitor and assess.
[2024-01-06] MEDS: ENTRESTO 97 MG/103 MG 1 TAB PO (08:41)
[2024-01-06] MEDS: MYCOSTATIN ORAL SUSPENSION 5 ML PO ×2 (08:41→12:19)
[2024-01-06] MEDS: PREVACID 30 MG PO (08:44)
[2024-01-06] MEDS: COREG 6.25 MG PO (08:44)
[2024-01-06] MEDS: ROBITUSSIN 200 MG PO ×2 (08:44→12:19)
[2024-01-06] MEDS: FARXIGA 10 MG PO (08:46)
[2024-01-06 08:47] LABS: Glucose - Point of Care 105 mg/dl (70-99)
[2024-01-06] MEDS: LIPITOR 40 MG PO (08:47)
[2024-01-06] MEDS: PLAVIX 75 MG PO (08:47)
[2024-01-06] MEDS: ALDACTONE 12.5 MG PO (08:49)
[2024-01-06] MEDS: DILANTIN ORAL SUSP 100 MG PO ×3 (09:27→15:36)
--- NOTE | 2024-01-06 10:41 | WOUNDNOTE ---
WOC RN note: Spoke with KAITLYNN Snider who is aware to remove R groin vac dressing/packing and apply saline gauze dressing for transfer to [facility] today. Agatha stated she will contact this grant writer if plans change.
[2024-01-06 12:23] LABS: Glucose - Point of Care 135 mg/dl (70-99)
--- NOTE | 2024-01-06 12:36 | PTCARENOTE ---
Patient is out of bed to chair, continent of bowel today. Bowel and bladder program in affect, toileted twice so far this shift. Patient is denying pain when asked. Plan is for [facility] transfer. Plan of care discussed with patient and . Wound
vac treatment continues to right groin.
--- NOTE | 2024-01-06 13:41 | W.PN.HOSP.TC ---
Today's Communication/Plan
-
DC to rehab
Coumadin initation
F/u PCP, Vascular, ENT, Cardiology, neurology outpatient
Cardiac meds on dc
monitor BPs on cardiac meds
monitor for bleeding, infection
Assessment / Plan
Assessment / Plan
Physical Exam
General: no acute distress appears comfortable at this time, diffuse anasarca swollen upper and lower ext's
HEENT: NormoCephalic, Moist mucous membranes and Atraumatic, oral thrush noted on tongue
Respiratory: Clear to auscultation b/l
Cardiac: S1/S2 and Regular Rhythm; No Murmur or Rub
GI: Soft, Non Tender, Non Distended and Normal Bowel Sounds; No Organomegaly
Musculoskeletal: No Clubbing, No Cyanosis and No Edema
Neuro: AOx3
HPI 78F HTN, HLD, hypothyroidism, epilepsy, chronic elevated liver enzymes, STEMI presents as transfer from [place] because her family lives near [place] and cannot travel to [place] regularly. Originally presented here to [place] 12/02 with chest
pain. Inferiolateral STEMI, brought to Nursing Educator in cardiogenic shock, started on pressors. Cath further complicated with bradycardia requiring atropine as well as atrial fibrillation/flutter and VT/VF, shocked multiple times. Intubated and Impella
placed. She underwent 4 stents in the RCA. Postoperatively patient developed hemorrhage from the right groin Impella site with significant anemia. Vascular surgery performed cutdown exposure of right femoral vessels and repair of right
superficial femoral artery bleeding- required multiple transfusions. Patient was transferred to [place] for higher level of care possible benefit Rpella. While at [place] she was treated for multi pressor shock RV dysfunction pericardial effusion.
Impella since removed. Patient developed ventilator associated pneumonia treatment with IV antibiotics completed per reports. She was extubated on 12/15. Left lower extremity DVT was found and patient was started on heparin drip because NOACs
interacted with her sz medication phenytoin.
# Inferior STEMI secondary to RCA occlusion status post PATRICIA x 5
# LAD chronic total occlusion
# Moderately dilated RV with decreased RV function
# Ischemic cardiomyopathy with EF of 50-55%
#hx V-fib arrest status post multiple shocks
#Hx PEA arrest
- Entresto
- Aldactone reduced to 12.5 d/t hypotension
-metoprolol switched to Coreg titrated up to 12.5 mg BID, later reduced back to 6.25 d/t overnight hypotension and bradycardia
-Continue Plavix 75 mg daily
-Compression stockings
-Cardiology consult appreciated
�SGLT2I
-Repeat ECHO in 90 days for ICD eval
-F/u cardiology outpatient
#01/01 Oral thrush
Nystatin swish started, continue planned 7 days (last day 01/08/24)
Bradycardia status post transvenous pacemaker
-Coreg since reduced to 6.25
-F/u cards outpatient
Left lower extremity DVT
-hep gtt briefly placed on hold 12/21 due to drop in hgb <7, since improved
-Therapeutic INR 2-3, hep gtt since discontinued
-can restart coumadin, monitor INR
Acute blood loss anemia
� No clear source although possible dilutional
-B12 folate wnl
-Iron level wnl
-mild deficient transferrin saturation
-responded well to 2PRBC transfusion
-H&H since stable/improving
Mild Hypokalemia
Repleted
Multifocal ventilator associated pneumonia
-Sputum grew MSSA/Serratia
-Completed antibiotics
-weaned off oxygen supplementation
Leukocytosis resolved
Essential hypertension
-cont Entresto Aldactone Coreg [correction to prior documentation]
Femoral artery repair
Hemorrhagic shock
Superficial femoral artery bleeding status post Impella with subsequent removal
-Received 4 units of blood here initially
-Patient reportedly had an episode of coffee-ground emesis which had since resolved
-Consult vascular surgery appreciated
-wound vac placed
12/31 developed new small wound just distal to R groin wound approx 2.2cm depth.
-wound care packing sinus tract with 1/4 inch iodoform gauze packing with each vac dressing change as per vascular recommendations
-f/u vascular outpatient
Toxic metabolic encephalopathy/deconditioning/ICU delirium
Hallucination
-She underwent EEG which showed diffuse slowing
-Was treated with thiamine
-Was started on Seroquel for agitation. Patient however has since significantly improved. Seroquel converted to prn, patient has not required so far.
-PT recommended acute rehab
-Psych eval appreciated
-CT head no acute abn's
Transaminitis
-ctm
-most likely 2/2 to recent hepatic injury
-bilis wnl
Dysphagia with nasogastric tube
Malnutrition
-Screw Machine Operator consult appreciated
-Speech eval appreciated VSE - failed 12/23 repeat 12/29 however noted improvement. NGT discontinued 12/30. Diet gradually advanced from pureed to minced/moist w/ nectar thick liquids tolerating well
ENT eval appreciated
-dysphagia likely multifactorial related to prolonged intubation, presence NG tube, and advanced age
-noted bilateral serous otitis media w/o infection
-patient anticipated to improve spontaneously both in hearing and swallowing- likely will take some time. Outpt follow up recommended
-serous otitis media resolving
-should see patient in office after discharge to evaluate with hearing test
History of epilepsy
-Continue phenytoin 100 mg 3 times daily
-Outpatient neurology follow-up
Incidental endometrial thickening
-Outpatient transvaginal ultrasound
Hypothyroidism
-cont synthroid
Likely severe malnutrition due to acute illness
>5% weight loss in 1 month
anasarca
-cont nutrition support
PT/OT and PMR eval appreciated Acute Rehab
Full code
DVT prophylaxis�Coumadin, most likely can restart coumadin today v tomorrow; close INR monitoring;
GI ppx PPI
Discussed with patient and patient's Rodrigo
More than 30 minutes spent in discharge including
Final examination of the patient
Summarizing hospital stay
Instructions for continuing care to all relevant caregivers
Preparation of discharge records, prescriptions, and referral forms
Total time spent (35 in minutes):
Anticipated Discharge: Today
Subjective/Interval History
-
Date of Service: January 06, 2024
No acute events, tolerating diet well. AAOx3
Objective Data
-
Labs:
Laboratory Results
01/06/24 01/06/24
04:40 13:39
WBC Pending
Hgb Pending
Hct Pending
Plt Count Pending
PT 30.8 H
INR 2.97
Sodium Pending
Potassium Pending
Chloride Pending
Carbon Dioxide Pending
BUN Pending
Creatinine Pending
Glucose Pending
Calcium Pending
Total Bilirubin Pending
AST Pending
ALT Pending
Alkaline Phosphatase Pending
Vital Signs:
Vital Signs
Temp Pulse Resp BP Pulse Ox
98.0 F 70 22 117/60 97
01/06/24 11:34 01/06/24 08:49 01/06/24 08:42 01/06/24 08:49 01/06/24 10:05
I&O
01/05/24 01/06/24 01/07/24
06:59 06:59 06:59
Intake Total 100 / 100
Output Total 1825 / 1825 500 / 500
Balance -1825 / -1825 -500 / -500 100 / 100
Review of Systems
-
History Source: Patient
All other systems: Not reviewed unless documented
Data Reviewed
-
CT Scan: Image personally visualized and interpreted and Report Reviewed by me
Medical Tests (Nuc Med, Echo etc): Report Reviewed by me
Labs: Labs Reviewed by me
[2024-01-06 13:50] LABS: Hematocrit 35.5 % (37.0-47.0); Hemoglobin 11.6 g/dL (12.0-16.0); Mean Corp Hgb Conc. 32.7 g/dL (33.0-37.0); Mean Corpuscular Hgb 31.9 pg (27.0-31.0); Mean Corpuscular Volume 97.5 fL (81.0-99.0); Mean Platelet Volume 10.3 fL (7.4-10.4); Platelet Count 303 10^3/uL (130-400); Red Blood Cell Count 3.64 10^6/uL (4.20-5.40); Red Cell Dist. Width 19.2 % (11.5-14.5); White Blood Cell Count 7.8 10^3/uL (4.8-10.8)
--- NOTE | 2024-01-06 13:50 | W.DS.TRANS ---
DC Summary - Furnace Unloader
-
Discharge Instructions:
Discharge Diagnosis/Procedures Inferior STEMI secondary to RCA occlusion status
post PATRICIA x 5
LAD chronic total occlusion
Heart Failure with Reduced Ejection Fraction
History V-fib arrest status post multiple shocks
History PEA arrest
Oral thrush
Left lower extremity DVT
Acute blood loss anemia
Ventilator associated pneumonia
Essential hypertension
Femoral artery repair
Hemorrhagic shock
Toxic metabolic encephalopathy/deconditioning/
ICU delirium/Hallucination
Chronic mild Transaminitis possibly due to
phenytoin for Epilepsy
Severe Malnutrition due to acute illness
Incidental endometrial thickening Outpatient
transvaginal ultrasound recommended
Hypothyroidism
Diet Other diet
Additional Diets Mince moist diet with nectar thick fluids
Activity As tolerated,With Walker,With assistance
Driving Restrictions Not until seen by your Dr
Blood Work Check CBC CMP in 3-5 days; F/u INR in 1 day of
discharge
Others Tests Incidental endometrial thickening Outpatient
transvaginal ultrasound recommended
Other Services PT,OT,ST
Instructions:
Stand-Alone Forms:
Changes to Home Medications: Yes
Discharge Medications:
DC Medications w/original date entered in [facility]
atorvastatin 40 mg tablet (Lipitor) 40 mg PO DAILY High Cholesterol 12/03/23
levothyroxine 125 mcg tablet (Synthroid) 125 mcg PO DAILY Thyroid 12/03/23
clopidogrel 75 mg tablet 75 mg PO DAILY Blood Clot Prevention/Tx 12/20/23
lansoprazole 30 mg delayed release,disintegrating tablet 30 mg PO DAILY GERD 12/20/23
metoprolol tartrate 25 mg tablet 12.5 mg PO Q6H Blood Pressure 12/20/23
phenytoin 125 mg/5 mL oral suspension 100 mg PO Q48H Seizures 12/20/23
phenytoin 125 mg/5 mL oral suspension 100 mg PO TID Seizures 12/20/23
warfarin 2.5 mg tablet 2.5 mg PO DAILY Blood Clot Prevention/Tx 12/20/23
carvedilol 6.25 mg tablet 6.25 mg PO BID 30 days #0 tabs 01/06/24
dapagliflozin propanediol 10 mg tablet 10 mg PO DAILY 30 days #0 tabs 01/06/24
melatonin 3 mg tablet 3 mg PO HSPRN PRN Sleep #0 tabs 01/06/24
nystatin 100,000 unit/mL oral suspension 5 ml PO QID #0 mL 01/06/24
sacubitril 97 mg-valsartan 103 mg tablet (Entresto) 1 tab PO BID 30 days #0 tabs 01/06/24
spironolactone 25 mg tablet 12.5 mg (1/2 x 25 mg) PO DAILY 30 days #0 tabs 01/06/24
Home Medication Changes
warfarin 2.5 mg tablet 2.5 mg PO DAILY Blood Clot Prevention/Tx 12/20/23
carvedilol 6.25 mg tablet 6.25 mg PO BID 30 days #0 tabs 01/06/24
dapagliflozin propanediol 10 mg tablet 10 mg PO DAILY 30 days #0 tabs 01/06/24
melatonin 3 mg tablet 3 mg PO HSPRN PRN Sleep #0 tabs 01/06/24
nystatin 100,000 unit/mL oral suspension 5 ml PO QID #0 mL 01/06/24
sacubitril 97 mg-valsartan 103 mg tablet (Entresto) 1 tab PO BID 30 days #0 tabs 01/06/24
spironolactone 25 mg tablet 12.5 mg (1/2 x 25 mg) PO DAILY 30 days #0 tabs 01/06/24
Pending Results: No
[2024-01-06 14:28] LABS: ALT (SGPT) 85 U/L (0-35); AST (SGOT) 129 U/L (14-36); Albumin 3.4 g/dl (3.5-5.0); Alkaline Phosphatase 141 U/L (38-126); Blood Urea Nitrogen 8 mg/dl (7-17); Calcium 8.9 mg/dl (8.4-10.2); Carbon Dioxide 17 mmol/L (22-30); Chloride 110 mmol/L (98-107); Estimated Creatinine Clearance 72 ml/min; Glucose 134 mg/dl (70-99); Potassium 3.8 mmol/L (3.5-5.1); Sodium 141 mmol/L (135-145); Total Bilirubin 0.6 mg/dl (0.2-1.3); Total Protein 6.6 g/dl (6.3-8.2); eGFR > 60.00
--- NOTE | 2024-01-06 15:05 | CM ---
Patient who was transferred back from [facility] with Dx Inferior STEMI, LLE DVT, anemia, right groin wound, TME, dysphagia. Room air. PT & OT recommend skilled rehab.
Spoke with [facility]; they are able to accept the patient today. Guzman is aware that insurance auth is valid until tomorrow, however she wanted to get auth dates extended, so she contacted patient's insurance and obtained updated auth
dates: 01/05 to 01/09. The for report [phone], fax [phone].
Met with patient who agrees to [facility] today and says her is also aware she is going to acute rehab today. IMM completed.
Plan [facility] today.
--- NOTE | 2024-01-06 15:47 | PTCARENOTE ---
Report given to Terri CALDERÓN at [facility] for transfer. Wound vac removed as per wound care teams order and wet to dry packing completed. Wound vac to be reapplied at [facility]. Patient and are aware of transfer and excited.
--- NOTE | 2024-01-06 15:51 | PTCARENOTE ---
Patients 1600 Dilantin dose administered, Terri CALDERÓN [facility] updated.
--- NOTE | 2024-01-06 16:03 | VATNOTE ---
Midline D/C'd with no issues. TCL retrieved was 10cm. Pressure dressing applied.
--- NOTE | 2024-01-06 16:58 | WOUNDNOTE ---
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
== END 2024-01-06 16:20 | DRG 280 ==
LOC: IMU 18:42
PROVIDERS: Internal Medicine; Student in an Organized Health Care Education/Training Program; ADMITTING PHYSICIAN Hospitalist; ATTENDING PHYSICIAN Internal Medicine; CONSULT PHYSICIAN Internal Medicine Cardiovascular Disease; CONSULT PHYSICIAN Otolaryngology Facial Plastic Surgery; CONSULT PHYSICIAN Physical Medicine & Rehabilitation; CONSULT PHYSICIAN Surgery Vascular Surgery
DX: I21.19 ST elevation (STEMI) myocardial infarction involving other coronary artery of inferior wall (principal); E43 Unspecified severe protein-calorie malnutrition; G92.8 Other toxic encephalopathy; D62 Acute posthemorrhagic anemia; I82.402 Acute embolism and thrombosis of unspecified deep veins of left lower extremity; F05 Delirium due to known physiological condition; J98.11 Atelectasis; B37.0 Candidal stomatitis; I25.10 Atherosclerotic heart disease of native coronary artery without angina pectoris; I11.0 Hypertensive heart disease with heart failure; I50.9 Heart failure, unspecified; E03.9 Hypothyroidism, unspecified; R93.89 Abnormal findings on diagnostic imaging of other specified body structures; I25.5 Ischemic cardiomyopathy; K71.0 Toxic liver disease with cholestasis; Z95.5 Presence of coronary angioplasty implant and graft; Z79.02 Long term (current) use of antithrombotics/antiplatelets
CPT/HCPCS: 93308; 70450; 71045; 74230; 80048; 80053; 82607; 82746; 82962; 83540; 83550; 83735; 84100; 85014; 85018; 85025; 85027; 85610; 85730; 86850; 86900; 86901; 86920; 87070; 92507; 92523; 92526; 92610; 92611; 93005; 93321; 93325; 94640; 97110; 97116; 97163; 97167; 97530; 97535; P9016; P9047

== ENCOUNTER → 2024-01-24 06:49 | Outpatient (REF) | payer OTHER, SELFPAY ==
[2024-01-24 07:36] LABS: % Basophils 0.4 % (0-2); % Eosinophils 3.7 % (0-6); % Immature Granulocytes 0.2 % (0-0.5); % Lymphocytes 21.6 % (20.5-51.1); % Neutrophils 60.1 % (42.2-75.2); Absolute Eosinophils 0.2 10^3/uL (0-0.7); Absolute Lymphocytes 1.1 10^3/uL (1.2-3.4); Absolute Monocytes 0.7 10^3/uL (0.1-0.6); Absolute Neutrophils 2.9 10^3/uL (1.4-6.5); Hematocrit 31.7 % (37.0-47.0); Hemoglobin 10.4 g/dL (12.0-16.0); Mean Corp Hgb Conc. 32.8 g/dL (33.0-37.0); Mean Corpuscular Hgb 32.9 pg (27.0-31.0); Mean Corpuscular Volume 100.3 fL (81.0-99.0); Mean Platelet Volume 10.2 fL (7.4-10.4); Nucleated Red Blood Cells % 0 %; Platelet Count 244 10^3/uL (130-400); Red Blood Cell Count 3.16 10^6/uL (4.20-5.40); Red Cell Dist. Width 17.1 % (11.5-14.5); White Blood Cell Count 4.9 10^3/uL (4.8-10.8)
[2024-01-24 07:54] LABS: INR 2.87
[2024-01-24 08:49] LABS: Free T4 1.27 ng/dl (0.78-2.19)
[2024-01-24 09:13] LABS: Blood Urea Nitrogen 9 mg/dl (7-17); Calcium 8.8 mg/dl (8.4-10.2); Carbon Dioxide 24 mmol/L (22-30); Chloride 105 mmol/L (98-107); Glucose 92 mg/dl (70-99); Potassium 3.9 mmol/L (3.5-5.1); Sodium 142 mmol/L (135-145); eGFR > 60.00
== END ==
LOC: REG 06:49
PROVIDERS: ATTENDING PHYSICIAN Physician Assistant
DX: D64.9 Anemia, unspecified (principal); D68.318 Other hemorrhagic disorder due to intrinsic circulating anticoagulants, antibodies, or inhibitors; I25.2 Old myocardial infarction
CPT/HCPCS: 36415; 80048; 84439; 84443; 85025; 85610

== ENCOUNTER 2024-01-29 09:56 | Emergency (ER) | payer OTHER, SELFPAY ==
--- NOTE | 2024-01-29 10:14 | ED.GENMED ---
ED Provider Triage
<Young Hills PA-C - Last Filed: 01/29/24 10:19>
-
Patient seen by provider in Triage?: Seen in Triage
78-year-old female presents in referral from family doctor's office for vitamin K shot. She has been on Coumadin and her INR was elevated today. She was advised to come here for vitamin K.
Patient denies active bleeding. She had a myocardial infarction 2 months ago and was just recently discharged from rehab.
Sent in by family doctor
INR this morning 7.21 most recent one 5 days ago was 2.8. Will recheck INR to ensure accuracy. Vital signs are stable.
Recommended she need further assessment and evaluation
History of Present Illness
<Young Hills PA-C - Last Filed: 01/29/24 10:19>
General
Chief Complaint: Abnormal Lab Value
Time Seen by Provider: 01/29/24 11:01
<Jose Sommers DO - Last Filed: 01/29/24 12:38>
General
Source: patient
Exam Limitations: none
History of Present Illness
History of Present Illness:
See MDM
Past History
<Young Hills PA-C - Last Filed: 01/29/24 10:19>
Past History
ED Past Medical History: HTN and Hypercholesterolemia
ED Past Surgical History: Other (Cataracts bilateral)
Social History
Tobacco: Non-smoker
Alcohol: None
Drug: None
Personal:
Living: with family
Phy Exam
<Jose Sommers DO - Last Filed: 01/29/24 12:38>
Physical Exam
Physical Exam:
See MDM
Course
<Young Hills PA-C - Last Filed: 01/29/24 10:19>
Orders/Labs/Results
Orders:
Orders
01/29/24 11:25
Basic Metabolic Panel Urgent
Complete Blood Count/With Diff Urgent
Prothrombin Time Urgent
01/29/24 12:31
Phytonadione [Mephyton] 2.5 mg PO NOW STA
Abnormal Lab Results
01/29/24
11:25
RBC 3.43 L 10^6/uL
(4.20-5.40)
Hgb 10.8 L g/dL
(12.0-16.0)
Hct 32.7 L %
(37.0-47.0)
MCH 31.5 H pg
(27.0-31.0)
RDW 16.7 H %
(11.5-14.5)
Absolute Monos (auto) 0.8 H 10^3/uL
(0.1-0.6)
Monocytes % 13.7 H %
(1.7-9.3)
Eosinophils % 7.0 H %
(0-6)
PT 66.1 H Sec
(11.4-14.6)
INR 7.61 H*
01/29/24 11:25
01/29/24 11:25
Vital Signs
Initial and Last Documented VS:
Initial Vital Signs
Temp Pulse Resp BP Pulse Ox
98.2 F 65 18 133/77 99
01/29/24 10:15 01/29/24 10:15 01/29/24 10:15 01/29/24 10:15 01/29/24 10:15
Last Documented Vital Signs
Temp Pulse Resp BP Pulse Ox
98.2 F 65 18 133/77 99
01/29/24 10:15 01/29/24 10:15 01/29/24 10:15 01/29/24 10:15 01/29/24 10:15
<Jose Sommers, DO - Last Filed: 01/29/24 12:38>
Orders/Labs/Results
Orders:
Orders
01/29/24 11:25
Basic Metabolic Panel Urgent
Complete Blood Count/With Diff Urgent
Prothrombin Time Urgent
01/29/24 12:31
Phytonadione [Mephyton] 2.5 mg PO NOW STA
Abnormal Lab Results
01/29/24
11:25
RBC 3.43 L 10^6/uL
(4.20-5.40)
Hgb 10.8 L g/dL
(12.0-16.0)
Hct 32.7 L %
(37.0-47.0)
MCH 31.5 H pg
(27.0-31.0)
RDW 16.7 H %
(11.5-14.5)
Absolute Monos (auto) 0.8 H 10^3/uL
(0.1-0.6)
Monocytes % 13.7 H %
(1.7-9.3)
Eosinophils % 7.0 H %
(0-6)
PT 66.1 H Sec
(11.4-14.6)
INR 7.61 H*
01/29/24 11:25
01/29/24 11:25
Vital Signs
Initial and Last Documented VS:
Initial Vital Signs
Temp Pulse Resp BP Pulse Ox
98.2 F 65 18 133/77 99
01/29/24 10:15 01/29/24 10:15 01/29/24 10:15 01/29/24 10:15 01/29/24 10:15
Last Documented Vital Signs
Temp Pulse Resp BP Pulse Ox
98.2 F 65 18 133/77 99
01/29/24 10:15 01/29/24 10:15 01/29/24 10:15 01/29/24 10:15 01/29/24 10:15
<Jose Sommers, DO - Last Filed: 01/29/24 12:38>
MDM/Problems Addressed
Differential Diagnosis Includes:
HPI and MDM Narrative:
78-year-old female presenting to the emergency department for evaluation of elevated INR. Patient recently had an AL requiring cardiac stent. INR was checked as an outpatient which was elevated at 7.1. Patient offers no complaint and denies any
bleeding issues. Will repeat INR to assess for lab error
Prior records indicate that she is on warfarin due to a left extremity DVT. Because of phenytoin, Eliquis use was not an option
Physical exam
General: Well appearing and non-toxic
HEENT: protecting airway
Neck: appears supple
CV: No evidence of cyanosis
Resp: No accessory muscle use
Abd: Non-distended
Extremities: No deformities
Neuro: alert
Psych: Normal affect
Skin: Intact
Problems Addressed including Acute and Chronic Conditions affecting care:
1. Elevated INR
Acuity: acute
Prognosis: stable
Details: Will repeat INR
Updates
INR confirmed elevated at 7.61. On multiple reassessments, there continues to be no episodes of bleeding. Given that the INR is between 4-10 without bleeding, will hold Coumadin dosing for 2 days. However, given the prior history of significant
hemorrhage, will give low-dose oral vitamin K. This was relayed to the PCP
Differential Diagnosis (but not limited to): Lab error, elevated INR
Testing considered: EKG but she denies chest pain shortness of breath
Drug therapy (if applicable): OTC meds, please see d/c instruction regarding Rx drugs
Amount and/or Complexity of Data Reviewed
Clinical info obtained from: Patient
External data reviewed: N/A
Labs I independently reviewed (but not limited to): Elevated INR
Radiology: N/A
Pulse Ox: not hypoxic
EKG independently reviewed: N/A
Assembler Final: N/A
Critical Care: N/A
Risk of Complication:
Social Determinants of health: Good social support
Discussed with other providers: N/A
Escalation of Care includes Admit/Obs: After being observed in the Emergency Department, pt stable for discharge.
Occasional wrong word or 'sound a like' substitutions may have occurred due to the inherent limitations of voice recognition software. Read the chart carefully and recognize, using context, where substitutions have occurred.
<Jose Sommers DO - Last Filed: 01/29/24 12:38>
*Critical Care Note
Total Time (30-74mins, 75-104mins- exclusive of procedures): Not Applicable
ED Attending Note
<Young Hills PA-C - Last Filed: 01/29/24 10:19>
-
Portions of this chart may have been created with voice recognition software.� Occasional wrong word or��sound alike� substitutions may have occurred due to the inherent limitations of voice recognition software.
Discharge Plan
Departure
Patient Disposition: Home (Routine Discharge)
Date of Disposition: 01/29/24
Time of Disposition: 12:34
Patient with high blood pressure during this ER visit?: No
Discharge Problem:
Supratherapeutic INR
Prescriptions:
No Action
atorvastatin [Lipitor] 40 mg Tablet
40 mg PO DAILY
levothyroxine [Synthroid] 125 mcg Tablet
125 mcg PO DAILY
clopidogrel 75 mg Tablet
75 mg PO DAILY
phenytoin 125 mg/5 mL Suspension
100 mg PO Q48H
Rx Instructions:
a total of 300mg and 400mg alternating days.
lidocaine 4 % Adhesive Patch,Medicated
1 patch topical DAILY 30 Days Qty: 30 0RF
polyethylene glycol 3350 [HealthyLax] 17 gram Powder In Packet
17 g PO DAILY 30 Days Qty: 100 0RF
gabapentin 100 mg Capsule
100 mg PO BID 30 Days Qty: 60 0RF
valsartan 40 mg Tablet
40 mg PO QPM 30 Days Qty: 30 0RF
melatonin 5 mg Tablet
10 mg PO HS 30 Days Qty: 60 0RF
phenytoin 125 mg/5 mL Suspension
100 mg PO TID 30 Days Qty: 360 0RF
warfarin [Jantoven] 3 mg Tablet
3 mg PO QPM 30 Days Qty: 30 0RF
spironolactone 25 mg Tablet
12.5 mg PO DAILY 30 Days Qty: 15 0RF
lansoprazole 30 mg Tablet,Disintegrat, Delay Rel
30 mg PO DAILY 30 Days Qty: 30 0RF
carvedilol 6.25 mg Tablet
6.25 mg PO BID 30 Days Qty: 30 0RF
Referrals:
Sowmya Miller PA [Family Provider] -
Activity Restrictions/Additional Instructions:
Your warfarin level was confirmed elevated today at 7.61. Due to your prior history of bleeding, you were given a low dose 2.5 mg of oral vitamin K to help lower the level. Do not take your warfarin dose for the next 48 hours. Please have your
level rechecked in 72 hours and please follow-up with your primary care doctor to discuss redosing.
Please return if you develop any evidence of bleeding that is difficult to control.
Interventions
Interventions:
*Risk Screen - Suicide Last Done: 01/29/24 10:15
*General Assessment Last Done: 01/29/24 10:15
*Neglect/Abuse Screening Last Done: 01/29/24 10:15
Discharge Date and Time
Print Language: THAI
[2024-01-29 10:15] VITALS: BP 133/77
[2024-01-29 11:38] LABS: % Basophils 0.7 % (0-2); % Immature Granulocytes 0.3 % (0-0.5); % Lymphocytes 25.5 % (20.5-51.1); % Monocytes 13.7 % (1.7-9.3); % Neutrophils 52.8 % (42.2-75.2); Absolute Eosinophils 0.4 10^3/uL (0-0.7); Absolute Lymphocytes 1.6 10^3/uL (1.2-3.4); Absolute Monocytes 0.8 10^3/uL (0.1-0.6); Absolute Neutrophils 3.2 10^3/uL (1.4-6.5); Hematocrit 32.7 % (37.0-47.0); Hemoglobin 10.8 g/dL (12.0-16.0); Mean Corpuscular Hgb 31.5 pg (27.0-31.0); Mean Corpuscular Volume 95.3 fL (81.0-99.0); Nucleated Red Blood Cells % 0 %; Platelet Count 277 10^3/uL (130-400); Red Blood Cell Count 3.43 10^6/uL (4.20-5.40); Red Cell Dist. Width 16.7 % (11.5-14.5); White Blood Cell Count 6.1 10^3/uL (4.8-10.8)
[2024-01-29 11:53] LABS: Blood Urea Nitrogen 9 mg/dl (7-17); Calcium 8.8 mg/dl (8.4-10.2); Carbon Dioxide 24 mmol/L (22-30); Chloride 107 mmol/L (98-107); Glucose 97 mg/dl (70-99); Sodium 140 mmol/L (135-145); eGFR > 60.00
[2024-01-29 11:56] LABS: PT 66.1 Sec (11.4-14.6)
[2024-01-29 12:11] LABS: INR 7.61
[2024-01-29] MEDS: MEPHYTON 2.5 MG PO (13:06)
== END 2024-01-29 13:23 | disposition home or self-care (01) ==
LOC: EMR 09:56
PROVIDERS: Physician Assistant; EMERGENCY PHYSICIAN Student in an Organized Health Care Education/Training Program; FAMILY PHYSICIAN Physician Assistant
DX: R79.1 Abnormal coagulation profile (principal); E78.00 Pure hypercholesterolemia, unspecified; I10 Essential (primary) hypertension; Z79.01 Long term (current) use of anticoagulants
CPT/HCPCS: 99283; 36415; 80048; 84439; 84443; 85025; 85610

== ENCOUNTER → 2024-02-01 07:15 | Outpatient (REF) | payer OTHER, SELFPAY ==
[2024-02-01 08:17] LABS: PT 17.6 Sec (11.4-14.6)
[2024-02-01 08:21] LABS: INR 1.46
== END ==
LOC: REG 07:15
PROVIDERS: ATTENDING PHYSICIAN Physician Assistant
DX: R79.1 Abnormal coagulation profile (principal)
CPT/HCPCS: 36415; 85610

== ENCOUNTER → 2024-02-13 06:37 | Outpatient (REF) | payer OTHER, SELFPAY ==
[2024-02-13 08:18] LABS: Blood Urea Nitrogen 9 mg/dl (7-17); Calcium 9.2 mg/dl (8.4-10.2); Carbon Dioxide 26 mmol/L (22-30); Chloride 105 mmol/L (98-107); Glucose 91 mg/dl (70-99); Potassium 4.2 mmol/L (3.5-5.1); Sodium 144 mmol/L (135-145); eGFR > 60.00
== END ==
LOC: REG 06:37
PROVIDERS: ATTENDING PHYSICIAN Nurse Practitioner; FAMILY PHYSICIAN Physician Assistant
DX: I25.5 Ischemic cardiomyopathy (principal)
CPT/HCPCS: 36415; 80048

== ENCOUNTER 2024-02-13 10:04 | Outpatient (RCR) | payer OTHER, SELFPAY | END 2024-02-13 23:59 | disposition home or self-care (01) | LOC: RPT 10:04 | PROVIDERS: ATTENDING PHYSICIAN Physical Medicine & Rehabilitation | DX: M62.81 Muscle weakness (generalized) (principal); Z73.6 Limitation of activities due to disability | CPT/HCPCS: 97110; 97112; 97116; 97163; 97167; 97530; 97537 ==

== ENCOUNTER → 2024-03-11 09:59 | Outpatient (REF) | payer OTHER, SELFPAY | LOC: DHVS 09:59 | PROVIDERS: ATTENDING PHYSICIAN Registered Nurse; FAMILY PHYSICIAN Family Medicine | DX: S75.001A Unspecified injury of femoral artery, right leg, initial encounter (principal) | CPT/HCPCS: 93922; 93925 ==

== ENCOUNTER 2024-03-13 07:50 | Outpatient (RCR) | payer OTHER, SELFPAY | END 2024-03-13 23:59 | disposition home or self-care (01) | LOC: RPT 07:50 | PROVIDERS: ATTENDING PHYSICIAN Physical Medicine & Rehabilitation | DX: M62.81 Muscle weakness (generalized) (principal); I51.9 Heart disease, unspecified; Z73.6 Limitation of activities due to disability; J95.851 Ventilator associated pneumonia | CPT/HCPCS: 97110; 97112; 97116; 97530; 97535; 97537 ==

== ENCOUNTER 2024-04-07 10:45 | Outpatient (RCR) | payer OTHER, SELFPAY | END 2024-04-07 12:06 | disposition home or self-care (01) | LOC: RPT 10:45 | PROVIDERS: ATTENDING PHYSICIAN Physical Medicine & Rehabilitation | DX: M62.81 Muscle weakness (generalized) (principal); I51.9 Heart disease, unspecified; J95.851 Ventilator associated pneumonia; Z73.6 Limitation of activities due to disability | CPT/HCPCS: 97110; 97112; 97116; 97530; 97535; 97537 ==

== ENCOUNTER → 2024-05-12 10:36 | Outpatient (REF) | payer OTHER, SELFPAY | LOC: RCS 10:36 | PROVIDERS: ATTENDING PHYSICIAN Nurse Practitioner; FAMILY PHYSICIAN Family Medicine | DX: I25.5 Ischemic cardiomyopathy (principal) | CPT/HCPCS: 93306 ==

== ENCOUNTER → 2024-09-09 13:00 | Outpatient (REF) | payer OTHER, SELFPAY | LOC: RCS 13:00 | PROVIDERS: ATTENDING PHYSICIAN Physician Assistant | DX: I50.20 Unspecified systolic (congestive) heart failure (principal); I25.10 Atherosclerotic heart disease of native coronary artery without angina pectoris | CPT/HCPCS: 93306 ==

== ENCOUNTER 2024-09-18 08:49 | Day surgery (SDC) | payer OTHER, SELFPAY ==
[2024-09-16 10:29] VITALS: BMI 26.4
[2024-09-18] VITALS (7 sets, daily range): BP systolic 117–130; BP diastolic 52–68
--- NOTE | 2024-09-18 21:15 | ITS.CL.PN ---
[facility] - Procedure Note
Procedure
Procedure Note:
CARDIAC CATHETERIZATION REPORT
Date of Procedure: 09/18/2024
Referring: Dr. Azeem Horton MD, PhD
Indication: Newly reduced ejection fraction,
PROCEDURE(S)
1. right heart catheterization
2. left heart catheterization
3. coronary angiography
ACCESS
1. 6F right radial artery (closure: radial band)
2. 5F right antecubital vein (closure: manual hemostasis)
CATHETERS
1. 5F [place]
2. 6F JR4
3. 6F JL3.5
MODERATE SEDATION: 25 minutes of moderate sedation was utilized. An independent medical supervisor was present to assist with and help manage the patient's level of consciousness and physiologic status.
HEMODYNAMIC DATA
AO 127/63 (mean 87) mmHg
RA 15 mmHg
RV 43/9 (EDP 19) mmHg
PA 44/24 (mean 32) mmHg
PCWP 25 mmHg
SaO2 95.8 point %
SvO2 59.6%
Hb 9.2 g/dL
CO/CI 4.85/2.76 L/min/m2
SVR 1187 dsc*-5
PVR 1.4 Wood units
CORONARY ANGIOGRAPHY
Dominance: Right
LM: Large with mild disease
LAD: Ostially occluded with the mid to distal vessel fed via left to left collaterals from the circumflex.
LCx: Large vessel giving rise to a moderate caliber OM1, moderate caliber OM2, and large OM3. There is focal ostial narrowing at the OM1 and OM2 takeoff of approximately 50% and otherwise mild nonobstructive disease.
RCA: Totally occluded proximally. The RPDA is fed via L-R collaterals.
RADIATION: dose 199 mGy; DAP 12.2 Gy*cm2; fluoroscopy time 3.6 min
CONCLUSIONS
1. Moderately elevated biventricular filling pressures, moderate postcapillary pulmonary hypertension, and normal cardiac output.
2. Severe coronary artery disease with new finding of chronically occluded prior RCA stent with the RPDA fed via [id number] collaterals.
RECOMMENDATIONS
1. Continued medical management of ischemic cardiomyopathy. Will increase beta-alejandro and consider outpatient ekg monitor tech to assess PVC burden. Once GDMT optimized will consider ICD if no improvement in EF. If patient with intractable symptoms
attributable to coronary ischemia, could consider INFORMATICS PHYSICIAN PCI of LAD.
2. Aggressive secondary prevention of coronary artery disease
3. Continue DAPT with aspirin and Plavix. Given patient's anemia, time from prior stenting approaching 1 year (and stents no longer viable) will consider transition to single antiplatelet therapy in near future.
Copy to: Dr. Lesa Kaur MD (PCP)
Signed: Azeem Arellano MD, PhD
== END 2024-09-18 15:58 | disposition home or self-care (01) ==
LOC: CATH 08:49
PROVIDERS: ATTENDING PHYSICIAN Student in an Organized Health Care Education/Training Program; FAMILY PHYSICIAN Family Medicine
DX: I25.5 Ischemic cardiomyopathy (principal); I25.10 Atherosclerotic heart disease of native coronary artery without angina pectoris; Z95.5 Presence of coronary angioplasty implant and graft; I27.29 Other secondary pulmonary hypertension; Z79.82 Long term (current) use of aspirin; Z79.02 Long term (current) use of antithrombotics/antiplatelets; Z79.890 Hormone replacement therapy; Z79.899 Other long term (current) drug therapy
CPT/HCPCS: 99152; 99153; 93005; 93456; 93460; C1894; Q9967

== ENCOUNTER → 2024-09-22 09:35 | Outpatient (REF) | payer OTHER, SELFPAY | LOC: DHVS 09:35 | PROVIDERS: ATTENDING PHYSICIAN Surgery Vascular Surgery | DX: S75.001D Unspecified injury of femoral artery, right leg, subsequent encounter (principal) | CPT/HCPCS: 93922 ==

== ENCOUNTER → 2024-09-25 15:35 | Outpatient (REF) | payer OTHER, SELFPAY ==
[2024-09-25 17:01] LABS: % Basophils 1.6 % (0-2); % Eosinophils 6.1 % (0-6); % Immature Granulocytes 0.2 % (0-0.5); % Lymphocytes 28.9 % (20.5-51.1); % Monocytes 13.9 % (1.7-9.3); % Neutrophils 49.3 % (42.2-75.2); Absolute Basophils 0.1 10^3/uL (0-0.2); Absolute Eosinophils 0.3 10^3/uL (0-0.7); Absolute Lymphocytes 1.4 10^3/uL (1.2-3.4); Absolute Monocytes 0.7 10^3/uL (0.1-0.6); Absolute Neutrophils 2.4 10^3/uL (1.4-6.5); Hematocrit 30.8 % (37.0-47.0); Mean Corp Hgb Conc. 32.5 g/dL (33.0-37.0); Mean Corpuscular Hgb 27.9 pg (27.0-31.0); Mean Corpuscular Volume 85.8 fL (81.0-99.0); Mean Platelet Volume 10.9 fL (7.4-10.4); Nucleated Red Blood Cells % 0 %; Platelet Count 207 10^3/uL (130-400); Red Blood Cell Count 3.59 10^6/uL (4.20-5.40); Red Cell Dist. Width 25.4 % (11.5-14.5)
[2024-09-25 17:14] LABS: ALT (SGPT) 32 U/L (0-35); AST (SGOT) 53 U/L (14-36); Alkaline Phosphatase 130 U/L (38-126); Blood Urea Nitrogen 16 mg/dl (7-17); Calcium 9.1 mg/dl (8.4-10.2); Carbon Dioxide 21 mmol/L (22-30); Chloride 112 mmol/L (98-107); Glucose 97 mg/dl (70-99); Potassium 4.5 mmol/L (3.5-5.1); Sodium 141 mmol/L (135-145); Total Bilirubin 0.5 mg/dl (0.2-1.3); Total Protein 7.3 g/dl (6.3-8.2); eGFR > 60.00
[2024-09-25 17:18] LABS: NT-proBNP 6020 pg/ml
[2024-09-25 17:35] LABS: Anisocytosis 2+; Normal RBC Morphology No
[2024-09-25 17:36] LABS: Hypochromasia 1+; Microcytosis 1+; Target Cells Occasional
[2024-09-25 17:37] LABS: Ovalocytes 1+
== END ==
LOC: RAD 15:35
PROVIDERS: ATTENDING PHYSICIAN Physician Assistant; FAMILY PHYSICIAN Family Medicine
DX: R60.0 Localized edema (principal); I50.20 Unspecified systolic (congestive) heart failure
CPT/HCPCS: 36415; 71046; 80053; 83880; 85025

== ENCOUNTER → 2024-11-18 07:56 | Outpatient (REF) | payer OTHER, SELFPAY | LOC: RCS 07:56 | PROVIDERS: ATTENDING PHYSICIAN Student in an Organized Health Care Education/Training Program; FAMILY PHYSICIAN Family Medicine | DX: I25.5 Ischemic cardiomyopathy (principal) | CPT/HCPCS: 93308; 93321; 93325 ==

== ENCOUNTER 2024-12-04 09:19 | Day surgery (SDC) | payer OTHER, SELFPAY ==
[2024-12-04] VITALS (9 sets, daily range): BP systolic 87–117; BP diastolic 44–60; BMI 25.0
--- NOTE | 2024-12-04 08:55 | W.ICD.CONTRA ---
Post ICD/MACHINE PLASTER MIXER-D
-
History of MS?: Yes
LV Function
Left ventricular function study result?: Ejection Fraction </= 35%
ACEI/ARB/ARNI
Patient already on ACEI/ARB/ARNI: Yes
Beta-Rosas
Patient already on Beta Rosas: Yes
--- NOTE | 2024-12-04 15:22 | W.PN.UPDATE ---
Update Note
Progress Note Update
79 yo WF s/p ICD implant (Same day). She denies inc pain, site stable with pressure dressing intact, EKG Apaced, , CXR no PTX. She will continue GDMT for HFrEF. ACtivity restrictions reviewed. She will have incision check apt in 1 week. She is for
d/c home after 4pm and abx dose given.
[2024-12-04] MEDS: ANCEF 5 IV (15:26)
--- NOTE | 2024-12-04 16:00 | ITS.CL.ICD ---
[employer] - ICD
Implantable Cardioverter Defibrillator
Procedure Report:
Date of Procedure: December 04, 2024.
Procedures: Dual chamber Medtronic transvenous ICD implant.
Indication: Primary prevention ICD. NYHA heart failure class: 2 for more than 3 months. LVEF 25-30%. QRS duration 100 ms without bundle branch block. No VT/VF history. Ischemic cardiomyopathy with prior RI. Life expectancy exceeds 1 year. An
atrial lead was placed because significant sinus bradycardia limited up-titration of beta alejandro.
Performing physician: Young Michael MD, [facility].
Implants:
Pulse Generator: Medtronic; Model# [id number]; Serial# [id number].
Atrial Lead: Medtronic: Model# [id number]; Serial# [id number].
Right Ventricular Lead: Medtronic; Model# [id number]; Serial# [id number].
Technique: A time out was performed. A 10 mL upper extremity venogram demonstrated patent left cephalic, axillary, and subclavian veins. The procedure site was identified. The patient was anesthetized by the anesthesia service. Preoperative
cefazolin was administered. The patient was prepped and draped in the usual fashion. Local anesthetic was applied to the left prepectoral subcutaneous tissue. A 3 inch incision was made along the left deltopectoral groove. Dissection was carried to
the fascia. The left cephalic vein not identified. The left axillary vein was accessed with a single micro- puncture without difficulty. A retained guide wire technique was employed. The ventricular lead was placed at the right ventricular apical
septum. The ventricular lead was secured to the pectoralis muscle and fascia with two 0-silk sutures. The atrial lead was then placed in the right atrial appendage. The atrial lead was secured to the pectoralis muscle and fascia with two 0-silk
sutures. 8 volt pacing did not capture the diaphragm from any lead. A subcutaneous pocket was created with blunt dissection. Hemostasis obtained with Bovie cautery as needed and hemostasis was excellent. The leads were appropriately attached to the
device. The pocket was irrigated with antibiotic solution. The device and leads were placed in the pocket.The generator was secured to the pectoralis muscle and fascia with 0-silk suture. The incision was closed in three layers with absorbable
suture. Steri-strips and a a silver impregnated dressing were placed. Estimated blood loss 10 ml. There were no complications. Fluoroscopy time: 5.4 minutes and DAP 1.74 GyCM2. The device was then interrogated after skin closure.
System Analysis:
RA lead: P: 2.6 mV; Threshold: 1 V @ 0.4 ms; Impedance: 460 ohms.
RV lead: R: 7 mV; Threshold: 0.6 V @ 0.4 ms; Impedance: 490 ohms.
Final Programming: Tachy: VT/VF:188 bpm; Pablo: DDDR 60-130 bpm.
Conclusion: Uncomplicated dual chamber primary prevention ICD implant. The ICD system is MRI safe/conditional.
Recommendation: Routine post ICD care.
cc: Lesa Kaur MD and Azeem Arellano MD.
== END 2024-12-04 15:55 | disposition home or self-care (01) ==
LOC: CATH 09:19
PROVIDERS: ATTENDING PHYSICIAN Internal Medicine Cardiovascular Disease; FAMILY PHYSICIAN Family Medicine; REFERRING PHYSICIAN Student in an Organized Health Care Education/Training Program
DX: I50.22 Chronic systolic (congestive) heart failure (principal); I25.5 Ischemic cardiomyopathy; I25.2 Old myocardial infarction; I11.0 Hypertensive heart disease with heart failure; Z79.82 Long term (current) use of aspirin; Z79.890 Hormone replacement therapy; Z79.899 Other long term (current) drug therapy; E78.2 Mixed hyperlipidemia
CPT/HCPCS: 33249; 71045; 93005; C1721; C1777; C1898; Q9967

== ENCOUNTER 2024-12-13 10:15 | Emergency (ER) | payer OTHER, SELFPAY ==
[2024-12-13 10:20] VITALS: BP 136/69
[2024-12-13 10:55] LABS: Hematocrit 37.4 % (37.0-47.0); Hemoglobin 12.5 g/dL (12.0-16.0); Mean Corp Hgb Conc. 33.4 g/dL (33.0-37.0); Mean Corpuscular Volume 93.5 fL (81.0-99.0); Nucleated Red Blood Cells % 0 %; Platelet Count 177 10^3/uL (130-400); Red Cell Dist. Width 14.9 % (11.5-14.5)
[2024-12-13 11:02] LABS: INR 1.11; PT 14.6 Sec (11.4-14.6)
[2024-12-13 11:03] LABS: APTT 29.4 Sec (23.4-35.0)
[2024-12-13 11:08] LABS: ALT (SGPT) 104 U/L (0-35); AST (SGOT) 156 U/L (14-36); Albumin 4.2 g/dl (3.5-5.0); Alkaline Phosphatase 171 U/L (38-126); Blood Urea Nitrogen 23 mg/dl (7-17); Calcium 8.9 mg/dl (8.4-10.2); Carbon Dioxide 28 mmol/L (22-30); Chloride 107 mmol/L (98-107); Glucose 74 mg/dl (70-99); Potassium 4.0 mmol/L (3.5-5.1); Sodium 140 mmol/L (135-145); Total Protein 7.7 g/dl (6.3-8.2); eGFR > 60.00
[2024-12-13 11:18] LABS: Troponin I < 0.012 ng/ml
[2024-12-13 12:04] VITALS: BP 117/58
--- NOTE | 2024-12-13 12:11 | ED.GENMED ---
History of Present Illness
General
Chief Complaint: Cardiac Symptoms
Source: patient, records and spouse
Exam Limitations: none
Time Seen by Provider: 12/13/24 10:32
History of Present Illness
History of Present Illness:
79 female presents for feeling sweaty at the grocery store like she may pass out, she was cold, no chest pains, no fevers no dysuria or frequency had a cardiac cath recently and a defibrillator placed, does not believe she got any shocks states she
just did not feel right when she was at the grocery store feeling better now
Past History
Past History
ED Past Medical History: Arrthythmia, HTN and Hypercholesterolemia
ED Past Surgical History: Cardiac and Other (Cataracts bilateral)
Social History
Tobacco: Non-smoker
Alcohol: None
Drug: None
Personal:
Living: with family
Employment: Retired
Review of Systems
Review of Systems
All Other Systems: Not applicable
Constitutional: Reports fatigue; Denies fever, sleep disturbance or chills
EENT: Reports no symptoms
Respiratory: Reports no symptoms
Cardiac: Reports diaphoresis; Denies chest pain
ABD/GI: Reports no symptoms
: Reports no symptoms
Musculoskeletal: Reports no symptoms
Skin: Reports no symptoms
Neurological: Reports weakness
Phy Exam
Physical Exam
Physical Exam:
Physical Exam
General: no apparent distress, not acutely ill
Neck: No jaundice
Heart: s1/s2 regular rate and rhythm, no murmur. equal radial pulses.
Lungs: no acute respiratory distress. clear bilaterally
Abdomen: Nontender
Neuro: alert and oriented. no focal neurological deficits
Skin: no rash
Psychiatric: well kept. interactive and cooperative
Extremities: no edema.
Course
Orders/Labs/Results
Orders:
Orders
12/13/24 10:18
ECG [Electrocardiogram (*1)] Urgent
Reason for Study: Chest Pain
EKG- Treatment ONCE
12/13/24 10:43
Complete Blood Count/With Diff Urgent
Comprehensive Metabolic Panel Urgent
PT/INR [Prothrombin Time] Urgent
Is patient on Coumadin/Warfarin?: No
Comment: [email or web address]
PTT Urgent
Troponin I Urgent
12/13/24 12:15
Troponin I Urgent
12/13/24 12:25
Urinalysis Reflex To Culture Urgent
Date Specimen was Collected: 12/13/24
Time Specimen was Collected: 12:23
Urine Microscopic Reflex Cult Urgent
Urine Culture Urgent
LYLE Source: U
Specimen Description:
Date Specimen was Collected: 12/13/24
Time Specimen was Collected: 12:23
12/13/24 14:03
Troponin I Urgent
12/13/24 15:08
Add On- LAB Urgent
Tests Added?: dilantin
Abnormal Lab Results
12/13/24 12/13/24
10:43 12:25
RBC 4.00 L 10^6/uL
(4.20-5.40)
MCH 31.3 H pg
(27.0-31.0)
RDW 14.9 H %
(11.5-14.5)
Absolute Monos (auto) 1.6 H 10^3/uL
(0.1-0.6)
Lymphocytes % 13.8 L %
(20.5-51.1)
Monocytes % 16.5 H %
(1.7-9.3)
BUN 23 H mg/dl
(7-17)
AST 156 H U/L
(14-36)
ALT 104 H U/L
(0-35)
Alkaline Phosphatase 171 H U/L
(38-126)
Leukocyte Esterase Rfl 1+ A
(Negative)
Urine Glucose 3+ A
(Negative)
12/13/24 10:43
12/13/24 10:43
Vital Signs
Initial and Last Documented VS:
Initial Vital Signs
Pulse Resp BP Pulse Ox
63 18 136/69 100
12/13/24 10:20 12/13/24 10:20 12/13/24 10:20 12/13/24 10:20
Last Documented Vital Signs
Temp Pulse Resp BP Pulse Ox
97.2 F 60 13 103/58 98
12/13/24 12:06 12/13/24 14:00 12/13/24 14:00 12/13/24 14:00 12/13/24 14:15
MDM/Problems Addressed
Differential Diagnosis Includes:
Arrhythmia hypoglycemia electrolyte abnormality
MDM/Problems Addressed:
Weakness
Chronic conditions affecting care: Cardiomyopathy and Arrhythmia
Acute Exacerbation and/or Progression of Chronic Illness: Cardiomyopathy and Arrhythmia
*Pulse Oximetry
SaO2: 98
Oxygen Mode of Delivery: Room air
Patient hypoxic: no
*EKG
Interpreted by ED Provider?: Yes
Interpretation: normal
Comparison EKG: no comparison EKG present
Heart Rate: 78
Rate: normal
Rhythm: ventricular paced
Ischemia: non-specific ST changes
*Cigar Wrapper Tender Automatic Interpretation
Rate: normal
Interpretation: normal
Heart Rate: 78
Rhythm: sinus
*Critical Care Note
Total Time (30-74mins, 75-104mins- exclusive of procedures): Not Applicable
Update Note
Update Note:
2 PM update labs noted, prior cath noted patient asymptomatic here
No arrhythmia here, Medtronic report reviewed
3:10 PM update serial troponins noted patient looking well she does tell me that now that the symptoms could be similar to her prior petit mall seizures has had petit mall grand mal seizures she has been compliant with her phenytoin will check a
level
ED Attending Note
-
Portions of this chart may have been created with voice recognition software.� Occasional wrong word or��sound alike� substitutions may have occurred due to the inherent limitations of voice recognition software.
Discharge Plan
Departure
Patient Disposition: Home (Routine Discharge)
Date of Disposition: 12/13/24
Time of Disposition: 13:59
Patient with high blood pressure during this ER visit?: No
Condition: Good
Discharge Problem:
Epilepsy
Instructions: Chest Pain CBC Follow Up
Prescriptions:
No Action
levothyroxine [Synthroid] 125 mcg Tablet
125 mcg PO DAILY
ezetimibe 10 mg Tablet
10 mg PO QPM
rosuvastatin 40 mg Tablet
40 mg PO QPM
dapagliflozin propanediol [Farxiga] 10 mg Tablet
10 mg PO DAILY
sacubitril-valsartan [Entresto] 49-51 mg Tablet
1 tab PO BID
phenytoin sodium extended 100 mg capsule
300 mg PO Q48H
acetaminophen 500 mg Tablet
1,000 mg PO QID PRN (Reason: pain)
ferrous sulfate 325 mg (65 mg iron) Tablet
325 mg PO DAILY
aspirin 81 mg Tablet
81 mg PO DAILY
phenytoin sodium extended 100 mg Capsule
400 mg PO Q48H
carvedilol 6.25 mg Tablet
12.5 mg PO BID 30 Days Qty: 120 0RF
furosemide [Lasix] 40 mg Tablet
40 mg PO DAILY
loperamide 2 mg Capsule
2 mg DAILY
spironolactone 25 mg Tablet
12.5 mg PO DAILY 30 Days Qty: 15 0RF
Referrals:
Lesa Kaur MD [Family Provider, Family Practice] - Next open appointment
Young Michael MD [Active, Cardiology] - Next open appointment
Activity Restrictions/Additional Instructions:
Continue your medications as prescribed follow-up with your abatement worker and family doctor
Interventions
Interventions:
*Risk Screen - Suicide Last Done: 12/13/24 10:20
*General Assessment Last Done: 12/13/24 10:20
*Neglect/Abuse Screening Last Done: 12/13/24 10:45
*ED- Fall Risk Assessment Last Done: 12/13/24 10:46
*ED COVID-19 Vaccine History Last Done: 12/13/24 10:46
ED- Cardiac Assessment Last Done: 12/13/24 10:44
ED- Pulmonary Assessment Last Done: 12/13/24 10:44
Discharge Date and Time
Print Language: IVORIAN
[2024-12-13 12:31] LABS: Urine Character Clear (Clear)
[2024-12-13 12:38] LABS: Urine Red Blood Cell 0-2 /HPF (0-2)
[2024-12-13 13:00] VITALS: BP 104/57
[2024-12-13 13:11] LABS: Troponin I 0.017 ng/ml
[2024-12-13 14:00] VITALS: BP 103/58
[2024-12-13 14:36] LABS: Troponin I 0.019 ng/ml
[2024-12-13 15:24] VITALS: BP 115/63
== END 2024-12-13 15:41 | disposition home or self-care (01) ==
LOC: EMR 10:15
PROVIDERS: EMERGENCY PHYSICIAN Emergency Medicine; FAMILY PHYSICIAN Family Medicine
DX: G40.409 Other generalized epilepsy and epileptic syndromes, not intractable, without status epilepticus (principal); I10 Essential (primary) hypertension; E78.00 Pure hypercholesterolemia, unspecified; I42.9 Cardiomyopathy, unspecified; Z95.0 Presence of cardiac pacemaker
CPT/HCPCS: 99283; 80053; 81003; 81015; 84484; 85025; 85610; 85730; 87086; 93005

== ENCOUNTER 2025-01-19 10:17 | Emergency (ER) | payer OTHER, SELFPAY ==
[2025-01-19] VITALS (7 sets, daily range): BP systolic 93–125; BP diastolic 51–66; BMI 24.0
[2025-01-19 10:31] LABS: Glucose - Point of Care 89 mg/dl (70-99)
--- NOTE | 2025-01-19 10:46 | ED.GENMED ---
History of Present Illness
General
Chief Complaint: Dizziness
Source: patient
Exam Limitations: none
Time Seen by Provider: 01/19/25 10:18
Nursing documentation reviewed up to this point in time: agreed with
History of Present Illness
History of Present Illness:
Patient is a 79-year-old female with a history of [place] cardiac arrest, heart failure hypertension hemorrhagic stroke toxic metabolic encephalopathy multiple stents, seizures presents to the ER for evaluation of dizziness. Patient reports this morning
she woke up feeling fine after she took her medicine and felt dizzy. She describes this as feeling lightheaded. She drove to her dentist office and while arriving felt very lightheaded. She had no dental procedure they sat her in the chair and
gave her a granola kind bar and she did feel somewhat improved. She currently still feels' out of a little confused.' She denies any recent illness .
Patient is followed by Dr. Azeem Goldberg of cardiology and patient does have AICD that was placed 12/[address] Michael. for cardiomyopathy.
Past History
Past History
ED Past Medical History: Arrthythmia, HTN and Hypercholesterolemia
ED Past Surgical History: Cardiac and Other (Cataracts bilateral)
Social History
Tobacco: Non-smoker
Alcohol: None
Drug: None
Personal:
Living: with family
Employment: Retired
Phy Exam
General Physical Exam
General Presentation: no apparent distress
General age: appears stated age
General Skin: warm and dry
General Habitus: normal
General Mental: alert
General Hydration: appears well hydrated
Cardiovascular Exam
Cardiovascular Exam: regular rate/rhythm, no murmur and normal peripheral pulses
Pulmonary Exam
Pulmonary Exam: lungs clear and no respiratory distress
Neurological Exam
Neurological Exam: alert and oriented x3
Musculoskeletal Exam
Musculoskeletal Exam: full ROM
Skin Exam
Skin Exam: normal color and warm/dry
Course
Orders/Labs/Results
Orders:
Orders
01/19/25 10:25
Electrocardiogram (*1) Stat
Reason for Study: Other
Other Reason for Exam: chest pain
Cardiac Monitoring- Treatment ONCE
EKG- Treatment ONCE
IV Insert/Care/Rem.- Treatment PRN
01/19/25 10:40
CT Head W/o Iv Contrast Urgent
Comment:
Reason For Exam: dizziness
01/19/25 10:43
Basic Metabolic Panel Urgent
Complete Blood Count/With Diff Urgent
0.9% Sodium Chloride 1000 ml [Nss] 1,000 ml IV BOLUS
01/19/25 11:27
Troponin I Urgent
01/19/25 11:28
Potassium Urgent
01/19/25 11:30
Urinalysis Reflex To Culture Urgent
Date Specimen was Collected: 01/19/25
Time Specimen was Collected: 11:29
01/19/25 16:13
Add On- LAB Urgent
Tests Added?: dilantin level
01/19/25 16:20
Add On- LAB Urgent
Tests Added?: Dilantin Level
01/19/25 16:44
Dilantin Urgent
Abnormal Lab Results
01/19/25 01/19/25
10:43 11:30
MCH 31.6 H pg
(27.0-31.0)
RDW 14.6 H %
(11.5-14.5)
Absolute Monos (auto) 1.4 H 10^3/uL
(0.1-0.6)
Lymphocytes % 16.2 L %
(20.5-51.1)
Monocytes % 18.4 H %
(1.7-9.3)
BUN 30 H mg/dl
(7-17)
Urine Glucose 2+ A
(Negative)
01/19/25 10:43
01/19/25 11:28
Vital Signs
Initial and Last Documented VS:
Initial Vital Signs
Pulse Resp Pulse Ox
66 18 99
01/19/25 10:19 01/19/25 10:19 01/19/25 10:19
Last Documented Vital Signs
Temp Pulse Resp BP Pulse Ox
98.2 F 61 12 120/60 99
01/19/25 12:54 01/19/25 16:45 01/19/25 10:30 01/19/25 16:00 01/19/25 16:45
MDM/Problems Addressed
Differential Diagnosis Includes:
Not limited to lightheadedness dizziness electrolyte abnormality
MDM/Problems Addressed:
79 yr old female presents to the ER for evaluation of dizziness. She woke up this morning felt okay had breakfast and then prior to going to her dentist appointment felt dizzy. When she arrived to the dentist appointment she was also dizzy felt
sweaty and lightheaded. She was given a granola bar and felt better. She presented asymptomatic no complaints of chest pain shortness of breath she does have an AICD pacemaker that was placed 12/04/24.
at bedside reports patient had a similar episode a week after the ICD was placed.
I did review that ER chart and at that time patient did have similar symptoms she had a negative workup.
Patient has been asymptomatic herein the ER. BUN elevated. Patient was hydrated here feeling much better nml troponin.
ICD was interrogated no arrhythmias noted.
Dilantin level added on and pending at this time. Patient ambulated here in the ER without symptoms will wait Dilantin level and plan to discharge home. case d/c w DR Linda will d/c with f/u by cardiology
*Radiology
Radiology exam reviewed: radiology read reviewed
*Pulse Oximetry
SaO2: 99
Oxygen Mode of Delivery: Room air
Patient hypoxic: no
*EKG
Interpreted by ED Provider?: Yes
Heart Rate: 60
Rate: normal
Rhythm: other (Atrial paced)
*Critical Care Note
Total Time (30-74mins, 75-104mins- exclusive of procedures): Not Applicable
Data Reviewed
Review of Other/Old Records Reveals: Labs and Discharge Summary
Source: patient and spouse
ED Attending Note
-
Portions of this chart may have been created with voice recognition software.� Occasional wrong word or��sound alike� substitutions may have occurred due to the inherent limitations of voice recognition software.
Discharge Plan
Departure
Patient Disposition: Home (Routine Discharge)
Date of Disposition: 01/19/25
Time of Disposition: 17:17
Patient with high blood pressure during this ER visit?: No
Condition: Fair
Covid-19: Not Applicable
Discharge Problem:
Dizziness
Instructions: Dizziness
Prescriptions:
No Action
levothyroxine [Synthroid] 125 mcg Tablet
125 mcg PO DAILY
ezetimibe 10 mg Tablet
10 mg PO QPM
rosuvastatin 40 mg Tablet
40 mg PO QPM
dapagliflozin propanediol [Farxiga] 10 mg Tablet
10 mg PO DAILY
sacubitril-valsartan [Entresto] 49-51 mg Tablet
1 tab PO BID
phenytoin sodium extended 100 mg capsule
300 mg PO Q48H
acetaminophen 500 mg Tablet
1,000 mg PO QID PRN (Reason: pain)
ferrous sulfate 325 mg (65 mg iron) Tablet
325 mg PO DAILY
aspirin 81 mg Tablet
81 mg PO DAILY
phenytoin sodium extended 100 mg Capsule
400 mg PO Q48H
carvedilol 6.25 mg Tablet
12.5 mg PO BID 30 Days Qty: 120 0RF
furosemide [Lasix] 40 mg Tablet
40 mg PO DAILY
loperamide 2 mg Capsule
2 mg DAILY
spironolactone 25 mg Tablet
12.5 mg PO DAILY 30 Days Qty: 15 0RF
Referrals:
chan goldberg [Other]
Lesa Kaur MD [Family Provider, Family Practice]
Azeem Arellano MD [Active, Cardiology]
Activity Restrictions/Additional Instructions:
Follow-up with your pharmacovigilance safety expert for reevaluation .
return if any worsening of symptoms
Interventions
Interventions:
*Risk Screen - Suicide Last Done: 01/19/25 10:19
*General Assessment Last Done: 01/19/25 10:19
*Neglect/Abuse Screening Last Done: 01/19/25 10:19
*ED- Fall Risk Assessment Last Done: 01/19/25 10:19
*ED COVID-19 Vaccine History Last Done: 01/19/25 10:19
*ED Influenza Vaccine History Last Done: 01/19/25 10:19
*Nursing Disposition Last Done: 01/19/25 17:26
ED- Neurological Assessment Last Done: 01/19/25 10:19
Discharge Date and Time
Discharge Date/Time: 01/19/25 17:27
Print Language: SOMALI
[2025-01-19 10:56] LABS: Hematocrit 40.8 % (37.0-47.0); Hemoglobin 13.6 g/dL (12.0-16.0); Mean Corp Hgb Conc. 33.3 g/dL (33.0-37.0); Mean Corpuscular Volume 94.9 fL (81.0-99.0); Nucleated Red Blood Cells % 0 %; Platelet Count 206 10^3/uL (130-400); Red Cell Dist. Width 14.6 % (11.5-14.5)
[2025-01-19 11:20] LABS: Blood Urea Nitrogen 30 mg/dl (7-17); Calcium 9.1 mg/dl (8.4-10.2); Carbon Dioxide 26 mmol/L (22-30); Chloride 104 mmol/L (98-107); Estimated Creatinine Clearance 53 ml/min; Glucose 85 mg/dl (70-99); Sodium 138 mmol/L (135-145); eGFR > 60.00
[2025-01-19] MEDS: NSS 1000 IV (11:24)
[2025-01-19 11:54] LABS: Urine Character Clear (Clear)
[2025-01-19 12:04] LABS: Potassium 4.3 mmol/L (3.5-5.1)
[2025-01-19 12:21] LABS: Troponin I < 0.012 ng/ml
== END 2025-01-19 17:27 | disposition home or self-care (01) ==
LOC: EMR 10:17
PROVIDERS: Nurse Practitioner; EMERGENCY PHYSICIAN Student in an Organized Health Care Education/Training Program; FAMILY PHYSICIAN Family Medicine
DX: R42 Dizziness and giddiness (principal); I42.9 Cardiomyopathy, unspecified; I11.0 Hypertensive heart disease with heart failure; I50.9 Heart failure, unspecified; E78.00 Pure hypercholesterolemia, unspecified; I25.2 Old myocardial infarction; Z86.74 Personal history of sudden cardiac arrest; Z95.810 Presence of automatic (implantable) cardiac defibrillator; Z95.5 Presence of coronary angioplasty implant and graft; Z86.73 Personal history of transient ischemic attack (TIA), and cerebral infarction without residual deficits
CPT/HCPCS: 99284; 96360; 70450; 80048; 80185; 81003; 82962; 84132; 84484; 85025; 93005

== ENCOUNTER → 2025-04-05 08:06 | Outpatient (REF) | payer OTHER, SELFPAY | LOC: RAD 08:06 | PROVIDERS: ATTENDING PHYSICIAN Registered Nurse; FAMILY PHYSICIAN Family Medicine | DX: S75.001D Unspecified injury of femoral artery, right leg, subsequent encounter (principal) | CPT/HCPCS: 93922 ==